=== PATIENT | male | born 1935 | race Caucasian/White ===

== ENCOUNTER 2018-08-01 13:08 | Emergency (ER) | payer MEDICARE, BC ==
[2018-08-01 13:19] VITALS: PULSE 57; TEMP 98.6
[2018-08-01] MEDS ORDERED: MORPHINE SULFATE 4 MG/ML SYRINGE IVP STA (13:32)
[2018-08-01] MEDS ORDERED: ceFAZolin 2,000 MG in DEXTROSE/WATER 1 50ML.BAG IVPB STA (13:32)
[2018-08-01] MEDS ORDERED: LIDOCAINE 1% INJ 10MG/ML (20 ML MDV) SQ ONE (13:34)
[2018-08-01] MEDS ORDERED: ceFAZolin IN SWFI 2 GM/20 ML SYRINGE IVP STA (13:35)
--- NOTE | 2018-08-01 13:49 | ED ---
Wound/Laceration HPI - General Chief Complaint: Wound/Laceration Stated Complaint: laceration on ring finger from planer Time Seen by Provider: 08/01/18 13:18 Source: patient Mode of arrival: ambulatory Limitations: no limitations - History of Present Illness Initial Comments: 83-year-old male with PMH of bladder cancer who presents today for chief complaint of laceration to the ring and middle finger of the left hand about 20 minutes prior to arrival. Patient states that he was working with tools at his home when one of the woodworking tools slipped cutting the tip off the left ring and middle fingers. Patient states he could not locate the tips of fingers. Patient is unsure of her last tetanus. Patient is not on any anticoagulants. He applied pressure and presented emergency department. Pt admits to pain at the site of lacerations, but no pain in other areas of the hands or wrists. Patient denies any recent fever, chills, shortness of breath, chest pain, back pain, abdominal pain, nausea or vomiting, numbness or tingling , dysuria or hematuria, constipation or diarrhea, headaches or visual changes, or any other complaints. Upon arrival patient's vital signs stable. - Related Data Previous Rx's Medication Instructions Recorded Acetaminophen with Codeine 1 tab PO Q6H PRN 3 Days #12 tab 08/01/18 [Tylenol w/codeine #3] Cephalexin [Keflex] 500 mg PO Q8HR 7 Days #21 cap 08/01/18 Allergies Allergy/AdvReac Type Severity Reaction Status Date / Time No Known Allergies Allergy Verified 08/01/18 13:17 Review of Systems ROS Statement: Those systems with pertinent positive or pertinent negative responses have been documented in the HPI. ROS Other: All systems not noted in ROS Statement are negative. Constitutional: Denies: fever, chills, night sweats Eyes: Denies: eye pain ENT: Denies: ear pain, throat pain, dental pain Respiratory: Denies: cough, dyspnea, wheezes, hemoptysis, stridor Cardiovascular: Denies: chest pain, palpitations, dyspnea on exertion Endocrine: Denies: fatigue Gastrointestinal: Denies: abdominal pain, nausea, vomiting, diarrhea, constipation Genitourinary: Denies: urgency, dysuria, frequency Musculoskeletal: Denies: back pain Skin: Reports: as per HPI (laceration tips of ring and middle finger of the left hand) Neurological: Denies: headache, weakness, numbness, paresthesias, confusion, abnormal gait Past Medical History Past Medical History: Hyperlipidemia History of Any Multi-Drug Resistant Organisms: None Reported Past Surgical History: No Surgical Hx Reported Past Psychological History: No Psychological Hx Reported Smoking Status: Never smoker Past Alcohol Use History: Occasional Past Drug Use History: None Reported General Exam - General Exam Comments Initial Comments: General: The patient is awake and alert, in no distress, and does not appear acutely ill. Eye: Pupils are equal, round and reactive to light, extra-ocular movements are intact. No nystagmus. There is normal conjunctiva bilaterally. No signs of icterus. Cardiovascular: There is a regular rate and rhythm. No murmur, rub or gallop is appreciated. Respiratory: Lungs are clear to auscultation, respirations are non-labored, breath sounds are equal. No wheezes, stridor, rales, or rhonchi. Musculoskeletal: Normal ROM, no tenderness. Strength 5/5. Sensation intact. Pulses equal bilaterally 2+. Neurological: A&O x 3. CN II-XII intact, There are no obvious motor or sensory deficits. Coordination appears grossly intact. Speech is normal. Skin: Skin is warm and dry and no rashes or lesions are noted. Finger tip avulsions distal to the DIP joints of the ring and middle finger of the left hand. There is avulsion without flap at the middle finger and avulsion with flap of the ring finger. Pt denies pain to palpation of MCP, metacarpals or carpals of the left hand. No active bleeding. No evidence of FB. Psychiatric: Cooperative, appropriate mood & affect, normal judgment. Limitations: no limitations Course Vital Signs 08/01/18 08/01/18 13:15 15:10 Temperature 98.6 F Pulse Rate 57 L Respiratory 18 16 Rate Blood Pressure 177/60 184/81 O2 Sat by Pulse 98 99 Oximetry Procedures - Laceration Laceration #1 Consent Obtained: verbal consent Time Out Performed: Yes Indication: laceration Site: hand (left avulsion of fingertip ring finger) Size (cm): 3 (emacerated skin) Description: avulsion, irregular Depth: [id number] Anesthesia Technique: nerve block Amount (mls): 5 Pre-repair: wound explored, irrigated extensively Type of Sutures: nylon Size of Sutures: 5-0 Number of Sutures: 3 Technique: simple, interrupted Patient Tolerated Procedure: well, no complications Additional Comments: 1l irrigation, gel foam and bacitracin applied with sterile bandage following approximation Laceration #2 Consent Obtained: verbal consent Time Out Performed: Yes Indication: laceration Site: hand (middle finger avulsion ) Size (cm): 3 Description: avulsion, irregular Depth: [id number] Amount (mls): 5 Type of Sutures: nylon Size of Sutures: 5-0 Number of Sutures: 3 Technique: simple, interrupted Patient Tolerated Procedure: well, no complications Additional Comments: irrigated 1l, gel foam and bacitracin applied Medical Decision Making - Medical Decision Making Wound soaked in iodine/water solution and assessed. Concern for tuff fractures on exam, pt given 2g ancef and morphine 2mg for pain mgmt. Tdap updated. X-ray revealed compound comminuted fractures of the distal phalanges of the left middle and ring fingers. Avulsion with flap was repaired however the tissue was emacerated at the tips of the finger, approximation was completed to the best of my ability. After irrigation with 2L of sterile water. Pt will be discharged with orthopedic follow-up within the next 24 hours on outpatient RX of keflex and tylenol #3 for pain mgmt. There was mild residual bleeding following wound repair gel foam applied and wound was bandaged and finger splints applied. Case discussed with Dr. Arzate who agreed with impression and plan, all imaging was reviewed together. Pt discharged in stable condition with return parameters discussed including bleeding. Pt verbalized understanding. Patient is aware that he has to make his appointment with [facility]. Disposition Clinical Impression: Open fracture of distal phalanx of digit of left hand Disposition: HOME SELF-CARE Condition: Good Instructions: Finger Fracture (ED) Additional Instructions: Please use medication as discussed. Please follow-up with Dr. Bernstein in the next 24 hours and primary care provider in 1-2 days. Please return to emergency room if the symptoms increase or worsen or for any other concerns, continued bleeding. Prescriptions: Acetaminophen with Codeine [Tylenol w/codeine #3] 1 tab PO Q6H PRN 3 Days #12 tab PRN Reason: Pain Cephalexin [Keflex] 500 mg PO Q8HR 7 Days #21 cap Is patient prescribed a controlled substance at d/c from ED?: Yes When asked, does pt state using other controlled substances?: No If prescribed controlled substance>3 days was MAPS reviewed?: Prescribed <3 Days If opioid is for acute pain is fill amount 7 days or less?: Yes If Rx opioid, was Start Talking consent form obtained?: Yes Referrals: Matias Belle MD [Primary Care Provider] - 1-2 days Morgan Melendez MD [Medical Doctor] - 1-2 days Time of Disposition: 15:33
--- NOTE | 2018-08-01 13:55 | XR ---
EXAMINATION TYPE: XR hand limited LT , 2 VIEWS DATE OF EXAM ORDERED: 08/01/2018 HISTORY: finger tip avulsion. COMPARISON: None. FINDINGS: Fractures of both the long and ring fingers of the left hand. These are compound comminuted fractures . There are diffuse degenerative changes about the hands particularly at the base of the thumb. IMPRESSION: COMPOUND COMMINUTED FRACTURES OF THE DISTAL PHALANGES OF THE LEFT LONG AND RING FINGERS. CODE B: INITIAL ENCOUNTER FOR OPEN FRACTURE TYPE ONE OR 2.
[2018-08-01 15:11] VITALS: BP 184/81; RESP 16
[2018-08-01] MEDS ORDERED: DIPH,PERTUS(ACELL)TETVAC-LF 0.5 ML VIAL IM ONE (15:12)
[2018-08-01] MEDS ORDERED: GELATIN SPONGE,ABSORB (LARGE) 1 EACH SPONGE TOPICAL STA (15:17)
== END 2018-08-01 15:56 | disposition home or self-care (01) ==
LOC: EC 13:08
DX: S62.633B Displaced fracture of distal phalanx of left middle finger, initial encounter for open fracture (principal); S62.635B Displaced fracture of distal phalanx of left ring finger, initial encounter for open fracture; Z23 Encounter for immunization; W27.8XXA Contact with other nonpowered hand tool, initial encounter; Y93.89 Activity, other specified; Y92.009 Unspecified place in unspecified non-institutional (private) residence as the place of occurrence of the external cause
CPT/HCPCS: 73120; 90715; 99283; 12002; 96374; 96375; 90471; J2270; J2001; J0690

== ENCOUNTER 2020-09-14 11:15 | Inpatient (IN) | payer MEDICARE, BC ==
--- NOTE | 2020-09-14 11:45 | ED ---
SOB HPI - General Chief Complaint: Shortness of Breath Stated Complaint: abn EKG Time Seen by Provider: 09/14/20 11:25 Source: patient, RN notes reviewed Mode of arrival: wheelchair Limitations: no limitations - History of Present Illness Initial Comments: This is an 85-year-old male presents emergency Department from urgent care with chief complaint of dyspnea, leg swelling. Patient states been having increasing shortness of breath. Patient states that he has no chest pain but states when he exerts himself and states that he gets tightness, feels short of breath and has to sit down which then it resolves. Patient states he only takes Zocor no history of RI or stents. Patient has no prior pulmonary disease. He does note that his legs have been swollen and that he uses a couple pills to sleep at nighttime. Patient states that he does get short of breath and it makes it difficult to complete a sentence. - Related Data Home Medications Medication Instructions Recorded Confirmed Finasteride [Proscar] 5 mg PO DAILY 09/14/20 09/14/20 Simvastatin [Zocor] 40 mg PO HS 09/14/20 09/14/20 Allergies Allergy/AdvReac Type Severity Reaction Status Date / Time No Known Allergies Allergy Verified 09/14/20 13:16 Review of Systems ROS Statement: Those systems with pertinent positive or pertinent negative responses have been documented in the HPI. ROS Other: All systems not noted in ROS Statement are negative. Past Medical History Past Medical History: Hyperlipidemia History of Any Multi-Drug Resistant Organisms: None Reported Past Surgical History: No Surgical Hx Reported Past Psychological History: No Psychological Hx Reported Smoking Status: Never smoker Past Alcohol Use History: Occasional Past Drug Use History: None Reported General Exam Limitations: no limitations General appearance: alert, in no apparent distress Head exam: Present: atraumatic, normocephalic, normal inspection Eye exam: Present: normal appearance, PERRL, EOMI. Absent: scleral icterus, conjunctival injection, periorbital swelling ENT exam: Present: normal exam, normal oropharynx, mucous membranes moist Neck exam: Present: normal inspection, full ROM. Absent: tenderness, meningismus, lymphadenopathy Respiratory exam: Present: normal lung sounds bilaterally. Absent: respiratory distress, wheezes, rales, rhonchi, stridor Cardiovascular Exam: Present: regular rate, normal rhythm, normal heart sounds. Absent: systolic murmur, diastolic murmur, rubs, gallop, clicks GI/Abdominal exam: Present: soft, normal bowel sounds. Absent: distended, tenderness, guarding, rebound, rigid Extremities exam: Present: pedal edema Neurological exam: Present: alert, oriented X3 Skin exam: Present: warm, dry, intact, normal color. Absent: rash Course Vital Signs 09/14/20 09/14/20 09/14/20 11:17 12:10 13:16 Temperature 98.1 F Pulse Rate 84 71 71 Respiratory 18 18 20 Rate Blood Pressure 156/88 164/82 151/75 O2 Sat by Pulse 97 99 99 Oximetry 09/14/20 09/14/20 13:36 13:38 Temperature 97.7 F Pulse Rate 87 Respiratory 24 Rate Blood Pressure 190/96 168/85 O2 Sat by Pulse 95 Oximetry Medical Decision Making - Medical Decision Making 85-year-old presented for exertional dyspnea . Patient does have mild fluid overload, BMP is low at 56. Patient does have an elevated troponin 0.133. Patient will be admitted for evaluation, echocardiogram. - Lab Data Result diagrams: 09/14/20 12:10 09/14/20 12:10 Lab Results 09/14/20 09/14/20 09/14/20 Range/Units 12:10 12:10 12:10 WBC 6.3 (3.8-10.6) k/uL RBC 4.08 L (4.30-5.90) m/uL Hgb 14.1 (13.0-17.5) gm/dL Hct 42.5 (39.0-53.0) % MCV 104.1 H (80.0-100.0) fL MCH 34.6 (25.0-35.0) pg MCHC 33.3 (31.0-37.0) g/dL RDW 12.7 (11.5-15.5) % Plt Count 181 (150-450) k/uL MPV 10.5 Neutrophils % (Manual) 74 % Lymphocytes % (Manual) 18 % Monocytes % (Manual) 7 % Eosinophils % (Manual) 1 % Neutrophils # (Manual) 4.66 (1.3-7.7) k/uL Lymphocytes # (Manual) 1.13 (1.0-4.8) k/uL Monocytes # (Manual) 0.44 (0-1.0) k/uL Eosinophils # (Manual) 0.06 (0-0.7) k/uL Nucleated RBCs 0 (0-0) /100 WBC Manual Slide Review Performed Macrocytosis Slight PT 10.8 (9.0-12.0) sec INR 1.1 (<1.2) APTT 25.5 (22.0-30.0) sec Sodium 139 (137-145) mmol/L Potassium 4.3 (3.5-5.1) mmol/L Chloride 102 (98-107) mmol/L Carbon Dioxide 31 H (22-30) mmol/L Anion Gap 6 mmol/L BUN 18 (9-20) mg/dL Creatinine 0.86 (0.66-1.25) mg/dL Est GFR (CKD-EPI)AfAm >90 (>60 ml/min/1.73 sqM) Est GFR (CKD-EPI)NonAf 79 (>60 ml/min/1.73 sqM) Glucose 100 H (74-99) mg/dL Plasma Lactic Acid Oscar (0.7-2.0) mmol/L Calcium 8.9 (8.4-10.2) mg/dL Magnesium 2.1 (1.6-2.3) mg/dL Total Bilirubin 0.6 (0.2-1.3) mg/dL AST 31 (17-59) U/L ALT 29 (4-49) U/L Alkaline Phosphatase 57 (38-126) U/L Troponin I (0.000-0.034) ng/mL NT-Pro-B Natriuret Pep pg/mL Total Protein 6.8 (6.3-8.2) g/dL Albumin 4.1 (3.5-5.0) g/dL 09/14/20 09/14/20 09/14/20 Range/Units 12:10 12:10 12:10 WBC (3.8-10.6) k/uL RBC (4.30-5.90) m/uL Hgb (13.0-17.5) gm/dL Hct (39.0-53.0) % MCV (80.0-100.0) fL MCH (25.0-35.0) pg MCHC (31.0-37.0) g/dL RDW (11.5-15.5) % Plt Count (150-450) k/uL MPV Neutrophils % (Manual) % Lymphocytes % (Manual) % Monocytes % (Manual) % Eosinophils % (Manual) % Neutrophils # (Manual) (1.3-7.7) k/uL Lymphocytes # (Manual) (1.0-4.8) k/uL Monocytes # (Manual) (0-1.0) k/uL Eosinophils # (Manual) (0-0.7) k/uL Nucleated RBCs (0-0) /100 WBC Manual Slide Review Macrocytosis PT (9.0-12.0) sec INR (<1.2) APTT (22.0-30.0) sec Sodium (137-145) mmol/L Potassium (3.5-5.1) mmol/L Chloride (98-107) mmol/L Carbon Dioxide (22-30) mmol/L Anion Gap mmol/L BUN (9-20) mg/dL Creatinine (0.66-1.25) mg/dL Est GFR (CKD-EPI)AfAm (>60 ml/min/1.73 sqM) Est GFR (CKD-EPI)NonAf (>60 ml/min/1.73 sqM) Glucose (74-99) mg/dL Plasma Lactic Acid Oscar 1.2 (0.7-2.0) mmol/L Calcium (8.4-10.2) mg/dL Magnesium (1.6-2.3) mg/dL Total Bilirubin (0.2-1.3) mg/dL AST (17-59) U/L ALT (4-49) U/L Alkaline Phosphatase (38-126) U/L Troponin I 0.133 H* (0.000-0.034) ng/mL NT-Pro-B Natriuret Pep 586 pg/mL Total Protein (6.3-8.2) g/dL Albumin (3.5-5.0) g/dL Critical Care Time Critical Care Time: Yes Total Critical Care Time: 35 Critical Care Time: 35 minutes of critical care, use initial evaluation patient, reviewed past medical history, ordered and labs EKG and chest x-ray. Patient found to have NSTEMI with an elevated troponin at 0.133, mild fluid overload on chest x-ray. Patient be admitted for cardiology, echocardiogram. Patient was placed on heparin. Disposition Clinical Impression: Exertional dyspnea Disposition: ADMITTED IP TO THIS [facility] Condition: Fair Referrals: None,Stated [Primary Care Provider] - 1-2 days
--- NOTE | 2020-09-14 12:16 | XR ---
EXAMINATION TYPE: XR chest 2V DATE OF EXAM: 09/14/2020 COMPARISON: 10/09/2016 INDICATION: Difficulty breathing, short of breath TECHNIQUE: Frontal and lateral views of the chest are obtained. FINDINGS: The heart size is normal. The pulmonary vasculature is slightly prominent centrally. There is mild increased central lung markings.. There is blunting of the right costophrenic angle co mpatible with a small right pleural effusion IMPRESSION: 1. Clinical correlation recommended for mild volume overload. Follow-up can be performed. 2. Small right pleural effusion
[2020-09-14 12:32] LABS: HCT 42.5 % (39.0-53.0); HGB 14.1 gm/dL (13.0-17.5); MCH 34.6 pg (25.0-35.0); MCHC 33.3 g/dL (31.0-37.0); MCV 104.1 fL (80.0-100.0); Macrocytosis Slight; Mean Platelet Volume 10.5; Platelet Count 181 k/uL (150-450); RBC 4.08 m/uL (4.30-5.90); RDW 12.7 % (11.5-15.5); WBC 6.3 k/uL (3.8-10.6)
[2020-09-14 12:34] LABS: INR 1.1 (<1.2); Partial Thromboplastin Time 25.5 sec (22.0-30.0); Prothrombin Time 10.8 sec (9.0-12.0)
[2020-09-14 12:42] LABS: Eosinophils # (M) 0.06 k/uL (0-0.7); Lymphocytes # (M) 1.13 k/uL (1.0-4.8); Monocytes # (M) 0.44 k/uL (0-1.0); Neutrophils # (M) 4.66 k/uL (1.3-7.7); Neutrophils % (M) 74 %; Nucleated Red Blood Cells 0 /100 WBC (0-0); Total Cells Counted 100
[2020-09-14 12:43] LABS: ALT 29 U/L (4-49); AST 31 U/L (17-59); African American GFR (CKD) >90 (>60 ml/min/1.73 sqM); Albumin 4.1 g/dL (3.5-5.0); Alkaline Phosphatase 57 U/L (38-126); Anion Gap 6 mmol/L; Blood Urea Nitrogen 18 mg/dL (9-20); Calcium 8.9 mg/dL (8.4-10.2); Carbon Dioxide 31 mmol/L (22-30); Chloride 102 mmol/L (98-107); Glucose 100 mg/dL (74-99); Magnesium 2.1 mg/dL (1.6-2.3); Non-African American GFR(CKD) 79 (>60 ml/min/1.73 sqM); Potassium 4.3 mmol/L (3.5-5.1); Sodium 139 mmol/L (137-145); Total Bilirubin 0.6 mg/dL (0.2-1.3); Total Protein 6.8 g/dL (6.3-8.2)
[2020-09-14] MEDS ORDERED: HEPARIN SODIUM,PORCINE 5,000 UNIT/ML 1 ML VIAL IV ONE (13:50)
[2020-09-14] MEDS ORDERED: HEPARIN SODIUM,PORCINE 5,000 UNIT/ML 1 ML VIAL IV PRN (13:50)
[2020-09-14] MEDS ORDERED: NITROGLYCERIN SL TABS 0.4 MG TAB SUBLINGUAL PRN (13:50)
[2020-09-14] MEDS ORDERED: HEPARIN SOD,PORK IN 0.45% NACL 25,000 UNIT in 0.45% NACL 1 250ML.BAG IV SCH (14:00)
[2020-09-14 16:44] VITALS: RESP 18
--- NOTE | 2020-09-14 16:44 | ECHOF ---
Referral Reason:NSTEMI MEASUREMENTS -------- HEIGHT: 170.2 cm WEIGHT: 101.2 kg BP: 168/85 RVIDd: 3.6 cm (< 3.3) IVSd: 1.4 cm (0.6 - 1.1) LVIDd: 5.0 cm (3.9 - 5.3) LVPWd: 1.4 cm (0.6 - 1.1) IVSs: 1.6 cm LVIDs: 3.8 cm LVPWs: 1.7 cm LAESV Index (A-L): 40.29 ml/m Ao Diam: 2.7 cm (2.0 - 3.7) AV Cusp: 1.9 cm (1.5 - 2.6) MV EXCURSION: 18.811 mm (> 18.000) MV EF SLOPE: 152 mm/s (70 - 150) EPSS: 0.7 cm MV E Desean: 1.01 m/s MV DecT: 165 ms MV A Desean: 1.05 m/s MV E/A Ratio: 0.96 RAP: 5.00 mmHg RVSP: 42.73 mmHg FINDINGS -------- Sinus rhythm. This was a technically difficult study with suboptimal apical views. The left ventricular size is normal. There is moderate concentric left ventricular hypertrophy. O verall left ventricular systolic function is mildly impaired with, an EF between 45 - 50 %. Basal p osterior LV wall motion is hypokinetic. Basal inferior LV wall motion is hypokinetic. The right ventricle is mildly enlarged. LA is severely dilated >40 ml/m2 The right atrium is mildly enlarged. 5.0mg of Lumason was utilized for enhancement of images Interatrial and interventricular septum intact. The aortic valve is trileaflet and appears structurally normal. There is mild aortic valve sclerosi s. There is no evidence of aortic regurgitation. There is no evidence of aortic stenosis. Xgby-zy-mjbozqiv mitral regurgitation is present. Aenj-dk-guaahsrv tricuspid regurgitation present. There is mild to moderate pulmonary hypertension. The right ventricular systolic pressure, as measured by Doppler, is 42.73mmHg. There is no pulmonic regurgitation present. The aortic root size is normal. IVC Not well visulized. There is no pericardial effusion. CONCLUSIONS -------- 1. The left ventricular size is normal. 2. There is moderate concentric left ventricular hypertrophy. 3. Overall left ventricular systolic function is mildly impaired with, an EF between 45 - 50 %. 4. Basal posterior LV wall motion is hypokinetic. 5. Basal inferior LV wall motion is hypokinetic. 6. The right ventricle is mildly enlarged. 7. LA is severely dilated >40 ml/m2 8. The right atrium is mildly enlarged. 9. There is mild aortic valve sclerosis. 10. Npzn-cu-jnzgnaoh mitral regurgitation is present. 11. Jcow-vr-ymmxqgso tricuspid regurgitation present. 12. There is mild to moderate pulmonary hypertension. 13. The right ventricular systolic pressure, as measured by Doppler, is 42.73mmHg. OPTIMIZATION MANAGER: Vidya Aguirre RDCS
[2020-09-14] MEDS ORDERED: ATORVASTATIN 40 MG TAB PO SCH (21:00)
--- NOTE | 2020-09-14 21:04 | P.HPIM ---
History of Present Illness H&P Date: 09/14/20 Chief Complaint: Exertional dyspnea Patient is a 85-year-old male with a known history of hyperlipidemia, BPH and occasional alcohol use came to ER from urgent care clinic with complaints of dyspnea and leg swelling. Patient has been having worsening shortness of breath for the past 1 week. No complaints of chest pain. Patient does have exertional dyspnea. No complaints of cough or sputum production. Patient also noted to be having increased leg swelling recently. No fever no chills. No history of recent illnesses. No nausea vomiting or abdominal pain or diarrhea. Patient was seen at urgent care clinic and was also noted to have abnormal EKG and was sent to ER. Chest x-ray showed clinical correlation recommended for mild volume overload. Follow-up can be performed. Small right pleural effusion. 2D echocardiogram showed moderate concentric left ventricular hypertrophy and EF 45 to 50%. Basal posterior LV wall motion is hypokinetic. LA is severely d ilated mild to moderate MR and TR and right ventricular systolic pressure is 42.73 EKG showed normal sinus rhythm. Laboratory data showed WBC 6.3, hemoglobin 14.1 and platelets 181 Troponin 0 0.133, 0.141 and 0.144, BNP 586 Albumin 4.1 Review of Systems Constitutional: Patient denies any fever or chills . No generalized weakness or weight loss. Abdomen: Patient denied nausea vomiting and diarrhea and abdominal pain. Cardiovascular: Patient denied any chest pain. Exertional dyspnea and leg swelling. No palpitations. Respiratory: patient denied any cough or sputum production. No shortness of breath Neurologic: Patient denied any numbness or tingling headache. Musculoskeletal: Patient denies any complaints of joint swelling or deformity. Skin: Negative Psychiatric: Negative Endocrine: No heat or cold intolerance. No recent weight gain. Genitourinary: No dysuria or hematuria. All other 14 point ROS negative except the above Past Medical History Past Medical History: Hyperlipidemia History of Any Multi-Drug Resistant Organisms: None Reported Past Surgical History: No Surgical Hx Reported Past Psychological History: No Psychological Hx Reported Smoking Status: Never smoker Past Alcohol Use History: Occasional Past Drug Use History: None Reported - Past Family History Father Family Medical History: Myocardial Infarction (MD) Mother Family Medical History: Myocardial Infarction (MD) Medications and Allergies Home Medications Medication Instructions Recorded Confirmed Type Finasteride [Proscar] 5 mg PO DAILY 09/14/20 09/14/20 History Simvastatin [Zocor] 40 mg PO HS 09/14/20 09/14/20 History Allergies Allergy/AdvReac Type Severity Reaction Status Date / Time No Known Allergies Allergy Verified 09/14/20 13:16 Physical Exam Vitals: Vital Signs Temp Pulse Resp BP Pulse Ox 09/14/20 18:19 18 09/14/20 16:43 98.0 F 73 18 149/76 96 09/14/20 15:58 97.9 F 98 20 163/74 97 09/14/20 13:38 168/85 09/14/20 13:36 97.7 F 87 24 190/96 95 09/14/20 13:16 71 20 151/75 99 09/14/20 12:10 71 18 164/82 99 09/14/20 11:17 98.1 F 84 18 156/88 97 Intake and Output 09/14/20 09/14/20 09/14/20 06:59 14:59 22:59 Intake Total 29.541 Balance 29.541 Intake: Intake, IV Titration 29.541 Amount Heparin Sod,Pork in 0.45% 29.541 NaCl 25,000 unit In 0.45 % NaCl 1 250ml.bag @ 9.9 UNITS/KG/HR 10.014 mls/hr IV .Q24H [facility] Rx#: [id number] Other: Weight 101.151 kg 101.151 kg PHYSICAL EXAMINATION: Patient is lying in the bed comfortably, no acute distress, awake alert and oriented.. HEENT: Normocephalic. Neck is supple. Pupils reactive. Nostrils clear. Oral cavity is moist. Ears reveal no drainage. Neck reveals no JVD, carotid bruits, or thyromegaly. CHEST EXAMINATION: Trachea is central. Symmetrical expansion. Baseline diminished air entry and minimal crackles. No wheezing.. CARDIAC: Normal S1, S2 with no gallops. No murmurs ABDOMEN: Soft. Bowel sounds normal. No organomegaly. No abdominal bruits. Extremities: 2+ pedal edema. No clubbing or cyanosis Neurologically awake, alert, oriented x3 with well-coordinated movements. No focal deficits noted Skin: No rash or skin lesions. Psychiatric: Coperative. Nonsuicidal Musculoskeletal: No joint swelling or deformity. Normal range of motion. Results CBC & Chem 7: 09/14/20 12:10 09/14/20 12:10 Labs: Abnormal Lab Results - Last 24 Hours (Table) 09/14/20 09/14/20 09/14/20 Range/Units 12:10 12:10 12:10 RBC 4.08 L (4.30-5.90) m/uL MCV 104.1 H (80.0-100.0) fL APTT (22.0-30.0) sec Carbon Dioxide 31 H (22-30) mmol/L Glucose 100 H (74-99) mg/dL Troponin I 0.133 H* (0.000-0.034) ng/mL 09/14/20 09/14/20 09/14/20 Range/Units 15:08 18:01 18:01 RBC (4.30-5.90) m/uL MCV (80.0-100.0) fL APTT 87.5 H (22.0-30.0) sec Carbon Dioxide (22-30) mmol/L Glucose (74-99) mg/dL Troponin I 0.141 H* 0.144 H* (0.000-0.034) ng/mL Thrombosis Risk Factor Assmnt - DVT/VTE Prophylaxis DVT/VTE Prophylaxis: Pharmacologic Prophylaxis ordered - Choose All That Apply Each Risk Factor Represents 3 Points: Age 75 years or older Thrombosis Risk Factor Assessment Total Risk Factor Score: 3 Thrombosis Risk Factor Assessment Level: Moderate Risk Assessment and Plan Assessment: Acute non-ST elevated MD with elevated troponin level. Exertional dyspnea and leg swelling Acute CHF with mildly reduced ejection fraction. Mild to moderate MR and TR and severely dilated LA Pulmonary hypertension Hyperlipidemia BPH DVT prophylaxis patient is already on full anticoagulation Plan: Patient will be continued on telemetry monitoring. Continue with heparin drip and serial troponins. Cardiology was consulted. 2D echocardiogram was ordered which showed ejection fraction 45 to 50%. Patient will be given IV Lasix. Further recommendations based on the clinical course. Discussed with the patient and his at bedside in detail. Time with Patient: Greater than 30
[2020-09-14] MEDS ORDERED: FUROSEMIDE 10 MG/ML 2 ML VIAL IV ONE (21:15)
[2020-09-15] MEDS ORDERED: FINASTERIDE 5 MG TAB PO SCH (09:00)
[2020-09-15] MEDS ORDERED: ASPIRIN 325 MG TAB PO SCH (09:00)
[2020-09-15 09:18] LABS: Mean Platelet Volume 10.7; Platelet Count 166 k/uL (150-450)
[2020-09-15] MEDS ORDERED: METOPROLOL TARTRATE 12.5 MG TAB PO SCH (09:45)
[2020-09-15] MEDS ORDERED: FUROSEMIDE 40 MG TAB PO SCH (09:45)
[2020-09-15] MEDS ORDERED: POTASSIUM CHLORIDE ER 10 MEQ TAB.ER.PRT PO SCH (09:45)
[2020-09-15] MEDS ORDERED: LOSARTAN 50 MG TAB PO SCH (09:45)
[2020-09-15 10:15] VITALS: TEMP 97.2
--- NOTE | 2020-09-15 10:58 | P.CRDCN ---
History of Present Illness Consult date: 09/15/20 Reason for Consult (text): NSTEMI / Elevated Troponin Chief complaint: Shortnes of breath/bilateral lower leg swelling History of present illness: HISTORY OF PRESENT ILLNESS AND PLAN: This is a 85-year-old male with history of occasional EtOH use, BPH, hyperlipidemia and recent complaints of increasing shortness of breath for one week with increasing bilateral lower edema. Patient examined this a.m. at bedside in good spirits and alert/oriented 4. He originally presented to urgent care with complaints of increasing shortness of breath and leg swelling. EKG which showed changes at urgent care and patient was referred to ER. He currently sitting at the bedside with no current complaints of chest pain, chest pressure, shortness of breath or palpitations. BP this am 171/74. Afebrile. 95% on room air. DX of chest shows right pleural effusion and mild volume overload. Troponin elevation 0.133, 0.141, 0.144. BNP 586. Patient is currently sinus rhythm on telemetry heart rate currently 70. He was given 20 mg IV Lasix in the ER has diuresed well. Patient was down 4 kg. Patient states shortness of breath and lower extremity edema is much improved. Echo 09/14/2020 reveals EF mildly reduced at 40-45%, echo does reveal posterior LV wall hypokinesis and basal inferior LV wall hypokinesis. Patient continues with IV heparin. Again patient has no complaints of chest pain or discomfort. Patient has never followed with cardiology in the past. PCP was Dr. Dr. Belle who retired and patient has not met Dr. Gregg as of yet. Patient would like to go home. No DM. No current smoking. SIGNIFICANT PAST MEDICAL HISTORY: Occasional EtOH use, BPH, hyperlipidemia, hypertension PAST SURGICAL HISTORY: See list. EKG = Sinus Rhythm, HR 70 Troponins POSITIVE x 3, 0.133, 0.141, 0.144. SIGNIFICANT LABORATORY VALUES: no significant abnormalities Chest x-ray 09/14/20 = right pleural effusion and mild volume overload Most recent echo = EF 45-50%, moderate concentric LVH. Basal posterior LV wall motion is hypokinetic. Basal inferior LV wall motion is hypokinetic. Mild to moderate MR. Mild to moderate TR. Mild to moderate pulmonary hypertension. REVIEW OF SYSTEMS: CONSTITUTIONAL: Denies fever. Denies chills. EYES: Denies blurred vision. Denies blurred vision or vision changes. Denies eye pain. EARS, NOSE, MOUTH & THROAT: Denies headache. Denies sore throat. Denies ear pain Denies hemoptysis. CARDIOVASCULAR: Denies chest pain. Complains of prior shortness of breath, now improved. Denies orthopnea. Denies PND. Denies palpitations.Complains of bilateral lower extremity edema. RESPIRATORY: Denies cough. Complaints of prior shortness of breath, now improved. GASTROINTESTINAL: Denies abdominal pain or distention. Denies diarrhea. Denies constipation. Denies nausea. Denies vomiting. MUSCULOSKELETAL: Denies myalgias. INTEGUMENTARY: Denies pruitis. Denies rash. ENDOCRINE: Denies fatigue. Denies weight change. Denies polydipsia. Denies poly urina Denies heat/cold intolerance. GENITOURINARY: Denies burning, hematuria or urgency with micturation. HEMATOLOGIC: Denies history of anemia. Denies bleeding. NEUROLOGIC: Denies numbness. Denies tingling. Denies weakness. PSYCHIATRIC: Denies anxiety. Denies depression. PHYSICAL EXAM: GENERAL: Well developed, in no acute distress. HEENT: Head is atraumatic, normocephalic. Pupils are equal, round. Extra ocular movements intact. Mucous membranes moist. Neck supple. No JVD. No carotid bruit. No thyromegaly. LUNGS: Diminshed to auscultation bilaterally. No wheezes, rales or rhonchi. No chest wall tenderness on palpation or with deep breathing. HEART: Regular rate and rhythm, no rubs or gallops. S1 and S2 heard. No murmur. ABDOMEN: Abdominal exam, WNL. Bowel sounds x4 quads. Soft, non-tender, without masses, organomegaly, or abdominal aorta enlargement. EXTREMITIES/VASCULAR: Extremities have easily palpable radial, femoral, dorsalis pedis and posterior tibial pulses. No cyanosis, calf tenderness. Mild 2 BLE edema. NEUROLOGIC: Patient is awake, alert and oriented x3. No focal neurologic abnormalities. FINAL IMPRESSION: 1. Acute CHF 2. Hypertension 3. Hyperlipidemia 4. RIGHT plueural effusion 5. Troponin elevation 6. Reduced EF 45-50%, LV wall motion hypokinesis PLAN: START Lasix by oral route 40 mg once daily. START Metoprolol tartrate 12.5 mg orally twice daily. ASA 81 mg daily. STOP IV heparin. Troponin elevation deemed no acute mycardial injury. OK from a cardiology standpoint to D/C home this afternoon. Pt to follow-up at office on an outpatient basis in 1 week. Heart healty diet. Nurse Practitioner note has been reviewed by the Physician. Signing provider agrees with the documented findings, assessment and plan of care. Past Medical History Past Medical History: Hyperlipidemia History of Any Multi-Drug Resistant Organisms: None Reported Past Surgical History: No Surgical Hx Reported Past Psychological History: No Psychological Hx Reported Smoking Status: Never smoker Past Alcohol Use History: Occasional Past Drug Use History: None Reported - Past Family History Father Family Medical History: Myocardial Infarction ([place]) Mother Family Medical History: Myocardial Infarction ([place]) Medications and Allergies Home Medications Medication Instructions Recorded Confirmed Type Finasteride [Proscar] 5 mg PO DAILY 09/14/20 09/14/20 History Aspirin 81 mg PO DAILY #30 chew 09/15/20 Rx Atorvastatin [Lipitor] 40 mg PO HS #30 tab 09/15/20 Rx Furosemide [Lasix] 40 mg PO DAILY #30 tab 09/15/20 Rx Losartan [Cozaar] 50 mg PO DAILY #30 tab 09/15/20 Rx Metoprolol Tartrate [Lopressor] 12.5 mg PO BID #60 tab 09/15/20 Rx Nitroglycerin Sl Tabs [Nitrostat] 0.4 mg SUBLINGUAL Q5M PRN #30 tab 09/15/20 Rx Potassium Chloride ER [K-Dur 10] 10 meq PO DAILY #30 tab.er.prt 09/15/20 Rx Allergies Allergy/AdvReac Type Severity Reaction Status Date / Time No Known Allergies Allergy Verified 09/14/20 13:16 Physical Exam Vitals: Vital Signs Temp Pulse Pulse Resp BP BP Pulse Ox 09/15/20 08:00 97.2 F L 71 171/74 93 L 09/15/20 03:50 97.8 F 70 18 156/75 95 09/15/20 00:00 97.6 F 77 18 141/70 95 09/14/20 20:00 98.0 F 76 18 145/68 94 L 09/14/20 18:19 18 09/14/20 16:43 98.0 F 73 18 149/76 96 11/20/20 15:58 97.9 F 98 20 163/74 97 09/14/20 13:38 168/85 09/14/20 13:36 97.7 F 87 24 190/96 95 09/14/20 13:16 71 20 151/75 99 09/14/20 12:10 71 18 164/82 99 09/14/20 11:17 98.1 F 84 18 156/88 97 Intake and Output 09/14/20 09/15/20 09/15/20 22:59 06:59 14:59 Intake Total 29.541 100 Balance 29.541 100 Intake: Intake, IV Titration 29.541 Amount Heparin Sod,Pork in 0.45% 29.541 NaCl 25,000 unit In 0.45 % NaCl 1 250ml.bag @ 9.9 UNITS/KG/HR 10.014 mls/hr IV .Q24H [facility] Rx#: [id number] Oral 100 Other: Voiding Method Toilet # Voids 2 Weight 101.151 kg 96.7 kg Results 09/15/20 08:14 09/14/20 12:10 Cardiac Enzymes 09/14/20 09/14/20 09/14/20 Range/Units 12:10 12:10 15:08 AST 31 (17-59) U/L Troponin I 0.133 H* 0.141 H* (0.000-0.034) ng/mL 09/14/20 Range/Units 18:01 AST (17-59) U/L Troponin I 0.144 H* (0.000-0.034) ng/mL Coagulation 09/14/20 09/14/20 09/15/20 Range/Units 12:10 18:01 01:42 PT 10.8 (9.0-12.0) sec APTT 25.5 87.5 H 52.8 H (22.0-30.0) sec 09/15/20 Range/Units 08:14 PT (9.0-12.0) sec APTT 45.7 H (22.0-30.0) sec Lipids 09/15/20 Range/Units 08:14 Triglycerides 128 (<150) mg/dL Cholesterol 148 (<200) mg/dL HDL Cholesterol 42 (40-60) mg/dL CBC 09/14/20 09/15/20 Range/Units 12:10 08:14 WBC 6.3 (3.8-10.6) k/uL RBC 4.08 L (4.30-5.90) m/uL Hgb 14.1 (13.0-17.5) gm/dL Hct 42.5 (39.0-53.0) % Plt Count 181 166 (150-450) k/uL Comprehensive Metabolic Panel 09/14/20 Range/Units 12:10 Sodium 139 (137-145) mmol/L Potassium 4.3 (3.5-5.1) mmol/L Chloride 102 (98-107) mmol/L Carbon Dioxide 31 H (22-30) mmol/L BUN 18 (9-20) mg/dL Creatinine 0.86 (0.66-1.25) mg/dL Glucose 100 H (74-99) mg/dL Calcium 8.9 (8.4-10.2) mg/dL AST 31 (17-59) U/L ALT 29 (4-49) U/L Alkaline Phosphatase 57 (38-126) U/L Total Protein 6.8 (6.3-8.2) g/dL Albumin 4.1 (3.5-5.0) g/dL Current Medications Generic Name Dose Route Start Last Admin Trade Name Freq PRN Reason Stop Dose Admin Aspirin 81 mg 09/16/20 09:00 Aspirin 81 Mg PO DAILY [facility] Atorvastatin Calcium 40 mg 09/14/20 21:00 09/14/20 21:02 Atorvastatin 40 Mg Tab PO Not Given HS [facility] Finasteride 5 mg 09/15/20 09:00 09/15/20 08:51 Finasteride 5 Mg Tab PO 5 mg DAILY [facility] Administration Furosemide 40 mg 09/15/20 09:45 Furosemide 40 Mg Tab PO DAILY [facility] Losartan Potassium 50 mg 09/15/20 09:45 Losartan 50 Mg Tab PO DAILY [facility] Metoprolol Tartrate 12.5 mg 09/15/20 09:45 Metoprolol Tartrate 12.5 Mg Tab PO BID [facility] Nitroglycerin 0.4 mg 09/14/20 13:50 Nitroglycerin Sl Tabs 0.4 Mg Tab SUBLINGUAL Q5M PRN Chest Pain Potassium Chloride 10 meq 09/15/20 09:45 Potassium Chloride Er 10 Meq Tab.Er.Prt PO DAILY [facility] Intake and Output 09/14/20 09/15/20 09/15/20 22:59 06:59 14:59 Intake Total 29.541 100 Balance 29.541 100 Intake: Intake, IV Titration 29.541 Amount Heparin Sod,Pork in 0.45% 29.541 NaCl 25,000 unit In 0.45 % NaCl 1 250ml.bag @ 9.9 UNITS/KG/HR 10.014 mls/hr IV .Q24H [facility] Rx#: [id number] Oral 100 Other: Voiding Method Toilet # Voids 2 Weight 101.151 kg 96.7 kg 09/15/20 08:14 09/14/20 12:10 - EKG Interpretation EKG: sinus rhythm EKG Interpretations (text) Sinus Rhythm
[2020-09-15 15:02] VITALS: BP 158/77; PULSE 69
[2020-09-16] MEDS ORDERED: ASPIRIN 81 MG PO SCH (09:00)
--- NOTE | 2020-09-17 10:30 | CDI ---
Documentation Clarification Form Date: 09/17/20 From: Asha Plata CCS Phone: If you have a question about this query, please contact Kamila Valdez, Metallurgical Inspector at [phone] between 8am and 5pm. Admit Date: 09/14/20 Discharge Date: 09/15/20 Patient Name: Inocencio Ritter Visit Number: [id number] ATTENTION: The Clinical Documentation Specialists (CDI) and [facility] Coding Staff appreciate your assistance in clarifying documentation. Please respond to the clarification below the line at the bottom and electronically sign. The CDI & [facility] Coding staff will review the response and follow-up if needed. Please note: Queries are made part of the Legal Health Record. If you have any questions, please contact the author of this message via ITS. Dear Dr. Neely, Patient presented with troponin of: 0.133, 0.141, 0.144 Consult documents: START Lasix by oral route 40 mg once daily.START Metoprolol tartrate 12.5 mg orally twice daily.ASA 81 mg daily.STOP IV heparin.Troponin elevation deemed no acute mycardial injury.OK from a cardiology standpoint to D/C home this afternoon.Pt to follow-up at office on an outpatient basis in 1 week. Patient history/risk factors: HTN, Acute CHF, Pulmonary HTN, Valve disease Clinical indicators: Elavated troponin, Acute CHF, Shortness of breath Vitals: BP 156/88, RR 18, DC 84, O2 Sat 97 C-Xray: 1.Clinical correlation recommended for mild volume overload.Follow-up can be performed. 2.Small right pleural effusion Treatment: Aspirin 325 mg PO, Lasix 40 mg IV, Heparin IV PRN, Lopressor 12.5 mg PO BID, Cozaar 50 mg PO Daily In your professional opinion, can you please specify the diagnosis, if any, indicated by the above clinical indicators and treatment? Type II MO Elevated troponin Other, please specify Unable to determine Type II MO MTDD
== END 2020-09-15 15:01 | disposition home or self-care (01) | DRG 280 ==
LOC: EC 11:15 → 3SCARD 16:04
PROVIDERS: ADMIT Internal Medicine; ATTEND Internal Medicine
DX: I11.0 Hypertensive heart disease with heart failure (principal); I50.21 Acute systolic (congestive) heart failure; I21.A1 Myocardial infarction type 2; I27.22 Pulmonary hypertension due to left heart disease; I08.1 Rheumatic disorders of both mitral and tricuspid valves; E78.5 Hyperlipidemia, unspecified; N40.0 Benign prostatic hyperplasia without lower urinary tract symptoms; R77.8 Other specified abnormalities of plasma proteins; Z79.899 Other long term (current) drug therapy; Z82.49 Family history of ischemic heart disease and other diseases of the circulatory system
CPT/HCPCS: 36415; 71046; 80053; 80061; 82607; 83605; 83735; 83880; 84443; 84484; 85025; 85049; 85610; 85730; 93005; 93306; 96365; 96366; 99291

== ENCOUNTER → 2020-10-01 | Outpatient (CLI) | payer MEDICARE, BC ==
--- NOTE | 2020-10-01 08:27 | XR ---
EXAMINATION TYPE: XR chest 2V DATE OF EXAM: 10/01/2020 COMPARISON: [facility] x-[facility] September 14, 2020 HISTORY: Pleural effusion. TECHNIQUE: Frontal and lateral views of the chest are obtained. FINDINGS: There is stable blunting of the lateral costophrenic angles bilaterally with mild blunting of the posterior costophrenic angles. Patchy bibasilar opacities remains present. The cardiac silhou ette size is stable and within normal limits with atherosclerotic change aortic knob. Multilevel spur ring in the spine. IMPRESSION: Chronic changes with small to tiny bilateral pleural effusions and patchy bibasilar atel ectasis and/or infiltrate. No significant change from prior study.
== END | disposition home or self-care (01) ==
LOC: RADXRMAIN 07:54
PROVIDERS: ATTEND Internal Medicine Interventional Cardiology
DX: J98.11 Atelectasis (principal); J90 Pleural effusion, not elsewhere classified
CPT/HCPCS: 71046

== ENCOUNTER → 2020-11-09 | Outpatient (CLI) | payer MEDICARE, BC ==
[2020-11-09 09:01] LABS: HCT 43.1 % (39.0-53.0); HGB 14.7 gm/dL (13.0-17.5); MCH 35.6 pg (25.0-35.0); MCHC 34.2 g/dL (31.0-37.0); MCV 104.2 fL (80.0-100.0); Macrocytosis Slight; Mean Platelet Volume 9.8; Platelet Count 183 k/uL (150-450); RBC 4.14 m/uL (4.30-5.90); RDW 12.1 % (11.5-15.5); WBC 6.8 k/uL (3.8-10.6)
[2020-11-09 09:13] LABS: Potassium 5.1 mmol/L (3.5-5.1)
== END | disposition home or self-care (01) ==
LOC: LABPAT 08:31
PROVIDERS: ATTEND Internal Medicine Interventional Cardiology
DX: Z01.818 Encounter for other preprocedural examination (principal); I25.10 Atherosclerotic heart disease of native coronary artery without angina pectoris
CPT/HCPCS: 36415; 80051; 82565; 84520; 85027

== ENCOUNTER 2020-11-16 09:11 | Inpatient (IN) | payer MEDICARE, BC ==
[~2020-11-16 09:11] MED LIST: ALPRAZolam 0.25 MG TAB PO PRN; ALPRAZolam 0.5 MG TAB PO PRN; ASPIRIN 325 MG TAB PO STA; ATORVASTATIN 80 MG TAB PO STA; NITROGLYCERIN SL TABS 0.4 MG TAB SUBLINGUAL PRN; SODIUM CHLORIDE 0.9% 1,000 ML in EMPTY BAG 1 BAG IV ONE
[2020-11-16] MEDS ORDERED: METOPROLOL TARTRATE 12.5 MG TAB PO STA (09:52)
[2020-11-16] MEDS ORDERED: HEPARIN SODIUM 1,000 UN/ML (10ML VL) ONE (11:32)
[2020-11-16] MEDS ORDERED: LIDOCAINE 1% INJ 10MG/ML (20 ML MDV) ONE (11:32)
[2020-11-16] MEDS ORDERED: VERAPAMIL 2.5 MG/ML 2 ML AMP ONE (11:32)
[2020-11-16] MEDS ORDERED: MIDAZOLAM 2 MG/2 ML VIAL IV ONE (11:34)
[2020-11-16] MEDS ORDERED: LIDOCAINE 1% INJ 10MG/ML (20 ML MDV) SQ ONE (11:40)
[2020-11-16] MEDS: VERAPAMIL SYRINGE (5 MG/10 ML) INTRAARTER ONE ×2 (11:42→11:54)
[2020-11-16] MEDS ORDERED: HEPARIN SODIUM 1,000 UN/ML (10ML VL) IV ONE (11:42)
[2020-11-16] MEDS ORDERED: RX INFO: IV CONTRAST WAS GIVEN 1 EACH MISC MISCELLANE PRN (12:07)
[2020-11-16] MEDS ORDERED: HEPARIN SODIUM,PORCINE 5,000 UNIT/ML 1 ML VIAL IV PRN (12:10)
[2020-11-16] MEDS ORDERED: SODIUM CHLORIDE 0.9% 1,000 ML IV SCH (12:15)
--- NOTE | 2020-11-16 12:51 | CC ---
CARDIAC CATHETERIZATION REPORT DATE OF SERVICE: 11/16/2020. PROCEDURE: Left heart catheterization and coronary angiography. PERFORMED BY: Dr. Adina Dowd. Moderate conscious sedation time was 17 minutes. Patient was administered Versed. Oxygen saturation, hemodynamics and EKG were monitored closely. CLINICAL INFORMATION: Mr. Inocencio Ritter is a remarkably healthy 85-year-old gentleman with a history of hypertension and hyperlipidemia, who has been having exertional shortness of breath and chest tightness. Stress test revealed inferior wall reversible defect with inferior wall hypokinesia and ejection fraction in the 45% to 50% range. He was advised cardiac catheterization after due discussion regarding risks, benefits and options. PROCEDURE NOTE: Under local anesthesia and strict aseptic precautions, a 6-Mauritian introducer was placed in the right radial artery. Using a JL3.5 and JR4 catheters, I performed coronary angiography and the same right catheter was used to check LV pressure but LV gram was not performed. The sheath was taken out and TR band applied as per protocol. The results of the cardiac cath were discussed with the patient and also with his . He has significant left main and two-vessel disease. He is advised aortocoronary bypass surgery. Risk is high, but patient is acceptable risk. CARDIAC CATHETERIZATION FINDINGS: The left ventricular end-diastolic pressure was 14 mmHg without any gradient across aortic valve. CORONARY ANGIOGRAPHY FINDINGS: RIGHT CORONARY ARTERY: This is a technically a dominant vessel and proximally right after the ostium, there is a long area of disease of about 95%. Appears to be a chronic lesion. Beyond this, the caliber of the vessel improves and the vessel runs all the way distally and gives off PDA and PLV branches which appear smaller, but because of the tight stenosis, the vessel is not filling very easily. However, this is probably a dominant if not a codominant vessel with a proximal narrowing of 95% eccentric, and probably chronic. I believe this is probably a dominant vessel, but the distal filling is suboptimal because of the tight proximal stenosis. LEFT MAIN CORONARY ARTERY: Long patent vessel. The distal half of which has an 80% narrowing, eccentric in nature just before bifurcation and then the vessel bifurcates into LAD and circumflex. Left main therefore has a 70% to 80% distal lesion. LEFT ANTERIOR DESCENDING CORONARY ARTERY: Fair caliber vessel has a proximal lesion of about 50% to 60%, gives off a first diagonal branch which has a 50% lesion. Then the LAD itself has in the proximal portion an area of about 40% narrowing and the second diagonal comes off and then runs all the way to the apex and curves over the apex to supply the inferoapical portion of left ventricle. LAD is a graftable vessel. LEFT POSTERIOR CIRCUMFLEX CORONARY ARTERY: This vessel gives off a high first obtuse marginal, which has minor irregularities, no significant disease and then it gives off a groove branch and a left atrial circumflex branch and the vessel is then totally occluded and the distal circumflex fills late from ipsilateral collaterals. The circumflex is therefore totally occluded in the midportion after the first obtuse marginal branch which is graftable and is of good caliber. LEFT VENTRICULOGRAM: Left ventriculogram was not performed. FINAL IMPRESSION: This patient has slightly elevated filling pressures, no gradient across the aortic valve, a 70% to 80% distal left main disease, 95% proximal RCA disease, which is a dominant vessel, total occlusion of mid circumflex after a high first obtuse marginal branch. The LAD has about a 50% to 55% lesion proximally and is a graftable vessel. The diagonals also have moderate disease. The circumflex is totally occluded in the midportion, but the first obtuse marginal is graftable. RECOMMENDATIONS: I am recommending urgent aortocoronary bypass surgery with a PARIKH to LAD and vein graft to the obtuse marginal and distal RCA. The findings were discussed with the patient and his . I also spoke to the surgeon, Dr. Granados. The patient will have an echo and a carotid Doppler performed and will be on heparin drip and will go to the telemetry unit. If surgery is considered high risk, I will do High risk PCI of LM, RCA with Impella support. Explained to patient and . MMODL / IJN: [id number] / LAN
[2020-11-16 13:39] LABS: Basophils # (A) 0.1 k/uL (0-0.2); Basophils % (A) 1 %; Eosinophils # (A) 0.1 k/uL (0-0.7); Eosinophils % (A) 1 %; HCT 43.4 % (39.0-53.0); HGB 14.1 gm/dL (13.0-17.5); Lymphocytes # (A) 1.9 k/uL (1.0-4.8); Lymphocytes % (A) 26 %; MCH 33.5 pg (25.0-35.0); MCHC 32.5 g/dL (31.0-37.0); Macrocytosis Slight; Mean Platelet Volume 10.2; Monocytes # (A) 0.4 k/uL (0-1.0); Monocytes % (A) 6 %; Neutrophils # (A) 4.5 k/uL (1.3-7.7); Neutrophils % (A) 62 %; Platelet Count 175 k/uL (150-450); RBC 4.21 m/uL (4.30-5.90); RDW 12.5 % (11.5-15.5); WBC 7.2 k/uL (3.8-10.6)
[2020-11-16 13:48] LABS: INR 1.1 (<1.2); Partial Thromboplastin Time 35.8 sec (22.0-30.0); Prothrombin Time 11.2 sec (9.0-12.0)
[2020-11-16] MEDS ORDERED: NALOXONE 0.4 MG/ML 1 ML VIAL IV PRN (14:50)
[2020-11-16] MEDS ORDERED: bisacodyL 5 MG TABLET.DR PO PRN (14:50)
--- NOTE | 2020-11-16 15:52 | US ---
EXAMINATION TYPE: US carotid duplex BILAT DATE OF EXAM: 11/16/2020 COMPARISON: NONE CLINICAL HISTORY: Pre-Op Cardiac Surgery,Ankle Brachial Index (VENKAT) . EXAM MEASUREMENTS: RIGHT: Peak Systolic Velocity (PSV) cm/sec ----- Right CCA: 61.0 ----- Right ICA: 303.8 ----- Right ECA: 125.8 ICA/CCA ratio: 5.0 RIGHT: End Diastole cm/sec ----- Right CCA: 10.4 ----- Right ICA: 40.4 ----- Right ECA: 14.4 LEFT: Peak Systolic Velocity (PSV) cm/sec ----- Left CCA: 71.1 ----- Left ICA: 143.6 ----- Left ECA: 122.6 ICA/CCA ratio: 2.0 LEFT: End Diastole cm/sec ----- Left CCA: 8.9 ----- Left ICA: 16.0 ----- Left ECA: 11.1 VERTEBRALS (direction of flow): Right Vertebral: Antegrade Left Vertebral: Antegrade Rhythm: Normal Significant stenosis on right side with elevated velocities and ratio. Bilateral shadowing plaque not ed. IMPRESSION: 1. Bilateral atherosclerotic plaque with findings suggestive of a significant greater than 70% stenos is involving the proximal right ICA. 2. Findings suggestive of a 50-69% stenosis involving the proximal left ICA. Criteria for Assigning % of Stenosis / Diameter reduction (Estimation based on the indirect measurements of the internal carotid artery velocities (ICA PSV). 1. Normal (no stenosis)=ICA PSV < 125 cm/s: ratio < 2.0: ICA EDV<40 cm/s. 2. Less than 50% stenosis=ICA PSV < 125 cm/s: ratio < 2.0: ICA EDV<40 cm/s. 3. 50 to 69% stenosis=ICA PSV of 125 to 230 cm/s: ration 2.0 ? 4.0: ICA EDV 40-100 cm/s. 4. Greater than 70% stenosis to near occlusion= ICA PSV > 230 cm/s: ratio > 4.0: ICA EDV > 100 cm/s. 5. Near occlusion= ICA PSV velocities may be low or undetectable: variable ratio and ICA EDV. 6. Total occlusion=unable to detect flow.
--- NOTE | 2020-11-16 16:40 | P.HPIM ---
<Main Belle - Last Filed: 11/16/20 15:16> History of Present Illness H&P Date: 11/16/20 Chief Complaint: Exertional dyspnea with chest tightness History of presenting illness: Patient is an 85-year-old with a past medical history of hypertension and hype rlipidemia. Patient has been experiencing exertional dyspnea over the past couple months and undergoing outpatient treatment with ski lift attendant, Dr. Dowd. Patient had an echocardiogram and found to have suboptimal ejection fraction of 45-50%, he then underwent a cardiac stress test which was reported to be positive for inferior wall reversible defect with inferior wall hypokinesia. Today pt was undergoing a scheduled outpatient cardiac catheterization completed by Dr. Dowd. During cardiac catheterization patient was reportedly found to have severe 3 vessel CAD with 70-80% occlusion of distal LAD and circumflex, 95% occlusion of proximal RCA, and 100% occlusion of mid circumflex. Patient being admitted under hospitalist services for continued close medical management with cardiothoracic evaluation due to cardiology recommendations for urgent aortocoronary bypass. Upon assessment, patient reports having mild swelling to right lower extremity starting approximately one month ago and currently denying having any recent infection or exposure to known ill contacts, fevers, chills, diaphoresis, headache, lightheadedness, dizziness, changes in vision or hearing, difficulty with speech or swallowing, cough or congestion, chest pain or palpitations, shortness of breath, abdominal pain, nausea, vomiting, changes in appetite, changes in her difficulties with urinary or bowel function, or having any pain/tingling/weakness/numbness in extremities. Assessment: Review of Systoms: Pertinent positives and negatives as discussed in HPI, a complete review of systems was performed and all other systems are negative. Physical exam: Vital signs reviewed and stable. General: non toxic, no distress, appears at stated age Derm: Psoriasis, warm, dry Head: atraumatic, normocephalic, symmetric Eyes: No lid lag, anicteric sclera Mouth: no lip lesion, mucus membranes moist Cardiovascular: S1S2 reg, no murmur, no carotid bruits, positive posterior tibial pulses bilaterally, and 1+ pitting edema bilaterally slightly worse on the right. Lungs: Respirations even, regular, and unlabored on room air. Lungs diminished at bilateral bases with soft expiratory wheezes on right. No accessory muscle use. No rhonchi or rales. Abdominal: Obese abdomen soft, nontender to palpation, no guarding, no appreciable organomegaly. Hernia present. Ext: No gross muscle atrophy, no contractures. Range of motion intact. Neuro: Speech clear, sensation and movement grossly intact, no focal neuro deficits Psych: Alert and oriented to person, place, time, and situation., Pleasant and appropriate affect Plan of care: Exertional dyspnea, with significant triple vessel coronary artery disease. -Consult to cardiology, Dr. Dowd. -Consult to cardiothoracic surgery, Dr. Granados. -Continuous telemetry monitoring. -Continuation of heparin infusion. -Continuation of daily medications including: Aspirin 81 mg daily, atorvastatin 40 mg nightly, and metoprolol 25 mg twice a day, Losartan 50 mg daily, and Lasix 20 mg daily. -Carotid Dopplers -Venous Mapping -Heart healthy diet -Lipid profile, Hgb A1c can continue close monitoring of electrolytes with a.m. labs. Hypertension -Monitor vital signs closely and continue home medication regimen with metoprolol and losartan. Hyperlipidemia -Continue home medication management with atorvastatin 40 mg nightly. -Heart healthy diet. -Lipid profile with a.m. labs. The patient is admitted with an anticipated greater than 2 midnight stay for evaluation of unstable angina with significant triple vessel coronary artery disease. CODE STATUS: Full code DVT prophylaxis: Heparin Discussed with: Patient and RN Anticipated discharge date: Undetermined at this time Anticipated discharge place: Home. A total of 45 minutes was spent on the care of this complex patient more than 50% of the time was spent in counseling and care coordination. Past Medical History Past Medical History: Cancer, Hyperlipidemia, Hypertension, Osteoarthritis (OA), Skin Disorder Additional Past Medical History / Comment(s): SOB at times, psoriasis, hx bladder cancer- had chemo, History of Any Multi-Drug Resistant Organisms: None Reported Past Surgical History: Appendectomy, Bladder Surgery, Tonsillectomy Additional Past Surgical History / Comment(s): bladder surgery to remove tumor, "took rib out and drained my lung when I was a baby", elida cataracts Past Anesthesia/Blood Transfusion Reactions: No Reported Reaction Smoking Status: Former smoker - Past Family History Father Family Medical History: Myocardial Infarction ([place]) Mother Family Medical History: Myocardial Infarction ([place]) Medications and Allergies Home Medications Medication Instructions Recorded Confirmed Type Finasteride [Proscar] 5 mg PO DAILY 09/14/20 11/16/20 History Aspirin 81 mg PO DAILY #30 chew 09/15/20 11/16/20 Rx Atorvastatin [Lipitor] 40 mg PO HS #30 tab 09/15/20 11/16/20 Rx Nitroglycerin Sl Tabs [Nitrostat] 0.4 mg SUBLINGUAL Q5M PRN #30 tab 09/15/20 11/16/20 Rx Potassium Chloride ER [K-Dur 10] 10 meq PO DAILY #30 tab.er.prt 09/15/20 11/16/20 Rx Ascorbic Acid [Vitamin C] 1,000 mg PO DAILY 11/15/20 11/16/20 History Cholecalciferol [Vitamin D3 (25 25 mcg PO DAILY 11/15/20 11/16/20 History Mcg = 1000 Iu)] Fish Oil/Dha/Epa [Fish Oil 1,200 1 each PO DAILY 11/15/20 11/16/20 History mg Fish Oil] Furosemide [Lasix] 20 mg PO DAILY 11/15/20 11/16/20 History Losartan [Cozaar] 25 mg PO HS 11/15/20 11/16/20 History Metoprolol Tartrate [Lopressor] 12.5 mg PO BID 11/15/20 11/16/20 History Allergies Allergy/AdvReac Type Severity Reaction Status Date / Time No Known Allergies Allergy Verified 11/16/20 09:28 Physical Exam Vitals: Vital Signs Temp Pulse Pulse Resp BP Pulse Ox 11/16/20 13:30 52 L 20 124/60 95 11/16/20 13:00 63 20 150/79 11/16/20 12:45 97.4 F L 60 20 128/52 11/16/20 12:29 64 18 155/68 97 11/16/20 12:15 64 18 175/78 97 11/16/20 09:49 97.1 F L 74 18 176/75 97 Intake and Output 11/16/20 11/16/20 11/16/20 06:59 14:59 22:59 Intake Total 300 Balance 300 Intake: IV 300 Other: Weight 94.347 kg Results CBC & Chem 7: 11/16/20 13:08 Labs: Abnormal Lab Results - Last 24 Hours (Table) 11/16/20 11/16/20 Range/Units 13:08 13:08 RBC 4.21 L (4.30-5.90) m/uL MCV 103.0 H (80.0-100.0) fL APTT 35.8 H (22.0-30.0) sec Thrombosis Risk Factor Assmnt - Choose All That Apply Each Risk Factor Represents 3 Points: Age 75 years or older Thrombosis Risk Factor Assessment Total Risk Factor Score: 3 Thrombosis Risk Factor Assessment Level: Moderate Risk <Bhavik,Erica Rossana - Last Filed: 11/16/20 17:38> History of Present Illness Patient seen and examined independently. Patient was also seen by Main Belle NP and case was discussed. I am in agreement with subjective, physical exam, assessment and plan as written above and amended below. Patient seen and examined at bedside. No chest pain or shortness of breath currently. All questions answered. General: non toxic, no distress, appears at stated age Derm: warm, dry Head: atraumatic, normocephalic, symmetric Eyes: EOMI, no lid lag, anicteric sclera Mouth: no lip lesion, mucus membranes moist Cardiovascular: S1S2 reg, no murmur, positive posterior tibial pulse bilateral, Lungs: CTA bilateral, no rhonchi, no rales , no accessory muscle use Abdominal: soft, nontender to palpation, no guarding, no appreciable organom egaly Ext: no gross muscle atrophy, trace edema, no contractures Neuro: CN II-XI grossly intact, no focal neuro deficits Psych: Alert, oriented, appropriate affect Symptomatic CAD HTN HLD [place], with hearing Aids Obesity with BMI 32.6 - structured outpatient weight loss Physical Exam Osteopathic Statement: *. No significant issues noted on an osteopathic structural exam other than those noted in the History and Physical/Consult. Vitals: Vital Signs Temp Pulse Pulse Resp BP Pulse Ox 11/16/20 17:03 97.4 F L 20 94 L 11/16/20 16:00 63 20 168/67 11/16/20 15:00 60 20 155/68 11/16/20 14:30 61 20 146/71 11/16/20 14:00 58 L 20 133/64 11/16/20 13:30 52 L 20 124/60 95 11/16/20 13:00 63 20 150/79 11/16/20 12:45 97.4 F L 60 20 128/52 11/16/20 12:29 64 18 155/68 97 11/16/20 12:15 64 18 175/78 97 11/16/20 09:49 97.1 F L 74 18 176/75 97 Intake and Output 11/16/20 11/16/20 11/16/20 06:59 14:59 22:59 Intake Total 300 225 Balance 300 225 Intake: IV 300 Intake, IV Titration 225 Amount Sodium Chloride 0.9% 1, 225 000 ml @ 75 mls/hr IV . [id number] [facility] Rx#:[id number] Other: Weight 94.347 kg Results CBC & Chem 7: 11/16/20 13:08 Labs: Abnormal Lab Results - Last 24 Hours (Table) 11/16/20 11/16/20 Range/Units 13:08 13:08 RBC 4.21 L (4.30-5.90) m/uL MCV 103.0 H (80.0-100.0) fL APTT 35.8 H (22.0-30.0) sec
--- NOTE | 2020-11-16 16:56 | P.GSCN ---
History of Present Illness Consult date: 11/16/20 Reason for Consult: Symptomatic multivessel coronary artery disease with left main disease. Requesting physician: Herberth Dowd History of present illness: This 85-year-old gentleman who is followed by Dr. Citlaly Lindquist on an outpatient basis. He is also followed by Dr. AINSLEY Dowd from [facility]. He is a past medical history significant for hypertension, hyperlipidemia, psoriasis, bladder cancer with 6 chemotherapy treatments, degenerative joint disease and remote history of tobacco abuse in which he quit 20 years ago. Recently, the patient has complaints of shortness of breath which has progressively been getting worse, he also reports some edema to his bilateral lower extremities which is new in the last 3-4 weeks. He denies any complaints of chest pain, chest pressure, nausea, vomiting, fever, chills, orthopnea or palpitations. The patient states that he is fairly active on a daily basis, but fills slightly limited due to his shortness of breath. On 11/06/2020 the patient underwent a Lexiscan stress test which revealed a moderate area of reversible defect suggestive of ischemia. Due to the patient's symptoms and stress test results the patient was recommended to undergo a card iac catheterization for further evaluation. Today 11/16/2020 he underwent a cardiac catheterization performed by Dr. AINSLEY Dowd which demonstrated a 70-80% stenosis to his distal left main coronary artery, a 95% stenosis to his proximal right coronary artery, a total occlusion of his circumflex coronary artery and a 50-55% stenosis to his proximal left anterior descending coronary artery. Due to the findings on the heart catheterization a consult was placed to Dr. Graham Granados from cardiothoracic surgery for further evaluation and treatment recommendations including myocardial revascularization surgery. Review of Systems A 14 point review of systems was completed and was negative except as mentioned in HPI. Past Medical History Past Medical History: Cancer (Bladder cancer with 6 chemotherapy treatments), Eye Disorder (History of cataracts), Hearing Disorder / Deafness (Wears bilateral hearing aids), Hyperlipidemia, Hypertension, Osteoarthritis (OA), Skin Disorder Additional Past Medical History / Comment(s): SOB at times, psoriasis, hx bladder cancer- had chemo, History of Any Multi-Drug Resistant Organisms: None Reported Past Surgical History: Appendectomy, Bladder Surgery, Tonsillectomy Additional Past Surgical History / Comment(s): bladder surgery to remove tumor, "took rib out and drained my lung when I was a baby", elida cataracts Past Anesthesia/Blood Transfusion Reactions: No Reported Reaction Past Psychological History: No Psychological Hx Reported Smoking Status: Former smoker (Quit smoking 20 years ago.) Past Alcohol Use History: Rare Past Drug Use History: None Reported - Past Family History Father Family Medical History: Myocardial Infarction ([place]) Mother Family Medical History: Myocardial Infarction ([place]) Medications and Allergies Home Medications Medication Instructions Recorded Confirmed Type Finasteride [Proscar] 5 mg PO DAILY 09/14/20 11/16/20 History Aspirin 81 mg PO DAILY #30 chew 09/15/20 11/16/20 Rx Atorvastatin [Lipitor] 40 mg PO HS #30 tab 09/15/20 11/16/20 Rx Nitroglycerin Sl Tabs [Nitrostat] 0.4 mg SUBLINGUAL Q5M PRN #30 tab 09/15/20 11/16/20 Rx Potassium Chloride ER [K-Dur 10] 10 meq PO DAILY #30 tab.er.prt 09/15/20 11/16/20 Rx Ascorbic Acid [Vitamin C] 1,000 mg PO DAILY 11/15/20 11/16/20 History Cholecalciferol [Vitamin D3 (25 25 mcg PO DAILY 11/15/20 11/16/20 History Mcg = 1000 Iu)] Fish Oil/Dha/Epa [Fish Oil 1,200 1 each PO DAILY 11/15/20 11/16/20 History mg Fish Oil] Furosemide [Lasix] 20 mg PO DAILY 11/15/20 11/16/20 History Losartan [Cozaar] 25 mg PO HS 11/15/20 11/16/20 History Metoprolol Tartrate [Lopressor] 12.5 mg PO BID 11/15/20 11/16/20 History Allergies Allergy/AdvReac Type Severity Reaction Status Date / Time No Known Allergies Allergy Verified 11/16/20 09:28 Surgical - Exam Vital Signs Temp Pulse Resp BP Pulse Ox 97.1 F L 74 18 176/75 97 11/16/20 09:49 11/16/20 09:49 11/16/20 09:49 11/16/20 09:49 11/16/20 09:49 - General well developed, well nourished, no distress, no pain, obese - Eyes PERRL, normal ocular movement, no icteric - ENT normal pinna, normal nares, normal mucosa, no congestion, decreased hearing, dentures - Neck Neck is supple, no lymphadenopathy. no masses, no bruits, trachea midline, no venous distension - Respiratory Lung sounds essentially clear throughout, few scattered crackles to his bila teral bases. No wheezes or rhonchi. Respirations are symmetrical and nonlabored. - Cardiovascular Regular rhythm and rate. S1 and S2 present, negative for S3 or gallop. Positive faint systolic murmur heard best at the base. +1 edema to his bilateral lower extremities. - Abdomen Abdomen is soft, nontender and nondistended. Active bowel sounds present all 4 abdominal quadrants. No guarding or rigidity. No organomegaly appreciated. - Genitourinary Deferred - Rectum Deferred - Integumentary Psoriasis plaque to his right cheek on his face. no rash, no growths, no abnormal pigmentation - Neurologic Cranial nerves II through XII intact. No focal or motor deficits. - Musculoskeletal normal gait, normal posture - Psychiatric oriented to time, oriented to person, oriented to place, speech is normal, memory intact Results - Labs 11/16/20 13:08 Abnormal Lab Results - Last 24 Hours (Table) 11/16/20 11/16/20 Range/Units 13:08 13:08 RBC 4.21 L (4.30-5.90) m/uL MCV 103.0 H (80.0-100.0) fL APTT 35.8 H (22.0-30.0) sec - Imaging Additional studies: Cardiac catheterization films reviewed by Dr. Granados. Assessment and Plan Assessment: 1. 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 Hypertension 3. Hyperlipidemia 4. History of bladder cancer, status post 6 chemotherapy treatments 5. History of tobacco abuse, quit 20 years ago 6. Degenerative joint disease 7. History of left sided pleural effusion as a child Plan: The patient was seen and examined at his bedside on the cardiac stepdown unit. His chart and diagnostics were reviewed. The patient was also seen and examined by Dr. Graham Granados from cardiothoracic surgery at his bedside. Dr. Granados reviewed the cardiac catheterization results with the patient, discussed treatment options including myocardial revascularization surgery. Preoperative testing and preoperative teaching initiated. Once his preoperative testing has been collected an STS risk or will be calculated and discussed with the patient. Once his preoperative testing has been obtained, further discussions will be discussed regarding myocardial revascularization surgery, as the patient feels that he would like to proceed with myocardial revascularization surgery if the surgical option is offered. Continue to optimize medical management with beta hazel, aspirin, and statin. The patient's Bettie has been updated and her questions were answered to the best ability. We will obtain a 5 m walk test once the patient is able to ambulate. Thank you Dr. Dowd for this consult and we look for to working with you in the care of this patient. Time with Patient: Greater than 30
--- NOTE | 2020-11-16 18:16 | ECHOF ---
Referral Reason:LVEF MEASUREMENTS -------- HEIGHT: 170.2 cm WEIGHT: 94.3 kg BP: 155/68 RVIDd: 3.3 cm (< 3.3) IVSd: 1.4 cm (0.6 - 1.1) LVIDd: 5.0 cm (3.9 - 5.3) LVPWd: 1.3 cm (0.6 - 1.1) IVSs: 1.6 cm LVIDs: 3.9 cm LVPWs: 1.6 cm LA Diam: 3.6 cm (2.7 - 3.8) LAESV Index (A-L): 29.76 ml/m Ao Diam: 2.9 cm (2.0 - 3.7) AV Cusp: 1.9 cm (1.5 - 2.6) MV EXCURSION: 18.048 mm (> 18.000) MV EF SLOPE: 78 mm/s (70 - 150) EPSS: 0.9 cm RAP: 5.00 mmHg RVSP: 34.73 mmHg FINDINGS -------- Sinus rhythm. This was a technically adequate study. The left ventricular size is normal. There is moderate concentric left ventricular hypertrophy. O verall left ventricular systolic function is mild-moderately impaired with, an EF between 40 - 45 %. Basal lateral LV wall motion is hypokinetic. Basal inferior LV wall motion is hypokinetic. Mi d lateral LV wall motion is hypokinetic. Mid inferior LV wall motion is hypokinetic. The right ventricle is mildly enlarged. LA is midly dilated 29-33ml/m2. The right atrial size is normal. 3 ml of Lumason was utilized for enhancement of images. Interatrial and interventricular septum intact. There is mild aortic valve sclerosis. Mild mitral annular calcification present. Moderate mitral regurgitation is present. Mild tricuspid regurgitation present. Right ventricular systolic pressure is normal at < 35 mmHg. The right ventricular systolic pressure, as measured by Doppler, is 34.73mmHg. There is no pulmonic regurgitation present. The aortic root size is normal. Normal inferior vena cava with normal inspiratory collapse consistent with estimated right atrial pre ssure of 5 mmHg. There is no pericardial effusion. CONCLUSIONS -------- 1. The left ventricular size is normal. 2. There is moderate concentric left ventricular hypertrophy. 3. Overall left ventricular systolic function is mild-moderately impaired with, an EF between 40 - 45 %. 4. Basal lateral LV wall motion is hypokinetic. 5. Basal inferior LV wall motion is hypokinetic. 6. Mid lateral LV wall motion is hypokinetic. 7. Mid inferior LV wall motion is hypokinetic. 8. The right ventricle is mildly enlarged. 9. LA is midly dilated 29-33ml/m2. 10. 3 ml of Lumason was utilized for enhancement of images. 11. There is mild aortic valve sclerosis. 12. Moderate mitral regurgitation is present. 13. Mild tricuspid regurgitation present. 14. There is no pericardial effusion. FUR SEWER: Jenniffer Sanders RDCS
[2020-11-16] MEDS: HEPARIN SOD,PORK IN 0.45% NACL 25,000 UNIT in 0.45% NACL 1 250ML.BAG IV SCH (18:37)
[2020-11-16] MEDS: METOPROLOL TARTRATE 25 MG TAB PO SCH (19:45)
[2020-11-16] MEDS: ATORVASTATIN 40 MG TAB PO SCH (19:45)
[2020-11-16 23:20] LABS: Appearance,Urine Clear (Clear); Bilirubin,Urine Negative (Negative); Blood,Urine Negative (Negative); Color,Urine Yellow; Glucose,Urine (UA) Negative (Negative); Ketones,Urine Negative (Negative); Leukocyte Esterase,Urine Small (Negative); Mucus,Urine Rare /hpf; Nitrite,Urine Negative (Negative); PH, Urine 6.5 (5.0-8.0); Protein,Urine Negative (Negative); RBC,Urine 3 /hpf (0-5); Specific Gravity,Urine 1.027 (1.001-1.035); Squamous Epithelial Cell,Urine <1 /hpf (0-4); Urobilinogen,Urine <2.0 mg/dL (<2.0); WBC,Urine 1 /hpf (0-5)
[2020-11-16] MEDS: MELATONIN 3 MG TABLET PO PRN (23:32)
[2020-11-17 07:48] LABS: Basophils # (A) 0.1 k/uL (0-0.2); Basophils % (A) 1 %; Eosinophils # (A) 0.1 k/uL (0-0.7); Eosinophils % (A) 2 %; HCT 44.5 % (39.0-53.0); HGB 15.1 gm/dL (13.0-17.5); Lymphocytes # (A) 1.9 k/uL (1.0-4.8); Lymphocytes % (A) 29 %; MCH 34.7 pg (25.0-35.0); MCHC 33.9 g/dL (31.0-37.0); MCV 102.4 fL (80.0-100.0); Mean Platelet Volume 9.6; Monocytes # (A) 0.4 k/uL (0-1.0); Monocytes % (A) 6 %; Neutrophils # (A) 3.7 k/uL (1.3-7.7); Neutrophils % (A) 58 %; Platelet Count 173 k/uL (150-450); RBC 4.35 m/uL (4.30-5.90); RDW 12.1 % (11.5-15.5); WBC 6.4 k/uL (3.8-10.6)
[2020-11-17 08:32] LABS: ALT 19 U/L (4-49); AST 26 U/L (17-59); African American GFR (CKD) >90 (>60 ml/min/1.73 sqM); Albumin 4.2 g/dL (3.5-5.0); Alkaline Phosphatase 77 U/L (38-126); Anion Gap 5 mmol/L; Blood Urea Nitrogen 18 mg/dL (9-20); Calcium 9.3 mg/dL (8.4-10.2); Carbon Dioxide 30 mmol/L (22-30); Chloride 105 mmol/L (98-107); Cholesterol 149 mg/dL (<200); Glucose 114 mg/dL (74-99); Magnesium 2.2 mg/dL (1.6-2.3); Non-African American GFR(CKD) 79 (>60 ml/min/1.73 sqM); Potassium 4.3 mmol/L (3.5-5.1); Sodium 140 mmol/L (137-145); Total Bilirubin 0.8 mg/dL (0.2-1.3); Total Protein 7.2 g/dL (6.3-8.2); Triglycerides 106 mg/dL (<150)
[2020-11-17] MEDS ORDERED: NON FORMULARY DRUG (Fish Oil/Dha/Epa [Fish Oil 1,200 Mg Fish Oil] 1 EACH Capsule) PO SCH (09:00)
[2020-11-17] MEDS ORDERED: LOSARTAN 50 MG TAB PO SCH (09:00)
[2020-11-17] MEDS: FUROSEMIDE 20 MG TAB PO SCH (09:06)
[2020-11-17] MEDS: METOPROLOL TARTRATE 25 MG TAB PO SCH ×2 (09:06→19:50)
[2020-11-17] MEDS: ASPIRIN 81 MG PO SCH (09:06)
--- NOTE | 2020-11-17 09:06 | P.PN ---
Subjective Progress Note Date: 11/17/20 Principal diagnosis: exertional dyspnea Patient is an 85-year-old with hypertension and dyslipidemia who presented for elective heart cath. He underwent a cardiac stress test which was positive for inferior wall reversible defect with hypokinesis, Dr. Dowd then recommended hea rt cath. This was completed on 11/16/20 and showed severe three-vessel coronary artery disease with 70-80% occlusion of the distal LAD and circumflex, 95% occlusion of the proximal RCA, and 100% occlusion of the mid circumflex. He was subsequently admitted under our service for evaluation of possible bypass. He underwent an echocardiogram which showed an ejection fraction of 40-45%, carotid Dopplers which showed greater than 70% stenosis on the right 50- 69% stenosis on the left. Dr. Dinh was consulted. Currently awaiting results of venous mapping, CTA chest, and pulmonary function tests. Patient seen and examined at bedside. He denies chest pain or shortness of breath. He is anxious about when he will have surgery. I readdressed with him that this will not be happening today and likely would not occur until Thursday at the earliest. I still explained to him that we are waiting for the results of more testing before definitive answer is made as to whether or not he will undergo cardiac bypass surgery. He does report intermittent dizzines that self resolves. He reports that the dizziness happens randomly. He is unsure if it happens with exertion or with movement of his head. General: non toxic, no distress, appears at stated age Derm: warm, dry Head: atraumatic, normocephalic, symmetric Eyes: EOMI, no lid lag, anicteric sclera Mouth: no lip lesion, mucus membranes moist Cardiovascular: S1S2 reg, no murmur, positive posterior tibial pulse bilateral, Lungs: CTA bilateral, no rhonchi, no rales , no accessory muscle use Abdominal: soft, nontender to palpation, no guarding, no appreciable organomegaly Ext: no gross muscle atrophy, trace edema, no contractures Neuro: CN II-XI grossly intact, no focal neuro deficits Psych: Alert, oriented, appropriate affect Symptomatic 3-vessel arthrosclerotic disease, [place] vessel - CT surgery recs awaiting results of venous mapping, CT chest, and PFT - Cardio recs - ASA, statin Ischemic cardiomyopathy with EF 40-45% - BB, ARB - Lasix - Strict I and O - Dialy weights - off IVF B/L Carotid disease - ASA, plavix, Statin - CT surgery recs HTN - Metoprolol, Cozaar, Lasix - follow BP HLD - statin Obesity BMI 33.3 - structured outpatient weight loss HX bladder CA Hx tobacco abuse Transition to inpatient for continued eval nicole cardiac bypass surgery due to symptomatic triple vessel disease DVT prophylaxis: Heparin gtt Discussed with: Patient, nursing Anticipated discharge: undetermined Anticipated discharge place: home A total of 25 minutes was spent on the care of this complex patient more than 50% of the time was spent in counseling and care coordination. Objective - Vital Signs Vital signs: Vital Signs Temp 97.6 F 11/17/20 03:26 Pulse 68 11/17/20 03:26 Resp 18 11/17/20 03:26 BP 152/88 11/17/20 03:26 Pulse Ox 94 L 11/17/20 03:26 Intake & Output 11/16/20 11/17/20 11/17/20 18:59 06:59 18:59 Intake Total 747 480 240 Output Total 400 Balance 747 80 240 Weight 94.347 kg 96.3 kg Intake: IV 300 Intake, IV Titration 225 Amount Sodium Chloride 0.9% 1, 225 000 ml @ 75 mls/hr IV . [id number] [id number] Rx#:[id number] Oral 222 480 240 Output: Urine 400 Other: # Voids 1 - Labs CBC & Chem 7: 11/17/20 07:20 Labs: Abnormal Lab Results - Last 24 Hours (Table) 11/16/20 11/16/20 11/16/20 Range/Units 13:08 13:08 23:10 RBC 4.21 L (4.30-5.90) m/uL MCV 103.0 H (80.0-100.0) fL APTT 35.8 H (22.0-30.0) sec Ur Leukocyte Esterase Small H (Negative) Urine Mucus Rare H (None) /hpf 11/17/20 11/17/20 11/17/20 Range/Units 01:11 07:20 07:20 RBC (4.30-5.90) m/uL MCV 102.4 H (80.0-100.0) fL APTT 60.3 H 82.5 H (22.0-30.0) sec Ur Leukocyte Esterase (Negative) Urine Mucus (None) /hpf Microbiology - Last 24 Hours (Table) 11/16/20 16:42 Nasal Screen MRSA/MSSA - Preliminary Nasal Swab
[2020-11-17] MEDS: ASCORBIC ACID 500 MG TAB PO SCH (09:07)
[2020-11-17] MEDS: FINASTERIDE 5 MG TAB PO SCH (09:07)
[2020-11-17] MEDS: CHOLECALCIFEROL 25 MCG (1000 IU) TABLET PO SCH (09:07)
[2020-11-17] MEDS: POTASSIUM CHLORIDE ER 10 MEQ TAB.ER.PRT PO SCH (09:07)
[2020-11-17 09:11] LABS: HDL Cholesterol 43 mg/dL (40-60); LDL Cholesterol,Calculated 85 mg/dL (0-99)
[2020-11-17] MEDS ORDERED: MD COMMUNICATION TO PHARMACY 1 EACH MISC PO ONE ×5 (11:57)
[2020-11-17 12:28] LABS: Hepatitis A Antibody IgM Non-Reactive (Non-Reactive); Hepatitis B Core IgM Non-Reactive (Non-Reactive); Hepatitis B Surface Antigen Non-Reactive (Non-Reactive); Hepatitis C IgG Antibody Non-Reactive (Non-Reactive)
--- NOTE | 2020-11-17 12:35 | P.CNPUL ---
History of Present Illness Consult date: 11/17/20 Reason for consult: COPD History of present illness: A 5-year-old male patient, known history of hypertension and hyperlipidemia and previous history of bladder cancer treated with systemic chemotherapy, and ex- smoker quit smoking approximately 20 years ago presented with exertional dyspnea that was progressively getting worse. The patient also had worsening lower extremity edema. He denies having any significant chest pain. The patient underwent a cardiac stress test on 11/06/2020 and the patient was found to have moderate area of reversible defect suggestive of ischemia. Following that, the patient underwent a cardiac catheterization 11/16/2020 and the patient was found to have a 70-80% stenosis of the distal left main artery, 95% stenosis of the proximal RCA, total occlusion of the circumflex with a 50-55% stenosis of the proximal LAD. The patient is being considered for cardiac bypass surgery and pulmonary consultation was requested. The chest x-rays was done on 10/01/2020 showed small bilateral pleural effusion and atelectatic changes in the lung bases. Repeat CAT scan of the chest that was done on 11/16/2020 showed of the lung parenchyma showed some mild emphysema. No evidence of pleural effusion. No evidence of any lung masses. The patient's had an FEV1 on a bedside spirometry of 46% of predicted. He is currently on IV heparin. The echo shows an ejection fraction of 40-45%. The segmental wall motion abnormalities related to his underlying CAD. There is moderate concentric LVH. RV is mildly dilated. There is moderate mitral regurgitation. Aortic valve seems to be within normal limits. Nevertheless, there is moderate degree of concentric LV hypertrophy consistent with hypertensive heart disease. Review of Systems Constitutional: Denies chills, Denies fever Eyes: denies as per HPI, denies blurred vision, denies bulging eye, denies decreased vision, denies diplopia, denies discharge, denies dry eye, denies irritation, denies itching, denies pain, denies photophobia, denies loss of peripheral vision, denies loss of vision, denies tunnel vision/blind spots Ears: deny: decreased hearing, ear discharge, earache, tinnitus Breasts: absent: as per HPI, gynecomastia Cardiovascular: Reports decreased exercise tolerance, Reports dyspnea on exertion Respiratory: Reports dyspnea Gastrointestinal: Reports as per HPI Genitourinary: Reports as per HPI Musculoskeletal: Reports as per HPI Musculoskeletal: bilateral: ankle swelling, absent: ankle pain, ankle stiffness Integumentary: Reports as per HPI Neurological: Reports as per HPI Psychiatric: Reports as per HPI Endocrine: Reports as per HPI Hematologic/Lymphatic: Reports as per HPI Allergic/Immunologic: Reports as per HPI Past Medical History Past Medical History: Coronary Artery Disease (CAD), Cancer (Bladder cancer with 6 chemotherapy treatments), Eye Disorder (History of cataracts), Hearing Disorder / Deafness (Wears bilateral hearing aids), Hyperlipidemia, Hypertension, Osteoarthritis (OA), Skin Disorder Additional Past Medical History / Comment(s): SOB at times, psoriasis, hx bladder cancer- had chemo, History of Any Multi-Drug Resistant Organisms: None Reported Past Surgical History: Appendectomy, Bladder Surgery, Tonsillectomy Additional Past Surgical History / Comment(s): bladder surgery to remove tumor, "took rib out and drained my lung when I was a baby", elida cataracts Past Anesthesia/Blood Transfusion Reactions: No Reported Reaction Past Psychological History: No Psychological Hx Reported Smoking Status: Former smoker (Quit smoking 20 years ago.) Past Alcohol Use History: Rare Past Drug Use History: None Reported - Past Family History Father Family Medical History: Myocardial Infarction ([place]) Mother Family Medical History: Myocardial Infarction ([place]) Medications and Allergies Home Medications Medication Instructions Recorded Confirmed Type Finasteride [Proscar] 5 mg PO DAILY 09/14/20 11/16/20 History Aspirin 81 mg PO DAILY #30 chew 09/15/20 11/16/20 Rx Atorvastatin [Lipitor] 40 mg PO HS #30 tab 09/15/20 11/16/20 Rx Nitroglycerin Sl Tabs [Nitrostat] 0.4 mg SUBLINGUAL Q5M PRN #30 tab 09/15/20 11/16/20 Rx Potassium Chloride ER [K-Dur 10] 10 meq PO DAILY #30 tab.er.prt 09/15/20 0 11/16/20 Rx Ascorbic Acid [Vitamin C] 1,000 mg PO DAILY 11/15/20 11/16/20 History Cholecalciferol [Vitamin D3 (25 25 mcg PO DAILY 11/15/20 11/16/20 History Mcg = 1000 Iu)] Fish Oil/Dha/Epa [Fish Oil 1,200 1 each PO DAILY 11/15/20 11/16/20 History mg Fish Oil] Furosemide [Lasix] 20 mg PO DAILY 11/15/20 11/16/20 History Losartan [Cozaar] 25 mg PO HS 11/15/20 11/16/20 History Metoprolol Tartrate [Lopressor] 12.5 mg PO BID 11/15/20 11/16/20 History Allergies Allergy/AdvReac Type Severity Reaction Status Date / Time No Known Allergies Allergy Verified 11/16/20 09:28 Physical Exam Vitals: Vital Signs Temp Pulse Resp BP Pulse Ox 11/17/20 11:19 97.6 F 64 18 173/77 93 L 11/17/20 08:00 96.7 F L 73 18 152/99 96 11/17/20 03:26 97.6 F 68 18 152/88 94 L 11/17/20 00:00 97.7 F 55 L 16 131/76 95 11/16/20 20:00 97.4 F L 62 18 111/49 93 L 11/16/20 17:03 97.4 F L 20 94 L 11/16/20 16:00 63 20 168/67 11/16/20 15:00 60 20 155/68 11/16/20 14:30 61 20 146/71 11/16/20 14:00 58 L 20 133/64 11/16/20 13:30 52 L 20 124/60 95 11/16/20 13:00 63 20 150/79 11/16/20 12:45 97.4 F L 60 20 128/52 11/16/20 12:29 64 18 155/68 97 Intake and Output 11/16/20 11/17/20 11/17/20 22:59 06:59 14:59 Intake Total 687 240 391.667 Output Total 0 400 Balance 687 -160 391.667 Intake: Intake, IV Titration 225 151.667 Amount Heparin Sod,Pork in 0.45% 151.667 NaCl 25,000 unit In 0.45 % NaCl 1 250ml.bag @ 10. 599 UNITS/KG/HR 10 mls/hr IV .Q24H [facility] Rx#: [id number] Sodium Chloride 0.9% 1, 225 000 ml @ 75 mls/hr IV . [id number] [facility] Rx#:[id number] Oral 462 240 240 Output: Urine 0 400 Other: # Voids 1 3 Weight 96.3 kg General: non toxic, no distress, appears at stated age Derm: warm, dry Head: atraumatic, normocephalic, symmetric Eyes: EOMI, no lid lag, anicteric sclera Mouth: no lip lesion, mucus membranes moist Cardiovascular: S1S2 reg, no murmur, positive posterior tibial pulse bilateral, Lungs: CTA bilateral, no rhonchi, no rales , no accessory muscle use Abdominal: soft, nontender to palpation, no guarding, no appreciable organomegaly Ext: no gross muscle atrophy, trace edema, no contractures Neuro: CN II-XI grossly intact, no focal neuro deficits Psych: Alert, oriented, appropriate affect Results - Laboratory Findings CBC and BMP: 11/17/20 07:20 11/17/20 07:20 PT/INR, D-dimer PT 11.2 sec (9.0-12.0) 11/16/20 13:08 INR 1.1 (<1.2) 11/16/20 13:08 Abnormal lab findings: Abnormal Labs 11/16/20 11/16/20 11/16/20 13:08 13:08 23:10 RBC 4.21 L MCV 103.0 H APTT 35.8 H Glucose Ur Leukocyte Esterase Small H Urine Mucus Rare H 11/17/20 11/17/20 11/17/20 01:11 07:20 07:20 RBC MCV APTT 60.3 H 82.5 H Glucose 114 H Ur Leukocyte Esterase Urine Mucus 11/17/20 07:20 RBC MCV 102.4 H APTT Glucose Ur Leukocyte Esterase Urine Mucus - Diagnostic Findings Chest x-ray: image reviewed CT scan - chest: image reviewed Assessment and Plan Plan: 1. 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 In terms of his his pulmonary status, the patient has a moderate degree of obstructive airway limitation. I think the spirometry itself is somewhat suboptimal to accurately assess his lung capacity. His pulse ox is above 92% on room air oxygen. His CAT scan of the chest shows no acute abnormalities. No pulmonary lesions or nodules. No effusions. He is using incentive spirometer and he is pulling approximately 1750 on his IS 2. Hypertension 3. Hyperlipidemia 4. History of bladder cancer, status post intravesicular chemotherapy and transurethral bladder tumor resections. 5. History of tobacco abuse, quit 20 years ago 6. Degenerative joint disease Plan: Overall pulmonary status is stable. This patient does have some underlying pulmonary insufficiency probably moderately severe COPD. Nevertheless, his COPD stable. Spirometry was reviewed. CAT scan of the chest was reviewed. He is utilizing incentive spirometer. Pulse ox is above 90% on room air. No signs of pneumonia. No significant pleural effusions. Will monitor his progress and will be taking care of this patient postop, manage the ventilator and attempt for any pulmonary issues that may arise postop. We'll continue to follow.
--- NOTE | 2020-11-17 12:37 | P.PN ---
Subjective Progress Note Date: 11/17/20 Principal diagnosis: Symptomatic multivessel coronary artery disease with left main disease, moderate mitral valve regurgitation. Past medical history significant for hypertension, hyperlipidemia, non-ST elevated myocardial infarction in August 2020, history of congestive heart failure with a mildly reduced ejection fraction of 40-45%, psoriasis, history of bladder cancer with 6 chemotherapy treatments, benign prostatic hypertrophy, degenerative joint disease, and remote history of tobacco abuse in which he quit 20 years ago. The patient was seen in follow-up today at his bedside on the cardiac stepdown unit. Currently he is sitting up to the bedside edge, is awake, alert and oriented 3. Denies any complaints of pain or shortness of breath while sitting. As part of his preoperative testing a carotid duplex study was completed yesterday which demonstrated bilateral atherosclerotic plaque with findings suggestive of a significant greater than 70% stenosis involving the proximal right ICA and a 50-69% left ICA. A bedside FEV1 was completed which showed a value of 1.14 and a predicted value of 46%. Laboratory results today show his WBC count 6.4, hemoglobin 15.1, platelets 173, BUN 18, creatinine 0.86, and proBNP level 606. A 5 m walk test was completed with the patient today with time 1: 4.09 seconds, time 2: 4.93 seconds, time 3: 3.96 seconds. The patient tolerated the 5 m walk test well, although complained of some shortness of breath during the walk test in which he quickly recovered with rest. An STS risk score was calculated and discussed with the patient by Dr. Steven Garcia. Treatment options including myocardial revascularization surgery were discussed with the patient, his and his daughter Pushpa. Knowing and understanding the risks and benefits of myocardial revascularization surgery the patient wishes to proceed with the surgical option. Objective - Vital Signs Vital signs: Vital Signs Temp 96.7 F L 11/17/20 08:00 Pulse 73 11/17/20 08:00 Resp 18 11/17/20 08:00 BP 152/99 11/17/20 08:00 Pulse Ox 96 11/17/20 08:00 Intake & Output 11/16/20 11/17/20 11/17/20 18:59 06:59 18:59 Intake Total 747 480 240 Output Total 400 Balance 747 80 240 Weight 94.347 kg 96.3 kg Intake: IV 300 Intake, IV Titration 225 Amount Sodium Chloride 0.9% 1, 225 000 ml @ 75 mls/hr IV . [id number] [facility] Rx#:[id number] Oral 222 480 240 Output: Urine 400 Other: # Voids 1 - Constitutional General appearance: Present: cooperative, no acute distress, obese - EENT Eyes: Present: normal appearance. Absent: scleral icterus ENT: Present: hard of hearing - Neck Details: Neck is supple, no JVD, no lymphadenopathy. Carotids: negative: bruit present - Respiratory Details: Lungs essentially clear throughout, diminished to his bilateral bases with few scattered crackles. No wheezes or rhonchi. Respirations are symmetrical and nonlabored. - Cardiovascular Details: Regular rhythm and rate. S1 and S2 present, negative for S3, gallop or murmur. +1 edema to his bilateral lower extremities. - Gastrointestinal Gastrointestinal Comment(s): Abdomen is soft, nontender and nondistended. Obese. Active bowel sounds present in all 4 abdominal quadrants. No guarding or rigidity. No organomegaly appreciated. - Genitourinary Genitourinary Comment(s): Continues to void. - Integumentary Integumentary Comment(s): Skin is warm and dry. No clubbing or cyanosis is present. Psoriasis plaque to his right cheek. - Neurologic Neurologic: Present: CNII-XII intact. Absent: focal deficits - Musculoskeletal Musculoskeletal: Present: gait normal, strength equal bilaterally - Psychiatric Psychiatric: Present: A&O x's 3, appropriate affect, intact judgment & insight - Labs CBC & Chem 7: 11/17/20 07:20 11/17/20 07:20 Labs: Abnormal Lab Results - Last 24 Hours (Table) 11/16/20 11/16/20 11/16/20 Range/Units 13:08 13:08 23:10 RBC 4.21 L (4.30-5.90) m/uL MCV 103.0 H (80.0-100.0) fL APTT 35.8 H (22.0-30.0) sec Glucose (74-99) mg/dL Ur Leukocyte Esterase Small H (Negative) Urine Mucus Rare H (None) /hpf 11/17/20 11/17/20 11/17/20 Range/Units 01:11 07:20 07:20 RBC (4.30-5.90) m/uL MCV (80.0-100.0) fL APTT 60.3 H 82.5 H (22.0-30.0) sec Glucose 114 H (74-99) mg/dL Ur Leukocyte Esterase (Negative) Urine Mucus (None) /hpf 11/17/20 Range/Units 07:20 RBC (4.30-5.90) m/uL MCV 102.4 H (80.0-100.0) fL APTT (22.0-30.0) sec Glucose (74-99) mg/dL Ur Leukocyte Esterase (Negative) Urine Mucus (None) /hpf Microbiology - Last 24 Hours (Table) 11/16/20 16:42 Nasal Screen MRSA/MSSA - Preliminary Nasal Swab - Imaging and Cardiology Carotid duplex results reviewed by Dr. Steven Garcia, 2-D echocardiogram results reviewed by Dr. Steven Garcia, computed tomography scan of the chest without contrast results reviewed by Dr. Steven Garcia. Assessment and Plan Assessment: 1. 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 Hypertension 3. Hyperlipidemia 4. History of bladder cancer, status post 6 chemotherapy treatments 5. History of tobacco abuse, quit 20 years ago 6. Degenerative joint disease 7. Non-ST elevated myocardial infarction in August 2020 8. History of congestive heart failure with a reduced ejection fraction of 40- 45% 9. History of left sided pleural effusion as a child with one rib removed according to the patient Plan: 1. Continue to maximize medical therapy with aspirin, statin and beta hazel. 2. Discontinue Cozaar for preoperative myocardial revascularization surgery. 3. The patient is scheduled for myocardial revascularization surgery with left internal mammary artery, endoscopic vein harvest and intraoperative transesophageal echocardiogram for Thursday, November 19, 2020 to be performed by Dr. Adams Parker. 4. Continue to reinforce preoperative teaching. 5. 5 m walk test completed with the patient, time 1: 4.09 seconds, time 2: 4.93 seconds, time 3: 3.96 seconds. 6. Medical management and other comorbidities per primary care service. 7. Nothing by mouth after midnight on 11/19/2020. 8. Obtain consent for myocardial revascularization surgery. 9. More recommendations to follow based on patient's clinical course. Time with Patient: Greater than 30
--- NOTE | 2020-11-17 14:25 | P.PN ---
Subjective Progress Note Date: 11/17/20 HISTORY OF PRESENT ILLNESS This is an 85-year-old gentleman with history of hypertension and hyperlipidemi a. Patient complained of exertional shortness of breath and chest tightness. He underwent a stress test that revealed inferior wall reversible defect and inferior wall hypokinesia with ejection fraction 45-50%. Patient was advised to undergo heart catheterization which revealed 70-80% distal left main disease, 95% proximal RCA disease which is a dominant vessel, total occlusion of a mid circumflex after a high first obtuse marginal branch. LAD 50-55% lesion proximally and is a graftable vessel. Diagonal have moderate disease. Circumflex is totally occluded in the midportion but the first obtuse marginal is graftable. Recommendations were for CABG. Echocardiogram reveals EF of 40-45%, moderate concentric left hypertrophy, mild aortic valve sclerosis, moderate mitral regurgitation, mild tricuspid regurgitation. No pericardial effusion. Patient has been evaluated by cardiothoracic team and is scheduled for surgery on Thursday. They're requesting that all ARB's, Jorge inhibitors and CCB pedis continued prior to surgery. Patient does have ongoing hypertension for which hydralazine will be added. Patient denies any complaints today. No chest pain or shortness of breath. He is comfortable at rest. PHYSICAL EXAMINATION Gen: This is a an 85-year-old male. He is sitting up in a recliner and appears to be comfortable. No acute distress noted. VS: [ ] HEENT: Head is atraumatic, normocephalic. Pupils equal, round. Sclerae is anicteric. NECK: Supple. No JVD. No lymphadenopathy. No thyromegaly. LUNGS: Clear to auscultation. No wheezes or rhonchi. No intercostal retractions. HEART: Regular rate and rhythm. No murmur. ABDOMEN: Soft. Bowel sounds are present. No masses. No tenderness. EXTREMITIES: Trace bilateral pedal edema. No calf tenderness. NEUROLOGICAL: Patient is awake, alert and oriented x3. Cranial nerves 2 through 12 are grossly intact. ASSESSMENT Multivessel coronary artery disease Hypertension Hyperlipidemia History of bladder cancer status post intravesicular chemotherapy and transurethral bladder tumor resections Remote history of tobacco use PLAN CABG is scheduled for Thursday Continue aspirin 81 mg daily, Lipitor 40 mg at bedtime, Lopressor 25 mg twice daily Start hydralazine 50 mg 3 times daily Further recommendations to follow based upon clinical course Thank you kindly for this consultation. Nurse practitioner note has been reviewed, I agree with documented findings and plan of care. Patient was seen and examined. Objective - Vital Signs Vital signs: Vital Signs Temp 97.6 F 11/17/20 11:19 Pulse 64 11/17/20 11:19 Resp 18 11/17/20 11:19 BP 173/77 11/17/20 11:19 Pulse Ox 93 L 11/17/20 11:19 Intake & Output 11/16/20 11/17/20 11/17/20 18:59 06:59 18:59 Intake Total 747 480 391.667 Output Total 400 Balance 747 80 391.667 Weight 94.347 kg 96.3 kg Intake: IV 300 Intake, IV Titration 225 151.667 Amount Heparin Sod,Pork in 0.45% 151.667 NaCl 25,000 unit In 0.45 % NaCl 1 250ml.bag @ 10. 599 UNITS/KG/HR 10 mls/hr IV .Q24H [facility] Rx#: [id number] Sodium Chloride 0.9% 1, 225 000 ml @ 75 mls/hr IV . [id number] [facility] Rx#:[id number] Oral 222 480 240 Output: Urine 400 Other: # Voids 1 3 - Labs CBC & Chem 7: 11/17/20 07:20 11/17/20 07:20 Labs: Abnormal Lab Results - Last 24 Hours (Table) 11/16/20 11/17/20 11/17/20 Range/Units 23:10 01:11 07:20 MCV (80.0-100.0) fL APTT 60.3 H 82.5 H (22.0-30.0) sec Glucose (74-99) mg/dL Ur Leukocyte Esterase Small H (Negative) Urine Mucus Rare H (None) /hpf 11/17/20 11/17/20 Range/Units 07:20 07:20 MCV 102.4 H (80.0-100.0) fL APTT (22.0-30.0) sec Glucose 114 H (74-99) mg/dL Ur Leukocyte Esterase (Negative) Urine Mucus (None) /hpf Microbiology - Last 24 Hours (Table) 11/16/20 16:42 Nasal Screen MRSA/MSSA - Preliminary Nasal Swab
[2020-11-17] MEDS: HEPARIN SOD,PORK IN 0.45% NACL 25,000 UNIT in 0.45% NACL 1 250ML.BAG IV SCH (14:59)
[2020-11-17] MEDS: MUPIROCIN 2% OINT 22 GM TUBE NASAL SCH ×2 (15:00→19:52)
[2020-11-17 15:49] LABS: Hemoglobin A1C 6.5 % (4.0-6.0)
[2020-11-17] MEDS: hydrALAZINE HCL 50 MG TAB PO SCH ×2 (17:40→19:51)
[2020-11-17] MEDS: ATORVASTATIN 40 MG TAB PO SCH (19:50)
[2020-11-18] MEDS: MELATONIN 3 MG TABLET PO PRN (00:56)
[2020-11-18 06:09] LABS: HCT 39.3 % (39.0-53.0); HGB 13.7 gm/dL (13.0-17.5); MCH 35.3 pg (25.0-35.0); MCHC 34.8 g/dL (31.0-37.0); MCV 101.4 fL (80.0-100.0); Platelet Count 161 k/uL (150-450); RBC 3.88 m/uL (4.30-5.90); WBC 6.8 k/uL (3.8-10.6)
[2020-11-18 06:30] LABS: Magnesium 2.2 mg/dL (1.6-2.3); Potassium 4.1 mmol/L (3.5-5.1)
--- NOTE | 2020-11-18 08:32 | P.PN ---
Subjective Progress Note Date: 11/18/20 Patient feels okay today no chest pain. No shortness of breath atient is an 85-year-old with hypertension and dyslipidemia who presented for elective heart cath. He underwent a cardiac stress test which was positive for inferior wall reversible defect with hypokinesis, Dr. Dowd then recommended heart cath. This was completed on 11/16/20 and showed severe three-vessel coronary artery disease with 70-80% occlusion of the distal LAD and circumflex, 95% occlusion of the proximal RCA, and 100% occlusion of the mid circumflex. He was subsequently admitted under our service for evaluation of possible bypass. He underwent an echocardiogram which showed an ejection fraction of 40-45%, carotid Dopplers which showed greater than 70% stenosis on the right 50- 69% stenosis on the left. Dr. Dinh was consulted. Currently awaiting results of venous mapping, CTA chest, and pulmonary function tests. Patient seen and examined at bedside. He denies chest pain or shortness of breath. He is anxious about when he will have surgery. I readdressed with him that this will not be happening today and likely would not occur until Thursday at the earliest. I still explained to him that we are waiting for the results of more testing before definitive answer is made as to whether or not he will undergo cardiac bypass surgery. He does report intermittent dizzines that self resolves. He reports that the dizziness happens randomly. He is unsure if it happens with exertion or with movement of his head. General: non toxic, no distress, appears at stated age Derm: warm, dry Head: atraumatic, normocephalic, symmetric Eyes: EOMI, no lid lag, anicteric sclera Mouth: no lip lesion, mucus membranes moist Cardiovascular: S1S2 reg, no murmur, positive posterior tibial pulse bilateral, Lungs: CTA bilateral, no rhonchi, no rales , no accessory muscle use Abdominal: soft, nontender to palpation, no guarding, no appreciable organomegaly Ext: no gross muscle atrophy, trace edema, no contractures Neuro: CN II-XI grossly intact, no focal neuro deficits Psych: Alert, oriented, appropriate affect Symptomatic 3-vessel arthrosclerotic disease, k[place]isp[place] vessel - - Cardio recs - ASA, statin For possible surgery on Thursday Ischemic cardiomyopathy with EF 40-45% - BB, ARB - Lasix - Strict I and O - Dialy weights - off IVF B/L Carotid disease - ASA, plavix, Statin - CT surgery recs HTN - Metoprolol, Cozaar, Lasix - follow BP HLD - statin Obesity BMI 33.3 - structured outpatient weight loss HX bladder CA Hx tobacco abuse For possible CABG on Thursday Objective - Vital Signs Vital signs: Vital Signs Temp 97.5 F L 11/18/20 03:55 Pulse 68 11/18/20 03:55 Resp 20 11/18/20 03:55 BP 149/69 11/18/20 03:55 Pulse Ox 92 L 11/18/20 03:55 Intake & Output 11/17/20 11/18/20 11/18/20 18:59 06:59 18:59 Intake Total 993.855 480 Balance 993.855 480 Weight 94.5 kg Intake: Intake, IV Titration 193.855 Amount Heparin Sod,Pork in 0.45% 193.855 NaCl 25,000 unit In 0.45 % NaCl 1 250ml.bag @ 10. 599 UNITS/KG/HR 10 mls/hr IV .Q24H [facility] Rx#: [id number] Oral 800 480 Other: # Voids 3 3 - Labs CBC & Chem 7: 11/18/20 05:18 11/18/20 05:18 Labs: Abnormal Lab Results - Last 24 Hours (Table) 11/17/20 11/17/20 11/17/20 Range/Units 07:20 07:20 15:32 RBC (4.30-5.90) m/uL MCV (80.0-100.0) fL MCH (25.0-35.0) pg APTT 56.4 H (22.0-30.0) sec Carbon Dioxide (22-30) mmol/L BUN (9-20) mg/dL Glucose 114 H (74-99) mg/dL Hemoglobin A1c 6.5 H (4.0-6.0) % Crossmatch 11/18/20 11/18/20 11/18/20 Range/Units 05:18 05:18 05:18 RBC 3.88 L (4.30-5.90) m/uL MCV 101.4 H (80.0-100.0) fL MCH 35.3 H (25.0-35.0) pg APTT (22.0-30.0) sec Carbon Dioxide 32 H (22-30) mmol/L BUN 21 H (9-20) mg/dL Glucose 107 H (74-99) mg/dL Hemoglobin A1c (4.0-6.0) % Crossmatch See Detail 11/18/20 Range/Units 05:18 RBC (4.30-5.90) m/uL MCV (80.0-100.0) fL MCH (25.0-35.0) pg APTT 63.8 H (22.0-30.0) sec Carbon Dioxide (22-30) mmol/L BUN (9-20) mg/dL Glucose (74-99) mg/dL Hemoglobin A1c (4.0-6.0) % Crossmatch Microbiology - Last 24 Hours (Table) 11/16/20 16:42 Nasal Screen MRSA/MSSA - Final Nasal Swab Staphylococcus aureus,Not MRSA
[2020-11-18] MEDS: ASPIRIN 81 MG PO SCH (08:47)
[2020-11-18] MEDS: METOPROLOL TARTRATE 25 MG TAB PO SCH ×2 (08:47→20:05)
[2020-11-18] MEDS: CHOLECALCIFEROL 25 MCG (1000 IU) TABLET PO SCH (08:47)
[2020-11-18] MEDS: ASCORBIC ACID 500 MG TAB PO SCH (08:47)
[2020-11-18] MEDS: hydrALAZINE HCL 50 MG TAB PO SCH ×3 (08:47→20:05)
[2020-11-18] MEDS: FINASTERIDE 5 MG TAB PO SCH (08:47)
[2020-11-18] MEDS: POTASSIUM CHLORIDE ER 10 MEQ TAB.ER.PRT PO SCH (08:47)
[2020-11-18] MEDS: FUROSEMIDE 20 MG TAB PO SCH (08:47)
[2020-11-18] MEDS: MUPIROCIN 2% OINT 22 GM TUBE NASAL SCH ×2 (08:48→20:06)
--- NOTE | 2020-11-18 09:24 | P.PN ---
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 Past m edical history significant for hypertension, hyperlipidemia, non-ST elevated myocardial infarction in August 2020, history of congestive heart failure with a mildly reduced ejection fraction of 40-45%, psoriasis, history of bladder cancer with 6 chemotherapy treatments, benign prostatic hypertrophy, degenerative joint disease, and remote history of tobacco abuse in which he quit 20 years ago. The patient was seen in follow-up today at his bedside on the cardiac stepdown unit. Currently he is sitting up to the bedside edge, is awake, alert and oriented 3. Denies any complaints of pain or shortness of breath while sitting. He is scheduled for myocardial revascularization surgery tomorrow 11/19/2020 to be performed by Dr. Adams Parker. Preoperative teaching has been reinforced with the patient and his questions answered to the best of my ability. Oxygen saturations are 92-94% on room air and he is achieving 1500 mL on his incentive spirometry with encouragement. He reports he has been ambulating in his room. Laboratory results from today show a WBC count 6.8, hemoglobin 13.7, hematocrit 35.3, platelets 161, BUN 21, creatinine 1.01. He remains afebrile the last 24 hours. No new concerns. Heparin drip infusing per protocol. Objective - Vital Signs Vital signs: Vital Signs Temp 98.2 F 11/18/20 08:45 Pulse 68 11/18/20 08:45 Resp 18 11/18/20 08:45 BP 137/64 11/18/20 08:45 Pulse Ox 92 L 11/18/20 08:45 Intake & Output 11/17/20 11/18/20 11/18/20 18:59 06:59 18:59 Intake Total 993.855 480 Balance 993.855 480 Weight 94.5 kg Intake: Intake, IV Titration 193.855 Amount Heparin Sod,Pork in 0.45% 193.855 NaCl 25,000 unit In 0.45 % NaCl 1 250ml.bag @ 10. 599 UNITS/KG/HR 10 mls/hr IV .Q24H [facility] Rx#: [id number] Oral 800 480 Other: # Voids 3 3 - Constitutional General appearance: Present: cooperative, no acute distress, obese - EENT Eyes: Present: normal appearance. Absent: scleral icterus ENT: Present: hard of hearing - Neck Details: Neck is supple, no JVD, no lymphadenopathy. - Respiratory Details: Lung sounds essentially clear throughout, diminished to his bilateral bases. No wheezes, rhonchi or crackles. Respirations are symmetrical and nonlabored. Oxygen saturation is 92-94% on room air. Achieving 1500 mL on his incentive spirometry. - Cardiovascular Details: Regular rhythm and rate. S1 and S2 present, negative for S3, gallop or murmur. Remote telemetry showing normal sinus rhythm heart rate 73 BPM. +1 edema to his bilateral lower extremities. Sequential compression devices in place to his bilateral lower extremities. - Gastrointestinal Gastrointestinal Comment(s): Abdomen is soft, nontender and nondistended. Active bowel sounds present in all 4 abdominal quadrants. No guarding or rigidity. No organomegaly appreciated. Tolerating oral intake. - Genitourinary Genitourinary Comment(s): Continues to void. - Integumentary Integumentary Comment(s): Skin is warm and dry. No clubbing or cyanosis is present. - Neurologic Neurologic: Present: CNII-XII intact. Absent: focal deficits - Musculoskeletal Musculoskeletal: Present: gait normal, strength equal bilaterally - Psychiatric Psychiatric: Present: A&O x's 3, appropriate affect, intact judgment & insight - Allied health notes Allied health notes reviewed: nursing - Labs CBC & Chem 7: 11/18/20 05:18 11/18/20 05:18 Labs: Abnormal Lab Results - Last 24 Hours (Table) 11/17/20 11/17/20 11/18/20 Range/Units 07:20 15:32 05:18 RBC (4.30-5.90) m/uL MCV (80.0-100.0) fL MCH (25.0-35.0) pg APTT 56.4 H (22.0-30.0) sec Carbon Dioxide (22-30) mmol/L BUN (9-20) mg/dL Glucose (74-99) mg/dL Hemoglobin A1c 6.5 H (4.0-6.0) % Crossmatch See Detail 11/18/20 11/18/20 11/18/20 Range/Units 05:18 05:18 05:18 RBC 3.88 L (4.30-5.90) m/uL MCV 101.4 H (80.0-100.0) fL MCH 35.3 H (25.0-35.0) pg APTT 63.8 H (22.0-30.0) sec Carbon Dioxide 32 H (22-30) mmol/L BUN 21 H (9-20) mg/dL Glucose 107 H (74-99) mg/dL Hemoglobin A1c (4.0-6.0) % Crossmatch Microbiology - Last 24 Hours (Table) 11/16/20 16:42 Nasal Screen MRSA/MSSA - Final Nasal Swab Staphylococcus aureus,Not MRSA Assessment and Plan Assessment: 1. 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 Hypertension 3. Hyperlipidemia 4. History of bladder cancer, status post 6 chemotherapy treatments 5. History of tobacco abuse, quit 20 years ago 6. Degenerative joint disease 7. Non-ST elevated myocardial infarction in August 2020 8. History of congestive heart failure with a reduced ejection fraction of 40- 45% 9. History of left sided pleural effusion as a child with one rib removed according to the patient 10. Preoperative nasal swab positive for MSSA, currently being treated. Plan: 1. Continue to maximize medical therapy with aspirin, statin and beta hazel. 2. Blood pressure management per cardiology service. 3. The patient is scheduled for myocardial revascularization surgery with left internal mammary artery, endoscopic vein harvest and intraoperative transesophageal echocardiogram for Thursday, November 19, 2020 to be performed by Dr. Adams Parker. 4. Continue to reinforce preoperative teaching. 5. Nothing by mouth after midnight. 6. Medical management and other comorbidities per primary care service. 7. Encourage use of his incentive spirometry 10 times every hour while awake. 8. Obtain consent for myocardial revascularization surgery. 9. The patient's and his daughter Pushpa have been updated on his care plan for follow. 10. More recommendations to follow based on patient's clinical course. Time with Patient: Greater than 30
--- NOTE | 2020-11-18 10:06 | P.PN ---
Subjective Progress Note Date: 11/18/20 On the 2020 the patient is stable. Any chest pain. The plan is to proceed with surgery tomorrow. Pulse ox on room air is ranging between 90-94%. BP is 137/64. His hemoglobin is at 13.7. He is on IV heparin with a therapeutic at 63. Renal function is also stable Objective - Vital Signs Vital signs: Vital Signs Temp 98.2 F 11/18/20 08:45 Pulse 68 11/18/20 08:45 Resp 18 11/18/20 08:45 BP 137/64 11/18/20 08:45 Pulse Ox 92 L 11/18/20 08:45 Intake & Output 11/17/20 11/18/20 11/18/20 18:59 06:59 18:59 Intake Total 993.855 480 560 Balance 993.855 480 560 Weight 94.5 kg Intake: Intake, IV Titration 193.855 Amount Heparin Sod,Pork in 0.45% 193.855 NaCl 25,000 unit In 0.45 % NaCl 1 250ml.bag @ 10. 599 UNITS/KG/HR 10 mls/hr IV .Q24H [facility] Rx#: [id number] Oral 800 480 560 Other: # Voids 3 3 - Exam The patient appeared well nourished and normally developed. Vital signs as docu mented. Head exam is unremarkable. No scleral icterus or corneal arcus noted. Neck is without jugular venous distension, thyromegaly, or carotid bruits. Carotid upstrokes are brisk bilaterally. Lungs are clear to auscultation and percussion. Cardiac exam reveals the PMI to be normally sized and situated. Rhythm is regular. First and second heart sounds normal. No murmurs, rubs or gallops. Abdominal exam reveals normal bowel sounds, no masses, no organomegaly and no aortic enlargement. Extremities are nonedematous and both femoral and pedal pulses are normal. - Labs CBC & Chem 7: 11/18/20 05:18 11/18/20 05:18 Labs: Abnormal Lab Results - Last 24 Hours (Table) 11/17/20 11/17/20 11/18/20 Range/Units 07:20 15:32 05:18 RBC (4.30-5.90) m/uL MCV (80.0-100.0) fL MCH (25.0-35.0) pg APTT 56.4 H (22.0-30.0) sec Carbon Dioxide (22-30) mmol/L BUN (9-20) mg/dL Glucose (74-99) mg/dL Hemoglobin A1c 6.5 H (4.0-6.0) % Crossmatch See Detail 11/18/20 11/18/20 11/18/20 Range/Units 05:18 05:18 05:18 RBC 3.88 L (4.30-5.90) m/uL MCV 101.4 H (80.0-100.0) fL MCH 35.3 H (25.0-35.0) pg APTT 63.8 H (22.0-30.0) sec Carbon Dioxide 32 H (22-30) mmol/L BUN 21 H (9-20) mg/dL Glucose 107 H (74-99) mg/dL Hemoglobin A1c (4.0-6.0) % Crossmatch Microbiology - Last 24 Hours (Table) 11/16/20 16:42 Nasal Screen MRSA/MSSA - Final Nasal Swab Staphylococcus aureus,Not MRSA Assessment and Plan Plan: 1. 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 In terms of his his pulmonary status, the patient has a moderate degree of obstructive airway limitation. I think the spirometry itself is somewhat suboptimal to accurately assess his lung capacity. His pulse ox is above 92% on room air oxygen. His CAT scan of the chest shows no acute abnormalities. No pulmonary lesions or nodules. No effusions. He is using incentive spirometer and he is pulling approximately 1750 on his IS 2. Hypertension 3. Hyperlipidemia 4. History of bladder cancer, status post intravesicular chemotherapy and transurethral bladder tumor resections. 5. History of tobacco abuse, quit 20 years ago 6. Degenerative joint disease Plan: Overall pulmonary status is stable. This patient does have some underlying pulmonary insufficiency probably moderately severe COPD. Nevertheless, his COPD stable. Spirometry was reviewed. CAT scan of the chest was reviewed. He is utilizing incentive spirometer. Pulse ox is above 90% on room air. No signs of pneumonia. No significant pleural effusions. Proceed with surgery / CABG in am
--- NOTE | 2020-11-18 12:25 | P.PN ---
Subjective Progress Note Date: 11/18/20 HISTORY OF PRESENT ILLNESS This is an 85-year-old gentleman with history of hypertension and hyperlipidemi a. Patient complained of exertional shortness of breath and chest tightness. He underwent a stress test that revealed inferior wall reversible defect and inferior wall hypokinesia with ejection fraction 45-50%. Patient was advised to undergo heart catheterization which revealed 70-80% distal left main disease, 95% proximal RCA disease which is a dominant vessel, total occlusion of a mid circumflex after a high first obtuse marginal branch. LAD 50-55% lesion proximally and is a graftable vessel. Diagonal have moderate disease. Circumflex is totally occluded in the midportion but the first obtuse marginal is graftable. Recommendations were for CABG. Echocardiogram reveals EF of 40-45%, moderate concentric left hypertrophy, mild aortic valve sclerosis, moderate mitral regurgitation, mild tricuspid regurgitation. No pericardial effusion. Patient has been evaluated by cardiothoracic team and is scheduled for surgery on Thursday. They're requesting that all ARB's, Jorge inhibitors and CCB pedis continued prior to surgery. Patient does have ongoing hypertension for which hydralazine will be added. Patient denies any complaints today. No chest pain or shortness of breath. He is comfortable at rest. 11/18: Patient denies any chest pain or shortness of breath. Patient was started on hydralazine yesterday and blood pressure is improved today. 137/64. Heart rate in this, pulse ox 92% on room air. Patient's been afebrile. Hemoglobin 13.7. BUN 21 creatinine 1.01. Patient is continued on heparin drip. Patient is prepared for CABG tomorrow. PHYSICAL EXAMINATION Gen: This is a an 85-year-old male. He is sitting edge of the bed and appears to be comfortable. No acute distress noted. HEENT: Head is atraumatic, normocephalic. Pupils equal, round. Sclerae is anicteric. NECK: Supple. No JVD. No lymphadenopathy. No thyromegaly. LUNGS: Clear to auscultation. No wheezes or rhonchi. No intercostal retractions. HEART: Regular rate and rhythm. No murmur. ABDOMEN: Soft. Bowel sounds are present. No masses. No tenderness. EXTREMITIES: Trace bilateral pedal edema. No calf tenderness. NEUROLOGICAL: Patient is awake, alert and oriented x3. Cranial nerves 2 through 12 are grossly intact. ASSESSMENT Multivessel coronary artery disease Hypertension Hyperlipidemia History of bladder cancer status post intravesicular chemotherapy and transurethral bladder tumor resections Remote history of tobacco use PLAN CABG is scheduled for Thursday Continue aspirin 81 mg daily, Lipitor 40 mg at bedtime, Lopressor 25 mg twice daily Continue hydralazine 50 mg 3 times daily Further recommendations to follow based upon clinical course Thank you kindly for this consultation. Nurse practitioner note has been reviewed, I agree with documented findings and plan of care. Patient was seen and examined. Objective - Vital Signs Vital signs: Vital Signs Temp 98.2 F 11/18/20 12:00 Pulse 65 11/18/20 12:00 Resp 16 11/18/20 12:00 BP 137/64 11/18/20 12:00 Pulse Ox 92 L 11/18/20 12:00 Intake & Output 11/17/20 11/18/20 11/18/20 18:59 06:59 18:59 Intake Total 993.381 821 9204 Balance 993.618 611 9804 Weight 94.5 kg Intake: Intake, IV Titration 193.855 Amount Heparin Sod,Pork in 0.45% 193.855 NaCl 25,000 unit In 0.45 % NaCl 1 250ml.bag @ 10. 599 UNITS/KG/HR 10 mls/hr IV .Q24H [facility] Rx#: [id number] Oral [phone] Other: # Voids 3 3 - Labs CBC & Chem 7: 11/18/20 05:18 11/18/20 05:18 Labs: Abnormal Lab Results - Last 24 Hours (Table) 11/17/20 11/17/20 11/18/20 Range/Units 07:20 15:32 05:18 RBC (4.30-5.90) m/uL MCV (80.0-100.0) fL MCH (25.0-35.0) pg APTT 56.4 H (22.0-30.0) sec Carbon Dioxide (22-30) mmol/L BUN (9-20) mg/dL Glucose (74-99) mg/dL Hemoglobin A1c 6.5 H (4.0-6.0) % Crossmatch See Detail 11/18/20 11/18/20 11/18/20 Range/Units 05:18 05:18 05:18 RBC 3.88 L (4.30-5.90) m/uL MCV 101.4 H (80.0-100.0) fL MCH 35.3 H (25.0-35.0) pg APTT 63.8 H (22.0-30.0) sec Carbon Dioxide 32 H (22-30) mmol/L BUN 21 H (9-20) mg/dL Glucose 107 H (74-99) mg/dL Hemoglobin A1c (4.0-6.0) % Crossmatch Microbiology - Last 24 Hours (Table) 11/16/20 16:42 Nasal Screen MRSA/MSSA - Final Nasal Swab Staphylococcus aureus,Not MRSA
--- NOTE | 2020-11-18 13:10 | CT ---
EXAMINATION TYPE: CT chest wo con DATE OF EXAM: 11/16/2020 COMPARISON: CT chest November 02, 2013 HISTORY: Pre op cardiac surgery assessment aortic calcification CT DLP: 699.1 mGycm. Automated Exposure Control for Dose Reduction was Utilized. TECHNIQUE: CT scan of the thorax is performed without IV contrast. FINDINGS: LUNGS: [id number] underlying emphysematous change is redemonstrated bilaterally. There is respi ratory motion artifact making evaluation suboptimal particularly for subcentimeter nodules. Patient u nable to hold breath. Mild bibasilar linear scarring and/or atelectasis. No suspicious focal consolid ation. No pleural effusion or pneumothorax seen bilaterally. MEDIASTINUM: Lack of IV contrast is noted to limit evaluation for mediastinal and especially hilar ad enopathy. There are no definitive greater than 1 cm hilar or mediastinal lymph nodes. Heart size stab le and upper limits of normal. Moderate three-vessel coronary artery calcification redemonstrated. Mo derate calcification at level of aortic valve is redemonstrated. No pericardial effusion is seen. Mil [id number] calcified plaque in the aortic arch and visualized portion of the abdominal aorta. OTHER: Partial visualization of probable simple appearing thin-walled cyst exophytically posteriorly from the upper pole left kidney. It is increased in size from prior study. There is asymmetric cortic al thinning and volume loss to the right kidney redemonstrated. Moderate multilevel spurring in the s pine. IMPRESSION: Suboptimal study. Chronic changes without acute pulmonary process.
[2020-11-18] MEDS: ATORVASTATIN 40 MG TAB PO SCH (20:05)
[2020-11-18] MEDS: HEPARIN SOD,PORK IN 0.45% NACL 25,000 UNIT in 0.45% NACL 1 250ML.BAG IV SCH (22:48)
[2020-11-19] MEDS ORDERED: SODIUM BICARB 8.4% 50 ML SYR (1 MEQ/ML) IV ONE (06:00)
[2020-11-19] MEDS ORDERED: ALBUMIN HUMAN 5% 500 ML in EMPTY BAG 1 BAG IVPB ONE ×6 (06:00)
[2020-11-19] MEDS ORDERED: TRANEXAMIC ACID 2,000 MG in SODIUM CHLORIDE 0.9% 80 ML IV ONE (06:00)
[2020-11-19] MEDS ORDERED: PHENYLEPHRINE 40 MG in SODIUM CHLORIDE 0.9% 250 ML IV ONE (06:00)
[2020-11-19] MEDS ORDERED: CALCIUM CHLORIDE 100 MG/ML 10 ML SYRINGE IVP ONE (06:00)
[2020-11-19] MEDS ORDERED: MAGNESIUM SULFATE SYG 4.06 MEQ/ML SYRINGE IV ONE (06:00)
[2020-11-19] MEDS ORDERED: NITROGLYCERIN-D5W PMX 50 MG in DEXTROSE/WATER 1 250ML.BAG IV SCH ×2 (06:00→12:37)
[2020-11-19] MEDS ORDERED: MANNITOL 25% 12.5 GM/50 ML VIAL IV ONE ×2 (06:00)
[2020-11-19] MEDS ORDERED: PROTAMINE SULFATE 10 MG/ML 25 ML VIAL IV ONE (06:00)
[2020-11-19] MEDS ORDERED: HEPARIN SODIUM,PORCINE 5,000 UNIT in SODIUM CHLORIDE 0.9% 500 ML 500 ML IV ONE (06:00)
[2020-11-19] MEDS ORDERED: NITROGLYCERIN-D5W PMX 25 MG/250 ML BTL IV ONE (06:00)
[2020-11-19] MEDS ORDERED: METOPROLOL TARTRATE 12.5 MG TAB PO ONE (06:00)
[2020-11-19] MEDS ORDERED: CHLORHEXIDINE GLUCONATE 15 ML CUP MUCOUS MEM ONE (06:00)
[2020-11-19] MEDS ORDERED: ASPIRIN 325 MG TAB PO ONE (06:00)
[2020-11-19] MEDS ORDERED: ALBUMIN HUMAN 25% 50 ML in EMPTY BAG 1 BAG IVPB ONE (06:00)
[2020-11-19] MEDS ORDERED: CLEVIDIPINE BUTYRATE 25 MG in EMPTY BAG 1 BAG IV SCH (06:00)
[2020-11-19] MEDS ORDERED: CARDIOPLEGIC SOLN (K+ 16 MEQ/L 1,000 ML with SOD BICARB SYR 8.4% (1 MEQ/ML) 20 ML, LIDO... PERFUSION NR ×3 (06:00)
[2020-11-19] MEDS ORDERED: PROTAMINE SULFATE 250 MG in EMPTY BAG 1 BAG IV ONE (06:00)
[2020-11-19] MEDS ORDERED: ATORVASTATIN 10 MG TAB PO ONE (06:00)
[2020-11-19] MEDS ORDERED: HEPARIN SODIUM 1,000 UN/ML (10ML VL) IV ONE (06:00)
[2020-11-19] MEDS ORDERED: NOREPINEPHRINE 4 MG in SODIUM CHLORIDE 0.9% 250 ML IV SCH (06:00)
[2020-11-19] MEDS ORDERED: ceFAZolin 1,000 MG in SODIUM CHLORIDE 0.9% IRRIGATIO 1,000 ML IRRIGATION ONE (06:00)
[2020-11-19] MEDS ORDERED: PAPAVERINE 360 MG in SODIUM CHLORIDE 0.9% 90 ML IV ONE ×2 (06:00→09:03)
[2020-11-19] MEDS ORDERED: INSULIN REGULAR 100 UNIT in SODIUM CHLORIDE 0.9% 100 ML IV SCH ×2 (06:00→12:37)
[2020-11-19] MEDS ORDERED: LACTATED RINGERS 1,000 ML IV ONE (06:02)
[2020-11-19] MEDS ORDERED: ALBUMIN HUMAN 5% (25gm) 500 ML VIAL IVPB ONE (07:45)
[2020-11-19] MEDS ORDERED: ePHEDrine SULFATE/0.9% NACL/PF 50 MG/5 ML SYRINGE IV ONE (07:45)
[2020-11-19] MEDS ORDERED: fentaNYL (PF) 50 MCG/ML 2 ML AMP ONE (07:45)
[2020-11-19] MEDS ORDERED: PROTAMINE SULFATE 10 MG/ML 5 ML VIAL IV ONE (07:45)
[2020-11-19] MEDS ORDERED: ROCURONIUM 10 MG/ML (10 ML VIAL) IV ONE (07:45)
[2020-11-19] MEDS ORDERED: MIDAZOLAM 2 MG/2 ML VIAL ONE (07:45)
[2020-11-19] MEDS ORDERED: SUCCINYLCHOLINE CHLORIDE 100 MG/5 ML SYR IV ONE (07:45)
[2020-11-19] MEDS ORDERED: POTASSIUM CHLORIDE OPEN HEART 20 MEQ/50 ML BAG IVPB ONE (07:45)
[2020-11-19] MEDS ORDERED: PHENYLEPHRINE 10 MG/ML VIAL ONE (07:45)
[2020-11-19] MEDS ORDERED: VECURONIUM 10 MG VIAL IV ONE (07:45)
[2020-11-19] MEDS ORDERED: HEPARIN SODIUM,PORCINE 10,000 UNIT/ML 1 ML VIAL ONE (07:45)
[2020-11-19] MEDS ORDERED: PROPOFOL 10 MG/ML 20 ML VIAL IV ONE (07:45)
[2020-11-19] MEDS ORDERED: fentaNYL (PF) 50 MCG/ML 50 ML VIAL ONE (07:45)
[2020-11-19] MEDS ORDERED: NITROGLYCERIN-D5W PMX 50 MG/250 ML BOTTLE IV ONE (07:45)
[2020-11-19] MEDS ORDERED: SODIUM CHLORIDE 0.9% IRRIG 1,000 ML BTL IRRIGATION ONE (07:45)
[2020-11-19 08:23] LABS: ABG Base Excess -0.2 mmol/L; ABG Glucose Whole Blood 116 mg/dL (75-99); ABG HCO3 27 mmol/L (21-25); ABG Hematocrit 42 % (34.0-46.0); ABG Ionized Calcium 4.7 mg/dL (4.5-5.3); ABG Lactic Acid Whole Blood 1.7 mmol/L (0.5-1.6); ABG Oxygen Saturation 99.9 % (94-97); ABG PCO2 53 mmHg (35-45); ABG PH 7.31 (7.35-7.45); ABG PO2 309 mmHg (83-108); ABG Potassium Whole Blood 4.3 mmol/L (3.4-4.5); ABG Sodium Whole Blood 140 mmol/L (135-146); ABG TCO2 29 mmol/L (19-24)
[2020-11-19] MEDS ORDERED: SODIUM CHLORIDE 0.9% 500 ML 500 ML with HEPARIN SODIUM,PORCINE 5,000 UNIT IV ONE ×2 (09:02)
[2020-11-19] MEDS ORDERED: ceFAZolin 1,000 MG in SODIUM CHLORIDE 0.9% 1,000 ML IRRIGATION ONE (09:03)
--- NOTE | 2020-11-19 09:32 | P.ANPRN ---
Procedure Note - Anesthesia - Invasive Line Right Central Line Time Out Performed: Yes ([id number]) Date of Procedure: 11/19/20 Time of Procedure: 07:23 Location of Patient: Phase I Preparation: Sterile Prep, Sterile Dressing Arterial Line Location: Radial Ultrasound Used: Yes Purpose - Visualization and Identification of Vasculature: Yes Needle Guage: 18g angio Image Stored and Saved: Yes Narrative: Central line placement per sterile protocol utilized. sterile protocol +loca +Angio +cvp +jwire +uneventful dilation and introduction 8.5F cordis Right [place] Time Out Performed: Yes (735) Date of Procedure: 11/19/20 Time of Procedure: 07:36 Location of Patient: Phase I Preparation: Sterile Prep, Sterile Dressing Arterial Line Location: Radial Ultrasound Used: No Purpose - Visualization and Identification of Vasculature: No Image Stored and Saved: Yes Narrative: Central line placement per sterile protocol utilized. PA floated sterilely in sheath to PA in 2 attempts at wedge of 57cm. W/d 5cm to 52cm.
[2020-11-19 10:05] LABS: ABG Base Excess -1.6 mmol/L; ABG Glucose Whole Blood 126 mg/dL (75-99); ABG HCO3 23 mmol/L (21-25); ABG Hematocrit 35 % (34.0-46.0); ABG Ionized Calcium 4.2 mg/dL (4.5-5.3); ABG Lactic Acid Whole Blood 1.2 mmol/L (0.5-1.6); ABG PCO2 40 mmHg (35-45); ABG PH 7.38 (7.35-7.45); ABG PO2 265 mmHg (83-108); ABG Potassium Whole Blood 3.5 mmol/L (3.4-4.5); ABG Sodium Whole Blood 142 mmol/L (135-146); ABG TCO2 25 mmol/L (19-24)
[2020-11-19 11:22] LABS: ABG Base Excess 0.5 mmol/L; ABG Glucose Whole Blood 149 mg/dL (75-99); ABG HCO3 26 mmol/L (21-25); ABG Hematocrit 35 % (34.0-46.0); ABG Ionized Calcium 4.4 mg/dL (4.5-5.3); ABG Lactic Acid Whole Blood 1.4 mmol/L (0.5-1.6); ABG PCO2 42 mmHg (35-45); ABG PH 7.39 (7.35-7.45); ABG PO2 271 mmHg (83-108); ABG Potassium Whole Blood 4.3 mmol/L (3.4-4.5); ABG Sodium Whole Blood 140 mmol/L (135-146); ABG TCO2 27 mmol/L (19-24)
[2020-11-19] MEDS ORDERED: hydrALAZINE HCL 20 MG/ML 1 ML VIAL IVP PRN (12:37)
[2020-11-19] MEDS ORDERED: AMIODARONE 360 MG in DEXTROSE 5% IN WATER 200 ML IV PRN ×2 (12:37)
[2020-11-19] MEDS ORDERED: Magnesium Replacement Protocol 1 EACH MISC MISCELLANE PRN (12:37)
[2020-11-19] MEDS ORDERED: METOCLOPRAMIDE 5 MG/ML 2 ML VIAL IVP PRN (12:37)
[2020-11-19] MEDS ORDERED: IPRATROPIUM-ALBUTEROL 3 ML NEB INHALATION PRN (12:37)
[2020-11-19] MEDS ORDERED: AMIODARONE 450 MG in DEXTROSE 5% IN WATER 250 ML IV PRN ×2 (12:37)
[2020-11-19] MEDS ORDERED: Potassium Replacement Protocol 1 EACH MISC MISCELLANE PRN (12:37)
[2020-11-19] MEDS ORDERED: ONDANSETRON 4 MG/2 ML VIAL IVP PRN (12:37)
[2020-11-19] MEDS ORDERED: CALCIUM GLUCONATE 2 GM in SODIUM CHLORIDE 0.9% 100 ML IVPB PRN (12:37)
[2020-11-19] MEDS ORDERED: ALBUMIN HUMAN 5% 250 ML in EMPTY BAG 1 BAG IVPB PRN (12:37)
[2020-11-19] MEDS ORDERED: Phosphorus Replacement Protoco 1 EACH MISC MISCELLANE PRN (12:37)
[2020-11-19] MEDS ORDERED: DEXMEDETOMIDINE/0.9% NACL(PMX) 400 MCG in EMPTY BAG 1 BAG IV SCH (12:37)
[2020-11-19] MEDS ORDERED: BENZOCAINE/MENTHOL LOZENG 1 EACH LOZENGE MUCOUS MEM PRN (12:37)
--- NOTE | 2020-11-19 13:04 | P.OP ---
Date of Procedure: 11/19/20 Preoperative Diagnosis: CAD Postoperative Diagnosis: SAme Procedure(s) Performed: Off-pump CABG 3 with PARIKH to LAD, saphenous vein graft to right coronary artery, saphenous vein graft to second obtuse marginal coronary artery, endovascular vein harvest, occlusion of the left atrial appendage with a 35 mm AtriCure clip. Implants: 35mm AtriCure Anesthesia: GETA Surgeon: Adams Parker Estimated Blood Loss (ml): 500 IV fluids (ml): 2,000 Urine output (ml): 500 Pathology: none sent Condition: stable Disposition: ICU Indications for Procedure: 85-year-old male who presents with anginal symptomatology found to have severe three-vessel coronary artery disease and recommended to undergo urgent coronary revascularization by Dr. Dowd Operative Findings: Left greater saphenous vein was harvested from ankle to groin and hence small and aneurysmal segments. 2 good segments were used for the vein grafts. The PARIKH was a good conduit. Bilateral pleural spaces were fused with only the anterior portion of the pleural space being free. HEIDE demonstrated ejection fraction around 45% with inferior hypokinesis. This improved over 50% with better motion of the inferior wall following revascularization. LAD target was intramyocardial for much of its length. It emerged near the apex. The PARIKH was somewhat small and short and not ideal to reach all the way to the apex. The LAD was dissected out further in the proximal third just distal to the first diagonal takeoff. Here it was a good target with a diameter of 2.5 mm and soft vessel wall. Right coronary artery was grafted beyond the acute margin of the heart. It was a good vessel with 2 mm diameter lumen. Second obtuse marginal was also an intramyocardial vessel. It was identified as it exited the AV groove and disappeared into the myocardium. It was diseased here. It was followed out more distally and dissected out of the myocardium until it became a soft vessel and was grafted here. It had a 1.5-1.75 mm lumen. Description of Procedure: The patient was brought to the operating room, placed supine on the operating table. Gen. anesthesia was induced. HEIDE probe was placed. The anterior torso and bilateral lower extremities were sterilely prepped and draped. The left greater saphenous vein was harvested using endovascular vein harvest technique from ankle to groin and was of reasonable conduit. It had some small spots and also couple of aneurysmal spots. Good segments were used. Simultaneous sternotomy was performed and the left hemisternum retracted upwards. The left internal mammary artery was harvested on a vascularized pedicle left intact on its origin from the subclavian and divided distally. The left pleural space was nearly completely fused. It was freed in order to allow the PARIKH to run beneath the lung into the pericardium. The resultant space was drained with a 32-Mal[place] chest tube. Standard sternal retractor was placed and the heart was exposed with pericardial sutures. Patient was systemically heparinized and a CTs maintained greater than 250 during grafting. The LAD was exposed. Did not emerged from the myocardium to near the apex. First diagonal was noted and we dissected back along the first diagonal to the LAD and then distally along the LAD from there. This revealed a large vessel which which was soft. The LAD was opened here and blood flow control with a 2 mm flow through. It was a 2.5 mm vessel. End of the PARIKH was anastomosed to the LAD with running 8-0 Prolene suture. On completion anastomosis the flow through was removed effectively probing the proximal distal portion anastomosis. Suture was tied with good result and hemostasis and the inflow was open. Graft lay well and felt well. ODESSA pedicle was tacked surrounding epicardium with 6-0 silk sutures. Next a piece of saphenous vein from the thigh was appropriately prepared and loaded on passport anastomotic connector after cutting to appropriate length to reach the right coronary artery. Was connected to the ascending aorta low just above the sinotubular junction and brought around the AV groove to the right beyond the acute margin to the right coronary artery. The right coronary artery was dissected out and stabilized. Was opened to the 1.5 mm flow through. End to side anastomosis between the saphenous vein and the right coronary artery was performed with running 7-0 Prolene suture. Completion anastomosis the flow through was removed 50 probe the proximal and distal portions of the anastomosis. Suture was tied with good result and hemostasis and the inflow was open. Graft was noted to lay well with good length and no kinking. Next the second obtuse marginal was exposed. We dissected in the myocardium until we came to a good soft portion of the vessel. It was opened here and blood flow control the 1.5 mm flow through. A second piece of saphenous vein was anastomosed in end-to-side fashion with running 7-0 Prolene suture. On completion anastomosis the flow through was removed 50 probe the proximal distal portion anastomosis. Suture was tied with good resultant hemostasis. The best portion of vein was not long enough to reach the ascending aorta. And sent it was decided to jumped off the PARIKH. The PARIKH was lined up with the vein graft in its midportion and bulldog clamps were applied proximally and distally. It was opened in a longitudinal fashion and the proximal anastomosis performed with running 7-0 Prolene suture. On completion the anastomosis the inflow and outflow were opened and the grafts were noted to lay well with no kinking. There was good pulse in both the vein graft and the PARIKH graft. Heparin was now reversed with protamine. Good hemostasis was noted throughout. The chest was i rrigated with antibiotic solution. The sternum was closed with 8 sternal wires. Fascia was closed with 0 Ethibond and subcutaneous and subcuticular layers with layers of Vicryl suture. The lateral subpectoral pain pump catheters were placed dry sterile dressings were applied the patient was transferred to the ICU in stable condition.
[2020-11-19 13:13] LABS: Glucose,Whole Blood 131 mg/dL (75-99)
[2020-11-19] MEDS: FINASTERIDE 5 MG TAB PO SCH (13:27)
[2020-11-19] MEDS: MUPIROCIN 2% OINT 22 GM TUBE NASAL SCH ×2 (13:27→22:04)
[2020-11-19] MEDS: HEPARIN SOD,PORK IN 0.45% NACL 25,000 UNIT in 0.45% NACL 1 250ML.BAG IV SCH (13:27)
[2020-11-19] MEDS: ASCORBIC ACID 500 MG TAB PO SCH (13:27)
[2020-11-19] MEDS: CLEVIDIPINE BUTYRATE 25 MG in EMPTY BAG 1 BAG IV SCH ×3 (13:28→23:44)
[2020-11-19] MEDS: LACTATED RINGERS 1,000 ML IV SCH (13:29)
[2020-11-19 13:32] LABS: ABG Base Excess -0.8 mmol/L; ABG HCO3 25 mmol/L (21-25); ABG PCO2 48 mmHg (35-45); ABG PH 7.33 (7.35-7.45); ABG PO2 136 mmHg (83-108); ABG TCO2 27 mmol/L (19-24)
--- NOTE | 2020-11-19 13:35 | XR ---
EXAMINATION TYPE: XR chest 1V portable DATE OF EXAM: 11/19/2020 Comparison: 12/02/2019 Clinical History: 85-year-old male Post Operative Cardiac Surgery Findings: ET tube satisfactory. NG tube is short. It can be advanced by 10 cm so that the sidehole into the sto mach. Right IJ [place] catheter tip in the expected right main pulmonary artery. Mediastinal drains and bilateral chest tubes are present. Median sternotomy wires and post-CABG clips. Heart borderline in size. Mild interstitial prominence. Trace effusion suspected on the right. Mild patchy retrocardi ac atelectasis. No pneumothorax visualized. Impression: 1. Advance the NG tube by 10 cm so that the side hole enters the stomach. 2. Mild pulmonary vascular congestion is suggested. Mild patchy retrocardiac atelectasis and possible trace right effusion.
[2020-11-19] MEDS: METOPROLOL TARTRATE 25 MG TAB PO SCH (13:43)
[2020-11-19] MEDS: POTASSIUM CHLORIDE ER 10 MEQ TAB.ER.PRT PO SCH (13:43)
[2020-11-19 13:48] LABS: Basophils % (A) 0 %; Eosinophils % (A) 0 %; HCT 32.3 % (39.0-53.0); HGB 11.1 gm/dL (13.0-17.5); Lymphocytes # (A) 1.1 k/uL (1.0-4.8); Lymphocytes % (A) 9 %; MCH 35.1 pg (25.0-35.0); MCHC 34.4 g/dL (31.0-37.0); MCV 102.1 fL (80.0-100.0); Mean Platelet Volume 10.4; Monocytes # (A) 0.7 k/uL (0-1.0); Monocytes % (A) 6 %; Neutrophils # (A) 9.6 k/uL (1.3-7.7); Neutrophils % (A) 83 %; Platelet Count 111 k/uL (150-450); RBC 3.17 m/uL (4.30-5.90); RDW 12.2 % (11.5-15.5); WBC 11.5 k/uL (3.8-10.6)
[2020-11-19 13:50] LABS: ABG Base Excess 0.2 mmol/L; ABG Glucose Whole Blood 152 mg/dL (75-99); ABG HCO3 26 mmol/L (21-25); ABG Hematocrit 35 % (34.0-46.0); ABG Ionized Calcium 4.4 mg/dL (4.5-5.3); ABG Lactic Acid Whole Blood 1.8 mmol/L (0.5-1.6); ABG Oxygen Saturation 99.8 % (94-97); ABG PCO2 44 mmHg (35-45); ABG PH 7.38 (7.35-7.45); ABG PO2 194 mmHg (83-108); ABG Potassium Whole Blood 4.1 mmol/L (3.4-4.5); ABG Sodium Whole Blood 140 mmol/L (135-146); ABG TCO2 27 mmol/L (19-24)
[2020-11-19 13:55] LABS: Ionized Calcium 4.7 mg/dL (4.5-5.3)
[2020-11-19 14:02] LABS: ALT 18 U/L (4-49); AST 27 U/L (17-59); African American GFR (CKD) >90 (>60 ml/min/1.73 sqM); Albumin 3.2 g/dL (3.5-5.0); Alkaline Phosphatase 40 U/L (38-126); Anion Gap 6 mmol/L; Blood Urea Nitrogen 19 mg/dL (9-20); Calcium 7.7 mg/dL (8.4-10.2); Carbon Dioxide 26 mmol/L (22-30); Chloride 106 mmol/L (98-107); Glucose 133 mg/dL (74-99); Magnesium 1.6 mg/dL (1.6-2.3); Non-African American GFR(CKD) 83 (>60 ml/min/1.73 sqM); Potassium 3.9 mmol/L (3.5-5.1); Sodium 138 mmol/L (137-145); Total Bilirubin 0.8 mg/dL (0.2-1.3); Total Protein 5.1 g/dL (6.3-8.2)
[2020-11-19 14:03] LABS: Glucose,Whole Blood 131 mg/dL (75-99)
--- NOTE | 2020-11-19 14:17 | P.PN ---
Subjective Progress Note Date: 11/19/20 (seen at 1330) Principal diagnosis: exertional dyspnea Patient is an 85-year-old with hypertension and dyslipidemia who presented for elective heart cath. He underwent a cardiac stress test which was positive for inferior wall reversible defect with hypokinesis, Dr. Dowd then recommended heart cath. This was completed on 11/16/20 and showed severe three-vessel coronary artery disease with 70-80% occlusion of the distal LAD and circumflex, 95% occlusion of the proximal RCA, and 100% occlusion of the mid circumflex. He was subsequently admitted under our service for evaluation of possible bypass. He underwent an echocardiogram which showed an ejection fraction of 40-45%, carotid dopplers which showed greater than 70% stenosis on the right 50- 69% stenosis on the left. Dr. Granados was consulted. He underwent perop testing. PFT showed FEV1 46% of predicted, CT chest chronic changes of mild to mod emphysema, left Kidney cyst. His venous mapping was reviewed by the cardiovascular team. On 11/19 he underwent 3- vessel bypass surgery without an immedicate post op complications. He returned to the ICU sedated on the vent. Per nursing no acute events at this time. BG 138. General: ill appering, moderate distress, appears at stated age Derm: warm, dry Head: atraumatic, normocephalic, symmetric Eyes: EOMI, no lid lag, anicteric sclera, pupils equal round reactive to light ENT: Nose and ears atraumatic, no thrush, no pharyngeal erythema Neck: No thyromegaly, no cervical lymphadenopathy, trachea midline, supple Mouth: no lip lesion, mucus membranes moist Cardiovascular: S1S2 reg, no murmur, positive posterior tibial pulse bilateral, no edema, capillary refill less than 2 seconds Lungs: course bs bilateral, no ronchi, no rales, no wheeze, no accessory muscle use, on vent, mediastinal and chest tubes in place Abdominal: soft, nontender to palpation, no guarding, no appreciable organomegaly, normal bowel sounds Ext: no gross muscle atrophy, no contractures Neuro: No tremors. no fasculications, sedated on vent Psych: sedated on vent Symptomatic 3-vessel arthrosclerotic disease, [place] vessel s/p 3-vessel bypass with PARIKH to LAD, SVG to RCA and SVG to first obtuse marginal. - management per CT surgery - Cardio recs - ASA, statin - Cholesterol profile within normal limits Newly discovered Diabetes - A1C 6.5 - Patient is unaware as sedated and on vent today - q1h accucheck post CABG - Insulin gtt if necessary - Will need to meet with certified diabetes educator and Dietitian once extubated - Will need glucometer on discharge Acute blood loss anemia, thrombocytopenia, leukocytosis - anticipated outcome of surgery - no indications for transfusion at this time. - follow CBC Ischemic cardiomyopathy with EF 40-45% - resume BB and Lasix per CT surgery - Consider ACEI or ARB on discharge - Strict I and O - Dialy weights B/L Carotid disease - ASA, Statin - CT surgery recs HTN - resume Metoprolol, Cozaar, Lasix per CT surgery - follow BP HLD - statin Obesity BMI 33.3 - structured outpatient weight loss HX bladder CA Hx tobacco abuse Degeneratice joint disease NSTEMI Aug 2020 Transition to inpatient for continued eval nicole cardiac bypass surgery due to symptomatic triple vessel disease DVT prophylaxis: Heparin Discussed with: Patient, nursing Anticipated discharge: per CT surgery Anticipated discharge place: per CT surgery A total of 25 minutes was spent on the care of this complex patient more than 50% of the time was spent in counseling and care coordination. Objective - Vital Signs Vital signs: Vital Signs Temp 97.9 F 11/19/20 06:03 Pulse 62 11/19/20 06:03 Resp 16 11/19/20 03:25 BP 167/67 11/19/20 06:03 Pulse Ox 96 11/19/20 06:03 Intake & Output 11/18/20 11/19/20 11/19/20 18:59 06:59 18:59 Intake Total 2160 403.14 Balance 2160 403.14 Weight 94.8 kg Intake: IV 100 Intake, IV Titration 303.14 Amount Heparin Sod,Pork in 0.45% 303.14 NaCl 25,000 unit In 0.45 % NaCl 1 250ml.bag @ 10. 599 UNITS/KG/HR 10 mls/hr IV .Q24H [facility] Rx#: [id number] Oral 2160 Other: # Voids 1 - Labs CBC & Chem 7: 11/19/20 13:00 11/19/20 13:00 Labs: Abnormal Lab Results - Last 24 Hours (Table) 11/18/20 Range/Units 05:18 Crossmatch See Detail
[2020-11-19 14:25] LABS: INR 1.2 (<1.2); Partial Thromboplastin Time 26.5 sec (22.0-30.0); Prothrombin Time 12.5 sec (9.0-12.0)
[2020-11-19] MEDS: POTASSIUM CHLORIDE 10 MEQ in WATER FOR INJECTION 1 100ML.BAG IVPB SCH ×2 (14:46→16:00)
[2020-11-19] MEDS: MAGNESIUM SULFATE-D5W PMX 1 GM in DEXTROSE/WATER 1 100ML.BAG IVPB SCH ×2 (14:46→17:19)
[2020-11-19 15:18] LABS: Glucose,Whole Blood 141 mg/dL (75-99)
[2020-11-19] MEDS ORDERED: IPRATROPIUM-ALBUTEROL 3 ML NEB INHALATION SCH (16:00)
[2020-11-19 16:04] LABS: Basophils % (A) 0 %; Eosinophils % (A) 0 %; Glucose,Whole Blood 160 mg/dL (75-99); HCT 32.4 % (39.0-53.0); HGB 10.8 gm/dL (13.0-17.5); Lymphocytes # (A) 1.1 k/uL (1.0-4.8); Lymphocytes % (A) 9 %; MCH 34.4 pg (25.0-35.0); MCHC 33.4 g/dL (31.0-37.0); Macrocytosis Slight; Mean Platelet Volume 10.9; Monocytes # (A) 0.8 k/uL (0-1.0); Monocytes % (A) 6 %; Neutrophils # (A) 10.1 k/uL (1.3-7.7); Neutrophils % (A) 82 %; Platelet Count 120 k/uL (150-450); RBC 3.14 m/uL (4.30-5.90); RDW 12.5 % (11.5-15.5); WBC 12.3 k/uL (3.8-10.6)
--- NOTE | 2020-11-19 16:10 | P.PN ---
Subjective Progress Note Date: 11/19/20 Principal diagnosis: Status post off-pump CABG 3 with PARIKH to LAD, saphenous vein graft to RCA, saphenous vein graft to second obtuse marginal, postoperative day #0 85-year-old male patient, known history of hypertension and hyperlipidemia and previous history of bladder cancer treated with systemic chemotherapy, and ex- smoker quit smoking approximately 20 years ago presented with exertional dyspnea that was progressively getting worse. The patient also had worsening lower extremity edema. He denies having any significant chest pain. The patient underwent a cardiac stress test on 11/06/2020 and the patient was found to have moderate area of reversible defect suggestive of ischemia. Following that, the patient underwent a cardiac catheterization 11/16/2020 and the patient was found to have a 70-80% stenosis of the distal left main artery, 95% stenosis of the proximal RCA, total occlusion of the circumflex with a 50-55% stenosis of the proximal LAD. The patient is being considered for cardiac bypass surgery and pulmonary consultation was requested. The chest x-rays was done on 10/01/2020 showed small bilateral pleural effusion and atelectatic changes in the lung bases. Repeat CAT scan of the chest that was done on 11/16/2020 showed of the lung parenchyma showed some mild emphysema. No evidence of pleural effusion. No evidence of any lung masses. The patient's had an FEV1 on a bedside spirometry of 46% of predicted. He is currently on IV heparin. The echo shows an ejection fraction of 40-45%. The segmental wall motion abnormalities related to his underlying CAD. There is moderate concentric LVH. RV is mildly dilated. There is moderate mitral regurgitation. Aortic valve seems to be within normal limits. Nevertheless, there is moderate degree of concentric LV hypertrophy consistent with hypertensive heart disease. Patient was reevaluated today on 11/19/2020, patient is status post off-pump CABG 3, PARIKH to LAD, saphenous vein graft to RCA, saphenous vein graft to second obtuse marginal coronary artery. This was done earlier today by Dr. Parker, patient is now back in the ICU, on mechanical ventilation, his ventilator settings are assist control rate of 16, volume is 500 FiO2 is down to 50% today, and PEEP is 5. ABG earlier on 60% FiO2 showed a pO2 of 136 pCO2 of 48 and pH of 7.33 patient was on assist control rate of 14 which was increased to 16. Surgery both CABG showed mild pulmonary vascular congestion, and minimal bi basilar atelectasis. Patient is on propofol drip at 20 mcg/kg/m, is also on nitroglycerin drip, pleasant proximal drip at 1 mg/h, and is also on insulin drip at 1 unit per hour. Patient is sedated, in no distress, hemodynamically stable. His cardiac index is 3.5. Labs including CBC and electrolytes were noted to be relatively normal Objective - Vital Signs Vital signs: Vital Signs Temp 97.9 F 11/19/20 06:03 Pulse 55 L 11/19/20 15:14 Resp 16 11/19/20 15:00 BP 167/67 11/19/20 06:03 Pulse Ox 99 11/19/20 15:00 Intake & Output 11/18/20 11/19/20 11/19/20 18:59 06:59 18:59 Intake Total 2160 403.14 160.5 Output Total 1473 Balance 2160 403.14 -1312.5 Weight 94.8 kg Intake: IV 100 160.5 Lactated Ringers 1,000 ml 150 @ 50 mls/hr IV .Q20H [facility] Rx#:[id number] Nitroglycerin-D5w Pmx 50 4.5 mg In Dextrose/Water 1 250ml.bag @ 5 MCG/MIN 1.5 mls/hr IV .Q24H [facility] Rx#: [id number] Intake, IV Titration 303.14 Amount Heparin Sod,Pork in 0.45% 303.14 NaCl 25,000 unit In 0.45 % NaCl 1 250ml.bag @ 10. 599 UNITS/KG/HR 10 mls/hr IV .Q24H [facility] Rx#: [id number] Oral 2160 Output: Chest Tube Drainage 93 Left Pleural and 93 Mediastinal Right Pleural 0 Urine 380 Estimated Blood Loss 1000 Other: Voiding Method Indwelling Catheter # Voids 1 ABP, PAP, CO, CI - Last Documented Arterial Blood Pressure 114/47 Pulmonary Artery Pressure 42/26 Cardiac Output 7.3 Cardiac Index 3.5 - Exam Physical Exam revealed 85-year-old white male, intubated mechanically ventilated, sedated, in no distress. Head: Atraumatic, normocephalic endotracheal tube and nasogastric tube are intact. HEENT:[Neck is supple.] [No neck masses.] [No thyromegaly.] [No JVD.] PERRLA, EOMI, nonicteric. Moist mucous membranes. Right IJ Cordis noted with PA catheter. Chest: [Clear throughout, no crackles, no rhonchi, no wheezes.] Symmetrical chest expansion. Cardiac Exam: [Normal S1 and S2, no S3 gallop, distant pericardial rub. Abdomen: [Soft, nontender, no megaly, no rebound, no guarding, normal bowel sounds.] Extremities: [No clubbing, no edema, no cyanosis.] Neurological Exam: Not assessed, patient is sedated, on propofol. Psychiatric: Could not assess. Patient is sedated on propofol. Skin: No rashes. - Labs CBC & Chem 7: 11/19/20 13:00 11/19/20 13:00 Labs: Abnormal Lab Results - Last 24 Hours (Table) 11/18/20 11/19/20 11/19/20 Range/Units 05:18 08:24 10:06 WBC (3.8-10.6) k/uL RBC (4.30-5.90) m/uL Hgb (13.0-17.5) gm/dL Hct (39.0-53.0) % MCV (80.0-100.0) fL MCH (25.0-35.0) pg Plt Count (150-450) k/uL Neutrophils # (1.3-7.7) k/uL PT (9.0-12.0) sec INR (<1.2) ABG pH 7.31 L (7.35-7.45) ABG pCO2 53 H (35-45) mmHg ABG pO2 309 H 265 H (83-108) mmHg ABG HCO3 27 H (21-25) mmol/L ABG Total CO2 29 H 25 H (19-24) mmol/L ABG O2 Saturation 99.9 H 100.0 H (94-97) % ABG Ionized Calcium 4.2 L (4.5-5.3) mg/dL ABG Glucose 116 H 126 H (75-99) mg/dL ABG Lactic Acid 1.7 H (0.5-1.6) mmol/L Hemoglobin 11.4 L (13.0-17.5) gm/dL Glucose (74-99) mg/dL POC Glucose (mg/dL) (75-99) mg/dL Calcium (8.4-10.2) mg/dL Total Protein (6.3-8.2) g/dL Albumin (3.5-5.0) g/dL Arterial Blood Glucose 116 H 126 H (75-99) mg/dL Crossmatch See Detail 11/19/20 11/19/20 11/19/20 Range/Units 11:23 12:08 12:37 WBC (3.8-10.6) k/uL RBC (4.30-5.90) m/uL Hgb (13.0-17.5) gm/dL Hct (39.0-53.0) % MCV (80.0-100.0) fL MCH (25.0-35.0) pg Plt Count (150-450) k/uL Neutrophils # (1.3-7.7) k/uL PT (9.0-12.0) sec INR (<1.2) ABG pH 7.33 L (7.35-7.45) ABG pCO2 48 H (35-45) mmHg ABG pO2 271 H 194 H 136 H (83-108) mmHg ABG HCO3 26 H 26 H (21-25) mmol/L ABG Total CO2 27 H 27 H 27 H (19-24) mmol/L ABG O2 Saturation 100.0 H 99.8 H 99.0 H (94-97) % ABG Ionized Calcium 4.4 L 4.4 L (4.5-5.3) mg/dL ABG Glucose 149 H 152 H (75-99) mg/dL ABG Lactic Acid 1.8 H (0.5-1.6) mmol/L Hemoglobin 11.5 L 11.4 L (13.0-17.5) gm/dL Glucose (74-99) mg/dL POC Glucose (mg/dL) (75-99) mg/dL Calcium (8.4-10.2) mg/dL Total Protein (6.3-8.2) g/dL Albumin (3.5-5.0) g/dL Arterial Blood Glucose 149 H 152 H (75-99) mg/dL Crossmatch 11/19/20 11/19/20 11/19/20 Range/Units 13:00 13:00 13:00 WBC 11.5 H (3.8-10.6) k/uL RBC 3.17 L (4.30-5.90) m/uL Hgb 11.1 L (13.0-17.5) gm/dL Hct 32.3 L (39.0-53.0) % MCV 102.1 H (80.0-100.0) fL MCH 35.1 H (25.0-35.0) pg Plt Count 111 L (150-450) k/uL Neutrophils # 9.6 H (1.3-7.7) k/uL PT 12.5 H (9.0-12.0) sec INR 1.2 H (<1.2) ABG pH (7.35-7.45) ABG pCO2 (35-45) mmHg ABG pO2 (83-108) mmHg ABG HCO3 (21-25) mmol/L ABG Total CO2 (19-24) mmol/L ABG O2 Saturation (94-97) % ABG Ionized Calcium (4.5-5.3) mg/dL ABG Glucose (75-99) mg/dL ABG Lactic Acid (0.5-1.6) mmol/L Hemoglobin (13.0-17.5) gm/dL Glucose 133 H (74-99) mg/dL POC Glucose (mg/dL) (75-99) mg/dL Calcium 7.7 L (8.4-10.2) mg/dL Total Protein 5.1 L (6.3-8.2) g/dL Albumin 3.2 L (3.5-5.0) g/dL Arterial Blood Glucose (75-99) mg/dL Crossmatch 11/19/20 11/19/20 11/19/20 Range/Units 13:11 14:01 14:59 WBC (3.8-10.6) k/uL RBC (4.30-5.90) m/uL Hgb (13.0-17.5) gm/dL Hct (39.0-53.0) % MCV (80.0-100.0) fL MCH (25.0-35.0) pg Plt Count (150-450) k/uL Neutrophils # (1.3-7.7) k/uL PT (9.0-12.0) sec INR (<1.2) ABG pH (7.35-7.45) ABG pCO2 (35-45) mmHg ABG pO2 (83-108) mmHg ABG HCO3 (21-25) mmol/L ABG Total CO2 (19-24) mmol/L ABG O2 Saturation (94-97) % ABG Ionized Calcium (4.5-5.3) mg/dL ABG Glucose (75-99) mg/dL ABG Lactic Acid (0.5-1.6) mmol/L Hemoglobin (13.0-17.5) gm/dL Glucose (74-99) mg/dL POC Glucose (mg/dL) 131 H 131 H 141 H (75-99) mg/dL Calcium (8.4-10.2) mg/dL Total Protein (6.3-8.2) g/dL Albumin (3.5-5.0) g/dL Arterial Blood Glucose (75-99) mg/dL Crossmatch Assessment and Plan Assessment: Impression: Status post off-pump CABG 3, PARIKH to LAD, saphenous vein graft to RCA, saphenous vein graft to second obtuse marginal coronary artery. Postoperative day #0. Multivessel coronary artery disease. Benign essential hypertension. Dyslipidemia. History of bladder cancer status post intravesicular chemotherapy and transurethral bladder tumor resection. Remote smoking history. History of degenerative joint disease. Recommendation: Continue present ventilatory support. Continue present meds including propofol, nitroglycerin, levothyroxine, insulin, Consider weaning and extubation in the next few hours. All labs, chest x-ray, ABG were all reviewed. Hemodynamic status was also reviewed, cardiac index is 3.5. Will proceed with weaning parameters in the next couple of hours, and possibly extubate later today. We'll continue to follow. Critical care time is over 30 minutes. Time with Patient: Greater than 30
[2020-11-19 17:16] LABS: Glucose,Whole Blood 147 mg/dL (75-99)
[2020-11-19] MEDS: ACETAMINOPHEN IV (For NPO) 1,000 MG in EMPTY BAG 1 BAG IVPB SCH ×2 (17:20→23:28)
[2020-11-19] MEDS: KETOROLAC 15 MG/ML 1 ML VIAL IVP SCH ×2 (17:24→23:29)
[2020-11-19 17:38] LABS: ABG Base Excess -2.6 mmol/L; ABG HCO3 24 mmol/L (21-25); ABG Oxygen Saturation 97.5 % (94-97); ABG PCO2 48 mmHg (35-45); ABG PO2 99 mmHg (83-108); ABG TCO2 25 mmol/L (19-24)
[2020-11-19 17:53] LABS: Glucose,Whole Blood 163 mg/dL (75-99)
[2020-11-19 19:14] LABS: Basophils % (A) 0 %; Eosinophils % (A) 0 %; HCT 34.5 % (39.0-53.0); HGB 11.8 gm/dL (13.0-17.5); Lymphocytes # (A) 0.5 k/uL (1.0-4.8); Lymphocytes % (A) 4 %; MCHC 34.1 g/dL (31.0-37.0); MCV 102.6 fL (80.0-100.0); Macrocytosis Slight; Mean Platelet Volume 10.3; Monocytes # (A) 0.8 k/uL (0-1.0); Monocytes % (A) 6 %; Neutrophils # (A) 11.3 k/uL (1.3-7.7); Neutrophils % (A) 88 %; Platelet Count 131 k/uL (150-450); RBC 3.36 m/uL (4.30-5.90); RDW 12.2 % (11.5-15.5); WBC 12.8 k/uL (3.8-10.6)
[2020-11-19 19:17] LABS: Glucose,Whole Blood 167 mg/dL (75-99)
[2020-11-19] MEDS: IPRATROPIUM-ALBUTEROL 3 ML NEB INHALATION SCH ×2 (19:30→19:31)
[2020-11-19] MEDS: HEPARIN SODIUM,PORCINE 5,000 UNIT/ML 1 ML VIAL SQ SCH (19:52)
[2020-11-19 20:03] LABS: Glucose,Whole Blood 143 mg/dL (75-99)
[2020-11-19 20:56] LABS: Glucose,Whole Blood 144 mg/dL (75-99)
[2020-11-19 22:04] LABS: Glucose,Whole Blood 118 mg/dL (75-99)
[2020-11-19 23:16] LABS: Glucose,Whole Blood 111 mg/dL (75-99)
[2020-11-20] MEDS ORDERED: HYDROcodone/APAP 5-325MG 1 EACH TAB PO PRN ×2 (00:30→06:00)
[2020-11-20 01:07] LABS: Glucose,Whole Blood 138 mg/dL (75-99)
[2020-11-20 02:13] LABS: Glucose,Whole Blood 137 mg/dL (75-99)
[2020-11-20 03:03] LABS: Glucose,Whole Blood 128 mg/dL (75-99)
[2020-11-20 03:44] LABS: Basophils # (A) 0.1 k/uL (0-0.2); Basophils % (A) 1 %; Eosinophils # (A) 0.1 k/uL (0-0.7); Eosinophils % (A) 1 %; HCT 34.7 % (39.0-53.0); Lymphocytes # (A) 0.9 k/uL (1.0-4.8); Lymphocytes % (A) 9 %; MCH 35.3 pg (25.0-35.0); MCHC 34.6 g/dL (31.0-37.0); MCV 101.9 fL (80.0-100.0); Mean Platelet Volume 10.5; Monocytes # (A) 0.8 k/uL (0-1.0); Monocytes % (A) 7 %; Neutrophils # (A) 8.4 k/uL (1.3-7.7); Neutrophils % (A) 80 %; Platelet Count 102 k/uL (150-450); RDW 12.1 % (11.5-15.5); WBC 10.5 k/uL (3.8-10.6)
[2020-11-20 03:48] LABS: Ionized Calcium 4.6 mg/dL (4.5-5.3)
[2020-11-20 03:51] LABS: Albumin 3.6 g/dL (3.5-5.0); Magnesium 2.3 mg/dL (1.6-2.3); Total Bilirubin 0.9 mg/dL (0.2-1.3); Total Protein 5.7 g/dL (6.3-8.2)
[2020-11-20 03:58] LABS: Potassium 4.8 mmol/L (3.5-5.1)
[2020-11-20 05:12] LABS: Glucose,Whole Blood 113 mg/dL (75-99)
[2020-11-20] MEDS: KETOROLAC 15 MG/ML 1 ML VIAL IVP SCH ×3 (05:47→18:02)
[2020-11-20] MEDS: HEPARIN SODIUM,PORCINE 5,000 UNIT/ML 1 ML VIAL SQ SCH ×3 (05:47→20:30)
[2020-11-20 05:57] LABS: Glucose,Whole Blood 97 mg/dL (75-99)
[2020-11-20 06:58] LABS: Glucose,Whole Blood 115 mg/dL (75-99)
[2020-11-20] MEDS ORDERED: METOCLOPRAMIDE 5 MG/ML 2 ML VIAL IVP PRN (07:25)
[2020-11-20] MEDS: IPRATROPIUM-ALBUTEROL 3 ML NEB INHALATION SCH ×4 (07:38→19:22)
[2020-11-20 08:04] LABS: Glucose,Whole Blood 129 mg/dL (75-99)
--- NOTE | 2020-11-20 08:06 | XR ---
EXAMINATION TYPE: XR chest 1V portable DATE OF EXAM: 11/20/2020 COMPARISON: 11/19/2020 HISTORY: SOB, Follow Up FINDINGS: Bilateral chest tubes are in place. No sizable pneumothorax evident. Postoperative changes of CABG. S wan-Leno catheter and mediastinal drain in place. Basilar atelectasis noted. Stable appearance of the cardio-mediastinal structures at this time. IMPRESSION: 1. Stable postoperative cardiac surgery.
[2020-11-20] MEDS: CLOPIDOGREL 75 MG TAB PO SCH (08:12)
[2020-11-20] MEDS: PANTOPRAZOLE 40 MG TABLET PO SCH (08:12)
[2020-11-20] MEDS: FINASTERIDE 5 MG TAB PO SCH (08:12)
[2020-11-20] MEDS: ASCORBIC ACID 500 MG TAB PO SCH (08:12)
[2020-11-20] MEDS: METOPROLOL TARTRATE 25 MG TAB PO SCH ×2 (08:12→20:31)
[2020-11-20] MEDS: ASPIRIN 325 MG TAB PO SCH (08:12)
--- NOTE | 2020-11-20 08:15 | PN ---
PROGRESS NOTE This is an 85-year-old robustly, healthy gentleman who had a cardiac cath performed by me last week, which revealed significant distal left main and 95% proximal RCA. He underwent aortocoronary bypass surgery yesterday by Dr. Parker. He has been extubated. He looks very good this morning. He had a left internal mammary artery graft to LAD, vein graft to the RCA and vein graft to the second obtuse marginal branch of circumflex. He also had occlusion of left atrial appendage with a clip. He is resting comfortably. He is able to take some decent breaths. He has no chest discomfort. His echocardiogram revealed ejection fraction of 45% range. Post surgery, he looks quite comfortable, resting. He is in sinus rhythm with PACs. He is not on any pressors. PHYSICAL EXAMINATION: Physical examination reveal a blood pressure of about 114/70, pulse rate is about 70 per minute, sinus with PACs. JVD not evident. S1, S2 heard normally. Short systolic murmur is audible. Lungs reveal fair air entry. Rest of physical exam is unchanged. Plan is to continue current medications, incentive spirometry and pulmonary toilet and based on the clinical course we will make further recommendations. MMODL / IJN: [id number] /
[2020-11-20] MEDS: LACTATED RINGERS 1,000 ML IV SCH (08:20)
[2020-11-20] MEDS: MUPIROCIN 2% OINT 22 GM TUBE NASAL SCH ×2 (08:21→20:31)
[2020-11-20 08:59] LABS: Glucose,Whole Blood 135 mg/dL (75-99)
[2020-11-20] MEDS ORDERED: MAGNESIUM HYDROXIDE 2,400 MG/10 ML CUP PO PRN (09:00)
[2020-11-20] MEDS ORDERED: bisacodyL 10 MG SUPP RECTAL PRN (09:00)
[2020-11-20] MEDS ORDERED: PANTOPRAZOLE 40 MG/10 ML VIAL IVP SCH (09:00)
[2020-11-20] MEDS ORDERED: METOPROLOL TARTRATE 12.5 MG TAB PO SCH (09:00)
[2020-11-20 09:54] LABS: Glucose,Whole Blood 118 mg/dL (75-99)
--- NOTE | 2020-11-20 10:32 | P.PN ---
Subjective Progress Note Date: 11/20/20 Patient is doing well today. He does not have any complaints. No acute events overnight reported to be my nursing staff. He was sitting up in the chair when I saw her. Objective - Vital Signs Vital signs: Vital Signs Temp 97.3 F L 11/20/20 04:00 Pulse 84 11/20/20 07:53 Resp 17 11/20/20 07:00 BP 114/55 11/20/20 07:00 Pulse Ox 96 11/20/20 07:00 Intake & Output 11/19/20 11/20/20 11/20/20 18:59 06:59 18:59 Intake Total 399.053 771.757 50 Output Total 1652 821 70 Balance -1252.947 -49.243 -20 Weight 98 kg Intake: IV 315.0 690 50 CO/CI 140 Lactated Ringers 1,000 ml 300 550 50 @ 20 mls/hr IV .Q24H [facility] Rx#:[id number] Nitroglycerin-D5w Pmx 50 9.0 mg In Dextrose/Water 1 250ml.bag @ 5 MCG/MIN 1.5 mls/hr IV .Q24H [facility] Rx#: [id number] Intake, IV Titration 84.053 81.757 0 Amount Clevidipine Butyrate 25 28.134 51.600 mg In Empty Bag 1 bag @ 1 MG/HR 2 mls/hr IV .Q24H [facility] Rx#:[id number] Insulin Regular 100 unit 10.226 30.157 0 In Sodium Chloride 0.9% 100 ml @ Per Protocol IV .Q0M [facility] Rx#:[id number] propofoL 1,000 mg In 45.693 Empty Bag 1 bag @ Titrate IV .Q0M [facility] Rx#: [id number] Output: Chest Tube Drainage 182 401 40 Left Pleural and 182 366 40 Mediastinal Right Pleural 0 35 Urine 470 420 30 Estimated Blood Loss 1000 Other: Voiding Method Indwelling Catheter Indwelling Catheter ABP, PAP, CO, CI - Last Documented Arterial Blood Pressure 258/256 Pulmonary Artery Pressure 27/15 Cardiac Output 4.9 Cardiac Index 2.4 - Exam General: The patient is awake and alert, in no distress Eye: there is normal conjunctiva bilaterally. Neck: The neck is supple, there is no JVD. Cardiovascular: Normal S1-S2, no S3-S4, no murmurs. Respiratory: Lungs clear to auscultation bilaterally Gastrointestinal: Abdomen is soft, nontender Musculoskeletal: There is no pedal edema. Neurological:. Speech is normal. Skin: Skin is warm and dry - Labs CBC & Chem 7: 11/20/20 03:30 11/20/20 03:30 Labs: Abnormal Lab Results - Last 24 Hours (Table) 11/18/20 11/19/20 11/19/20 Range/Units 05:18 08:24 10:06 WBC (3.8-10.6) k/uL RBC (4.30-5.90) m/uL Hgb (13.0-17.5) gm/dL Hct (39.0-53.0) % MCV (80.0-100.0) fL MCH (25.0-35.0) pg Plt Count (150-450) k/uL Neutrophils # (1.3-7.7) k/uL Lymphocytes # (1.0-4.8) k/uL PT (9.0-12.0) sec INR (<1.2) ABG pH 7.31 L (7.35-7.45) ABG pCO2 53 H (35-45) mmHg ABG pO2 309 H 265 H (83-108) mmHg ABG HCO3 27 H (21-25) mmol/L ABG Total CO2 29 H 25 H (19-24) mmol/L ABG O2 Saturation 99.9 H 100.0 H (94-97) % ABG Ionized Calcium 4.2 L (4.5-5.3) mg/dL ABG Glucose 116 H 126 H (75-99) mg/dL ABG Lactic Acid 1.7 H (0.5-1.6) mmol/L Hemoglobin 11.4 L (13.0-17.5) gm/dL Carbon Dioxide (22-30) mmol/L BUN (9-20) mg/dL Glucose (74-99) mg/dL POC Glucose (mg/dL) (75-99) mg/dL Calcium (8.4-10.2) mg/dL Alkaline Phosphatase (38-126) U/L Total Protein (6.3-8.2) g/dL Albumin (3.5-5.0) g/dL Arterial Blood Glucose 116 H 126 H (75-99) mg/dL Crossmatch See Detail 11/19/20 11/19/20 11/19/20 Range/Units 11:23 12:08 12:37 WBC (3.8-10.6) k/uL RBC (4.30-5.90) m/uL Hgb (13.0-17.5) gm/dL Hct (39.0-53.0) % MCV (80.0-100.0) fL MCH (25.0-35.0) pg Plt Count (150-450) k/uL Neutrophils # (1.3-7.7) k/uL Lymphocytes # (1.0-4.8) k/uL PT (9.0-12.0) sec INR (<1.2) ABG pH 7.33 L (7.35-7.45) ABG pCO2 48 H (35-45) mmHg ABG pO2 271 H 194 H 136 H (83-108) mmHg ABG HCO3 26 H 26 H (21-25) mmol/L ABG Total CO2 27 H 27 H 27 H (19-24) mmol/L ABG O2 Saturation 100.0 H 99.8 H 99.0 H (94-97) % ABG Ionized Calcium 4.4 L 4.4 L (4.5-5.3) mg/dL ABG Glucose 149 H 152 H (75-99) mg/dL ABG Lactic Acid 1.8 H (0.5-1.6) mmol/L Hemoglobin 11.5 L 11.4 L (13.0-17.5) gm/dL Carbon Dioxide (22-30) mmol/L BUN (9-20) mg/dL Glucose (74-99) mg/dL POC Glucose (mg/dL) (75-99) mg/dL Calcium (8.4-10.2) mg/dL Alkaline Phosphatase (38-126) U/L Total Protein (6.3-8.2) g/dL Albumin (3.5-5.0) g/dL Arterial Blood Glucose 149 H 152 H (75-99) mg/dL Crossmatch 11/19/20 11/19/20 11/19/20 Range/Units 13:00 13:00 13:00 WBC 11.5 H (3.8-10.6) k/uL RBC 3.17 L (4.30-5.90) m/uL Hgb 11.1 L (13.0-17.5) gm/dL Hct 32.3 L (39.0-53.0) % MCV 102.1 H (80.0-100.0) fL MCH 35.1 H (25.0-35.0) pg Plt Count 111 L (150-450) k/uL Neutrophils # 9.6 H (1.3-7.7) k/uL Lymphocytes # (1.0-4.8) k/uL PT 12.5 H (9.0-12.0) sec INR 1.2 H (<1.2) ABG pH (7.35-7.45) ABG pCO2 (35-45) mmHg ABG pO2 (83-108) mmHg ABG HCO3 (21-25) mmol/L ABG Total CO2 (19-24) mmol/L ABG O2 Saturation (94-97) % ABG Ionized Calcium (4.5-5.3) mg/dL ABG Glucose (75-99) mg/dL ABG Lactic Acid (0.5-1.6) mmol/L Hemoglobin (13.0-17.5) gm/dL Carbon Dioxide (22-30) mmol/L BUN (9-20) mg/dL Glucose 133 H (74-99) mg/dL POC Glucose (mg/dL) (75-99) mg/dL Calcium 7.7 L (8.4-10.2) mg/dL Alkaline Phosphatase (38-126) U/L Total Protein 5.1 L (6.3-8.2) g/dL Albumin 3.2 L (3.5-5.0) g/dL Arterial Blood Glucose (75-99) mg/dL Crossmatch 11/19/20 11/19/20 11/19/20 Range/Units 13:11 14:01 14:59 WBC (3.8-10.6) k/uL RBC (4.30-5.90) m/uL Hgb (13.0-17.5) gm/dL Hct (39.0-53.0) % MCV (80.0-100.0) fL MCH (25.0-35.0) pg Plt Count (150-450) k/uL Neutrophils # (1.3-7.7) k/uL Lymphocytes # (1.0-4.8) k/uL PT (9.0-12.0) sec INR (<1.2) ABG pH (7.35-7.45) ABG pCO2 (35-45) mmHg ABG pO2 (83-108) mmHg ABG HCO3 (21-25) mmol/L ABG Total CO2 (19-24) mmol/L ABG O2 Saturation (94-97) % ABG Ionized Calcium (4.5-5.3) mg/dL ABG Glucose (75-99) mg/dL ABG Lactic Acid (0.5-1.6) mmol/L Hemoglobin (13.0-17.5) gm/dL Carbon Dioxide (22-30) mmol/L BUN (9-20) mg/dL Glucose (74-99) mg/dL POC Glucose (mg/dL) 131 H 131 H 141 H (75-99) mg/dL Calcium (8.4-10.2) mg/dL Alkaline Phosphatase (38-126) U/L Total Protein (6.3-8.2) g/dL Albumin (3.5-5.0) g/dL Arterial Blood Glucose (75-99) mg/dL Crossmatch 11/19/20 11/19/20 11/19/20 Range/Units 15:56 15:56 17:15 WBC 12.3 H (3.8-10.6) k/uL RBC 3.14 L (4.30-5.90) m/uL Hgb 10.8 L (13.0-17.5) gm/dL Hct 32.4 L (39.0-53.0) % MCV 103.0 H (80.0-100.0) fL MCH (25.0-35.0) pg Plt Count 120 L (150-450) k/uL Neutrophils # 10.1 H (1.3-7.7) k/uL Lymphocytes # (1.0-4.8) k/uL PT (9.0-12.0) sec INR (<1.2) ABG pH (7.35-7.45) ABG pCO2 (35-45) mmHg ABG pO2 (83-108) mmHg ABG HCO3 (21-25) mmol/L ABG Total CO2 (19-24) mmol/L ABG O2 Saturation (94-97) % ABG Ionized Calcium (4.5-5.3) mg/dL ABG Glucose (75-99) mg/dL ABG Lactic Acid (0.5-1.6) mmol/L Hemoglobin (13.0-17.5) gm/dL Carbon Dioxide (22-30) mmol/L BUN (9-20) mg/dL Glucose (74-99) mg/dL POC Glucose (mg/dL) 160 H 147 H (75-99) mg/dL Calcium (8.4-10.2) mg/dL Alkaline Phosphatase (38-126) U/L Total Protein (6.3-8.2) g/dL Albumin (3.5-5.0) g/dL Arterial Blood Glucose (75-99) mg/dL Crossmatch 11/19/20 11/19/20 11/19/20 Range/Units 17:34 17:52 18:58 WBC (3.8-10.6) k/uL RBC (4.30-5.90) m/uL Hgb (13.0-17.5) gm/dL Hct (39.0-53.0) % MCV (80.0-100.0) fL MCH (25.0-35.0) pg Plt Count (150-450) k/uL Neutrophils # (1.3-7.7) k/uL Lymphocytes # (1.0-4.8) k/uL PT (9.0-12.0) sec INR (<1.2) ABG pH 7.30 L (7.35-7.45) ABG pCO2 48 H (35-45) mmHg ABG pO2 (83-108) mmHg ABG HCO3 (21-25) mmol/L ABG Total CO2 25 H (19-24) mmol/L ABG O2 Saturation 97.5 H (94-97) % ABG Ionized Calcium (4.5-5.3) mg/dL ABG Glucose (75-99) mg/dL ABG Lactic Acid (0.5-1.6) mmol/L Hemoglobin (13.0-17.5) gm/dL Carbon Dioxide (22-30) mmol/L BUN (9-20) mg/dL Glucose (74-99) mg/dL POC Glucose (mg/dL) 163 H 167 H (75-99) mg/dL Calcium (8.4-10.2) mg/dL Alkaline Phosphatase (38-126) U/L Total Protein (6.3-8.2) g/dL Albumin (3.5-5.0) g/dL Arterial Blood Glucose (75-99) mg/dL Crossmatch 11/19/20 11/19/20 11/19/20 Range/Units 19:09 20:02 20:44 WBC 12.8 H (3.8-10.6) k/uL RBC 3.36 L (4.30-5.90) m/uL Hgb 11.8 L (13.0-17.5) gm/dL Hct 34.5 L (39.0-53.0) % MCV 102.6 H (80.0-100.0) fL MCH (25.0-35.0) pg Plt Count 131 L (150-450) k/uL Neutrophils # 11.3 H (1.3-7.7) k/uL Lymphocytes # 0.5 L (1.0-4.8) k/uL PT (9.0-12.0) sec INR (<1.2) ABG pH (7.35-7.45) ABG pCO2 (35-45) mmHg ABG pO2 (83-108) mmHg ABG HCO3 (21-25) mmol/L ABG Total CO2 (19-24) mmol/L ABG O2 Saturation (94-97) % ABG Ionized Calcium (4.5-5.3) mg/dL ABG Glucose (75-99) mg/dL ABG Lactic Acid (0.5-1.6) mmol/L Hemoglobin (13.0-17.5) gm/dL Carbon Dioxide (22-30) mmol/L BUN (9-20) mg/dL Glucose (74-99) mg/dL POC Glucose (mg/dL) 143 H 144 H (75-99) mg/dL Calcium (8.4-10.2) mg/dL Alkaline Phosphatase (38-126) U/L Total Protein (6.3-8.2) g/dL Albumin (3.5-5.0) g/dL Arterial Blood Glucose (75-99) mg/dL Crossmatch 11/19/20 11/19/20 11/20/20 Range/Units 22:02 23:15 00:56 WBC (3.8-10.6) k/uL RBC (4.30-5.90) m/uL Hgb (13.0-17.5) gm/dL Hct (39.0-53.0) % MCV (80.0-100.0) fL MCH (25.0-35.0) pg Plt Count (150-450) k/uL Neutrophils # (1.3-7.7) k/uL Lymphocytes # (1.0-4.8) k/uL PT (9.0-12.0) sec INR (<1.2) ABG pH (7.35-7.45) ABG pCO2 (35-45) mmHg ABG pO2 (83-108) mmHg ABG HCO3 (21-25) mmol/L ABG Total CO2 (19-24) mmol/L ABG O2 Saturation (94-97) % ABG Ionized Calcium (4.5-5.3) mg/dL ABG Glucose (75-99) mg/dL ABG Lactic Acid (0.5-1.6) mmol/L Hemoglobin (13.0-17.5) gm/dL Carbon Dioxide (22-30) mmol/L BUN (9-20) mg/dL Glucose (74-99) mg/dL POC Glucose (mg/dL) 118 H 111 H 138 H (75-99) mg/dL Calcium (8.4-10.2) mg/dL Alkaline Phosphatase (38-126) U/L Total Protein (6.3-8.2) g/dL Albumin (3.5-5.0) g/dL Arterial Blood Glucose (75-99) mg/dL Crossmatch 11/20/20 11/20/20 11/20/20 Range/Units 02:11 03:01 03:30 WBC (3.8-10.6) k/uL RBC 3.40 L (4.30-5.90) m/uL Hgb 12.0 L (13.0-17.5) gm/dL Hct 34.7 L (39.0-53.0) % MCV 101.9 H (80.0-100.0) fL MCH 35.3 H (25.0-35.0) pg Plt Count 102 L (150-450) k/uL Neutrophils # 8.4 H (1.3-7.7) k/uL Lymphocytes # 0.9 L (1.0-4.8) k/uL PT (9.0-12.0) sec INR (<1.2) ABG pH (7.35-7.45) ABG pCO2 (35-45) mmHg ABG pO2 (83-108) mmHg ABG HCO3 (21-25) mmol/L ABG Total CO2 (19-24) mmol/L ABG O2 Saturation (94-97) % ABG Ionized Calcium (4.5-5.3) mg/dL ABG Glucose (75-99) mg/dL ABG Lactic Acid (0.5-1.6) mmol/L Hemoglobin (13.0-17.5) gm/dL Carbon Dioxide (22-30) mmol/L BUN (9-20) mg/dL Glucose (74-99) mg/dL POC Glucose (mg/dL) 137 H 128 H (75-99) mg/dL Calcium (8.4-10.2) mg/dL Alkaline Phosphatase (38-126) U/L Total Protein (6.3-8.2) g/dL Albumin (3.5-5.0) g/dL Arterial Blood Glucose (75-99) mg/dL Crossmatch 11/20/20 11/20/20 11/20/20 Range/Units 03:30 04:59 06:57 WBC (3.8-10.6) k/uL RBC (4.30-5.90) m/uL Hgb (13.0-17.5) gm/dL Hct (39.0-53.0) % MCV (80.0-100.0) fL MCH (25.0-35.0) pg Plt Count (150-450) k/uL Neutrophils # (1.3-7.7) k/uL Lymphocytes # (1.0-4.8) k/uL PT (9.0-12.0) sec INR (<1.2) ABG pH (7.35-7.45) ABG pCO2 (35-45) mmHg ABG pO2 (83-108) mmHg ABG HCO3 (21-25) mmol/L ABG Total CO2 (19-24) mmol/L ABG O2 Saturation (94-97) % ABG Ionized Calcium (4.5-5.3) mg/dL ABG Glucose (75-99) mg/dL ABG Lactic Acid (0.5-1.6) mmol/L Hemoglobin (13.0-17.5) gm/dL Carbon Dioxide 20 L (22-30) mmol/L BUN 23 H (9-20) mg/dL Glucose 111 H (74-99) mg/dL POC Glucose (mg/dL) 113 H 115 H (75-99) mg/dL Calcium 8.0 L (8.4-10.2) mg/dL Alkaline Phosphatase 36 L (38-126) U/L Total Protein 5.7 L (6.3-8.2) g/dL Albumin (3.5-5.0) g/dL Arterial Blood Glucose (75-99) mg/dL Crossmatch 11/20/20 11/20/20 11/20/20 Range/Units 08:03 08:58 09:53 WBC (3.8-10.6) k/uL RBC (4.30-5.90) m/uL Hgb (13.0-17.5) gm/dL Hct (39.0-53.0) % MCV (80.0-100.0) fL MCH (25.0-35.0) pg Plt Count (150-450) k/uL Neutrophils # (1.3-7.7) k/uL Lymphocytes # (1.0-4.8) k/uL PT (9.0-12.0) sec INR (<1.2) ABG pH (7.35-7.45) ABG pCO2 (35-45) mmHg ABG pO2 (83-108) mmHg ABG HCO3 (21-25) mmol/L ABG Total CO2 (19-24) mmol/L ABG O2 Saturation (94-97) % ABG Ionized Calcium (4.5-5.3) mg/dL ABG Glucose (75-99) mg/dL ABG Lactic Acid (0.5-1.6) mmol/L Hemoglobin (13.0-17.5) gm/dL Carbon Dioxide (22-30) mmol/L BUN (9-20) mg/dL Glucose (74-99) mg/dL POC Glucose (mg/dL) 129 H 135 H 118 H (75-99) mg/dL Calcium (8.4-10.2) mg/dL Alkaline Phosphatase (38-126) U/L Total Protein (6.3-8.2) g/dL Albumin (3.5-5.0) g/dL Arterial Blood Glucose (75-99) mg/dL Crossmatch Assessment and Plan Assessment: 85-year-old with hypertension and dyslipidemia who presented for elective heart cath. Patient had an abnormal stress test recently and underwent left heart catheterization showing triple-vessel disease. Cardiac surgery consulted and patient underwent CABG 3 on 11/19/2020. Includes a list of his medical problems. 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 - management per CT surgery - Cardio recs - Optimal medical management - Cholesterol profile within normal limits Newly discovered Diabetes - A1C 6.5 - q1h accucheck post CABG - Insulin gtt if necessary - Will need to meet with ux visual designer and Dietitian - Will need glucometer on discharge Acute blood loss anemia, thrombocytopenia, leukocytosis - anticipated outcome of surgery - no indications for transfusion at this time. - follow CBC Ischemic cardiomyopathy with EF 40-45% - resume BB and Lasix per CT surgery - Consider ACEI or ARB on discharge - Strict I and O - Dialy weights B/L Carotid disease - ASA, Statin - CT surgery recs HTN - resume Metoprolol, Cozaar, Lasix per CT surgery - follow BP HLD - statin Obesity BMI 33.3 - structured outpatient weight loss HX bladder CA Hx tobacco abuse Degeneratice joint disease NSTEMI Aug 2020
[2020-11-20] MEDS ORDERED: FUROSEMIDE 10 MG/ML 2 ML VIAL IV STA (10:39)
[2020-11-20 10:43] VITALS: BMI 33.8
[2020-11-20 11:05] LABS: Glucose,Whole Blood 112 mg/dL (75-99)
--- NOTE | 2020-11-20 11:17 | P.PN ---
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 Past m edical history significant for hypertension, hyperlipidemia, non-ST elevated myocardial infarction in August 2020, history of congestive heart failure with a mildly reduced ejection fraction of 40-45%, psoriasis, history of bladder cancer with 6 chemotherapy treatments, benign prostatic hypertrophy, degenerative joint disease, and remote history of tobacco abuse in which he quit 20 years ago. POD #1 Off-pump CABG 3 with PARIKH to LAD, saphenous vein graft to right coronary artery, saphenous vein graft to second obtuse marginal coronary artery, endovascular vein harvest, occlusion of the left atrial appendage with a 35 mm AtriCure clip. Postoperative acute blood loss anemia, expected due to hemodilution. The patient was seen in follow-up today 11/20/2020 at his bedside in the intensive care unit. Currently he is sitting up to the bedside chair, is awake, alert and oriented 3. Denies any complaints of shortness of breath although is complaining of some minimal pain to his chest tube insertion sites. He was successfully extubated at 5:45 PM yesterday 11/19/2020, oxygen saturation are 96% currently on 4 L nasal cannula. Achieving 500-750 mL on his incentive spirometry with much encouragement. Right IJ Cordis with Tennille-Leno catheter in place, current hemodynamic show a cardiac output 4.9, cardiac index 2.4, PA pressures 32/16 and CVP 7 mmHg. He remains hemodynamically stable and is currently on no inotropic or pressor support. Mediastinal, right and left pleural chest tubes remain in place to low continuous wall suction -20 cm H2O. No air leak is present. Draining thin serosanguineous drainage. Mediastinal and left pleural chest tubes drained 290 mL output in the last 8 hours and 550 mL output since surgery. Right pleural chest tube drained 25 mL output in the last 8 hours and 35 mL output since surgery. He remains afebrile the last 24 hours. Morrow catheter is in place with adequate urine output in the last 8 hours. Objective - Vital Signs Vital signs: Vital Signs Temp 97.3 F L 11/20/20 04:00 Pulse 78 11/20/20 07:38 Resp 17 11/20/20 07:00 BP 114/55 11/20/20 07:00 Pulse Ox 96 11/20/20 07:00 Intake & Output 11/19/20 11/20/20 11/20/20 18:59 06:59 18:59 Intake Total 399.053 771.757 50 Output Total 1652 821 70 Balance -1252.947 -49.243 -20 Weight 98 kg Intake: IV 315.0 690 50 CO/CI 140 Lactated Ringers 1,000 ml 300 550 50 @ 20 mls/hr IV .Q24H [facility] Rx#:[id number] Nitroglycerin-D5w Pmx 50 9.0 mg In Dextrose/Water 1 250ml.bag @ 5 MCG/MIN 1.5 mls/hr IV .Q24H [facility] Rx#: [id number] Intake, IV Titration 84.053 81.757 0 Amount Clevidipine Butyrate 25 28.134 51.600 mg In Empty Bag 1 bag @ 1 MG/HR 2 mls/hr IV .Q24H [facility] Rx#:[id number] Insulin Regular 100 unit 10.226 30.157 0 In Sodium Chloride 0.9% 100 ml @ Per Protocol IV .Q0M [facility] Rx#:[id number] propofoL 1,000 mg In 45.693 Empty Bag 1 bag @ Titrate IV .Q0M [facility] Rx#: [id number] Output: Chest Tube Drainage 182 401 40 Left Pleural and 182 366 40 Mediastinal Right Pleural 0 35 Urine 470 420 30 Estimated Blood Loss 1000 Other: Voiding Method Indwelling Catheter Indwelling Catheter ABP, PAP, CO, CI - Last Documented Arterial Blood Pressure 258/256 Pulmonary Artery Pressure 27/15 Cardiac Output 4.9 Cardiac Index 2.4 - Constitutional General appearance: Present: cooperative, no acute distress, obese - EENT Eyes: Present: normal appearance. Absent: scleral icterus ENT: Present: hard of hearing - Neck Details: Neck is supple, no JVD. Right IJ Cordis and Tennille-Leno catheter in place and fu nctioning. - Respiratory Details: Lungs sounds essentially clear throughout, diminished to his bilateral bases with few scattered crackles. No wheezes or rhonchi. Respirations are symmetrical and nonlabored. Oxygen saturation are 96% on 4 L nasal cannula. Achieving 500-750 mL on his incentive spirometry. Mediastinal, right and left pleural chest tubes remain in place to low continuous wall suction -20 cm H2O. No air leak is present. Draining thin serosanguineous drainage. Mediastinal and left pleural chest tubes drained 290 mL output in the last 8 hours and 550 mL output since surgery. Right pleural chest tube drained 25 mL output in the last 8 hours and 35 mL output since surgery. - Cardiovascular Details: Regular rhythm and rate. S1 and S2 present, negative for S3, gallop or murmur. Pericardial rub present. Sternum is stable. Bedside telemetry showing normal sinus rhythm with occasional PAC heart rate 77 BPM. Right IJ cordis and Tennille- Leno catheter in place with current hemodynamic showing a cardiac output 4.9, cardiac index 2.4, PA pressures 32/16 and CVP 7 mmHg. Heart hugger is in place and he is demonstrating appropriate use. Knee-high ANDRAE hose and sequential compression devices in place to his bilateral lower extremities. +1 edema to his bilateral lower extremities. - Gastrointestinal Gastrointestinal Comment(s): Abdomen is soft, nontender and nondistended. Hypoactive bowel sounds present in all 4 abdominal quadrants. No guarding or rigidity. No organomegaly appreciated. Tolerating oral intake. - Genitourinary Genitourinary Comment(s): Morrow catheter for accurate I&O. Draining clear zeina urine with 270 mL output in the last 8 hours. - Integumentary Integumentary Comment(s): Skin is warm and dry. No clubbing or cyanosis is present. Midline sternal incision is clean, dry and approximated. No drainage or redness is present. Left lower extremity EVH site is clean, dry and approximated. No drainage or redness is present. - Neurologic Neurologic: Absent: CNII-XII intact, focal deficits - Musculoskeletal Musculoskeletal: Present: gait normal, generalized weakness, strength equal bilaterally - Psychiatric Psychiatric: Present: A&O x's 3, appropriate affect, intact judgment & insight - Allied health notes Allied health notes reviewed: nursing - Labs CBC & Chem 7: 11/20/20 03:30 11/20/20 03:30 Labs: Abnormal Lab Results - Last 24 Hours (Table) 11/18/20 11/19/20 11/19/20 Range/Units 05:18 08:24 10:06 WBC (3.8-10.6) k/uL RBC (4.30-5.90) m/uL Hgb (13.0-17.5) gm/dL Hct (39.0-53.0) % MCV (80.0-100.0) fL MCH (25.0-35.0) pg Plt Count (150-450) k/uL Neutrophils # (1.3-7.7) k/uL Lymphocytes # (1.0-4.8) k/uL PT (9.0-12.0) sec INR (<1.2) ABG pH 7.31 L (7.35-7.45) ABG pCO2 53 H (35-45) mmHg ABG pO2 309 H 265 H (83-108) mmHg ABG HCO3 27 H (21-25) mmol/L ABG Total CO2 29 H 25 H (19-24) mmol/L ABG O2 Saturation 99.9 H 100.0 H (94-97) % ABG Ionized Calcium 4.2 L (4.5-5.3) mg/dL ABG Glucose 116 H 126 H (75-99) mg/dL ABG Lactic Acid 1.7 H (0.5-1.6) mmol/L Hemoglobin 11.4 L (13.0-17.5) gm/dL Carbon Dioxide (22-30) mmol/L BUN (9-20) mg/dL Glucose (74-99) mg/dL POC Glucose (mg/dL) (75-99) mg/dL Calcium (8.4-10.2) mg/dL Alkaline Phosphatase (38-126) U/L Total Protein (6.3-8.2) g/dL Albumin (3.5-5.0) g/dL Arterial Blood Glucose 116 H 126 H (75-99) mg/dL Crossmatch See Detail 11/19/20 11/19/20 11/19/20 Range/Units 11:23 12:08 12:37 WBC (3.8-10.6) k/uL RBC (4.30-5.90) m/uL Hgb (13.0-17.5) gm/dL Hct (39.0-53.0) % MCV (80.0-100.0) fL MCH (25.0-35.0) pg Plt Count (150-450) k/uL Neutrophils # (1.3-7.7) k/uL Lymphocytes # (1.0-4.8) k/uL PT (9.0-12.0) sec INR (<1.2) ABG pH 7.33 L (7.35-7.45) ABG pCO2 48 H (35-45) mmHg ABG pO2 271 H 194 H 136 H (83-108) mmHg ABG HCO3 26 H 26 H (21-25) mmol/L ABG Total CO2 27 H 27 H 27 H (19-24) mmol/L ABG O2 Saturation 100.0 H 99.8 H 99.0 H (94-97) % ABG Ionized Calcium 4.4 L 4.4 L (4.5-5.3) mg/dL ABG Glucose 149 H 152 H (75-99) mg/dL ABG Lactic Acid 1.8 H (0.5-1.6) mmol/L Hemoglobin 11.5 L 11.4 L (13.0-17.5) gm/dL Carbon Dioxide (22-30) mmol/L BUN (9-20) mg/dL Glucose (74-99) mg/dL POC Glucose (mg/dL) (75-99) mg/dL Calcium (8.4-10.2) mg/dL Alkaline Phosphatase (38-126) U/L Total Protein (6.3-8.2) g/dL Albumin (3.5-5.0) g/dL Arterial Blood Glucose 149 H 152 H (75-99) mg/dL Crossmatch 11/19/20 11/19/20 11/19/20 Range/Units 13:00 13:00 13:00 WBC 11.5 H (3.8-10.6) k/uL RBC 3.17 L (4.30-5.90) m/uL Hgb 11.1 L (13.0-17.5) gm/dL Hct 32.3 L (39.0-53.0) % MCV 102.1 H (80.0-100.0) fL MCH 35.1 H (25.0-35.0) pg Plt Count 111 L (150-450) k/uL Neutrophils # 9.6 H (1.3-7.7) k/uL Lymphocytes # (1.0-4.8) k/uL PT 12.5 H (9.0-12.0) sec INR 1.2 H (<1.2) ABG pH (7.35-7.45) ABG pCO2 (35-45) mmHg ABG pO2 (83-108) mmHg ABG HCO3 (21-25) mmol/L ABG Total CO2 (19-24) mmol/L ABG O2 Saturation (94-97) % ABG Ionized Calcium (4.5-5.3) mg/dL ABG Glucose (75-99) mg/dL ABG Lactic Acid (0.5-1.6) mmol/L Hemoglobin (13.0-17.5) gm/dL Carbon Dioxide (22-30) mmol/L BUN (9-20) mg/dL Glucose 133 H (74-99) mg/dL POC Glucose (mg/dL) (75-99) mg/dL Calcium 7.7 L (8.4-10.2) mg/dL Alkaline Phosphatase (38-126) U/L Total Protein 5.1 L (6.3-8.2) g/dL Albumin 3.2 L (3.5-5.0) g/dL Arterial Blood Glucose (75-99) mg/dL Crossmatch 11/19/20 11/19/20 11/19/20 Range/Units 13:11 14:01 14:59 WBC (3.8-10.6) k/uL RBC (4.30-5.90) m/uL Hgb (13.0-17.5) gm/dL Hct (39.0-53.0) % MCV (80.0-100.0) fL MCH (25.0-35.0) pg Plt Count (150-450) k/uL Neutrophils # (1.3-7.7) k/uL Lymphocytes # (1.0-4.8) k/uL PT (9.0-12.0) sec INR (<1.2) ABG pH (7.35-7.45) ABG pCO2 (35-45) mmHg ABG pO2 (83-108) mmHg ABG HCO3 (21-25) mmol/L ABG Total CO2 (19-24) mmol/L ABG O2 Saturation (94-97) % ABG Ionized Calcium (4.5-5.3) mg/dL ABG Glucose (75-99) mg/dL ABG Lactic Acid (0.5-1.6) mmol/L Hemoglobin (13.0-17.5) gm/dL Carbon Dioxide (22-30) mmol/L BUN (9-20) mg/dL Glucose (74-99) mg/dL POC Glucose (mg/dL) 131 H 131 H 141 H (75-99) mg/dL Calcium (8.4-10.2) mg/dL Alkaline Phosphatase (38-126) U/L Total Protein (6.3-8.2) g/dL Albumin (3.5-5.0) g/dL Arterial Blood Glucose (75-99) mg/dL Crossmatch 11/19/20 11/19/20 11/19/20 Range/Units 15:56 15:56 17:15 WBC 12.3 H (3.8-10.6) k/uL RBC 3.14 L (4.30-5.90) m/uL Hgb 10.8 L (13.0-17.5) gm/dL Hct 32.4 L (39.0-53.0) % MCV 103.0 H (80.0-100.0) fL MCH (25.0-35.0) pg Plt Count 120 L (150-450) k/uL Neutrophils # 10.1 H (1.3-7.7) k/uL Lymphocytes # (1.0-4.8) k/uL PT (9.0-12.0) sec INR (<1.2) ABG pH (7.35-7.45) ABG pCO2 (35-45) mmHg ABG pO2 (83-108) mmHg ABG HCO3 (21-25) mmol/L ABG Total CO2 (19-24) mmol/L ABG O2 Saturation (94-97) % ABG Ionized Calcium (4.5-5.3) mg/dL ABG Glucose (75-99) mg/dL ABG Lactic Acid (0.5-1.6) mmol/L Hemoglobin (13.0-17.5) gm/dL Carbon Dioxide (22-30) mmol/L BUN (9-20) mg/dL Glucose (74-99) mg/dL POC Glucose (mg/dL) 160 H 147 H (75-99) mg/dL Calcium (8.4-10.2) mg/dL Alkaline Phosphatase (38-126) U/L Total Protein (6.3-8.2) g/dL Albumin (3.5-5.0) g/dL Arterial Blood Glucose (75-99) mg/dL Crossmatch 11/19/20 11/19/20 11/19/20 Range/Units 17:34 17:52 18:58 WBC (3.8-10.6) k/uL RBC (4.30-5.90) m/uL Hgb (13.0-17.5) gm/dL Hct (39.0-53.0) % MCV (80.0-100.0) fL MCH (25.0-35.0) pg Plt Count (150-450) k/uL Neutrophils # (1.3-7.7) k/uL Lymphocytes # (1.0-4.8) k/uL PT (9.0-12.0) sec INR (<1.2) ABG pH 7.30 L (7.35-7.45) ABG pCO2 48 H (35-45) mmHg ABG pO2 (83-108) mmHg ABG HCO3 (21-25) mmol/L ABG Total CO2 25 H (19-24) mmol/L ABG O2 Saturation 97.5 H (94-97) % ABG Ionized Calcium (4.5-5.3) mg/dL ABG Glucose (75-99) mg/dL ABG Lactic Acid (0.5-1.6) mmol/L Hemoglobin (13.0-17.5) gm/dL Carbon Dioxide (22-30) mmol/L BUN (9-20) mg/dL Glucose (74-99) mg/dL POC Glucose (mg/dL) 163 H 167 H (75-99) mg/dL Calcium (8.4-10.2) mg/dL Alkaline Phosphatase (38-126) U/L Total Protein (6.3-8.2) g/dL Albumin (3.5-5.0) g/dL Arterial Blood Glucose (75-99) mg/dL Crossmatch 11/19/20 11/19/20 11/19/20 Range/Units 19:09 20:02 20:44 WBC 12.8 H (3.8-10.6) k/uL RBC 3.36 L (4.30-5.90) m/uL Hgb 11.8 L (13.0-17.5) gm/dL Hct 34.5 L (39.0-53.0) % MCV 102.6 H (80.0-100.0) fL MCH (25.0-35.0) pg Plt Count 131 L (150-450) k/uL Neutrophils # 11.3 H (1.3-7.7) k/uL Lymphocytes # 0.5 L (1.0-4.8) k/uL PT (9.0-12.0) sec INR (<1.2) ABG pH (7.35-7.45) ABG pCO2 (35-45) mmHg ABG pO2 (83-108) mmHg ABG HCO3 (21-25) mmol/L ABG Total CO2 (19-24) mmol/L ABG O2 Saturation (94-97) % ABG Ionized Calcium (4.5-5.3) mg/dL ABG Glucose (75-99) mg/dL ABG Lactic Acid (0.5-1.6) mmol/L Hemoglobin (13.0-17.5) gm/dL Carbon Dioxide (22-30) mmol/L BUN (9-20) mg/dL Glucose (74-99) mg/dL POC Glucose (mg/dL) 143 H 144 H (75-99) mg/dL Calcium (8.4-10.2) mg/dL Alkaline Phosphatase (38-126) U/L Total Protein (6.3-8.2) g/dL Albumin (3.5-5.0) g/dL Arterial Blood Glucose (75-99) mg/dL Crossmatch 11/19/20 11/19/20 11/20/20 Range/Units 22:02 23:15 00:56 WBC (3.8-10.6) k/uL RBC (4.30-5.90) m/uL Hgb (13.0-17.5) gm/dL Hct (39.0-53.0) % MCV (80.0-100.0) fL MCH (25.0-35.0) pg Plt Count (150-450) k/uL Neutrophils # (1.3-7.7) k/uL Lymphocytes # (1.0-4.8) k/uL PT (9.0-12.0) sec INR (<1.2) ABG pH (7.35-7.45) ABG pCO2 (35-45) mmHg ABG pO2 (83-108) mmHg ABG HCO3 (21-25) mmol/L ABG Total CO2 (19-24) mmol/L ABG O2 Saturation (94-97) % ABG Ionized Calcium (4.5-5.3) mg/dL ABG Glucose (75-99) mg/dL ABG Lactic Acid (0.5-1.6) mmol/L Hemoglobin (13.0-17.5) gm/dL Carbon Dioxide (22-30) mmol/L BUN (9-20) mg/dL Glucose (74-99) mg/dL POC Glucose (mg/dL) 118 H 111 H 138 H (75-99) mg/dL Calcium (8.4-10.2) mg/dL Alkaline Phosphatase (38-126) U/L Total Protein (6.3-8.2) g/dL Albumin (3.5-5.0) g/dL Arterial Blood Glucose (75-99) mg/dL Crossmatch 11/20/20 11/20/20 11/20/20 Range/Units 02:11 03:01 03:30 WBC (3.8-10.6) k/uL RBC 3.40 L (4.30-5.90) m/uL Hgb 12.0 L (13.0-17.5) gm/dL Hct 34.7 L (39.0-53.0) % MCV 101.9 H (80.0-100.0) fL MCH 35.3 H (25.0-35.0) pg Plt Count 102 L (150-450) k/uL Neutrophils # 8.4 H (1.3-7.7) k/uL Lymphocytes # 0.9 L (1.0-4.8) k/uL PT (9.0-12.0) sec INR (<1.2) ABG pH (7.35-7.45) ABG pCO2 (35-45) mmHg ABG pO2 (83-108) mmHg ABG HCO3 (21-25) mmol/L ABG Total CO2 (19-24) mmol/L ABG O2 Saturation (94-97) % ABG Ionized Calcium (4.5-5.3) mg/dL ABG Glucose (75-99) mg/dL ABG Lactic Acid (0.5-1.6) mmol/L Hemoglobin (13.0-17.5) gm/dL Carbon Dioxide (22-30) mmol/L BUN (9-20) mg/dL Glucose (74-99) mg/dL POC Glucose (mg/dL) 137 H 128 H (75-99) mg/dL Calcium (8.4-10.2) mg/dL Alkaline Phosphatase (38-126) U/L Total Protein (6.3-8.2) g/dL Albumin (3.5-5.0) g/dL Arterial Blood Glucose (75-99) mg/dL Crossmatch 11/20/20 11/20/20 11/20/20 Range/Units 03:30 04:59 06:57 WBC (3.8-10.6) k/uL RBC (4.30-5.90) m/uL Hgb (13.0-17.5) gm/dL Hct (39.0-53.0) % MCV (80.0-100.0) fL MCH (25.0-35.0) pg Plt Count (150-450) k/uL Neutrophils # (1.3-7.7) k/uL Lymphocytes # (1.0-4.8) k/uL PT (9.0-12.0) sec INR (<1.2) ABG pH (7.35-7.45) ABG pCO2 (35-45) mmHg ABG pO2 (83-108) mmHg ABG HCO3 (21-25) mmol/L ABG Total CO2 (19-24) mmol/L ABG O2 Saturation (94-97) % ABG Ionized Calcium (4.5-5.3) mg/dL ABG Glucose (75-99) mg/dL ABG Lactic Acid (0.5-1.6) mmol/L Hemoglobin (13.0-17.5) gm/dL Carbon Dioxide 20 L (22-30) mmol/L BUN 23 H (9-20) mg/dL Glucose 111 H (74-99) mg/dL POC Glucose (mg/dL) 113 H 115 H (75-99) mg/dL Calcium 8.0 L (8.4-10.2) mg/dL Alkaline Phosphatase 36 L (38-126) U/L Total Protein 5.7 L (6.3-8.2) g/dL Albumin (3.5-5.0) g/dL Arterial Blood Glucose (75-99) mg/dL Crossmatch - Imaging and Cardiology Chest x-ray: report reviewed, image reviewed Assessment and Plan Assessment: 1. 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 Hypertension 3. Hyperlipidemia 4. History of bladder cancer, status post 6 chemotherapy treatments 5. History of tobacco abuse, quit 20 years ago 6. Degenerative joint disease 7. Non-ST elevated myocardial infarction in August 2020 8. Ischemic cardiomyopathy with a reduced ejection fraction of 40-45% 9. History of left sided pleural effusion as a child with one rib removed according to the patient 10. Preoperative nasal swab positive for MSSA, currently being treated 11. New diagnosis of diabetes mellitus type 2, preoperative hemoglobin A1c 6.5 12. Bilateral carotid stenosis, preoperative carotid duplex showing a greater than 70% right ICA stenosis and a 50-69% left ICA stenosis 13. Obesity 14. Postoperative acute blood loss anemia, expected due to hemodilution Plan: 1. Continue aspirin, statin, Plavix and beta hazel. We will increase metoprolol tartrate to 25 mg by mouth twice a day. 2. Wean oxygen as tolerated. Bronchodilator management per pulmonary for/critical care medicine recommendations. 3. Encourage use of his incentive spirometry 10 times every hour while awake. 4. Continue to monitor daily labs and chest x-rays. Replace electrolytes per protocol. 5. GI and DVT prophylaxis. 6. Increase activity as tolerated. Physical/occupational therapy and cardiac rehab consulted. 7. Discontinue nitroglycerin drip. Remove Tennille-Leno catheter and keep right IJ Cordis and placed for continuous CVP monitoring. 8. Keep Morrow catheter in place for another 24 hours. Continue to record strict inaccurate I's and O's. Obtain daily weights. 9. Pain control per current when necessary orders. 10. Insulin management per primary care service. 11. We will discontinue his right pleural and mediastinal chest tube today. Keep left pleural chest tube in place to low continuous wall suction -20 cm H2O. Anticipate removal of left pleural chest tube within 24 hours. 12. Lasix 20 mg IV 1 now. 13. More recommendations to follow based on patient's clinical course. Time with Patient: Greater than 30
[2020-11-20 11:59] LABS: Glucose,Whole Blood 122 mg/dL (75-99)
[2020-11-20 13:07] LABS: Glucose,Whole Blood 164 mg/dL (75-99)
[2020-11-20 13:55] LABS: Glucose,Whole Blood 157 mg/dL (75-99)
[2020-11-20 15:01] LABS: Glucose,Whole Blood 157 mg/dL (75-99)
--- NOTE | 2020-11-20 15:36 | P.PN ---
Subjective Progress Note Date: 11/20/20 Principal diagnosis: Status post off-pump CABG 3 with PARIKH to LAD, saphenous vein graft to RCA, saphenous vein graft to second obtuse marginal, postoperative day #0 85-year-old male patient, known history of hypertension and hyperlipidemia and previous history of bladder cancer treated with systemic chemotherapy, and ex- smoker quit smoking approximately 20 years ago presented with exertional dyspnea that was progressively getting worse. The patient also had worsening lower extremity edema. He denies having any significant chest pain. The patient underwent a cardiac stress test on 11/06/2020 and the patient was found to have moderate area of reversible defect suggestive of ischemia. Following that, the patient underwent a cardiac catheterization 11/16/2020 and the patient was found to have a 70-80% stenosis of the distal left main artery, 95% stenosis of the proximal RCA, total occlusion of the circumflex with a 50-55% stenosis of the proximal LAD. The patient is being considered for cardiac bypass surgery and pulmonary consultation was requested. The chest x-rays was done on 10/01/2020 showed small bilateral pleural effusion and atelectatic changes in the lung bases. Repeat CAT scan of the chest that was done on 11/16/2020 showed of the lung parenchyma showed some mild emphysema. No evidence of pleural effusion. No evidence of any lung masses. The patient's had an FEV1 on a bedside spirometry of 46% of predicted. He is currently on IV heparin. The echo shows an ejection fraction of 40-45%. The segmental wall motion abnormalities related to his underlying CAD. There is moderate concentric LVH. RV is mildly dilated. There is moderate mitral regurgitation. Aortic valve seems to be within normal limits. Nevertheless, there is moderate degree of concentric LV hypertrophy consistent with hypertensive heart disease. Patient was reevaluated today on 11/19/2020, patient is status post off-pump CABG 3, PARIKH to LAD, saphenous vein graft to RCA, saphenous vein graft to second obtuse marginal coronary artery. This was done earlier today by Dr. Parker, patient is now back in the ICU, on mechanical ventilation, his ventilator settings are assist control rate of 16, volume is 500 FiO2 is down to 50% today, and PEEP is 5. ABG earlier on 60% FiO2 showed a pO2 of 136 pCO2 of 48 and pH of 7.33 patient was on assist control rate of 14 which was increased to 16. Surgery both CABG showed mild pulmonary vascular congestion, and minimal bi basilar atelectasis. Patient is on propofol drip at 20 mcg/kg/m, is also on nitroglycerin drip, pleasant proximal drip at 1 mg/h, and is also on insulin drip at 1 unit per hour. Patient is sedated, in no distress, hemodynamically stable. His cardiac index is 3.5. Labs including CBC and electrolytes were noted to be relatively normal Reevaluated today on 1, patient remains in the ICU, he was extubated yesterday few hours after his arrival to the ICU. Patient was extubated at 17:45, his postoperative day #1. Doing great, his CVP is 9, cardiac output is 5.6, cardiac index is 2.7, pulmonary artery pressure is 33/15 patient is doing well with incentive spirometry, achieving goal of 1000 mL. Sitting at a bedside chair/recliner, and he is relatively asymptomatic. Not requiring any masses. The amount of drainage from his mediastinal and left sided pleural chest tubes noted. Ration is afebrile, hemodynamically stable, Morrow catheter remains in place. Asked x-ray showed mostly postoperative changes and atelectasis. No acute process was noted. Hemoglobin today is 12 WBC count is 10.5. Basic metabolic profile, electrolytes and renal profile are normal Objective - Vital Signs Vital signs: Vital Signs Temp 97.9 F 11/20/20 12:00 Pulse 65 11/20/20 15:19 Resp 18 11/20/20 15:19 BP 125/68 11/20/20 15:00 Pulse Ox 97 11/20/20 15:00 Intake & Output 11/19/20 11/20/20 11/20/20 18:59 06:59 18:59 Intake Total 399.053 771.757 579.191 Output Total 1652 821 440 Balance -1252.947 -49.243 139.191 Weight 98 kg 98 kg Intake: IV 315.0 690 330 CO/CI 140 20 Lactated Ringers 1,000 ml 300 550 210 @ 20 mls/hr IV .Q24H [facility] Rx#:[id number] Nitroglycerin-D5w Pmx 50 9.0 mg In Dextrose/Water 1 250ml.bag @ 5 MCG/MIN 1.5 mls/hr IV .Q24H [facility] Rx#: [id number] ceFAZolin 2 gm In Sodium 100 Chloride 0.9% 50 ml @ 100 mls/hr IVPB ONCE ONE Rx# :[id number] Intake, IV Titration 84.053 81.757 9.191 Amount Clevidipine Butyrate 25 28.134 51.600 mg In Empty Bag 1 bag @ 1 MG/HR 2 mls/hr IV .Q24H [facility] Rx#:[id number] Insulin Regular 100 unit 10.226 30.157 9.191 In Sodium Chloride 0.9% 100 ml @ Per Protocol IV .Q0M [facility] Rx#:[id number] propofoL 1,000 mg In 45.693 Empty Bag 1 bag @ Titrate IV .Q0M [facility] Rx#: [id number] Oral 240 Output: Chest Tube Drainage 182 401 40 Left Pleural and 182 366 40 Mediastinal Right Pleural 0 35 Drainage 10 Left Pleural 10 Urine 470 420 390 Estimated Blood Loss 1000 Other: Voiding Method Indwelling Catheter Indwelling Catheter Indwelling Catheter ABP, PAP, CO, CI - Last Documented Arterial Blood Pressure 258/256 Pulmonary Artery Pressure 30/16 Cardiac Output 5.6 Cardiac Index 2.7 - Exam Physical Exam revealed 85-year-old white male, on 4 L nasal cannula, in no distress. Head: Atraumatic, normocephalic HEENT:[Neck is supple.] [No neck masses.] [No thyromegaly.] [No JVD.] PERRLA, EOMI, nonicteric. Moist mucous membranes. Right IJ Cordis noted with PA catheter. Chest: [Clear throughout, no crackles, no rhonchi, no wheezes.] Symmetrical chest expansion. Chest tubes and mediastinal tubes were noted. Cardiac Exam: [Normal S1 and S2, no S3 gallop, distant pericardial rub. Abdomen: [Soft, nontender, no megaly, no rebound, no guarding, normal bowel sounds.] Extremities: [No clubbing, no edema, no cyanosis.] Neurological Exam: Alert and oriented 3, no gross focal deficits. Psychiatric: Normal mood, affect and normal mental status examination. Skin: No rashes. - Labs CBC & Chem 7: 11/20/20 03:30 11/20/20 03:30 Labs: Abnormal Lab Results - Last 24 Hours (Table) 11/18/20 11/19/20 11/19/20 Range/Units 05:18 15:56 15:56 WBC 12.3 H (3.8-10.6) k/uL RBC 3.14 L (4.30-5.90) m/uL Hgb 10.8 L (13.0-17.5) gm/dL Hct 32.4 L (39.0-53.0) % MCV 103.0 H (80.0-100.0) fL MCH (25.0-35.0) pg Plt Count 120 L (150-450) k/uL Neutrophils # 10.1 H (1.3-7.7) k/uL Lymphocytes # (1.0-4.8) k/uL ABG pH (7.35-7.45) ABG pCO2 (35-45) mmHg ABG Total CO2 (19-24) mmol/L ABG O2 Saturation (94-97) % Carbon Dioxide (22-30) mmol/L BUN (9-20) mg/dL Glucose (74-99) mg/dL POC Glucose (mg/dL) 160 H (75-99) mg/dL Calcium (8.4-10.2) mg/dL Alkaline Phosphatase (38-126) U/L Total Protein (6.3-8.2) g/dL Crossmatch See Detail 11/19/20 11/19/20 11/19/20 Range/Units 17:15 17:34 17:52 WBC (3.8-10.6) k/uL RBC (4.30-5.90) m/uL Hgb (13.0-17.5) gm/dL Hct (39.0-53.0) % MCV (80.0-100.0) fL MCH (25.0-35.0) pg Plt Count (150-450) k/uL Neutrophils # (1.3-7.7) k/uL Lymphocytes # (1.0-4.8) k/uL ABG pH 7.30 L (7.35-7.45) ABG pCO2 48 H (35-45) mmHg ABG Total CO2 25 H (19-24) mmol/L ABG O2 Saturation 97.5 H (94-97) % Carbon Dioxide (22-30) mmol/L BUN (9-20) mg/dL Glucose (74-99) mg/dL POC Glucose (mg/dL) 147 H 163 H (75-99) mg/dL Calcium (8.4-10.2) mg/dL Alkaline Phosphatase (38-126) U/L Total Protein (6.3-8.2) g/dL Crossmatch 11/19/20 11/19/20 11/19/20 Range/Units 18:58 19:09 20:02 WBC 12.8 H (3.8-10.6) k/uL RBC 3.36 L (4.30-5.90) m/uL Hgb 11.8 L (13.0-17.5) gm/dL Hct 34.5 L (39.0-53.0) % MCV 102.6 H (80.0-100.0) fL MCH (25.0-35.0) pg Plt Count 131 L (150-450) k/uL Neutrophils # 11.3 H (1.3-7.7) k/uL Lymphocytes # 0.5 L (1.0-4.8) k/uL ABG pH (7.35-7.45) ABG pCO2 (35-45) mmHg ABG Total CO2 (19-24) mmol/L ABG O2 Saturation (94-97) % Carbon Dioxide (22-30) mmol/L BUN (9-20) mg/dL Glucose (74-99) mg/dL POC Glucose (mg/dL) 167 H 143 H (75-99) mg/dL Calcium (8.4-10.2) mg/dL Alkaline Phosphatase (38-126) U/L Total Protein (6.3-8.2) g/dL Crossmatch 11/19/20 11/19/20 11/19/20 Range/Units 20:44 22:02 23:15 WBC (3.8-10.6) k/uL RBC (4.30-5.90) m/uL Hgb (13.0-17.5) gm/dL Hct (39.0-53.0) % MCV (80.0-100.0) fL MCH (25.0-35.0) pg Plt Count (150-450) k/uL Neutrophils # (1.3-7.7) k/uL Lymphocytes # (1.0-4.8) k/uL ABG pH (7.35-7.45) ABG pCO2 (35-45) mmHg ABG Total CO2 (19-24) mmol/L ABG O2 Saturation (94-97) % Carbon Dioxide (22-30) mmol/L BUN (9-20) mg/dL Glucose (74-99) mg/dL POC Glucose (mg/dL) 144 H 118 H 111 H (75-99) mg/dL Calcium (8.4-10.2) mg/dL Alkaline Phosphatase (38-126) U/L Total Protein (6.3-8.2) g/dL Crossmatch 11/20/20 11/20/20 11/20/20 Range/Units 00:56 02:11 03:01 WBC (3.8-10.6) k/uL RBC (4.30-5.90) m/uL Hgb (13.0-17.5) gm/dL Hct (39.0-53.0) % MCV (80.0-100.0) fL MCH (25.0-35.0) pg Plt Count (150-450) k/uL Neutrophils # (1.3-7.7) k/uL Lymphocytes # (1.0-4.8) k/uL ABG pH (7.35-7.45) ABG pCO2 (35-45) mmHg ABG Total CO2 (19-24) mmol/L ABG O2 Saturation (94-97) % Carbon Dioxide (22-30) mmol/L BUN (9-20) mg/dL Glucose (74-99) mg/dL POC Glucose (mg/dL) 138 H 137 H 128 H (75-99) mg/dL Calcium (8.4-10.2) mg/dL Alkaline Phosphatase (38-126) U/L Total Protein (6.3-8.2) g/dL Crossmatch 11/20/20 11/20/20 11/20/20 Range/Units 03:30 03:30 04:59 WBC (3.8-10.6) k/uL RBC 3.40 L (4.30-5.90) m/uL Hgb 12.0 L (13.0-17.5) gm/dL Hct 34.7 L (39.0-53.0) % MCV 101.9 H (80.0-100.0) fL MCH 35.3 H (25.0-35.0) pg Plt Count 102 L (150-450) k/uL Neutrophils # 8.4 H (1.3-7.7) k/uL Lymphocytes # 0.9 L (1.0-4.8) k/uL ABG pH (7.35-7.45) ABG pCO2 (35-45) mmHg ABG Total CO2 (19-24) mmol/L ABG O2 Saturation (94-97) % Carbon Dioxide 20 L (22-30) mmol/L BUN 23 H (9-20) mg/dL Glucose 111 H (74-99) mg/dL POC Glucose (mg/dL) 113 H (75-99) mg/dL Calcium 8.0 L (8.4-10.2) mg/dL Alkaline Phosphatase 36 L (38-126) U/L Total Protein 5.7 L (6.3-8.2) g/dL Crossmatch 11/20/20 11/20/20 11/20/20 Range/Units 06:57 08:03 08:58 WBC (3.8-10.6) k/uL RBC (4.30-5.90) m/uL Hgb (13.0-17.5) gm/dL Hct (39.0-53.0) % MCV (80.0-100.0) fL MCH (25.0-35.0) pg Plt Count (150-450) k/uL Neutrophils # (1.3-7.7) k/uL Lymphocytes # (1.0-4.8) k/uL ABG pH (7.35-7.45) ABG pCO2 (35-45) mmHg ABG Total CO2 (19-24) mmol/L ABG O2 Saturation (94-97) % Carbon Dioxide (22-30) mmol/L BUN (9-20) mg/dL Glucose (74-99) mg/dL POC Glucose (mg/dL) 115 H 129 H 135 H (75-99) mg/dL Calcium (8.4-10.2) mg/dL Alkaline Phosphatase (38-126) U/L Total Protein (6.3-8.2) g/dL Crossmatch 11/20/20 11/20/20 11/20/20 Range/Units 09:53 11:04 11:57 WBC (3.8-10.6) k/uL RBC (4.30-5.90) m/uL Hgb (13.0-17.5) gm/dL Hct (39.0-53.0) % MCV (80.0-100.0) fL MCH (25.0-35.0) pg Plt Count (150-450) k/uL Neutrophils # (1.3-7.7) k/uL Lymphocytes # (1.0-4.8) k/uL ABG pH (7.35-7.45) ABG pCO2 (35-45) mmHg ABG Total CO2 (19-24) mmol/L ABG O2 Saturation (94-97) % Carbon Dioxide (22-30) mmol/L BUN (9-20) mg/dL Glucose (74-99) mg/dL POC Glucose (mg/dL) 118 H 112 H 122 H (75-99) mg/dL Calcium (8.4-10.2) mg/dL Alkaline Phosphatase (38-126) U/L Total Protein (6.3-8.2) g/dL Crossmatch 11/20/20 11/20/20 11/20/20 Range/Units 13:05 13:53 15:00 WBC (3.8-10.6) k/uL RBC (4.30-5.90) m/uL Hgb (13.0-17.5) gm/dL Hct (39.0-53.0) % MCV (80.0-100.0) fL MCH (25.0-35.0) pg Plt Count (150-450) k/uL Neutrophils # (1.3-7.7) k/uL Lymphocytes # (1.0-4.8) k/uL ABG pH (7.35-7.45) ABG pCO2 (35-45) mmHg ABG Total CO2 (19-24) mmol/L ABG O2 Saturation (94-97) % Carbon Dioxide (22-30) mmol/L BUN (9-20) mg/dL Glucose (74-99) mg/dL POC Glucose (mg/dL) 164 H 157 H 157 H (75-99) mg/dL Calcium (8.4-10.2) mg/dL Alkaline Phosphatase (38-126) U/L Total Protein (6.3-8.2) g/dL Crossmatch Assessment and Plan Assessment: Impression: Status post off-pump CABG 3, PARIKH to LAD, saphenous vein graft to RCA, saphenous vein graft to second obtuse marginal coronary artery. Postoperative day #1 Multivessel coronary artery disease. Benign essential hypertension. Dyslipidemia. History of bladder cancer status post intravesicular chemotherapy and transurethral bladder tumor resection. Remote smoking history. History of degenerative joint disease. Recommendation: Continue aspirin and Plavix beta blockers and statin. Wean oxygen as tolerated. Continue incentive spirometry. Continue GI and DVT prophylaxis. Increase activity and ambulate as tolerated. Remove unnecessary catheters and lines. Pain control. We'll continue to follow. Time with Patient: Less than 30
[2020-11-20 16:06] LABS: Glucose,Whole Blood 123 mg/dL (75-99)
[2020-11-20 16:53] LABS: Glucose,Whole Blood 123 mg/dL (75-99)
[2020-11-20 17:56] LABS: Glucose,Whole Blood 113 mg/dL (75-99)
[2020-11-20 19:05] LABS: Glucose,Whole Blood 133 mg/dL (75-99)
[2020-11-20 20:28] LABS: Glucose,Whole Blood 133 mg/dL (75-99)
[2020-11-20] MEDS: ATORVASTATIN 40 MG TAB PO SCH (20:30)
[2020-11-20] MEDS: SENNOSIDES-DOCUSATE SODIUM 1 EACH TAB PO SCH (20:30)
[2020-11-20 21:56] LABS: Glucose,Whole Blood 159 mg/dL (75-99)
[2020-11-20 22:56] LABS: Glucose,Whole Blood 136 mg/dL (75-99)
[2020-11-21] MEDS: KETOROLAC 15 MG/ML 1 ML VIAL IVP SCH ×2 (00:51→05:07)
[2020-11-21 00:54] LABS: Glucose,Whole Blood 113 mg/dL (75-99)
[2020-11-21 02:45] LABS: Glucose,Whole Blood 110 mg/dL (75-99)
[2020-11-21 03:58] LABS: Albumin 3.4 g/dL (3.5-5.0); Calcium 8.1 mg/dL (8.4-10.2); Potassium 4.8 mmol/L (3.5-5.1); Total Protein 5.7 g/dL (6.3-8.2)
[2020-11-21 04:01] LABS: Ionized Calcium 4.5 mg/dL (4.5-5.3)
[2020-11-21 04:02] LABS: HCT 34.7 % (39.0-53.0); HGB 11.9 gm/dL (13.0-17.5); MCH 35.7 pg (25.0-35.0); MCHC 34.3 g/dL (31.0-37.0); MCV 104.2 fL (80.0-100.0); Macrocytosis Slight; Mean Platelet Volume 10.5; Platelet Count 110 k/uL (150-450); RBC 3.33 m/uL (4.30-5.90); RDW 12.3 % (11.5-15.5); WBC 13.8 k/uL (3.8-10.6)
[2020-11-21 04:44] LABS: Glucose,Whole Blood 110 mg/dL (75-99)
[2020-11-21] MEDS: HEPARIN SODIUM,PORCINE 5,000 UNIT/ML 1 ML VIAL SQ SCH ×3 (04:52→20:35)
[2020-11-21 04:55] LABS: Band Neutrophils % 1 %; Lymphocytes # (M) 1.93 k/uL (1.0-4.8); Monocytes # (M) 1.38 k/uL (0-1.0); Neutrophils % (M) 75 %; Nucleated Red Blood Cells 0 /100 WBC (0-0); Total Cells Counted 100
[2020-11-21 06:14] LABS: Glucose,Whole Blood 122 mg/dL (75-99)
[2020-11-21] MEDS: PANTOPRAZOLE 40 MG TABLET PO SCH (06:17)
[2020-11-21 06:59] LABS: Glucose,Whole Blood 123 mg/dL (75-99)
--- NOTE | 2020-11-21 07:48 | XR ---
EXAMINATION TYPE: XR chest 1V portable DATE OF EXAM: 11/21/2020 COMPARISON: 11/20/2020 INDICATION: Postop cardiac surgery TECHNIQUE: Single frontal view of the chest is obtained. FINDINGS: The heart size is enlarged. The pulmonary vasculature is normal. Left-sided chest tube is present. No pneumothorax is evident. Mild infiltrate left base. Some atelect atic type changes are at the right base. Right-sided chest tube is been removed. No thorax is evident . Dougherty-Leno catheter is been removed. EKG overlie the chest. Sternotomy wires are in the midline. IMPRESSION: 1. Bibasilar infiltrates greater at the left base. 2. No pneumothorax. 3. Line and catheter adjustment discussed above
[2020-11-21] MEDS ORDERED: FUROSEMIDE 10 MG/ML 2 ML VIAL IV STA (08:02)
--- NOTE | 2020-11-21 08:39 | PN ---
PROGRESS NOTE Mr. Ritter is status post bypass surgery. He is doing remarkably well, doing well on incentive spirometry, maintaining sinus rhythm with PACs. Blood pressure is good. S1, S2 heard normally, short systolic murmur noted. Lungs revealed improved entry. Abdomen and lower extremity exam unchanged. Plan is to continue incentive spirometry, pulmonary toilet and move him to telemetry unit soon. MMODL / IJN: [id number] /
[2020-11-21] MEDS: MUPIROCIN 2% OINT 22 GM TUBE NASAL SCH ×2 (08:52→20:37)
[2020-11-21] MEDS: ASPIRIN 325 MG TAB PO SCH (08:55)
[2020-11-21] MEDS: FINASTERIDE 5 MG TAB PO SCH (08:55)
[2020-11-21] MEDS: METOPROLOL TARTRATE 25 MG TAB PO SCH ×3 (08:56→20:35)
[2020-11-21] MEDS: CLOPIDOGREL 75 MG TAB PO SCH (08:56)
[2020-11-21] MEDS: ASCORBIC ACID 500 MG TAB PO SCH (08:56)
[2020-11-21] MEDS: IPRATROPIUM-ALBUTEROL 3 ML NEB INHALATION SCH ×4 (09:06→19:24)
--- NOTE | 2020-11-21 09:11 | P.PN ---
Subjective Progress Note Date: 11/21/20 Principal diagnosis: Symptomatic multivessel coronary artery disease with left main disease, moderate mitral valve regurgitation, preoperative nasal swab positive for MSSA. Previous medical history of NSTEMI in August 2020, hypertension, hyperlipidemia, chronic systolic heart failure with EF 40-45%, psoriasis, bladder cancer with 6 chemotherapy treatments, benign prostatic hypertrophy, degenerative joint disease, and remote history of tobacco abuse in which he quit 20 years ago. POD #2 Off-pump CABG 3 with PARIKH to LAD, reverse greater saphenous vein graft to right coronary artery, reverse greater saphenous vein graft to second obtuse marginal coronary artery, endovascular vein harvest of the left greater saphenous vein from the ankle to the groin, occlusion of the left atrial appendage with a 35 mm AtriCure clip. Postoperative acute blood loss anemia, expected due to hemodilution. The patient's currently sitting up in the recliner in the intensive care unit in no acute distress eating breakfast. States pain is well controlled on current pain medication regimen, denies shortness of breath. Remains in sinus rhythm and hemodynamically stable on no inotropes or pressors. Left pleural chest tube, Cordis, Morrow catheter remain. Patient did ambulate in the hallway yesterday with PT and OT without difficulty. No new concerns. Objective - Vital Signs Vital signs: Vital Signs Temp 98.2 F 11/21/20 04:00 Pulse 86 11/21/20 07:00 Resp 19 11/21/20 07:00 BP 106/79 11/21/20 07:00 Pulse Ox 86 L 11/21/20 07:00 Intake & Output 11/20/20 11/21/20 11/21/20 18:59 06:59 18:59 Intake Total 643.568 492.129 20 Output Total 535 490 20 Balance 108.568 2.129 0 Weight 98 kg 98.2 kg Intake: IV 390 240 20 CO/CI 20 Lactated Ringers 1,000 ml 270 240 20 @ 20 mls/hr IV .Q24H [facility] Rx#:[id number] ceFAZolin 2 gm In Sodium 100 Chloride 0.9% 50 ml @ 100 mls/hr IVPB ONCE ONE Rx# :[id number] Intake, IV Titration 13.568 12.129 Amount Insulin Regular 100 unit 13.568 12.129 In Sodium Chloride 0.9% 100 ml @ Per Protocol IV .Q0M [facility] Rx#:[id number] Oral 240 Tube Feeding 240 Output: Chest Tube Drainage 40 Left Pleural and 40 Mediastinal Drainage 15 70 Left Pleural 15 70 Urine 480 420 20 Other: Voiding Method Indwelling Catheter Indwelling Catheter ABP, PAP, CO, CI - Last Documented Arterial Blood Pressure 258/256 Pulmonary Artery Pressure 30/16 Cardiac Output 5.6 Cardiac Index 2.7 - Constitutional General appearance: Present: cooperative, no acute distress - Respiratory Details: Lungs sounds diminished bilaterally. Respirations even, nonlabored. Currently on 2 L nasal cannula with oxygen saturation 95%. Able to achieve 500-750 mL on his incentive spirometry. Strong cough. Left pleural chest tube present to continuous wall suction, 45 mL serosanguineous drainage overnight, 85 mL in the last 24 hours, no air leak present. - Cardiovascular Details: S1, S2 present. Regular rate and rhythm, sinus rhythm on telemetry. Sternum st able. Palpable peripheral pulses bilaterally. Trace generalized edema present. No calf pain or tenderness noted. Heart hugger in place with patient demonstrating appropriate use. Antiembolism stockings, SCDs present. Right internal jugular Cordis present. - Gastrointestinal Gastrointestinal Comment(s): Abdomen soft, nontender, slightly distended. Active bowel sounds present 4 quadrants. Tolerating diet. Positive flatus, negative bowel movement - Genitourinary Genitourinary Comment(s): Morrow present draining clear, yellow urine. Output 30-50 mL per hour overnight, 900 mL in the last 24 hours. - Integumentary Integumentary Comment(s): Skin is warm and dry with evidence of good perfusion. Anterior chest incision well approximated and covered with dry intact dressing. Left lower extremity EVH site well approximated without redness or drainage. - Neurologic Neurologic: Present: CNII-XII intact - Musculoskeletal Musculoskeletal: Present: gait normal, strength equal bilaterally - Psychiatric Psychiatric: Present: A&O x's 3, appropriate affect, intact judgment & insight - Allied health notes Allied health notes reviewed: nursing - Labs CBC & Chem 7: 11/21/20 03:22 11/21/20 03:22 Labs: Abnormal Lab Results - Last 24 Hours (Table) 11/20/20 11/20/20 11/20/20 Range/Units 08:58 09:53 11:04 WBC (3.8-10.6) k/uL RBC (4.30-5.90) m/uL Hgb (13.0-17.5) gm/dL Hct (39.0-53.0) % MCV (80.0-100.0) fL MCH (25.0-35.0) pg Plt Count (150-450) k/uL Neutrophils # (Manual) (1.3-7.7) k/uL Monocytes # (Manual) (0-1.0) k/uL Sodium (137-145) mmol/L BUN (9-20) mg/dL Glucose (74-99) mg/dL POC Glucose (mg/dL) 135 H 118 H 112 H (75-99) mg/dL Calcium (8.4-10.2) mg/dL Total Protein (6.3-8.2) g/dL Albumin (3.5-5.0) g/dL 11/20/20 11/20/20 11/20/20 Range/Units 11:57 13:05 13:53 WBC (3.8-10.6) k/uL RBC (4.30-5.90) m/uL Hgb (13.0-17.5) gm/dL Hct (39.0-53.0) % MCV (80.0-100.0) fL MCH (25.0-35.0) pg Plt Count (150-450) k/uL Neutrophils # (Manual) (1.3-7.7) k/uL Monocytes # (Manual) (0-1.0) k/uL Sodium (137-145) mmol/L BUN (9-20) mg/dL Glucose (74-99) mg/dL POC Glucose (mg/dL) 122 H 164 H 157 H (75-99) mg/dL Calcium (8.4-10.2) mg/dL Total Protein (6.3-8.2) g/dL Albumin (3.5-5.0) g/dL 11/20/20 11/20/20 11/20/20 Range/Units 15:00 16:04 16:52 WBC (3.8-10.6) k/uL RBC (4.30-5.90) m/uL Hgb (13.0-17.5) gm/dL Hct (39.0-53.0) % MCV (80.0-100.0) fL MCH (25.0-35.0) pg Plt Count (150-450) k/uL Neutrophils # (Manual) (1.3-7.7) k/uL Monocytes # (Manual) (0-1.0) k/uL Sodium (137-145) mmol/L BUN (9-20) mg/dL Glucose (74-99) mg/dL POC Glucose (mg/dL) 157 H 123 H 123 H (75-99) mg/dL Calcium (8.4-10.2) mg/dL Total Protein (6.3-8.2) g/dL Albumin (3.5-5.0) g/dL 11/20/20 11/20/20 11/20/20 Range/Units 17:55 19:03 20:26 WBC (3.8-10.6) k/uL RBC (4.30-5.90) m/uL Hgb (13.0-17.5) gm/dL Hct (39.0-53.0) % MCV (80.0-100.0) fL MCH (25.0-35.0) pg Plt Count (150-450) k/uL Neutrophils # (Manual) (1.3-7.7) k/uL Monocytes # (Manual) (0-1.0) k/uL Sodium (137-145) mmol/L BUN (9-20) mg/dL Glucose (74-99) mg/dL POC Glucose (mg/dL) 113 H 133 H 133 H (75-99) mg/dL Calcium (8.4-10.2) mg/dL Total Protein (6.3-8.2) g/dL Albumin (3.5-5.0) g/dL 11/20/20 11/20/20 11/21/20 Range/Units 21:54 22:55 00:52 WBC (3.8-10.6) k/uL RBC (4.30-5.90) m/uL Hgb (13.0-17.5) gm/dL Hct (39.0-53.0) % MCV (80.0-100.0) fL MCH (25.0-35.0) pg Plt Count (150-450) k/uL Neutrophils # (Manual) (1.3-7.7) k/uL Monocytes # (Manual) (0-1.0) k/uL Sodium (137-145) mmol/L BUN (9-20) mg/dL Glucose (74-99) mg/dL POC Glucose (mg/dL) 159 H 136 H 113 H (75-99) mg/dL Calcium (8.4-10.2) mg/dL Total Protein (6.3-8.2) g/dL Albumin (3.5-5.0) g/dL 11/21/20 11/21/20 11/21/20 Range/Units 02:43 03:22 03:22 WBC 13.8 H (3.8-10.6) k/uL RBC 3.33 L (4.30-5.90) m/uL Hgb 11.9 L (13.0-17.5) gm/dL Hct 34.7 L (39.0-53.0) % MCV 104.2 H (80.0-100.0) fL MCH 35.7 H (25.0-35.0) pg Plt Count 110 L (150-450) k/uL Neutrophils # (Manual) 10.40 H (1.3-7.7) k/uL Monocytes # (Manual) 1.38 H (0-1.0) k/uL Sodium 135 L (137-145) mmol/L BUN 30 H (9-20) mg/dL Glucose 113 H (74-99) mg/dL POC Glucose (mg/dL) 110 H (75-99) mg/dL Calcium 8.1 L (8.4-10.2) mg/dL Total Protein 5.7 L (6.3-8.2) g/dL Albumin 3.4 L (3.5-5.0) g/dL 11/21/20 11/21/20 11/21/20 Range/Units 04:43 06:13 06:57 WBC (3.8-10.6) k/uL RBC (4.30-5.90) m/uL Hgb (13.0-17.5) gm/dL Hct (39.0-53.0) % MCV (80.0-100.0) fL MCH (25.0-35.0) pg Plt Count (150-450) k/uL Neutrophils # (Manual) (1.3-7.7) k/uL Monocytes # (Manual) (0-1.0) k/uL Sodium (137-145) mmol/L BUN (9-20) mg/dL Glucose (74-99) mg/dL POC Glucose (mg/dL) 110 H 122 H 123 H (75-99) mg/dL Calcium (8.4-10.2) mg/dL Total Protein (6.3-8.2) g/dL Albumin (3.5-5.0) g/dL - Imaging and Cardiology Chest x-ray: report reviewed, image reviewed Assessment and Plan Assessment: 1. Symptomatic multivessel coronary artery disease with left main disease, status post off-pump three-vessel CABG 2. History of recent non-STEMI in August 2020 3. Ischemic cardiomyopathy, chronic systolic heart failure with ejection fraction 40-45% 4. Hypertension 5. Hyperlipidemia, treated, cholesterol 149, LDL 85 6. New diagnosis of type 2 diabetes mellitus, preoperative hemoglobin A1c 6.5% 7. Bilateral carotid stenosis, right ICA greater than 70%, left ICA 50-69% 8. 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 History of bladder cancer, status post 6 chemotherapy treatments, BPH 10. Preoperative nasal swab positive for MSSA, treated 11. Postoperative acute blood loss anemia, expected due to hemodilution Plan: 1. Continue aspirin, statin, Plavix and beta hazel. Will increase beta hazel therapy as tolerated 2. Wean oxygen as tolerated. Bronchodilators per pulmonology 3. Encourage use of his incentive spirometry 10 times every hour while awake 4. Increase activity, ambulate as tolerated. PT/OT/cardiac rehab following 5. Will monitor daily labs and chest x-rays. Electrolyte replacement protocol. Will give 20 mg IV push Lasix today 6. GI and DVT prophylaxis. 7. Establish peripheral IV, discontinue Cordis 8. Discontinue Morrow. May bladder scan and straight cathed for greater than 300 mL residual 9. Strict inaccurate I's and O's. Daily weights. 10. Pain control per current medication regimen. No narcotics 11. Insulin management per primary care service. 12. Will discontinue left pleural chest tube 13. Will place transfer orders for 3 S. cardiac stepdown unit. May transfer when bed available 14. Discharge planning in progress. Anticipate discharge to home with home care in 48-72 hours 15. More recommendations to follow based on patient's clinical course. Time with Patient: Greater than 30
[2020-11-21] MEDS: DEXTROSE 5% IN WATER 100 ML with AMIODARONE 150 MG IV PRN ×3 (09:54→12:21)
--- NOTE | 2020-11-21 10:52 | P.VSCSTY ---
Greater Saphenous Vein Mapping This is bilateral lower extremity greater saphenous vein mapping. Date of service: 11/16/2020 Vein quality and ultrasound appearance: No intraluminal thrombus is seen. There is some intimal thickening throughout, and edema at the ankles. Vein size groin right : 7.2 x 7.1 groin left: 8.0 x 7.0 High thigh right: 3.5 x 4.1 high thigh left: 4.9 x 4.1 Mid thigh right: 4.6 x 4.6 mid thigh left: 5.4 x 4.3 Above-knee right: 4.7 x 4.3 above- knee left: 3.2 x 2.9 Below knee right: 4.3 x 3.1 below-knee left: 4.4 x 3.5 Mid calf right: 3.9 x 2.5 mid calf left: 3.1 x 2.1 Ankle right: 2.5 x 2.0 ankle left: 3.4 x 2.3 Impression: Usable bilateral greater saphenous vein. Intimal thickening probably from chronic back pressure. Postphlebitic syndrome less likely. Cl inical correlation recommended.
--- NOTE | 2020-11-21 10:54 | P.ARTDOP ---
Arterial Doppler LOWER EXTREMITY ARTERIAL DOPPLER: DATE OF SERVICE: 11/16/2019 Reason for study: Preop CABG. Doppler waveforms: Multiphasic bilaterally throughout. Toe waveforms mildly blunted on the right and significantly blunted on the left. Pulse volume recording: []. Pressure gradients: None of significance. Ankle-brachial indices: Greater than 1 bilaterally. Somewhat falsely elevated. Toe brachial indices: 0.97 on the right, 0.90 on the left Impression: Fairly normal flow patterns. Falsely elevated ankle pressures probably related to calcific wall disease, suspect tissue perfusion adequate for healing..
--- NOTE | 2020-11-21 11:03 | P.CONS ---
History of Present Illness - Chief Complaint Cardiac debility - History of Present Illness I had the opportunity to see patient for inpatient rehab consultation with regard to cardiac debility. He was admitted to [facility] November 17 with chest pain and shortness of breath, CAD. Seen by cardiology and by Dr. Parker who did for perform three-vessel CABG on . Chest x-rays followed for bibasilar infiltrate. Chest CT demonstrates chronic change. A Doppler was done. PT, at ambulate 90 feet minimal assist, handheld. OT reports minimal assistance for upper dressing and moderate assistance for lower dressing, bathing, toileting and two-person moderate assistance for transfer. Previous functional history as elicited patient: 85-year-old right-handed white male who is lives in one floor home with . Both are retired. Describes independent with driving, standing shower and gait without device. PMD was Dr. Belle. Denies tobacco but has rare to occasional drink. Family history father with MA. Review of Systems Review of systems: ENT: Denies sneezes or discharge. Eyes: Denies discharge or photophobia. Cardiac: Denies chest pain or palpitation. Pulmonary: Denies cough or shortness of breath. Gastrointestinal: Denies nausea, emesis, constipation, diarrhea. Genitourinary: Denies discharge or frequency. Musculoskeletal: Denies muscle or bone aches. Neurologic: Denies motor or sensory change. Endocrine: Denies shakes or sweats. Oncology: Denies cancers. Dermatologic: Denies rash, itching, pruritus. ALLERGY/immunology: Denies sneezes, rashes. Past Medical History Past Medical History: Coronary Artery Disease (CAD), Cancer (Bladder cancer with 6 chemotherapy treatments), Eye Disorder (History of cataracts), Hearing Disorder / Deafness (Wears bilateral hearing aids), Hyperlipidemia, Hypertension , Osteoarthritis (OA), Skin Disorder Additional Past Medical History / Comment(s): SOB at times, psoriasis, hx bladder cancer- had chemo, History of Any Multi-Drug Resistant Organisms: None Reported Past Surgical History: Appendectomy, Bladder Surgery, Tonsillectomy Additional Past Surgical History / Comment(s): bladder surgery to remove tumor, "took rib out and drained my lung when I was a baby", elida cataracts Past Anesthesia/Blood Transfusion Reactions: No Reported Reaction Past Psychological History: No Psychological Hx Reported Smoking Status: Former smoker (Quit smoking 20 years ago.) Past Alcohol Use History: Rare Past Drug Use History: None Reported - Past Family History Father Family Medical History: Myocardial Infarction (MA) Mother Family Medical History: Myocardial Infarction (MA) Medications and Allergies Home Medications Medication Instructions Recorded Confirmed Type Finasteride [Proscar] 5 mg PO DAILY 09/14/20 11/16/20 History Aspirin 81 mg PO DAILY #30 chew 09/15/20 11/16/20 Rx Atorvastatin [Lipitor] 40 mg PO HS #30 tab 09/15/20 11/16/20 Rx Nitroglycerin Sl Tabs [Nitrostat] 0.4 mg SUBLINGUAL Q5M PRN #30 tab 09/15/20 11/16/20 Rx Potassium Chloride ER [K-Dur 10] 10 meq PO DAILY #30 tab.er.prt 09/15/20 11/16/20 Rx Ascorbic Acid [Vitamin C] 1,000 mg PO DAILY 11/15/20 11/16/20 History Cholecalciferol [Vitamin D3 (25 25 mcg PO DAILY 11/15/20 11/16/20 History Mcg = 1000 Iu)] Fish Oil/Dha/Epa [Fish Oil 1,200 1 each PO DAILY 11/15/20 11/16/20 History mg Fish Oil] Furosemide [Lasix] 20 mg PO DAILY 11/15/20 11/16/20 History Losartan [Cozaar] 25 mg PO HS 11/15/20 11/16/20 History Metoprolol Tartrate [Lopressor] 12.5 mg PO BID 11/15/20 11/16/20 History Allergies Allergy/AdvReac Type Severity Reaction Status Date / Time No Known Allergies Allergy Verified 11/16/20 09:28 Physical Exam Vitals: Vital Signs Temp Pulse Pulse Resp BP Pulse Ox 11/21/20 09:21 90 11/21/20 09:07 90 11/21/20 08:00 97.7 F 86 20 111/61 95 11/21/20 07:00 86 19 106/79 86 L 11/21/20 06:00 87 15 114/85 92 L 11/21/20 05:00 89 18 124/55 92 L 11/21/20 04:00 98.2 F 85 78 20 111/58 94 L 11/21/20 03:00 75 15 119/53 96 11/21/20 02:00 69 17 84/63 95 11/21/20 01:00 78 16 111/51 96 11/21/20 00:00 98.3 F 70 71 16 117/52 97 11/20/20 23:00 67 15 110/70 97 11/20/20 22:00 69 17 112/52 95 11/20/20 21:00 92 18 111/49 94 L 11/20/20 20:00 98.1 F 87 90 16 120/57 96 11/20/20 19:31 71 18 11/20/20 19:22 75 18 11/20/20 19:00 71 15 110/52 95 11/20/20 18:00 81 13 107/49 95 11/20/20 17:00 80 12 128/98 95 11/20/20 16:00 98.7 F 75 13 124/54 95 11/20/20 15:29 66 18 11/20/20 15:19 65 18 11/20/20 15:06 74 16 11/20/20 15:00 66 16 125/68 97 11/20/20 14:00 66 14 116/70 96 11/20/20 13:00 63 12 116/55 97 11/20/20 12:00 97.9 F 68 74 15 120/60 97 11/20/20 11:00 80 14 119/58 98 Intake and Output 11/20/20 11/21/20 11/21/20 22:59 06:59 14:59 Intake Total 413.526 162.98 280 Output Total 260 355 60 Balance 153.526 -192.02 220 Intake: IV 160 160 40 Lactated Ringers 1,000 ml 160 160 40 @ 20 mls/hr IV .Q24H [facility] Rx#:[id number] Intake, IV Titration 13.526 2.98 Amount Insulin Regular 100 unit 13.526 2.98 In Sodium Chloride 0.9% 100 ml @ Per Protocol IV .Q0M [facility] Rx#:[id number] Oral 240 Tube Feeding 240 Output: Chest Tube Drainage 10 left pleural 10 Drainage 15 60 Left Pleural 15 60 Urine 245 295 50 Other: Voiding Method Indwelling Catheter Indwelling Catheter Weight 98.2 kg Skin: Atrophic, intact. General: Medium build and comfortable appearance. Head: Normocephalic, atraumatic. Eyes: Symmetric. Pupils equal round. Ears: Symmetric. Hearing limited bilateral. Mouth: Clear. Neck: Supple. Carotid without bruit. Cardiac: Regular rate and rhythm. Midline sternotomy clean and dressed. Lungs: Clear anteriorly and posteriorly. Abdomen: Soft active nontender. Extremities: Normal tone. Neurological: Mental status: Some difficulty answering biographical questions. Cranial nerves: Symmetric facial tone and trapezius. Motor: Can actively move all 4 limbs. Sensation: Intact throughout. DTRs: Symmetric and equal throughout. Mobility: Sitting in bedside Mya chair in obviously required physical assist to get the. Results CBC & Chem 7: 11/21/20 03:22 11/21/20 03:22 Labs: Abnormal Lab Results - Last 24 Hours (Table) 11/20/20 11/20/20 11/20/20 Range/Units 11:04 11:57 13:05 WBC (3.8-10.6) k/uL RBC (4.30-5.90) m/uL Hgb (13.0-17.5) gm/dL Hct (39.0-53.0) % MCV (80.0-100.0) fL MCH (25.0-35.0) pg Plt Count (150-450) k/uL Neutrophils # (Manual) (1.3-7.7) k/uL Monocytes # (Manual) (0-1.0) k/uL Sodium (137-145) mmol/L BUN (9-20) mg/dL Glucose (74-99) mg/dL POC Glucose (mg/dL) 112 H 122 H 164 H (75-99) mg/dL Calcium (8.4-10.2) mg/dL Total Protein (6.3-8.2) g/dL Albumin (3.5-5.0) g/dL 11/20/20 11/20/20 11/20/20 Range/Units 13:53 15:00 16:04 WBC (3.8-10.6) k/uL RBC (4.30-5.90) m/uL Hgb (13.0-17.5) gm/dL Hct (39.0-53.0) % MCV (80.0-100.0) fL MCH (25.0-35.0) pg Plt Count (150-450) k/uL Neutrophils # (Manual) (1.3-7.7) k/uL Monocytes # (Manual) (0-1.0) k/uL Sodium (137-145) mmol/L BUN (9-20) mg/dL Glucose (74-99) mg/dL POC Glucose (mg/dL) 157 H 157 H 123 H (75-99) mg/dL Calcium (8.4-10.2) mg/dL Total Protein (6.3-8.2) g/dL Albumin (3.5-5.0) g/dL 11/20/20 11/20/20 11/20/20 Range/Units 16:52 17:55 19:03 WBC (3.8-10.6) k/uL RBC (4.30-5.90) m/uL Hgb (13.0-17.5) gm/dL Hct (39.0-53.0) % MCV (80.0-100.0) fL MCH (25.0-35.0) pg Plt Count (150-450) k/uL Neutrophils # (Manual) (1.3-7.7) k/uL Monocytes # (Manual) (0-1.0) k/uL Sodium (137-145) mmol/L BUN (9-20) mg/dL Glucose (74-99) mg/dL POC Glucose (mg/dL) 123 H 113 H 133 H (75-99) mg/dL Calcium (8.4-10.2) mg/dL Total Protein (6.3-8.2) g/dL Albumin (3.5-5.0) g/dL 11/20/20 11/20/20 11/20/20 Range/Units 20:26 21:54 22:55 WBC (3.8-10.6) k/uL RBC (4.30-5.90) m/uL Hgb (13.0-17.5) gm/dL Hct (39.0-53.0) % MCV (80.0-100.0) fL MCH (25.0-35.0) pg Plt Count (150-450) k/uL Neutrophils # (Manual) (1.3-7.7) k/uL Monocytes # (Manual) (0-1.0) k/uL Sodium (137-145) mmol/L BUN (9-20) mg/dL Glucose (74-99) mg/dL POC Glucose (mg/dL) 133 H 159 H 136 H (75-99) mg/dL Calcium (8.4-10.2) mg/dL Total Protein (6.3-8.2) g/dL Albumin (3.5-5.0) g/dL 11/21/20 11/21/20 11/21/20 Range/Units 00:52 02:43 03:22 WBC 13.8 H (3.8-10.6) k/uL RBC 3.33 L (4.30-5.90) m/uL Hgb 11.9 L (13.0-17.5) gm/dL Hct 34.7 L (39.0-53.0) % MCV 104.2 H (80.0-100.0) fL MCH 35.7 H (25.0-35.0) pg Plt Count 110 L (150-450) k/uL Neutrophils # (Manual) 10.40 H (1.3-7.7) k/uL Monocytes # (Manual) 1.38 H (0-1.0) k/uL Sodium (137-145) mmol/L BUN (9-20) mg/dL Glucose (74-99) mg/dL POC Glucose (mg/dL) 113 H 110 H (75-99) mg/dL Calcium (8.4-10.2) mg/dL Total Protein (6.3-8.2) g/dL Albumin (3.5-5.0) g/dL 11/21/20 11/21/20 11/21/20 Range/Units 03:22 04:43 06:13 WBC (3.8-10.6) k/uL RBC (4.30-5.90) m/uL Hgb (13.0-17.5) gm/dL Hct (39.0-53.0) % MCV (80.0-100.0) fL MCH (25.0-35.0) pg Plt Count (150-450) k/uL Neutrophils # (Manual) (1.3-7.7) k/uL Monocytes # (Manual) (0-1.0) k/uL Sodium 135 L (137-145) mmol/L BUN 30 H (9-20) mg/dL Glucose 113 H (74-99) mg/dL POC Glucose (mg/dL) 110 H 122 H (75-99) mg/dL Calcium 8.1 L (8.4-10.2) mg/dL Total Protein 5.7 L (6.3-8.2) g/dL Albumin 3.4 L (3.5-5.0) g/dL 11/21/20 Range/Units 06:57 WBC (3.8-10.6) k/uL RBC (4.30-5.90) m/uL Hgb (13.0-17.5) gm/dL Hct (39.0-53.0) % MCV (80.0-100.0) fL MCH (25.0-35.0) pg Plt Count (150-450) k/uL Neutrophils # (Manual) (1.3-7.7) k/uL Monocytes # (Manual) (0-1.0) k/uL Sodium (137-145) mmol/L BUN (9-20) mg/dL Glucose (74-99) mg/dL POC Glucose (mg/dL) 123 H (75-99) mg/dL Calcium (8.4-10.2) mg/dL Total Protein (6.3-8.2) g/dL Albumin (3.5-5.0) g/dL Assessment and Plan (1) Exertional dyspnea Current Visit: No Status: Acute Code(s): R06.00 - DYSPNEA, UNSPECIFIED SNOMED Code(s): 32183235 Plan: Impression: 1. Cardiac debility with CAD and recent three-vessel CABG. 2. Dyspnea. 3. Hypertension. 4. Dyslipidemia. 5. Hard of hearing. Comments and plan: At this time PT and OT are ongoing. Safety concerns noted. Have discussed possible inpatient rehab with patient but I'm unsure that he is able to understand. Must verify likely discharge plan with and her goals for rehab patient to return home.
[2020-11-21] MEDS ORDERED: polyethylene glycoL 3350 17 GM POWD.PACK PO STA (11:37)
[2020-11-21 11:41] LABS: Glucose,Whole Blood 169 mg/dL (75-99)
--- NOTE | 2020-11-21 11:42 | P.PN ---
Subjective Progress Note Date: 11/21/20 Patient is awake and alert. He was sitting up in the chair when I saw him. Heart rate is not well controlled. Nurse was getting ready to bolus him with IV amiodarone. Patient denies any palpitation or chest pain at this time. He reported having a bowel movement yesterday but nursing staff said that there is no documentation and did not think patient had any bowel movement since surgery. He is having a decent appetite and finished 50% of his breakfast today. No acute events overnight reported to me by nursing staff. Objective - Vital Signs Vital signs: Vital Signs Temp 97.7 F 11/21/20 08:00 Pulse 137 H 11/21/20 11:15 Resp 21 11/21/20 11:15 BP 99/72 11/21/20 11:15 Pulse Ox 95 11/21/20 11:15 Intake & Output 11/20/20 11/21/20 11/21/20 18:59 06:59 18:59 Intake Total 643.568 492.129 340 Output Total 535 490 405 Balance 108.568 2.129 -65 Weight 98 kg 98.2 kg Intake: IV 390 240 100 CO/CI 20 Lactated Ringers 1,000 ml 270 240 100 @ 20 mls/hr IV .Q24H [facility] Rx#:[id number] ceFAZolin 2 gm In Sodium 100 Chloride 0.9% 50 ml @ 100 mls/hr IVPB ONCE ONE Rx# :[id number] Intake, IV Titration 13.568 12.129 Amount Insulin Regular 100 unit 13.568 12.129 In Sodium Chloride 0.9% 100 ml @ Per Protocol IV .Q0M [facility] Rx#:[id number] Oral 240 240 Tube Feeding 240 Output: Chest Tube Drainage 40 10 Left Pleural and 40 Mediastinal left pleural 10 Drainage 15 70 Left Pleural 15 70 Urine 480 420 395 Other: Voiding Method Indwelling Catheter Indwelling Catheter Indwelling Catheter ABP, PAP, CO, CI - Last Documented Arterial Blood Pressure 258/256 Pulmonary Artery Pressure 30/16 Cardiac Output 5.6 Cardiac Index 2.7 - Exam General: The patient is awake and alert, in no distress Eye: there is normal conjunctiva bilaterally. Neck: The neck is supple, there is no JVD. Cardiovascular: Normal S1-S2, no S3-S4, no murmurs. Respiratory: Lungs clear to auscultation bilaterally Gastrointestinal: Abdomen is soft, nontender Musculoskeletal: There is no pedal edema. Neurological:. Speech is normal. Skin: Skin is warm and dry - Labs CBC & Chem 7: 11/21/20 03:22 11/21/20 03:22 Labs: Abnormal Lab Results - Last 24 Hours (Table) 11/20/20 11/20/20 11/20/20 Range/Units 11:57 13:05 13:53 WBC (3.8-10.6) k/uL RBC (4.30-5.90) m/uL Hgb (13.0-17.5) gm/dL Hct (39.0-53.0) % MCV (80.0-100.0) fL MCH (25.0-35.0) pg Plt Count (150-450) k/uL Neutrophils # (Manual) (1.3-7.7) k/uL Monocytes # (Manual) (0-1.0) k/uL Sodium (137-145) mmol/L BUN (9-20) mg/dL Glucose (74-99) mg/dL POC Glucose (mg/dL) 122 H 164 H 157 H (75-99) mg/dL Calcium (8.4-10.2) mg/dL Total Protein (6.3-8.2) g/dL Albumin (3.5-5.0) g/dL 11/20/20 11/20/20 11/20/20 Range/Units 15:00 16:04 16:52 WBC (3.8-10.6) k/uL RBC (4.30-5.90) m/uL Hgb (13.0-17.5) gm/dL Hct (39.0-53.0) % MCV (80.0-100.0) fL MCH (25.0-35.0) pg Plt Count (150-450) k/uL Neutrophils # (Manual) (1.3-7.7) k/uL Monocytes # (Manual) (0-1.0) k/uL Sodium (137-145) mmol/L BUN (9-20) mg/dL Glucose (74-99) mg/dL POC Glucose (mg/dL) 157 H 123 H 123 H (75-99) mg/dL Calcium (8.4-10.2) mg/dL Total Protein (6.3-8.2) g/dL Albumin (3.5-5.0) g/dL 11/20/20 11/20/20 11/20/20 Range/Units 17:55 19:03 20:26 WBC (3.8-10.6) k/uL RBC (4.30-5.90) m/uL Hgb (13.0-17.5) gm/dL Hct (39.0-53.0) % MCV (80.0-100.0) fL MCH (25.0-35.0) pg Plt Count (150-450) k/uL Neutrophils # (Manual) (1.3-7.7) k/uL Monocytes # (Manual) (0-1.0) k/uL Sodium (137-145) mmol/L BUN (9-20) mg/dL Glucose (74-99) mg/dL POC Glucose (mg/dL) 113 H 133 H 133 H (75-99) mg/dL Calcium (8.4-10.2) mg/dL Total Protein (6.3-8.2) g/dL Albumin (3.5-5.0) g/dL 11/20/20 11/20/20 11/21/20 Range/Units 21:54 22:55 00:52 WBC (3.8-10.6) k/uL RBC (4.30-5.90) m/uL Hgb (13.0-17.5) gm/dL Hct (39.0-53.0) % MCV (80.0-100.0) fL MCH (25.0-35.0) pg Plt Count (150-450) k/uL Neutrophils # (Manual) (1.3-7.7) k/uL Monocytes # (Manual) (0-1.0) k/uL Sodium (137-145) mmol/L BUN (9-20) mg/dL Glucose (74-99) mg/dL POC Glucose (mg/dL) 159 H 136 H 113 H (75-99) mg/dL Calcium (8.4-10.2) mg/dL Total Protein (6.3-8.2) g/dL Albumin (3.5-5.0) g/dL 11/21/20 11/21/20 11/21/20 Range/Units 02:43 03:22 03:22 WBC 13.8 H (3.8-10.6) k/uL RBC 3.33 L (4.30-5.90) m/uL Hgb 11.9 L (13.0-17.5) gm/dL Hct 34.7 L (39.0-53.0) % MCV 104.2 H (80.0-100.0) fL MCH 35.7 H (25.0-35.0) pg Plt Count 110 L (150-450) k/uL Neutrophils # (Manual) 10.40 H (1.3-7.7) k/uL Monocytes # (Manual) 1.38 H (0-1.0) k/uL Sodium 135 L (137-145) mmol/L BUN 30 H (9-20) mg/dL Glucose 113 H (74-99) mg/dL POC Glucose (mg/dL) 110 H (75-99) mg/dL Calcium 8.1 L (8.4-10.2) mg/dL Total Protein 5.7 L (6.3-8.2) g/dL Albumin 3.4 L (3.5-5.0) g/dL 11/21/20 11/21/20 11/21/20 Range/Units 04:43 06:13 06:57 WBC (3.8-10.6) k/uL RBC (4.30-5.90) m/uL Hgb (13.0-17.5) gm/dL Hct (39.0-53.0) % MCV (80.0-100.0) fL MCH (25.0-35.0) pg Plt Count (150-450) k/uL Neutrophils # (Manual) (1.3-7.7) k/uL Monocytes # (Manual) (0-1.0) k/uL Sodium (137-145) mmol/L BUN (9-20) mg/dL Glucose (74-99) mg/dL POC Glucose (mg/dL) 110 H 122 H 123 H (75-99) mg/dL Calcium (8.4-10.2) mg/dL Total Protein (6.3-8.2) g/dL Albumin (3.5-5.0) g/dL Assessment and Plan Assessment: 85-year-old with hypertension and dyslipidemia who presented for elective heart cath. Patient had an abnormal stress test recently and underwent left heart catheterization showing triple-vessel disease. Cardiac surgery consulted and miguel ángel andres underwent CABG 3 on 11/19/2020. Includes a list of his medical problems. 3-vessel arthrosclerotic disease, [place] vessel s/p 3-vessel bypass with PARIKH to LAD, SVG to RCA and SVG to first obtuse marginal. - management per CT surgery - Cardio recs - Optimal medical management - Cholesterol profile within normal limits Newly diagnosed Diabetes - A1C 6.5 - q1h accucheck post CABG Acute blood loss anemia, thrombocytopenia, leukocytosis - anticipated outcome of surgery - no indications for transfusion at this time. - follow CBC Ischemic cardiomyopathy with EF 40-45% - resume BB and Lasix per CT surgery - Consider ACEI or ARB on discharge - Strict I and O - Dialy weights B/L Carotid disease - ASA, Statin - CT surgery recs HTN - resume Metoprolol, Cozaar, Lasix per CT surgery - follow BP HLD - statin Obesity BMI 33.3 - structured outpatient weight loss HX bladder CA Hx tobacco abuse Degeneratice joint disease NSTEMI Aug 2020
[2020-11-21] MEDS: INSULIN ASPART (NovoLOG) 100 UNIT/ML VIAL SQ SCH ×3 (12:37→20:35)
[2020-11-21] MEDS ORDERED: DEXTROSE 5% IN WATER 100 ML with AMIODARONE 150 MG IV ONE (13:00)
--- NOTE | 2020-11-21 13:43 | P.ARTDOP ---
Arterial Doppler LOWER EXTREMITY ARTERIAL DOPPLER: DATE OF SERVICE: 11/16/2020 Reason for study: Preop CABG. Doppler waveforms: Multiphasic bilaterally throughout. Digital waveforms blunted. Pulse volume recording: []. Pressure gradients: Only at the foot level. Ankle-brachial indices: Greater than 1 on the right and 0.98 on the left. Toe brachial indices: 0.45 on the right, 0.48 on the left Impression: Normal study proximally. Decreased toe pressures probably related to vasospastic phenomenon..
--- NOTE | 2020-11-21 15:08 | P.PN ---
Subjective Progress Note Date: 11/21/20 Principal diagnosis: Status post off-pump CABG 3 with PARIKH to LAD, saphenous vein graft to RCA, saphenous vein graft to second obtuse marginal, postoperative day #2 85-year-old male patient, known history of hypertension and hyperlipidemia and previous history of bladder cancer treated with systemic chemotherapy, and ex- smoker quit smoking approximately 20 years ago presented with exertional dyspnea that was progressively getting worse. The patient also had worsening lower extremity edema. He denies having any significant chest pain. The patient underwent a cardiac stress test on 11/06/2020 and the patient was found to have moderate area of reversible defect suggestive of ischemia. Following that, the patient underwent a cardiac catheterization 11/16/2020 and the patient was found to have a 70-80% stenosis of the distal left main artery, 95% stenosis of the proximal RCA, total occlusion of the circumflex with a 50-55% stenosis of the proximal LAD. The patient is being considered for cardiac bypass surgery and pulmonary consultation was requested. The chest x-rays was done on 10/01/2020 showed small bilateral pleural effusion and atelectatic changes in the lung bases. Repeat CAT scan of the chest that was done on 11/16/2020 showed of the lung parenchyma showed some mild emphysema. No evidence of pleural effusion. No evidence of any lung masses. The patient's had an FEV1 on a bedside spirometry of 46% of predicted. He is currently on IV heparin. The echo shows an ejection fraction of 40-45%. The segmental wall motion abnormalities related to his underlying CAD. There is moderate concentric LVH. RV is mildly dilated. There is moderate mitral regurgitation. Aortic valve seems to be within normal limits. Nevertheless, there is moderate degree of concentric LV hypertrophy consistent with hypertensive heart disease. Patient was reevaluated today on 11/19/2020, patient is status post off-pump CABG 3, PARIKH to LAD, saphenous vein graft to RCA, saphenous vein graft to second obtuse marginal coronary artery. This was done earlier today by Dr. Parker, patient is now back in the ICU, on mechanical ventilation, his ventilator settings are assist control rate of 16, volume is 500 FiO2 is down to 50% today, and PEEP is 5. ABG earlier on 60% FiO2 showed a pO2 of 136 pCO2 of 48 and pH of 7.33 patient was on assist control rate of 14 which was increased to 16. Surgery both CABG showed mild pulmonary vascular congestion, and minimal bi basilar atelectasis. Patient is on propofol drip at 20 mcg/kg/m, is also on nitroglycerin drip, pleasant proximal drip at 1 mg/h, and is also on insulin drip at 1 unit per hour. Patient is sedated, in no distress, hemodynamically stable. His cardiac index is 3.5. Labs including CBC and electrolytes were noted to be relatively normal Reevaluated today on 11/20/2020., patient remains in the ICU, he was extubated yesterday few hours after his arrival to the ICU. Patient was extubated at 17:45, his postoperative day #1. Doing great, his CVP is 9, cardiac output is 5.6, cardiac index is 2.7, pulmonary artery pressure is 33/15 patient is doing well with incentive spirometry, achieving goal of 1000 mL. Sitting at a bedside chair/recliner, and he is relatively asymptomatic. Not requiring any masses. The amount of drainage from his mediastinal and left sided pleural chest tubes noted. Ration is afebrile, hemodynamically stable, Morrow catheter remains in place. Asked x-ray showed mostly postoperative changes and atelectasis. No acute process was noted. Hemoglobin today is 12 WBC count is 10.5. Basic metabolic profile, electrolytes and renal profile are normal Reevaluated today on 11/21/2020, patient is postoperative day #2, off pump CABG 3, PARIKH to LAD, saphenous vein graft to right coronary artery, saphenous vein graft to second obtuse marginal coronary artery. Patient is sitting in a recliner, he is doing well, in no distress, eating breakfast, pain seems to be fairly well controlled, patient is hemodynamically stable, not requiring any pressors or any inotropes. Left-sided chest tube Cordis, and Morrow catheter remain in place, and these will likely be removed today. Chest x-ray showed minimal bibasilar atelectasis. Patient is ready ambulating in the hallway, no difficulty. CBC is relatively normal hemoglobin is 11.9. Electrolytes are normal creatinine is 1.15 today. Objective - Vital Signs Vital signs: Vital Signs Temp 99.7 F H 11/21/20 12:00 Pulse 73 11/21/20 14:30 Resp 26 H 11/21/20 14:30 BP 103/57 11/21/20 14:30 Pulse Ox 95 11/21/20 14:30 Intake & Output 11/20/20 11/21/20 11/21/20 18:59 06:59 18:59 Intake Total 643.568 492.129 650 Output Total 535 490 587 Balance 108.568 2.129 63 Weight 98 kg 98.2 kg Intake: IV 390 240 160 CO/CI 20 Lactated Ringers 1,000 ml 270 240 160 @ 20 mls/hr IV .Q24H [facility] Rx#:[id number] ceFAZolin 2 gm In Sodium 100 Chloride 0.9% 50 ml @ 100 mls/hr IVPB ONCE ONE Rx# :[id number] Intake, IV Titration 13.568 12.129 Amount Insulin Regular 100 unit 13.568 12.129 In Sodium Chloride 0.9% 100 ml @ Per Protocol IV .Q0M [facility] Rx#:[id number] Oral 240 240 Tube Feeding 240 250 Output: Chest Tube Drainage 40 10 Left Pleural and 40 Mediastinal left pleural 10 Drainage 15 70 Left Pleural 15 70 Urine 480 420 577 Other: Voiding Method Indwelling Catheter Indwelling Catheter Indwelling Catheter ABP, PAP, CO, CI - Last Documented Arterial Blood Pressure 258/256 Pulmonary Artery Pressure 30/16 Cardiac Output 5.6 Cardiac Index 2.7 - Exam Physical Exam revealed 85-year-old white male, on 2 L nasal cannula, O2 saturation is 96% Head: Atraumatic, normocephalic HEENT:[Neck is supple.] [No neck masses.] [No thyromegaly.] [No JVD.] PERRLA, EOMI, nonicteric. Moist mucous membranes. Chest: [Clear throughout, no crackles, no rhonchi, no wheezes.] Symmetrical chest expansion. Cardiac Exam: [Normal S1 and S2, no S3 gallop, distant pericardial rub. Abdomen: [Soft, nontender, no megaly, no rebound, no guarding, normal bowel sounds.] Extremities: [No clubbing, no edema, no cyanosis.] Neurological Exam: Alert and oriented 3, no gross focal deficits. Psychiatric: Normal mood, affect and normal mental status examination. Skin: No rashes. - Labs CBC & Chem 7: 11/21/20 03:22 11/21/20 03:22 Labs: Abnormal Lab Results - Last 24 Hours (Table) 11/20/20 11/20/20 11/20/20 Range/Units 16:04 16:52 17:55 WBC (3.8-10.6) k/uL RBC (4.30-5.90) m/uL Hgb (13.0-17.5) gm/dL Hct (39.0-53.0) % MCV (80.0-100.0) fL MCH (25.0-35.0) pg Plt Count (150-450) k/uL Neutrophils # (Manual) (1.3-7.7) k/uL Monocytes # (Manual) (0-1.0) k/uL Sodium (137-145) mmol/L BUN (9-20) mg/dL Glucose (74-99) mg/dL POC Glucose (mg/dL) 123 H 123 H 113 H (75-99) mg/dL Calcium (8.4-10.2) mg/dL Total Protein (6.3-8.2) g/dL Albumin (3.5-5.0) g/dL 11/20/20 11/20/20 11/20/20 Range/Units 19:03 20:26 21:54 WBC (3.8-10.6) k/uL RBC (4.30-5.90) m/uL Hgb (13.0-17.5) gm/dL Hct (39.0-53.0) % MCV (80.0-100.0) fL MCH (25.0-35.0) pg Plt Count (150-450) k/uL Neutrophils # (Manual) (1.3-7.7) k/uL Monocytes # (Manual) (0-1.0) k/uL Sodium (137-145) mmol/L BUN (9-20) mg/dL Glucose (74-99) mg/dL POC Glucose (mg/dL) 133 H 133 H 159 H (75-99) mg/dL Calcium (8.4-10.2) mg/dL Total Protein (6.3-8.2) g/dL Albumin (3.5-5.0) g/dL 11/20/20 11/21/20 11/21/20 Range/Units 22:55 00:52 02:43 WBC (3.8-10.6) k/uL RBC (4.30-5.90) m/uL Hgb (13.0-17.5) gm/dL Hct (39.0-53.0) % MCV (80.0-100.0) fL MCH (25.0-35.0) pg Plt Count (150-450) k/uL Neutrophils # (Manual) (1.3-7.7) k/uL Monocytes # (Manual) (0-1.0) k/uL Sodium (137-145) mmol/L BUN (9-20) mg/dL Glucose (74-99) mg/dL POC Glucose (mg/dL) 136 H 113 H 110 H (75-99) mg/dL Calcium (8.4-10.2) mg/dL Total Protein (6.3-8.2) g/dL Albumin (3.5-5.0) g/dL 11/21/20 11/21/20 11/21/20 Range/Units 03:22 03:22 04:43 WBC 13.8 H (3.8-10.6) k/uL RBC 3.33 L (4.30-5.90) m/uL Hgb 11.9 L (13.0-17.5) gm/dL Hct 34.7 L (39.0-53.0) % MCV 104.2 H (80.0-100.0) fL MCH 35.7 H (25.0-35.0) pg Plt Count 110 L (150-450) k/uL Neutrophils # (Manual) 10.40 H (1.3-7.7) k/uL Monocytes # (Manual) 1.38 H (0-1.0) k/uL Sodium 135 L (137-145) mmol/L BUN 30 H (9-20) mg/dL Glucose 113 H (74-99) mg/dL POC Glucose (mg/dL) 110 H (75-99) mg/dL Calcium 8.1 L (8.4-10.2) mg/dL Total Protein 5.7 L (6.3-8.2) g/dL Albumin 3.4 L (3.5-5.0) g/dL 11/21/20 11/21/20 11/21/20 Range/Units 06:13 06:57 11:40 WBC (3.8-10.6) k/uL RBC (4.30-5.90) m/uL Hgb (13.0-17.5) gm/dL Hct (39.0-53.0) % MCV (80.0-100.0) fL MCH (25.0-35.0) pg Plt Count (150-450) k/uL Neutrophils # (Manual) (1.3-7.7) k/uL Monocytes # (Manual) (0-1.0) k/uL Sodium (137-145) mmol/L BUN (9-20) mg/dL Glucose (74-99) mg/dL POC Glucose (mg/dL) 122 H 123 H 169 H (75-99) mg/dL Calcium (8.4-10.2) mg/dL Total Protein (6.3-8.2) g/dL Albumin (3.5-5.0) g/dL Assessment and Plan Assessment: Impression: Status post off-pump CABG 3, PARIKH to LAD, saphenous vein graft to RCA, saphenous vein graft to second obtuse marginal coronary artery. Postoperative day #2 Multivessel coronary artery disease. Benign essential hypertension. Dyslipidemia. History of bladder cancer status post intravesicular chemotherapy and transurethral bladder tumor resection. Remote smoking history. History of degenerative joint disease. Recommendation: Continue aspirin and Plavix beta blockers and statin. Wean oxygen as tolerated. Continue incentive spirometry. Continue GI and DVT prophylaxis. Increase activity and ambulate as tolerated. Can potentially transfer the patient out of the ICU today to a monitor bed on selective. We'll continue to follow. Time with Patient: Less than 30
[2020-11-21 17:02] LABS: Glucose,Whole Blood 167 mg/dL (75-99)
[2020-11-21 20:28] LABS: Glucose,Whole Blood 148 mg/dL (75-99)
[2020-11-21] MEDS: SENNOSIDES-DOCUSATE SODIUM 1 EACH TAB PO SCH (20:35)
[2020-11-21] MEDS: ATORVASTATIN 40 MG TAB PO SCH (20:35)
[2020-11-21] MEDS: ACETAMINOPHEN TAB 500 MG TAB PO PRN (20:36)
[2020-11-22 04:54] LABS: Albumin 3.3 g/dL (3.5-5.0); Calcium 8.1 mg/dL (8.4-10.2); Magnesium 2.5 mg/dL (1.6-2.3); Total Protein 5.5 g/dL (6.3-8.2)
[2020-11-22 04:56] LABS: Basophils % (A) 0 %; Eosinophils % (A) 0 %; HCT 29.1 % (39.0-53.0); Lymphocytes # (A) 1.5 k/uL (1.0-4.8); Lymphocytes % (A) 13 %; MCH 35.7 pg (25.0-35.0); MCHC 34.1 g/dL (31.0-37.0); MCV 104.6 fL (80.0-100.0); Macrocytosis Slight; Monocytes # (A) 0.9 k/uL (0-1.0); Monocytes % (A) 8 %; Neutrophils # (A) 8.7 k/uL (1.3-7.7); Neutrophils % (A) 76 %; Platelet Count 107 k/uL (150-450); RBC 2.79 m/uL (4.30-5.90); RDW 12.3 % (11.5-15.5); WBC 11.4 k/uL (3.8-10.6)
[2020-11-22 05:09] LABS: HGB 9.9 gm/dL (13.0-17.5)
[2020-11-22] MEDS: HEPARIN SODIUM,PORCINE 5,000 UNIT/ML 1 ML VIAL SQ SCH ×3 (05:58→19:56)
[2020-11-22] MEDS: PANTOPRAZOLE 40 MG TABLET PO SCH (05:58)
[2020-11-22 07:11] LABS: Glucose,Whole Blood 113 mg/dL (75-99)
[2020-11-22] MEDS: INSULIN ASPART (NovoLOG) 100 UNIT/ML VIAL SQ SCH ×4 (07:11→19:53)
[2020-11-22] MEDS: IPRATROPIUM-ALBUTEROL 3 ML NEB INHALATION SCH ×4 (07:21→19:22)
[2020-11-22] MEDS ORDERED: polyethylene glycoL 3350 17 GM POWD.PACK PO STA (07:31)
--- NOTE | 2020-11-22 08:23 | PN ---
PROGRESS NOTE Mr. Ritter underwent aortocoronary bypass surgery and yesterday he had an episode of paroxysmal atrial fibrillation requiring intravenous amiodarone. He is doing well now. He is in sinus rhythm. Hemodynamically stable. Doing well on incentive spirometry. All his tubes are out. I would recommend that we switch him to oral amiodarone 200 mg b.i.d. and continue all his other medications and gradual increase in activity. Continue incentive spirometry and hopefully move him to telemetry. He is on subcu heparin. He had only one episode of atrial fibrillation postoperative, so it may not require long-term anticoagulation. He is already on aspirin and Plavix. Blood pressure is good. His JVD is not evident. S1, S2 heard normally, short systolic murmur. Lungs reveal improved air entry. Abdomen and lower extremity exam is unchanged. Plan is to continue incentive spirometry pulmonary toilet and switch him to oral amiodarone. MMODL / IJN: [id number] /
--- NOTE | 2020-11-22 08:23 | P.PN ---
Subjective Progress Note Date: 11/22/20 Principal diagnosis: Symptomatic multivessel coronary artery disease with left main disease, moderate mitral valve regurgitation, preoperative nasal swab positive for MSSA. Previous medical history of NSTEMI in August 2020, hypertension, hyperlipidemia, chronic systolic heart failure with EF 40-45%, psoriasis, bladder cancer with 6 chemotherapy treatments, benign prostatic hypertrophy, degenerative joint disease, and remote history of tobacco abuse in which he quit 20 years ago. POD #3 Off-pump CABG 3 with PARIKH to LAD, reverse greater saphenous vein graft to right coronary artery, reverse greater saphenous vein graft to second obtuse marginal coronary artery, endovascular vein harvest of the left greater saphenous vein from the ankle to the groin, occlusion of the left atrial appendage with a 35 mm AtriCure clip. Postoperative acute blood loss anemia, expected due to hemodilution. Postoperative paroxysmal atrial fibrillation, known complication of open heart surgery The patient's currently sitting up in the recliner in the intensive care unit in no acute distress. States pain is well controlled on current pain medication regimen, denies shortness of breath. He did go into atrial fibrillation yesterday but converted to sinus rhythm after initiation of amiodarone. Currently in sinus rhythm and hemodynamically stable. All lines and tubes discontinued. Patient had first post op shower this am. He ambulated in the hallway yesterday without difficulty several times. No new concerns. Objective - Vital Signs Vital signs: Vital Signs Temp 97.6 F 11/22/20 04:00 Pulse 66 11/22/20 07:34 Resp 22 11/22/20 07:00 BP 130/67 11/22/20 07:00 Pulse Ox 96 11/22/20 07:00 Intake & Output 11/21/20 11/22/20 11/22/20 18:59 06:59 18:59 Intake Total 730 240 20 Output Total 587 0 Balance 143 240 20 Weight 99.2 kg Intake: IV 240 240 20 Lactated Ringers 1,000 ml 240 240 20 @ 20 mls/hr IV .Q24H [facility] Rx#:[id number] Oral 240 Tube Feeding 250 Output: Chest Tube Drainage 10 left pleural 10 Urine 577 0 Other: Voiding Method Bedside Commode Urinal # Voids 1 # Bowel Movements 1 ABP, PAP, CO, CI - Last Documented Arterial Blood Pressure 258/256 Pulmonary Artery Pressure 30/16 Cardiac Output 5.6 Cardiac Index 2.7 - Constitutional General appearance: Present: cooperative, no acute distress, obese - Respiratory Details: Lungs sounds diminished bilaterally. Respirations even, nonlabored. Currently on 2 L nasal cannula with oxygen saturation 96%. Able to achieve 750 mL on his incentive spirometry. Strong cough. - Cardiovascular Details: S1, S2 present. Regular rate and rhythm, sinus rhythm on telemetry. Sternum stable. Palpable peripheral pulses bilaterally. No edema present. No calf pain or tenderness noted. Heart hugger in place with patient demonstrating appropriate use. Antiembolism stockings, SCDs present. - Gastrointestinal Gastrointestinal Comment(s): Abdomen soft, nontender, slightly distended. Active bowel sounds present 4 quadrants. Tolerating diet. Positive bowel movement this morning - Genitourinary Genitourinary Comment(s): Morrow discontinued yesterday. Patient has voided - Integumentary Integumentary Comment(s): Skin is warm and dry with evidence of good perfusion. Anterior chest incision well approximated and covered with dry intact dressing. Left lower extremity EVH site well approximated without redness or drainage. - Neurologic Neurologic: Present: CNII-XII intact - Musculoskeletal Musculoskeletal: Present: gait normal, strength equal bilaterally - Psychiatric Psychiatric: Present: A&O x's 3, appropriate affect - Allied health notes Allied health notes reviewed: nursing - Labs CBC & Chem 7: 11/22/20 03:45 11/22/20 03:45 Labs: Abnormal Lab Results - Last 24 Hours (Table) 11/21/20 11/21/20 11/21/20 Range/Units 11:40 17:00 20:27 WBC (3.8-10.6) k/uL RBC (4.30-5.90) m/uL Hgb (13.0-17.5) gm/dL Hct (39.0-53.0) % MCV (80.0-100.0) fL MCH (25.0-35.0) pg Plt Count (150-450) k/uL Neutrophils # (1.3-7.7) k/uL Sodium (137-145) mmol/L BUN (9-20) mg/dL Creatinine (0.66-1.25) mg/dL Glucose (74-99) mg/dL POC Glucose (mg/dL) 169 H 167 H 148 H (75-99) mg/dL Calcium (8.4-10.2) mg/dL Magnesium (1.6-2.3) mg/dL Total Protein (6.3-8.2) g/dL Albumin (3.5-5.0) g/dL 11/22/20 11/22/20 11/22/20 Range/Units 03:45 03:45 07:10 WBC 11.4 H (3.8-10.6) k/uL RBC 2.79 L (4.30-5.90) m/uL Hgb 9.9 L D (13.0-17.5) gm/dL Hct 29.1 L (39.0-53.0) % MCV 104.6 H (80.0-100.0) fL MCH 35.7 H (25.0-35.0) pg Plt Count 107 L (150-450) k/uL Neutrophils # 8.7 H (1.3-7.7) k/uL Sodium 135 L (137-145) mmol/L BUN 42 H (9-20) mg/dL Creatinine 1.38 H (0.66-1.25) mg/dL Glucose 125 H (74-99) mg/dL POC Glucose (mg/dL) 113 H (75-99) mg/dL Calcium 8.1 L (8.4-10.2) mg/dL Magnesium 2.5 H (1.6-2.3) mg/dL Total Protein 5.5 L (6.3-8.2) g/dL Albumin 3.3 L (3.5-5.0) g/dL - Imaging and Cardiology Chest x-ray: image reviewed Assessment and Plan Assessment: 1. Symptomatic multivessel coronary artery disease with left main disease, status post off-pump three-vessel CABG 2. History of recent non-STEMI in August 2020 3. Ischemic cardiomyopathy, chronic systolic heart failure with ejection fraction 40-45% 4. Hypertension 5. Hyperlipidemia, treated, cholesterol 149, LDL 85 6. New diagnosis of type 2 diabetes mellitus, preoperative hemoglobin A1c 6.5% 7. Bilateral carotid stenosis, right ICA greater than 70%, left ICA 50-69% 8. Previous tobacco dependence, severe COPD with preoperative FEV1 46% of p redicted 9. History of bladder cancer, status post 6 chemotherapy treatments, BPH 10. Preoperative nasal swab positive for MSSA, treated 11. Postoperative acute blood loss anemia, expected due to hemodilution 12. Postoperative atrial fibrillation, known complication, currently sinus, S/P left atrial appendage ligation Plan: 1. Continue aspirin, statin, Plavix and beta hazel. Will increase beta hazel therapy as tolerated, increased to 50 mg BID 2. Continue amiodarone, will transition to oral with taper dose. No anticoagulation unless goes back into atrial fibrillation, left atrial appendage was ligated 3. Wean oxygen as tolerated. Bronchodilators per pulmonology 4. Encourage use of his incentive spirometry 10 times every hour while awake 5. Increase activity, ambulate as tolerated. PT/OT/cardiac rehab following 6. Will monitor daily labs and chest x-rays. Electrolyte replacement protocol. No lasix today 7. GI and DVT prophylaxis. 8. Strict inaccurate I's and O's. Daily weights. 9. Pain control per current medication regimen. No narcotics 10. Insulin management per primary care service. 11. Will place transfer orders for 3 S. cardiac stepdown unit. May transfer when bed available 12. Discharge planning in progress. Anticipate discharge to home with home care in 24-48 hours. Will discuss with family 13. More recommendations to follow based on patient's clinical course. Time with Patient: Greater than 30
[2020-11-22] MEDS: ASCORBIC ACID 500 MG TAB PO SCH (08:58)
[2020-11-22] MEDS: CLOPIDOGREL 75 MG TAB PO SCH (08:58)
[2020-11-22] MEDS: ASPIRIN 325 MG TAB PO SCH (08:58)
[2020-11-22] MEDS: METOPROLOL TARTRATE 50 MG TAB PO SCH ×2 (08:58→19:53)
[2020-11-22] MEDS: FINASTERIDE 5 MG TAB PO SCH (08:58)
[2020-11-22] MEDS: AMIODARONE 200 MG TAB PO SCH ×2 (08:58→19:53)
[2020-11-22] MEDS: MUPIROCIN 2% OINT 22 GM TUBE NASAL SCH (08:59)
[2020-11-22] MEDS ORDERED: AMIODARONE 200 MG TAB PO SCH (09:00)
--- NOTE | 2020-11-22 09:29 | XR ---
EXAMINATION TYPE: XR chest 2V DATE OF EXAM: 11/22/2020 COMPARISON: 11/21/2020 HISTORY: 85-year-old male post cardiac surgery TECHNIQUE: PA and lateral views FINDINGS: Median sternotomy wires and post-CABG clips in the mediastinum. Heart mildly enlarged. Patchy bibasil ar opacities, likely areas of atelectasis. Blunted costophrenic angles suggesting small effusions, no t significantly changed. Left-sided chest tube has been removed in the interval. No appreciable pneum othorax. IMPRESSION: Mild cardiomegaly with similar small effusions and adjacent atelectasis. No appreciable pneumothorax.
[2020-11-22 12:08] LABS: Glucose,Whole Blood 117 mg/dL (75-99)
--- NOTE | 2020-11-22 12:21 | P.PN ---
Subjective Progress Note Date: 11/22/20 Patient is doing well today. He converted spontaneously to normal sinus rhythm yesterday. He was up in the chair when I saw her. Nursing staff informed me that he had a small bowel movement yesterday. He denies any complaints Objective - Vital Signs Vital signs: Vital Signs Temp 97.6 F 11/22/20 08:30 Pulse 80 11/22/20 11:00 Resp 23 11/22/20 11:00 BP 112/59 11/22/20 11:00 Pulse Ox 98 11/22/20 11:00 Intake & Output 11/21/20 11/22/20 11/22/20 18:59 06:59 18:59 Intake Total 730 240 340 Output Total 587 0 Balance 143 240 340 Weight 99.2 kg Intake: IV 240 240 100 Lactated Ringers 1,000 ml 240 240 100 @ 20 mls/hr IV .Q24H [facility] Rx#:[id number] Oral 240 240 Tube Feeding 250 Output: Chest Tube Drainage 10 left pleural 10 Urine 577 0 Other: Voiding Method Bedside Commode Urinal Toilet Bedside Commode Urinal # Voids 1 # Bowel Movements 1 ABP, PAP, CO, CI - Last Documented Arterial Blood Pressure 258/256 Pulmonary Artery Pressure 30/16 Cardiac Output 5.6 Cardiac Index 2.7 - Exam General: The patient is awake and alert, in no distress Eye: there is normal conjunctiva bilaterally. Neck: The neck is supple, there is no JVD. Cardiovascular: Normal S1-S2, no S3-S4, no murmurs. Respiratory: Lungs clear to auscultation bilaterally Gastrointestinal: Abdomen is soft, nontender Musculoskeletal: There is no pedal edema. Neurological:. Speech is normal. Skin: Skin is warm and dry - Labs CBC & Chem 7: 11/22/20 03:45 11/22/20 03:45 Labs: Abnormal Lab Results - Last 24 Hours (Table) 11/21/20 11/21/20 11/22/20 Range/Units 17:00 20:27 03:45 WBC 11.4 H (3.8-10.6) k/uL RBC 2.79 L (4.30-5.90) m/uL Hgb 9.9 L D (13.0-17.5) gm/dL Hct 29.1 L (39.0-53.0) % MCV 104.6 H (80.0-100.0) fL MCH 35.7 H (25.0-35.0) pg Plt Count 107 L (150-450) k/uL Neutrophils # 8.7 H (1.3-7.7) k/uL Sodium (137-145) mmol/L BUN (9-20) mg/dL Creatinine (0.66-1.25) mg/dL Glucose (74-99) mg/dL POC Glucose (mg/dL) 167 H 148 H (75-99) mg/dL Calcium (8.4-10.2) mg/dL Magnesium (1.6-2.3) mg/dL Total Protein (6.3-8.2) g/dL Albumin (3.5-5.0) g/dL 11/22/20 11/22/20 11/22/20 Range/Units 03:45 07:10 11:56 WBC (3.8-10.6) k/uL RBC (4.30-5.90) m/uL Hgb (13.0-17.5) gm/dL Hct (39.0-53.0) % MCV (80.0-100.0) fL MCH (25.0-35.0) pg Plt Count (150-450) k/uL Neutrophils # (1.3-7.7) k/uL Sodium 135 L (137-145) mmol/L BUN 42 H (9-20) mg/dL Creatinine 1.38 H (0.66-1.25) mg/dL Glucose 125 H (74-99) mg/dL POC Glucose (mg/dL) 113 H 117 H (75-99) mg/dL Calcium 8.1 L (8.4-10.2) mg/dL Magnesium 2.5 H (1.6-2.3) mg/dL Total Protein 5.5 L (6.3-8.2) g/dL Albumin 3.3 L (3.5-5.0) g/dL Assessment and Plan Assessment: 85-year-old with hypertension and dyslipidemia who presented for elective heart cath. Patient had an abnormal stress test recently and underwent left heart catheterization showing triple-vessel disease. Cardiac surgery consulted and patient underwent CABG 3 on 11/19/2020. Includes a list of his medical problems. 3-vessel arthrosclerotic disease, [place] vessel s/p 3-vessel bypass with PARIKH to LAD, SVG to RCA and SVG to first obtuse marginal. - management per CT surgery - Cardio recs - Optimal medical management - Cholesterol profile within normal limits Newly diagnosed Diabetes - A1C 6.5 - q1h accucheck post CABG Acute blood loss anemia, thrombocytopenia, leukocytosis - anticipated outcome of surgery - no indications for transfusion at this time. - follow CBC Ischemic cardiomyopathy with EF 40-45% - resume BB and Lasix per CT surgery - Consider ACEI or ARB on discharge - Strict I and O - Dialy weights B/L Carotid disease - ASA, Statin - CT surgery recs HTN - resume Metoprolol, Cozaar, Lasix per CT surgery - follow BP HLD - statin Obesity BMI 33.3 - structured outpatient weight loss HX bladder CA Hx tobacco abuse Degeneratice joint disease NSTEMI Aug 2020 Awaiting bed availability on telemetry floor. Discharge planning per primary team.
--- NOTE | 2020-11-22 13:16 | P.PN ---
Subjective Progress Note Date: 11/22/20 Principal diagnosis: Status post off-pump CABG 3 with PARIKH to LAD, saphenous vein graft to RCA, saphenous vein graft to second obtuse marginal, postoperative day #3 85-year-old male patient, known history of hypertension and hyperlipidemia and previous history of bladder cancer treated with systemic chemotherapy, and ex- smoker quit smoking approximately 20 years ago presented with exertional dyspnea that was progressively getting worse. The patient also had worsening lower extremity edema. He denies having any significant chest pain. The patient underwent a cardiac stress test on 11/06/2020 and the patient was found to have moderate area of reversible defect suggestive of ischemia. Following that, the patient underwent a cardiac catheterization 11/16/2020 and the patient was found to have a 70-80% stenosis of the distal left main artery, 95% stenosis of the proximal RCA, total occlusion of the circumflex with a 50-55% stenosis of the proximal LAD. The patient is being considered for cardiac bypass surgery and pulmonary consultation was requested. The chest x-rays was done on 10/01/2020 showed small bilateral pleural effusion and atelectatic changes in the lung bases. Repeat CAT scan of the chest that was done on 11/16/2020 showed of the lung parenchyma showed some mild emphysema. No evidence of pleural effusion. No evidence of any lung masses. The patient's had an FEV1 on a bedside spirometry of 46% of predicted. He is currently on IV heparin. The echo shows an ejection fraction of 40-45%. The segmental wall motion abnormalities related to his underlying CAD. There is moderate concentric LVH. RV is mildly dilated. There is moderate mitral regurgitation. Aortic valve seems to be within normal limits. Nevertheless, there is moderate degree of concentric LV hypertrophy consistent with hypertensive heart disease. Patient was reevaluated today on 11/19/2020, patient is status post off-pump CABG 3, PARIKH to LAD, saphenous vein graft to RCA, saphenous vein graft to second obtuse marginal coronary artery. This was done earlier today by Dr. Parker, patient is now back in the ICU, on mechanical ventilation, his ventilator settings are assist control rate of 16, volume is 500 FiO2 is down to 50% today, and PEEP is 5. ABG earlier on 60% FiO2 showed a pO2 of 136 pCO2 of 48 and pH of 7.33 patient was on assist control rate of 14 which was increased to 16. Surgery both CABG showed mild pulmonary vascular congestion, and minimal bi basilar atelectasis. Patient is on propofol drip at 20 mcg/kg/m, is also on nitroglycerin drip, pleasant proximal drip at 1 mg/h, and is also on insulin drip at 1 unit per hour. Patient is sedated, in no distress, hemodynamically stable. His cardiac index is 3.5. Labs including CBC and electrolytes were noted to be relatively normal Reevaluated today on 11/20/2020., patient remains in the ICU, he was extubated yesterday few hours after his arrival to the ICU. Patient was extubated at 17:45, his postoperative day #1. Doing great, his CVP is 9, cardiac output is 5.6, cardiac index is 2.7, pulmonary artery pressure is 33/15 patient is doing well with incentive spirometry, achieving goal of 1000 mL. Sitting at a bedside chair/recliner, and he is relatively asymptomatic. Not requiring any masses. The amount of drainage from his mediastinal and left sided pleural chest tubes noted. Ration is afebrile, hemodynamically stable, Morrow catheter remains in place. Asked x-ray showed mostly postoperative changes and atelectasis. No acute process was noted. Hemoglobin today is 12 WBC count is 10.5. Basic metabolic profile, electrolytes and renal profile are normal Reevaluated today on 11/21/2020, patient is postoperative day #2, off pump CABG 3, PARIKH to LAD, saphenous vein graft to right coronary artery, saphenous vein graft to second obtuse marginal coronary artery. Patient is sitting in a recliner, he is doing well, in no distress, eating breakfast, pain seems to be fairly well controlled, patient is hemodynamically stable, not requiring any pressors or any inotropes. Left-sided chest tube Cordis, and Morrow catheter remain in place, and these will likely be removed today. Chest x-ray showed minimal bibasilar atelectasis. Patient is ready ambulating in the hallway, no difficulty. CBC is relatively normal hemoglobin is 11.9. Electrolytes are normal creatinine is 1.15 today. Reevaluated today on 11/22/2020, patient is postoperative day #3. Patient is sitting in a bedside chair, does not seem to be in any distress, he is on 2 L nasal cannula, and O2 saturation is 98%. All chest tubes have been removed. His incentive spirometry seems to be marginal, patient is achieving anywhere between 500-750 mL. Chest x-ray continues to show bibasilar atelectasis and postoperative changes, minimal small effusions noted. Electrolytes are normal BUN is 42 creatinine is 1.38, slight worsening noted, this is likely related to prerenal azotemia WBC count is 11.4 hemoglobin is 9.9. Objective - Vital Signs Vital signs: Vital Signs Temp 98.2 F 11/22/20 12:00 Pulse 69 11/22/20 12:00 Resp 17 11/22/20 12:00 BP 141/73 11/22/20 12:00 Pulse Ox 99 11/22/20 12:00 Intake & Output 11/21/20 11/22/20 11/22/20 18:59 06:59 18:59 Intake Total 730 240 360 Output Total 587 0 Balance 143 240 360 Weight 99.2 kg Intake: IV 240 240 120 Lactated Ringers 1,000 ml 240 240 120 @ 20 mls/hr IV .Q24H [facility] Rx#:[id number] Oral 240 240 Tube Feeding 250 Output: Chest Tube Drainage 10 left pleural 10 Urine 577 0 Other: Voiding Method Bedside Commode Urinal Toilet Bedside Commode Urinal # Voids 1 # Bowel Movements 1 ABP, PAP, CO, CI - Last Documented Arterial Blood Pressure 258/256 Pulmonary Artery Pressure 30/16 Cardiac Output 5.6 Cardiac Index 2.7 - Exam Physical Exam revealed 85-year-old white male, on 2 L nasal cannula, in no distress Head: Atraumatic, normocephalic HEENT:[Neck is supple.] [No neck masses.] [No thyromegaly.] [No JVD.] PERRLA, EOMI, nonicteric. Moist mucous membranes. Chest: [Clear throughout, no crackles, no rhonchi, no wheezes.] Symmetrical chest expansion. Cardiac Exam: [Normal S1 and S2, no S3 gallop, distant pericardial rub. Abdomen: [Soft, nontender, no megaly, no rebound, no guarding, normal bowel sounds.] Extremities: [No clubbing, no edema, no cyanosis.] Neurological Exam: Alert and oriented 3, no gross focal deficits. Psychiatric: Normal mood, affect and normal mental status examination. Skin: No rashes. - Labs CBC & Chem 7: 11/22/20 03:45 11/22/20 03:45 Labs: Abnormal Lab Results - Last 24 Hours (Table) 11/21/20 11/21/20 11/22/20 Range/Units 17:00 20:27 03:45 WBC 11.4 H (3.8-10.6) k/uL RBC 2.79 L (4.30-5.90) m/uL Hgb 9.9 L D (13.0-17.5) gm/dL Hct 29.1 L (39.0-53.0) % MCV 104.6 H (80.0-100.0) fL MCH 35.7 H (25.0-35.0) pg Plt Count 107 L (150-450) k/uL Neutrophils # 8.7 H (1.3-7.7) k/uL Sodium (137-145) mmol/L BUN (9-20) mg/dL Creatinine (0.66-1.25) mg/dL Glucose (74-99) mg/dL POC Glucose (mg/dL) 167 H 148 H (75-99) mg/dL Calcium (8.4-10.2) mg/dL Magnesium (1.6-2.3) mg/dL Total Protein (6.3-8.2) g/dL Albumin (3.5-5.0) g/dL 11/22/20 11/22/20 11/22/20 Range/Units 03:45 07:10 11:56 WBC (3.8-10.6) k/uL RBC (4.30-5.90) m/uL Hgb (13.0-17.5) gm/dL Hct (39.0-53.0) % MCV (80.0-100.0) fL MCH (25.0-35.0) pg Plt Count (150-450) k/uL Neutrophils # (1.3-7.7) k/uL Sodium 135 L (137-145) mmol/L BUN 42 H (9-20) mg/dL Creatinine 1.38 H (0.66-1.25) mg/dL Glucose 125 H (74-99) mg/dL POC Glucose (mg/dL) 113 H 117 H (75-99) mg/dL Calcium 8.1 L (8.4-10.2) mg/dL Magnesium 2.5 H (1.6-2.3) mg/dL Total Protein 5.5 L (6.3-8.2) g/dL Albumin 3.3 L (3.5-5.0) g/dL Assessment and Plan Assessment: Impression: Status post off-pump CABG 3, PARIKH to LAD, saphenous vein graft to RCA, saphenous vein graft to second obtuse marginal coronary artery. Postoperative day #3 Multivessel coronary artery disease. Benign essential hypertension. Dyslipidemia. History of bladder cancer status post intravesicular chemotherapy and transurethral bladder tumor resection. Remote smoking history. History of degenerative joint disease. History of recent non-ST elevation myocardial infarction in August of 2020. History of ischemic cardiomyopathy and LV dysfunction, ejection fraction of 40- 45%. Bilateral carotid artery stenosis. History of severe COPD, FEV1 of 46%. Recommendation: Continue aspirin and Plavix beta blockers and statin. Wean oxygen as tolerated. Continue incentive spirometry. Continue GI and DVT prophylaxis. Hold any diuretics. Continue strict I's and O's and daily weights. Increase activity and ambulate as tolerated. Can potentially transfer the patient out of the ICU today to a monitor bed on selective. We'll continue to follow. Time with Patient: Less than 30
[2020-11-22 17:09] LABS: Glucose,Whole Blood 144 mg/dL (75-99)
[2020-11-22 19:49] LABS: Glucose,Whole Blood 159 mg/dL (75-99)
[2020-11-22] MEDS: ATORVASTATIN 40 MG TAB PO SCH (19:53)
[2020-11-22] MEDS: SENNOSIDES-DOCUSATE SODIUM 1 EACH TAB PO SCH (19:53)
[2020-11-23 04:04] LABS: HGB 9.9 gm/dL (13.0-17.5); MCH 35.4 pg (25.0-35.0); MCHC 34.1 g/dL (31.0-37.0); MCV 103.9 fL (80.0-100.0); Macrocytosis Slight; Mean Platelet Volume 10.3; Platelet Count 147 k/uL (150-450); RBC 2.79 m/uL (4.30-5.90); RDW 12.4 % (11.5-15.5); WBC 8.5 k/uL (3.8-10.6)
[2020-11-23 04:17] LABS: Calcium 8.1 mg/dL (8.4-10.2); Potassium 4.4 mmol/L (3.5-5.1)
[2020-11-23] MEDS: HEPARIN SODIUM,PORCINE 5,000 UNIT/ML 1 ML VIAL SQ SCH ×3 (05:10→20:15)
[2020-11-23] MEDS: PANTOPRAZOLE 40 MG TABLET PO SCH (07:12)
[2020-11-23] MEDS: INSULIN ASPART (NovoLOG) 100 UNIT/ML VIAL SQ SCH ×4 (07:18→21:15)
[2020-11-23 07:20] LABS: Glucose,Whole Blood 127 mg/dL (75-99)
[2020-11-23] MEDS: IPRATROPIUM-ALBUTEROL 3 ML NEB INHALATION SCH ×4 (07:25→19:47)
--- NOTE | 2020-11-23 07:25 | XR ---
EXAMINATION TYPE: XR chest 2V DATE OF EXAM: 11/23/2020 COMPARISON: 11/22/2020 HISTORY: Shortness of breath TECHNIQUE: Frontal and lateral views of the chest are obtained. FINDINGS: Scattered senescent parenchymal changes noted. Hyperinflation compatible with COPD. Basilar pleural-parenchymal opacities persists. Persistent mild pulmonary venous congestion without o vert failure. Cardiomegaly. Postop cardiac changes. Mediastinal structures are stable and grossly unremarkable. No evidence for hilar prominence. Degenerative changes dorsal spine. IMPRESSION: 1. Basilar pleural-parenchymal opacities persists. Persistent mild pulmonary venous congestion withou t overt failure. Cardiomegaly. Postop cardiac changes.
--- NOTE | 2020-11-23 08:29 | P.PN ---
Subjective Progress Note Date: 11/23/20 Principal diagnosis: Symptomatic multivessel coronary artery disease with left main disease, moderate mitral valve regurgitation, preoperative nasal swab positive for MSSA. Previous medical history of NSTEMI in August 2020, hypertension, hyperlipidemia, chronic systolic heart failure with EF 40-45%, psoriasis, bladder cancer with 6 chemotherapy treatments, benign prostatic hypertrophy, degenerative joint disease, and remote history of tobacco abuse in which he quit 20 years ago. POD #4 Off-pump CABG 3 with PARIKH to LAD, reverse greater saphenous vein graft to right coronary artery, reverse greater saphenous vein graft to second obtuse marginal coronary artery, endovascular vein harvest of the left greater saphenous vein from the ankle to the groin, occlusion of the left atrial appendage with a 35 mm AtriCure clip. Postoperative acute blood loss anemia, expected due to hemodilution. Postoperative paroxysmal atrial fibrillation, known complication of open heart surgery The patient's currently sitting up in the recliner in the intensive care unit in no acute distress. States pain is well controlled on current pain medication regimen, denies shortness of breath. Remains in sinus rhythm and hemodynamically stable. He ambulated in the hallway yesterday without difficulty several times. and daughter were updated with the plan of care yesterday with anticipation of discharge to home today versus tomorrow, all questions were answered to their satisfaction. No new concerns. Objective - Vital Signs Vital signs: Vital Signs Temp 98.3 F 11/23/20 04:00 Pulse 70 11/23/20 07:37 Resp 17 11/23/20 06:00 BP 135/70 11/23/20 04:00 Pulse Ox 94 L 11/23/20 04:00 Intake & Output 11/22/20 11/23/20 11/23/20 18:59 06:59 18:59 Intake Total 780 Output Total 540 1 450 Balance 240 -1 -450 Weight 98.1 kg Intake: IV 180 Lactated Ringers 1,000 ml 180 @ 20 mls/hr IV .Q24H [facility] Rx#:[id number] Oral 600 Output: Urine 540 450 Stool 1 Other: Voiding Method Toilet Toilet Bedside Commode Bedside Commode Urinal Urinal # Voids 1 # Bowel Movements 1 ABP, PAP, CO, CI - Last Documented Arterial Blood Pressure 258/256 Pulmonary Artery Pressure 30/16 Cardiac Output 5.6 Cardiac Index 2.7 - Constitutional General appearance: Present: cooperative, no acute distress - Respiratory Details: Lungs sounds diminished bilaterally. Respirations even, nonlabored. Currently on room air with oxygen saturation 94%. Able to achieve 750 mL on his incentive spirometry. Strong cough. - Cardiovascular Details: S1, S2 present. Regular rate and rhythm, sinus rhythm on telemetry. Sternum stable. Palpable peripheral pulses bilaterally. No edema present. No calf pain or tenderness noted. Heart hugger in place with patient demonstrating appropriate use. Antiembolism stockings, SCDs present. - Gastrointestinal Gastrointestinal Comment(s): Abdomen soft, nontender, slightly distended. Active bowel sounds present 4 quadrants. Tolerating diet. Positive bowel movement yesterday 2 - Genitourinary Genitourinary Comment(s): Continues to void - Integumentary Integumentary Comment(s): Skin is warm and dry with evidence of good perfusion. Anterior chest incision well approximated and covered with dry intact dressing. Left lower extremity EVH site well approximated without redness or drainage. - Neurologic Neurologic: Present: CNII-XII intact - Musculoskeletal Musculoskeletal: Present: gait normal, strength equal bilaterally - Psychiatric Psychiatric: Present: A&O x's 3, appropriate affect, intact judgment & insight - Allied health notes Allied health notes reviewed: nursing - Labs CBC & Chem 7: 11/23/20 03:28 11/23/20 03:28 Labs: Abnormal Lab Results - Last 24 Hours (Table) 11/22/20 11/22/20 11/22/20 Range/Units 11:56 16:57 19:47 RBC (4.30-5.90) m/uL Hgb (13.0-17.5) gm/dL Hct (39.0-53.0) % MCV (80.0-100.0) fL MCH (25.0-35.0) pg Plt Count (150-450) k/uL BUN (9-20) mg/dL Glucose (74-99) mg/dL POC Glucose (mg/dL) 117 H 144 H 159 H (75-99) mg/dL Calcium (8.4-10.2) mg/dL 11/23/20 11/23/20 11/23/20 Range/Units 03:28 03:28 07:18 RBC 2.79 L (4.30-5.90) m/uL Hgb 9.9 L (13.0-17.5) gm/dL Hct 29.0 L (39.0-53.0) % MCV 103.9 H (80.0-100.0) fL MCH 35.4 H (25.0-35.0) pg Plt Count 147 L (150-450) k/uL BUN 37 H (9-20) mg/dL Glucose 117 H (74-99) mg/dL POC Glucose (mg/dL) 127 H (75-99) mg/dL Calcium 8.1 L (8.4-10.2) mg/dL - Imaging and Cardiology Chest x-ray: report reviewed, image reviewed Assessment and Plan Assessment: 1. Symptomatic multivessel coronary artery disease with left main disease, status post off-pump three-vessel CABG 2. History of recent non-STEMI in August 2020 3. Ischemic cardiomyopathy, chronic systolic heart failure with ejection fraction 40-45% 4. Hypertension 5. Hyperlipidemia, treated, cholesterol 149, LDL 85 6. New diagnosis of type 2 diabetes mellitus, preoperative hemoglobin A1c 6.5% 7. Bilateral carotid stenosis, right ICA greater than 70%, left ICA 50-69% 8. 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 History of bladder cancer, status post 6 chemotherapy treatments, BPH 10. Preoperative nasal swab positive for MSSA, treated 11. Postoperative acute blood loss anemia, expected due to hemodilution 12. Postoperative atrial fibrillation, known complication, currently sinus, S/P left atrial appendage ligation Plan: 1. Continue aspirin, statin, Plavix and beta hazel. Will increase beta hazel therapy as tolerated. Will add back in low-dose losartan 2. Continue amiodarone, will transition to oral with taper dose. No anticoagulation unless goes back into atrial fibrillation, left atrial appendage was ligated 3. Bronchodilators per pulmonology 4. Encourage use of his incentive spirometry 10 times every hour while awake 5. Increase activity, ambulate as tolerated. PT/OT/cardiac rehab following 6. Will monitor daily labs and chest x-rays. Electrolyte replacement protocol. No lasix today 7. GI and DVT prophylaxis. 8. Strict inaccurate I's and O's. Daily weights. 9. Pain control per current medication regimen. No narcotics 10. Insulin management per primary care service. 11. Transfer orders laced yesterday for 3 S. cardiac stepdown unit. May transfer when bed available 12. Discharge planning in progress. Anticipate discharge to home with home care in 24 hours to allow for 1 more day of strength training with physical therapy 13. More recommendations to follow based on patient's clinical course. Time with Patient: Greater than 30
[2020-11-23] MEDS ORDERED: AMIODARONE 200 MG TAB PO SCH (09:00)
[2020-11-23] MEDS: CLOPIDOGREL 75 MG TAB PO SCH (09:34)
[2020-11-23] MEDS: ASCORBIC ACID 500 MG TAB PO SCH (09:34)
[2020-11-23] MEDS: ASPIRIN 325 MG TAB PO SCH (09:34)
[2020-11-23] MEDS: METOPROLOL TARTRATE 50 MG TAB PO SCH ×2 (09:35→21:22)
[2020-11-23] MEDS: FINASTERIDE 5 MG TAB PO SCH (09:35)
[2020-11-23] MEDS: AMIODARONE 200 MG TAB PO SCH ×2 (09:35→21:21)
--- NOTE | 2020-11-23 10:29 | PN ---
PROGRESS NOTE Mr. Ritter is status post bypass surgery, doing remarkably well. He is maintaining sinus rhythm. Has no chest pain. His incentive spirometry is good. S1, S2 heard normally, short systolic murmur noted. Lungs reveal improved air entry. Abdomen and lower extremity exam unchanged. Plan is to increase activity and possible discharge soon. To go home on current medications, but amiodarone should be 200 mg b.i.d. and I will see him in the office in 2-3 weeks. MMODL / IJN: [id number] /
[2020-11-23] MEDS: LOSARTAN 25 MG TAB PO SCH (12:26)
[2020-11-23 12:30] LABS: Glucose,Whole Blood 128 mg/dL (75-99)
--- NOTE | 2020-11-23 13:00 | P.PN ---
Subjective Progress Note Date: 11/23/20 Patient is doing well today. He was up in the chair when I saw him. He does not have any complaints. Objective - Vital Signs Vital signs: Vital Signs Temp 98.3 F 11/23/20 08:00 Pulse 68 11/23/20 11:12 Resp 16 11/23/20 08:00 BP 139/60 11/23/20 08:00 Pulse Ox 93 L 11/23/20 08:00 Intake & Output 11/22/20 11/23/20 11/23/20 18:59 06:59 18:59 Intake Total 780 Output Total 540 1 450 Balance 240 -1 -450 Weight 98.1 kg Intake: IV 180 Lactated Ringers 1,000 ml 180 @ 20 mls/hr IV .Q24H [facility] Rx#:[id number] Oral 600 Output: Urine 540 450 Stool 1 Other: Voiding Method Toilet Toilet Bedside Commode Bedside Commode Urinal Urinal # Voids 1 # Bowel Movements 1 ABP, PAP, CO, CI - Last Documented Arterial Blood Pressure 258/256 Pulmonary Artery Pressure 30/16 Cardiac Output 5.6 Cardiac Index 2.7 - Exam General: The patient is awake and alert, in no distress Eye: there is normal conjunctiva bilaterally. Neck: The neck is supple, there is no JVD. Cardiovascular: Normal S1-S2, no S3-S4, no murmurs. Respiratory: Lungs clear to auscultation bilaterally Gastrointestinal: Abdomen is soft, nontender Musculoskeletal: There is no pedal edema. Neurological:. Speech is normal. Skin: Skin is warm and dry - Labs CBC & Chem 7: 11/23/20 03:28 11/23/20 03:28 Labs: Abnormal Lab Results - Last 24 Hours (Table) 11/22/20 11/22/20 11/23/20 Range/Units 16:57 19:47 03:28 RBC 2.79 L (4.30-5.90) m/uL Hgb 9.9 L (13.0-17.5) gm/dL Hct 29.0 L (39.0-53.0) % MCV 103.9 H (80.0-100.0) fL MCH 35.4 H (25.0-35.0) pg Plt Count 147 L (150-450) k/uL BUN (9-20) mg/dL Glucose (74-99) mg/dL POC Glucose (mg/dL) 144 H 159 H (75-99) mg/dL Calcium (8.4-10.2) mg/dL 11/23/20 11/23/20 11/23/20 Range/Units 03:28 07:18 12:27 RBC (4.30-5.90) m/uL Hgb (13.0-17.5) gm/dL Hct (39.0-53.0) % MCV (80.0-100.0) fL MCH (25.0-35.0) pg Plt Count (150-450) k/uL BUN 37 H (9-20) mg/dL Glucose 117 H (74-99) mg/dL POC Glucose (mg/dL) 127 H 128 H (75-99) mg/dL Calcium 8.1 L (8.4-10.2) mg/dL Assessment and Plan Assessment: 85-year-old with hypertension and dyslipidemia who presented for elective heart cath. Patient had an abnormal stress test recently and underwent left heart catheterization showing triple-vessel disease. Cardiac surgery consulted and patient underwent CABG 3 on 11/19/2020. Includes a list of his medical problems. 3-vessel arthrosclerotic disease, [place] vessel s/p 3-vessel bypass with PARIKH to LAD, SVG to RCA and SVG to first obtuse marginal. - management per CT surgery - Cardio recs - Optimal medical management - Cholesterol profile within normal limits Newly diagnosed Diabetes - A1C 6.5 - q1h accucheck post CABG Acute blood loss anemia, thrombocytopenia, leukocytosis - anticipated outcome of surgery - no indications for transfusion at this time. - follow CBC Ischemic cardiomyopathy with EF 40-45% - resume BB and Lasix per CT surgery - Consider ACEI or ARB on discharge - Strict I and O - Dialy weights B/L Carotid disease - ASA, Statin - CT surgery recs HTN - resume Metoprolol, Cozaar, Lasix per CT surgery - follow BP HLD - statin Obesity BMI 33.3 - structured outpatient weight loss HX bladder CA Hx tobacco abuse Degeneratice joint disease NSTEMI Aug 2020 Awaiting bed availability on telemetry floor. Discharge planning per primary team.
[2020-11-23 13:16] LABS: Basophils % (A) 0 %; Eosinophils # (A) 0.1 k/uL (0-0.7); Eosinophils % (A) 1 %; HCT 29.5 % (39.0-53.0); Lymphocytes # (A) 0.9 k/uL (1.0-4.8); Lymphocytes % (A) 13 %; MCH 35.4 pg (25.0-35.0); MCHC 33.9 g/dL (31.0-37.0); MCV 104.3 fL (80.0-100.0); Macrocytosis Slight; Mean Platelet Volume 10.8; Monocytes # (A) 0.5 k/uL (0-1.0); Monocytes % (A) 7 %; Neutrophils # (A) 5.6 k/uL (1.3-7.7); Neutrophils % (A) 76 %; Platelet Count 163 k/uL (150-450); RBC 2.83 m/uL (4.30-5.90); RDW 12.6 % (11.5-15.5); WBC 7.4 k/uL (3.8-10.6)
--- NOTE | 2020-11-23 13:24 | CT ---
EXAMINATION TYPE: CT brain wo con for TPA DATE OF EXAM: 11/23/2020 COMPARISON: None HISTORY: Unresponsive, altered and weakness. CT DLP: 1197.[address] of the brain was performed. There is artifact noted of decreased attenuation posteriorl y. Findings suggest possible hyperdense left MCA. Correlate clinically. The ventricles, basal cisterns and sulci overlying the cerebral convexities demonstrate mild enlargem ent. There is no evidence for intracranial hemorrhage or sulcal effacement. There is decreased attenuation about the periventricular white matter and deep white matter of both c erebral hemispheres, compatible with chronic small vessel ischemia. Differential diagnosis does inclu de demyelination. No mass effects are seen.No midline shift. Osseous calvarium is intact. If symptoms persist consider MRI. IMPRESSION: 1. Findings suggest possible hyperdense left MCA. Correlate clinically. No definite sulcal effacement at this time. Artifact noted as discussed above.
[2020-11-23 13:31] LABS: Partial Thromboplastin Time 30.9 sec (22.0-30.0); Prothrombin Time 10.7 sec (9.0-12.0)
--- NOTE | 2020-11-23 13:50 | P.PN ---
Subjective Progress Note Date: 11/23/20 Principal diagnosis: Status post off-pump CABG 3 with PARIKH to LAD, saphenous vein graft to RCA, saphenous vein graft to second obtuse marginal, postoperative day #4 85-year-old male patient, known history of hypertension and hyperlipidemia and previous history of bladder cancer treated with systemic chemotherapy, and ex- smoker quit smoking approximately 20 years ago presented with exertional dyspnea that was progressively getting worse. The patient also had worsening lower extremity edema. He denies having any significant chest pain. The patient underwent a cardiac stress test on 11/06/2020 and the patient was found to have moderate area of reversible defect suggestive of ischemia. Following that, the patient underwent a cardiac catheterization 11/16/2020 and the patient was found to have a 70-80% stenosis of the distal left main artery, 95% stenosis of the proximal RCA, total occlusion of the circumflex with a 50-55% stenosis of the proximal LAD. The patient is being considered for cardiac bypass surgery and pulmonary consultation was requested. The chest x-rays was done on 10/01/2020 showed small bilateral pleural effusion and atelectatic changes in the lung bases. Repeat CAT scan of the chest that was done on 11/16/2020 showed of the lung parenchyma showed some mild emphysema. No evidence of pleural effusion. No evidence of any lung masses. The patient's had an FEV1 on a bedside spirometry of 46% of predicted. He is currently on IV heparin. The echo shows an ejection fraction of 40-45%. The segmental wall motion abnormalities related to his underlying CAD. There is moderate concentric LVH. RV is mildly dilated. There is moderate mitral regurgitation. Aortic valve seems to be within normal limits. Nevertheless, there is moderate degree of concentric LV hypertrophy consistent with hypertensive heart disease. Patient was reevaluated today on 11/19/2020, patient is status post off-pump CABG 3, PARIKH to LAD, saphenous vein graft to RCA, saphenous vein graft to second obtuse marginal coronary artery. This was done earlier today by Dr. Parker, patient is now back in the ICU, on mechanical ventilation, his ventilator settings are assist control rate of 16, volume is 500 FiO2 is down to 50% today, and PEEP is 5. ABG earlier on 60% FiO2 showed a pO2 of 136 pCO2 of 48 and pH of 7.33 patient was on assist control rate of 14 which was increased to 16. Surgery both CABG showed mild pulmonary vascular congestion, and minimal bi basilar atelectasis. Patient is on propofol drip at 20 mcg/kg/m, is also on nitroglycerin drip, pleasant proximal drip at 1 mg/h, and is also on insulin drip at 1 unit per hour. Patient is sedated, in no distress, hemodynamically stable. His cardiac index is 3.5. Labs including CBC and electrolytes were noted to be relatively normal Reevaluated today on 11/20/2020., patient remains in the ICU, he was extubated yesterday few hours after his arrival to the ICU. Patient was extubated at 17:45, his postoperative day #1. Doing great, his CVP is 9, cardiac output is 5.6, cardiac index is 2.7, pulmonary artery pressure is 33/15 patient is doing well with incentive spirometry, achieving goal of 1000 mL. Sitting at a bedside chair/recliner, and he is relatively asymptomatic. Not requiring any masses. The amount of drainage from his mediastinal and left sided pleural chest tubes noted. Ration is afebrile, hemodynamically stable, Morrow catheter remains in place. Asked x-ray showed mostly postoperative changes and atelectasis. No acute process was noted. Hemoglobin today is 12 WBC count is 10.5. Basic metabolic profile, electrolytes and renal profile are normal Reevaluated today on 11/21/2020, patient is postoperative day #2, off pump CABG 3, PARIKH to LAD, saphenous vein graft to right coronary artery, saphenous vein graft to second obtuse marginal coronary artery. Patient is sitting in a recliner, he is doing well, in no distress, eating breakfast, pain seems to be fairly well controlled, patient is hemodynamically stable, not requiring any pressors or any inotropes. Left-sided chest tube Cordis, and Morrow catheter remain in place, and these will likely be removed today. Chest x-ray showed minimal bibasilar atelectasis. Patient is ready ambulating in the hallway, no difficulty. CBC is relatively normal hemoglobin is 11.9. Electrolytes are normal creatinine is 1.15 today. Reevaluated today on 11/22/2020, patient is postoperative day #3. Patient is sitting in a bedside chair, does not seem to be in any distress, he is on 2 L nasal cannula, and O2 saturation is 98%. All chest tubes have been removed. His incentive spirometry seems to be marginal, patient is achieving anywhere between 500-750 mL. Chest x-ray continues to show bibasilar atelectasis and postoperative changes, minimal small effusions noted. Electrolytes are normal BUN is 42 creatinine is 1.38, slight worsening noted, this is likely related to prerenal azotemia WBC count is 11.4 hemoglobin is 9.9. Patient was reevaluated today in the ICU although he is an overflow patient in the ICU, supposed to be going to a monitor bed on selective. Patient is postoperative day #4, he is on room air, continues to achieve about 750-1000 mL on his incentive spirometer. All his lines and chest tubes have been removed. Patient is doing well, hemodynamically stable, and no major issues over the last 24 hours. Chest x-ray showed no evidence of active disease, it didn't show as expected minimal bibasilar atelectasis. CBC is relatively normal. Basic metabolic profile is normal. Objective - Vital Signs Vital signs: Vital Signs Temp 98.3 F 11/23/20 08:00 Pulse 68 11/23/20 11:12 Resp 16 11/23/20 08:00 BP 139/60 11/23/20 08:00 Pulse Ox 93 L 11/23/20 08:00 Intake & Output 11/22/20 11/23/20 11/23/20 18:59 06:59 18:59 Intake Total 780 Output Total 540 1 450 Balance 240 -1 -450 Weight 98.1 kg Intake: IV 180 Lactated Ringers 1,000 ml 180 @ 20 mls/hr IV .Q24H [facility] Rx#:[id number] Oral 600 Output: Urine 540 450 Stool 1 Other: Voiding Method Toilet Toilet Bedside Commode Bedside Commode Urinal Urinal # Voids 1 # Bowel Movements 1 ABP, PAP, CO, CI - Last Documented Arterial Blood Pressure 258/256 Pulmonary Artery Pressure 30/16 Cardiac Output 5.6 Cardiac Index 2.7 - Exam Physical Exam revealed 85-year-old white male, on room air, asymptomatic. Head: Atraumatic, normocephalic HEENT:[Neck is supple.] [No neck masses.] [No thyromegaly.] [No JVD.] PERRLA, EOMI, nonicteric. Moist mucous membranes. Chest: [Clear throughout, no crackles, no rhonchi, no wheezes.] Symmetrical chest expansion. Cardiac Exam: [Normal S1 and S2, no S3 gallop, distant pericardial rub. Abdomen: [Soft, nontender, no megaly, no rebound, no guarding, normal bowel sounds.] Extremities: [No clubbing, no edema, no cyanosis.] Neurological Exam: Alert and oriented 3, no gross focal deficits. Psychiatric: Normal mood, affect and normal mental status examination. Skin: No rashes. - Labs CBC & Chem 7: 11/23/20 13:03 11/23/20 03:28 Labs: Abnormal Lab Results - Last 24 Hours (Table) 11/22/20 11/22/20 11/23/20 Range/Units 16:57 19:47 03:28 RBC 2.79 L (4.30-5.90) m/uL Hgb 9.9 L (13.0-17.5) gm/dL Hct 29.0 L (39.0-53.0) % MCV 103.9 H (80.0-100.0) fL MCH 35.4 H (25.0-35.0) pg Plt Count 147 L (150-450) k/uL Lymphocytes # (1.0-4.8) k/uL APTT (22.0-30.0) sec BUN (9-20) mg/dL Glucose (74-99) mg/dL POC Glucose (mg/dL) 144 H 159 H (75-99) mg/dL Calcium (8.4-10.2) mg/dL 11/23/20 11/23/20 11/23/20 Range/Units 03:28 07:18 12:27 RBC (4.30-5.90) m/uL Hgb (13.0-17.5) gm/dL Hct (39.0-53.0) % MCV (80.0-100.0) fL MCH (25.0-35.0) pg Plt Count (150-450) k/uL Lymphocytes # (1.0-4.8) k/uL APTT (22.0-30.0) sec BUN 37 H (9-20) mg/dL Glucose 117 H (74-99) mg/dL POC Glucose (mg/dL) 127 H 128 H (75-99) mg/dL Calcium 8.1 L (8.4-10.2) mg/dL 11/23/20 11/23/20 Range/Units 13:03 13:03 RBC 2.83 L (4.30-5.90) m/uL Hgb 10.0 L (13.0-17.5) gm/dL Hct 29.5 L (39.0-53.0) % MCV 104.3 H (80.0-100.0) fL MCH 35.4 H (25.0-35.0) pg Plt Count (150-450) k/uL Lymphocytes # 0.9 L (1.0-4.8) k/uL APTT 30.9 H (22.0-30.0) sec BUN (9-20) mg/dL Glucose (74-99) mg/dL POC Glucose (mg/dL) (75-99) mg/dL Calcium (8.4-10.2) mg/dL Assessment and Plan Assessment: Impression: Status post off-pump CABG 3, PARIKH to LAD, saphenous vein graft to RCA, saphenous vein graft to second obtuse marginal coronary artery. Postoperative day #4 Multivessel coronary artery disease. Benign essential hypertension. Dyslipidemia. History of bladder cancer status post intravesicular chemotherapy and transurethral bladder tumor resection. Remote smoking history. History of degenerative joint disease. History of recent non-ST elevation myocardial infarction in August of 2020. History of ischemic cardiomyopathy and LV dysfunction, ejection fraction of 40- 45%. Bilateral carotid artery stenosis. History of severe COPD, FEV1 of 46%. Recommendation: Continue aspirin and Plavix beta blockers and statin. Continue incentive spirometry. Continue GI and DVT prophylaxis. Continue strict I's and O's and daily weights. Increase activity and ambulate as tolerated. Transfer to [facility] once a bed is available We'll continue to follow. Time with Patient: Less than 30
[2020-11-23 13:54] LABS: Albumin 3.3 g/dL (3.5-5.0); Calcium 8.3 mg/dL (8.4-10.2); Potassium 4.2 mmol/L (3.5-5.1); Total Bilirubin 0.9 mg/dL (0.2-1.3); Total Protein 5.6 g/dL (6.3-8.2)
[2020-11-23] MEDS: ASPIRIN 81 MG PO SCH (15:39)
[2020-11-23] MEDS: FUROSEMIDE 20 MG TAB PO SCH (15:39)
[2020-11-23] MEDS: CHOLECALCIFEROL 25 MCG (1000 IU) TABLET PO SCH (15:39)
[2020-11-23] MEDS: hydrALAZINE HCL 50 MG TAB PO SCH (15:39)
[2020-11-23] MEDS: LACTATED RINGERS 1,000 ML IV SCH (15:40)
[2020-11-23 17:18] LABS: Glucose,Whole Blood 130 mg/dL (75-99)
[2020-11-23 20:51] LABS: Glucose,Whole Blood 119 mg/dL (75-99)
[2020-11-23] MEDS: ATORVASTATIN 40 MG TAB PO SCH (21:22)
[2020-11-23] MEDS: SENNOSIDES-DOCUSATE SODIUM 1 EACH TAB PO SCH (21:23)
[2020-11-24 02:01] LABS: Glucose,Whole Blood 140 mg/dL (75-99)
[2020-11-24] MEDS: ACETAMINOPHEN TAB 500 MG TAB PO PRN (03:12)
[2020-11-24] MEDS: HEPARIN SODIUM,PORCINE 5,000 UNIT/ML 1 ML VIAL SQ SCH ×2 (03:14→11:53)
[2020-11-24 06:05] LABS: Glucose,Whole Blood 117 mg/dL (75-99)
[2020-11-24] MEDS: INSULIN ASPART (NovoLOG) 100 UNIT/ML VIAL SQ SCH ×2 (06:05→11:43)
[2020-11-24] MEDS: PANTOPRAZOLE 40 MG TABLET PO SCH (06:43)
[2020-11-24 07:09] LABS: HCT 29.7 % (39.0-53.0); HGB 10.1 gm/dL (13.0-17.5); MCH 35.3 pg (25.0-35.0); MCV 103.9 fL (80.0-100.0); Macrocytosis Slight; Mean Platelet Volume 9.6; Platelet Count 183 k/uL (150-450); RBC 2.85 m/uL (4.30-5.90); RDW 12.7 % (11.5-15.5); WBC 8.2 k/uL (3.8-10.6)
[2020-11-24 07:41] LABS: Calcium 8.5 mg/dL (8.4-10.2)
[2020-11-24 07:42] LABS: Potassium 4.8 mmol/L (3.5-5.1)
[2020-11-24] MEDS: IPRATROPIUM-ALBUTEROL 3 ML NEB INHALATION SCH ×2 (08:02→11:34)
--- NOTE | 2020-11-24 08:17 | XR ---
EXAMINATION TYPE: XR chest 2V DATE OF EXAM: 11/24/2020 COMPARISON: Chest x-ray 11/23/2020 HISTORY: Postop cardiac surgery TECHNIQUE: Frontal and lateral views of the chest are obtained. FINDINGS: Bibasilar increased density persists, cardiac mediastinal silhouette is stable. No evident pneumothorax. Patient is post median sternotomy. There are overlying artifacts. Aorta is dense. IMPRESSION: Essentially stable findings. Difficult to exclude basilar effusions. Stable cardiomegaly . Correlate for possible interstitial edema.
[2020-11-24] MEDS: ASCORBIC ACID 500 MG TAB PO SCH (08:25)
[2020-11-24] MEDS: ASPIRIN 325 MG TAB PO SCH (08:25)
[2020-11-24] MEDS: CLOPIDOGREL 75 MG TAB PO SCH (08:25)
[2020-11-24] MEDS: FINASTERIDE 5 MG TAB PO SCH (08:26)
[2020-11-24] MEDS: AMIODARONE 200 MG TAB PO SCH (08:26)
[2020-11-24] MEDS: METOPROLOL TARTRATE 50 MG TAB PO SCH (08:26)
--- NOTE | 2020-11-24 08:31 | P.PN ---
Subjective Progress Note Date: 11/24/20 Principal diagnosis: Symptomatic multivessel coronary artery disease with left main disease, moderate mitral valve regurgitation, preoperative nasal swab positive for MSSA. Previous medical history of NSTEMI in August 2020, hypertension, hyperlipidemia, chronic systolic heart failure with EF 40-45%, psoriasis, bladder cancer with 6 chemotherapy treatments, benign prostatic hypertrophy, degenerative joint disease, and remote history of tobacco abuse in which he quit 20 years ago. POD #5 Off-pump CABG 3 with PARIKH to LAD, reverse greater saphenous vein graft to right coronary artery, reverse greater saphenous vein graft to second obtuse marginal coronary artery, endovascular vein harvest of the left greater saphenous vein from the ankle to the groin, occlusion of the left atrial appendage with a 35 mm AtriCure clip. Postoperative acute blood loss anemia, expected due to hemodilution. Postoperative paroxysmal atrial fibrillation, known complication of open heart surgery The patient's currently sitting up in the recliner on the cardiac stepdown unit in no acute distress. States pain is well controlled on current pain medication regimen, denies shortness of breath. Remains in sinus rhythm and hemodynamically stable. He has ambulated in the hallway without difficulty several times. and daughter were updated with the plan of care yesterday with anticipation of discharge to home today, all questions were answered to their satisfaction. No new concerns. Objective - Vital Signs Vital signs: Vital Signs Temp 98.1 F 11/24/20 08:23 Pulse 87 11/24/20 08:23 Resp 16 11/24/20 08:23 BP 132/61 11/24/20 08:23 Pulse Ox 93 L 11/24/20 08:23 Intake & Output 11/23/20 11/24/20 11/24/20 18:59 06:59 18:59 Intake Total 600 20 Output Total 650 Balance -50 20 Weight 97 kg Intake: IV 20 0.9 20 Oral 600 Output: Urine 650 Other: Voiding Method Toilet Urinal # Voids 1 # Bowel Movements 1 ABP, PAP, CO, CI - Last Documented Arterial Blood Pressure 258/256 Pulmonary Artery Pressure 30/16 Cardiac Output 5.6 Cardiac Index 2.7 - Constitutional General appearance: Present: cooperative, no acute distress - Respiratory Details: Lungs sounds diminished bilaterally. Respirations even, nonlabored. Currently on room air with oxygen saturation 94%. Able to achieve 750 mL on his incentive spirometry. Strong cough - Cardiovascular Details: S1, S2 present. Regular rate and rhythm, sinus rhythm on telemetry. Sternum stable. Palpable peripheral pulses bilaterally. No edema present. No calf pain or tenderness noted. Heart hugger in place with patient demonstrating appropriate use. Antiembolism stockings, SCDs present. - Gastrointestinal Gastrointestinal Comment(s): Abdomen soft, nontender, slightly distended. Active bowel sounds present 4 quadrants. Tolerating diet. Positive bowel movement yesterday - Genitourinary Genitourinary Comment(s): Continues to void - Integumentary Integumentary Comment(s): Skin is warm and dry with evidence of good perfusion. Anterior chest incision well approximated and covered with dry intact dressing. Left lower extremity EVH site well approximated without redness or drainage. - Neurologic Neurologic: Present: CNII-XII intact - Musculoskeletal Musculoskeletal: Present: gait normal, strength equal bilaterally - Psychiatric Psychiatric: Present: A&O x's 3, appropriate affect - Allied health notes Allied health notes reviewed: nursing - Labs CBC & Chem 7: 11/24/20 06:24 11/24/20 06:31 Labs: Abnormal Lab Results - Last 24 Hours (Table) 11/23/20 11/23/20 11/23/20 Range/Units 12:27 13:03 13:03 RBC 2.83 L (4.30-5.90) m/uL Hgb 10.0 L (13.0-17.5) gm/dL Hct 29.5 L (39.0-53.0) % MCV 104.3 H (80.0-100.0) fL MCH 35.4 H (25.0-35.0) pg Lymphocytes # 0.9 L (1.0-4.8) k/uL APTT 30.9 H (22.0-30.0) sec BUN (9-20) mg/dL Glucose (74-99) mg/dL POC Glucose (mg/dL) 128 H (75-99) mg/dL Calcium (8.4-10.2) mg/dL AST (17-59) U/L Troponin I (0.000-0.034) ng/mL Total Protein (6.3-8.2) g/dL Albumin (3.5-5.0) g/dL 0111/23/20 11/23/20 Range/Units 13:03 13:03 17:13 RBC (4.30-5.90) m/uL Hgb (13.0-17.5) gm/dL Hct (39.0-53.0) % MCV (80.0-100.0) fL MCH (25.0-35.0) pg Lymphocytes # (1.0-4.8) k/uL APTT (22.0-30.0) sec BUN 36 H (9-20) mg/dL Glucose 119 H (74-99) mg/dL POC Glucose (mg/dL) 130 H (75-99) mg/dL Calcium 8.3 L (8.4-10.2) mg/dL AST 61 H (17-59) U/L Troponin I 1.030 H* (0.000-0.034) ng/mL Total Protein 5.6 L (6.3-8.2) g/dL Albumin 3.3 L (3.5-5.0) g/dL 11/23/20 11/24/20 11/24/20 Range/Units 20:49 01:59 06:02 RBC (4.30-5.90) m/uL Hgb (13.0-17.5) gm/dL Hct (39.0-53.0) % MCV (80.0-100.0) fL MCH (25.0-35.0) pg Lymphocytes # (1.0-4.8) k/uL APTT (22.0-30.0) sec BUN (9-20) mg/dL Glucose (74-99) mg/dL POC Glucose (mg/dL) 119 H 140 H 117 H (75-99) mg/dL Calcium (8.4-10.2) mg/dL AST (17-59) U/L Troponin I (0.000-0.034) ng/mL Total Protein (6.3-8.2) g/dL Albumin (3.5-5.0) g/dL 11/24/20 11/24/20 Range/Units 06:24 06:31 RBC 2.85 L (4.30-5.90) m/uL Hgb 10.1 L (13.0-17.5) gm/dL Hct 29.7 L (39.0-53.0) % MCV 103.9 H (80.0-100.0) fL MCH 35.3 H (25.0-35.0) pg Lymphocytes # (1.0-4.8) k/uL APTT (22.0-30.0) sec BUN 40 H (9-20) mg/dL Glucose 113 H (74-99) mg/dL POC Glucose (mg/dL) (75-99) mg/dL Calcium (8.4-10.2) mg/dL AST (17-59) U/L Troponin I (0.000-0.034) ng/mL Total Protein (6.3-8.2) g/dL Albumin (3.5-5.0) g/dL - Imaging and Cardiology Chest x-ray: report reviewed, image reviewed Assessment and Plan Assessment: 1. Symptomatic multivessel coronary artery disease with left main disease, status post off-pump three-vessel CABG 2. History of recent non-STEMI in August 2020 3. Ischemic cardiomyopathy, chronic systolic heart failure with ejection fraction 40-45% 4. Hypertension 5. Hyperlipidemia, treated, cholesterol 149, LDL 85 6. New diagnosis of type 2 diabetes mellitus, preoperative hemoglobin A1c 6.5% 7. Bilateral carotid stenosis, right ICA greater than 70%, left ICA 50-69% 8. 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 History of bladder cancer, status post 6 chemotherapy treatments, BPH 10. Preoperative nasal swab positive for MSSA, treated 11. Postoperative acute blood loss anemia, expected due to hemodilution 12. Postoperative atrial fibrillation, known complication, currently sinus, S/P left atrial appendage ligation Plan: 1. Continue aspirin, statin, Plavix, losartan and beta hazel. 2. Continue amiodarone, taper dose. No anticoagulation necessary, left atrial appendage was ligated 3. Bronchodilators per pulmonology 4. Encourage use of his incentive spirometry 10 times every hour while awake 5. Increase activity, ambulate as tolerated. PT/OT/cardiac rehab following 6. Will monitor daily labs and chest x-rays. Electrolyte replacement protocol. 7. GI and DVT prophylaxis. 8. Strict inaccurate I's and O's. Daily weights. 9. Pain control per current medication regimen. No narcotics 10. Insulin management per primary care service. 11. Discharge planning in progress. Anticipate discharge to home with home care today Time with Patient: Greater than 30
--- NOTE | 2020-11-24 09:56 | P.PN ---
Subjective Progress Note Date: 11/24/20 This is an 85-year-old gentleman with symptomatic multivessel coronary artery disease with left main disease, moderate mitral valve regurgitation, preoperative nasal swab positive for MSSA. Previous medical history of NSTEMI in August 2020, hypertension, hyperlipidemia, chronic systolic heart failure with EF 40-45%, psoriasis, bladder cancer with 6 chemotherapy treatments, benign prostatic hypertrophy, degenerative joint disease, and remote history of tobacco abuse in which he quit 20 years ago. POD #5 Off-pump CABG 3 with PARIKH to LAD, reverse greater saphenous vein graft to right coronary artery, reverse greater saphenous vein graft to second obtuse marginal coronary artery, endovascular vein harvest of the left greater saphenous vein from the ankle to the groin, occlusion of the left atrial appendage with a 35 mm AtriCure clip. Patient seen and examined this morning sitting up in the chair bedside. Blood pressure 132/60 with a heart rate in the 80s, 93% on room air. He denies any chest discomfort, no shortness of breath or palpitations. White blood cell count 8.2, he'll globin 10.1, platelet count 183. Sodium 139, potassium 4.8, BUN 40, creatinine 1.1. Objective - Vital Signs Vital signs: Vital Signs Temp 98.1 F 11/24/20 08:23 Pulse 87 11/24/20 08:23 Resp 16 11/24/20 08:23 BP 132/61 11/24/20 08:23 Pulse Ox 93 L 11/24/20 08:23 Intake & Output 11/23/20 11/24/20 11/24/20 18:59 06:59 18:59 Intake Total 600 20 Output Total 650 Balance -50 20 Weight 97 kg Intake: IV 20 0.9 20 Oral 600 Output: Urine 650 Other: Voiding Method Toilet Toilet Urinal Urinal # Voids 1 # Bowel Movements 1 ABP, PAP, CO, CI - Last Documented Arterial Blood Pressure 258/256 Pulmonary Artery Pressure 30/16 Cardiac Output 5.6 Cardiac Index 2.7 - Exam Physical Exam revealed 85-year-old white male, on room air, asymptomatic. Head: Atraumatic, normocephalic HEENT:[Neck is supple.] [No neck masses.] [No thyromegaly.] [No JVD.] PERRLA, EOMI, nonicteric. Moist mucous membranes. Chest: [Clear throughout, no crackles, no rhonchi, no wheezes.] Symmetrical chest expansion. Cardiac Exam: [Normal S1 and S2, no S3 gallop, distant pericardial rub. Abdomen: [Soft, nontender, no megaly, no rebound, no guarding, normal bowel sounds.] Extremities: [No clubbing, no edema, no cyanosis.] Neurological Exam: Alert and oriented 3, no gross focal deficits. Psychiatric: Normal mood, affect and normal mental status examination. Skin: No rashes. - Labs CBC & Chem 7: 11/24/20 06:24 11/24/20 06:31 Labs: Abnormal Lab Results - Last 24 Hours (Table) 11/23/20 11/23/20 11/23/20 Range/Units 12:27 13:03 13:03 RBC 2.83 L (4.30-5.90) m/uL Hgb 10.0 L (13.0-17.5) gm/dL Hct 29.5 L (39.0-53.0) % MCV 104.3 H (80.0-100.0) fL MCH 35.4 H (25.0-35.0) pg Lymphocytes # 0.9 L (1.0-4.8) k/uL APTT 30.9 H (22.0-30.0) sec BUN (9-20) mg/dL Glucose (74-99) mg/dL POC Glucose (mg/dL) 128 H (75-99) mg/dL Calcium (8.4-10.2) mg/dL AST (17-59) U/L Troponin I (0.000-0.034) ng/mL Total Protein (6.3-8.2) g/dL Albumin (3.5-5.0) g/dL 11/23/20 11/23/20 11/23/20 Range/Units 13:03 13:03 17:13 RBC (4.30-5.90) m/uL Hgb (13.0-17.5) gm/dL Hct (39.0-53.0) % MCV (80.0-100.0) fL MCH (25.0-35.0) pg Lymphocytes # (1.0-4.8) k/uL APTT (22.0-30.0) sec BUN 36 H (9-20) mg/dL Glucose 119 H (74-99) mg/dL POC Glucose (mg/dL) 130 H (75-99) mg/dL Calcium 8.3 L (8.4-10.2) mg/dL AST 61 H (17-59) U/L Troponin I 1.030 H* (0.000-0.034) ng/mL Total Protein 5.6 L (6.3-8.2) g/dL Albumin 3.3 L (3.5-5.0) g/dL 11/23/20 11/24/20 11/24/20 Range/Units 20:49 01:59 06:02 RBC (4.30-5.90) m/uL Hgb (13.0-17.5) gm/dL Hct (39.0-53.0) % MCV (80.0-100.0) fL MCH (25.0-35.0) pg Lymphocytes # (1.0-4.8) k/uL APTT (22.0-30.0) sec BUN (9-20) mg/dL Glucose (74-99) mg/dL POC Glucose (mg/dL) 119 H 140 H 117 H (75-99) mg/dL Calcium (8.4-10.2) mg/dL AST (17-59) U/L Troponin I (0.000-0.034) ng/mL Total Protein (6.3-8.2) g/dL Albumin (3.5-5.0) g/dL 11/24/20 11/24/20 Range/Units 06:24 06:31 RBC 2.85 L (4.30-5.90) m/uL Hgb 10.1 L (13.0-17.5) gm/dL Hct 29.7 L (39.0-53.0) % MCV 103.9 H (80.0-100.0) fL MCH 35.3 H (25.0-35.0) pg Lymphocytes # (1.0-4.8) k/uL APTT (22.0-30.0) sec BUN 40 H (9-20) mg/dL Glucose 113 H (74-99) mg/dL POC Glucose (mg/dL) (75-99) mg/dL Calcium (8.4-10.2) mg/dL AST (17-59) U/L Troponin I (0.000-0.034) ng/mL Total Protein (6.3-8.2) g/dL Albumin (3.5-5.0) g/dL Assessment and Plan Plan: Assessment and plan #1 Status post off-pump CABG 3, PARIKH to LAD, saphenous vein graft to RCA, saphenous vein graft to second obtuse marginal coronary artery. Postoperative day # 5 #2 Multivessel coronary artery disease. #3 Benign essential hypertension. #4 Dyslipidemia. #5 History of bladder cancer status post intravesicular chemotherapy and transurethral bladder tumor resection. #6 Remote smoking history. #7 History of degenerative joint disease. #8 History of recent non-ST elevation myocardial infarction in August of 2020. #9 History of ischemic cardiomyopathy and LV dysfunction, ejection fraction of 40-45%. #10 Bilateral carotid artery stenosis. Plan Patient's current medications have been reviewed. Patient will be discharged home today. Follow-up appointment in cardiology office in 2 weeks post discharge. DNP note has been reviewed, I agree with a documented findings and plan of care. Patient was seen and examined.
--- NOTE | 2020-11-24 10:50 | P.PN ---
Subjective Progress Note Date: 11/24/20 Patient was getting dressed when I saw him. He is looking forward to be discharged home today. Objective - Vital Signs Vital signs: Vital Signs Temp 98.1 F 11/24/20 08:23 Pulse 87 11/24/20 08:23 Resp 16 11/24/20 08:23 BP 132/61 11/24/20 08:23 Pulse Ox 93 L 11/24/20 08:23 Intake & Output 11/23/20 11/24/20 11/24/20 18:59 06:59 18:59 Intake Total 600 20 Output Total 650 Balance -50 20 Weight 97 kg Intake: IV 20 0.9 20 Oral 600 Output: Urine 650 Other: Voiding Method Toilet Toilet Urinal Urinal # Voids 1 # Bowel Movements 1 ABP, PAP, CO, CI - Last Documented Arterial Blood Pressure 258/256 Pulmonary Artery Pressure 30/16 Cardiac Output 5.6 Cardiac Index 2.7 - Exam General: The patient is awake and alert, in no distress Eye: there is normal conjunctiva bilaterally. Neck: The neck is supple, there is no JVD. Cardiovascular: Normal S1-S2, no S3-S4, no murmurs. Respiratory: Lungs clear to auscultation bilaterally Gastrointestinal: Abdomen is soft, nontender Musculoskeletal: There is no pedal edema. Neurological:. Speech is normal. Skin: Skin is warm and dry - Labs CBC & Chem 7: 11/24/20 06:24 11/24/20 06:31 Labs: Abnormal Lab Results - Last 24 Hours (Table) 11/23/20 11/23/20 11/23/20 Range/Units 12:27 13:03 13:03 RBC 2.83 L (4.30-5.90) m/uL Hgb 10.0 L (13.0-17.5) gm/dL Hct 29.5 L (39.0-53.0) % MCV 104.3 H (80.0-100.0) fL MCH 35.4 H (25.0-35.0) pg Lymphocytes # 0.9 L (1.0-4.8) k/uL APTT 30.9 H (22.0-30.0) sec BUN (9-20) mg/dL Glucose (74-99) mg/dL POC Glucose (mg/dL) 128 H (75-99) mg/dL Calcium (8.4-10.2) mg/dL AST (17-59) U/L Troponin I (0.000-0.034) ng/mL Total Protein (6.3-8.2) g/dL Albumin (3.5-5.0) g/dL 11/23/20 11/23/20 11/23/20 Range/Units 13:03 13:03 17:13 RBC (4.30-5.90) m/uL Hgb (13.0-17.5) gm/dL Hct (39.0-53.0) % MCV (80.0-100.0) fL MCH (25.0-35.0) pg Lymphocytes # (1.0-4.8) k/uL APTT (22.0-30.0) sec BUN 36 H (9-20) mg/dL Glucose 119 H (74-99) mg/dL POC Glucose (mg/dL) 130 H (75-99) mg/dL Calcium 8.3 L (8.4-10.2) mg/dL AST 61 H (17-59) U/L Troponin I 1.030 H* (0.000-0.034) ng/mL Total Protein 5.6 L (6.3-8.2) g/dL Albumin 3.3 L (3.5-5.0) g/dL 11/23/20 11/24/20 11/24/20 Range/Units 20:49 01:59 06:02 RBC (4.30-5.90) m/uL Hgb (13.0-17.5) gm/dL Hct (39.0-53.0) % MCV (80.0-100.0) fL MCH (25.0-35.0) pg Lymphocytes # (1.0-4.8) k/uL APTT (22.0-30.0) sec BUN (9-20) mg/dL Glucose (74-99) mg/dL POC Glucose (mg/dL) 119 H 140 H 117 H (75-99) mg/dL Calcium (8.4-10.2) mg/dL AST (17-59) U/L Troponin I (0.000-0.034) ng/mL Total Protein (6.3-8.2) g/dL Albumin (3.5-5.0) g/dL 11/24/20 11/24/20 Range/Units 06:24 06:31 RBC 2.85 L (4.30-5.90) m/uL Hgb 10.1 L (13.0-17.5) gm/dL Hct 29.7 L (39.0-53.0) % MCV 103.9 H (80.0-100.0) fL MCH 35.3 H (25.0-35.0) pg Lymphocytes # (1.0-4.8) k/uL APTT (22.0-30.0) sec BUN 40 H (9-20) mg/dL Glucose 113 H (74-99) mg/dL POC Glucose (mg/dL) (75-99) mg/dL Calcium (8.4-10.2) mg/dL AST (17-59) U/L Troponin I (0.000-0.034) ng/mL Total Protein (6.3-8.2) g/dL Albumin (3.5-5.0) g/dL Assessment and Plan Assessment: 85-year-old with hypertension and dyslipidemia who presented for elective heart cath. Patient had an abnormal stress test recently and underwent left heart catheterization showing triple-vessel disease. Cardiac surgery consulted and patient underwent CABG 3 on 11/19/2020. Includes a list of his medical problems. 3-vessel arthrosclerotic disease, [place] vessel s/p 3-vessel bypass with PARIKH to LAD, SVG to RCA and SVG to first obtuse marginal. - management per CT surgery - Cardio recs - Optimal medical management - Cholesterol profile within normal limits Newly diagnosed Diabetes - A1C 6.5 - q1h accucheck post CABG Acute blood loss anemia, thrombocytopenia, leukocytosis - anticipated outcome of surgery - no indications for transfusion at this time. - follow CBC Ischemic cardiomyopathy with EF 40-45% - resume BB and Lasix per CT surgery - Consider ACEI or ARB on discharge - Strict I and O - Dialy weights B/L Carotid disease - ASA, Statin - CT surgery recs HTN HLD - statin Obesity BMI 33.3 - structured outpatient weight loss HX bladder CA Hx tobacco abuse Degeneratice joint disease NSTEMI Aug 2020 Discharge planning today by primary team.
[2020-11-24 11:39] LABS: Glucose,Whole Blood 111 mg/dL (75-99)
[2020-11-24 11:53] VITALS: BP 131/80; PULSE 66; RESP 18; TEMP 97.9
[2020-11-24] MEDS: LOSARTAN 25 MG TAB PO SCH (11:53)
--- NOTE | 2020-11-24 12:50 | P.DS ---
Providers Date of admission: 11/17/20 09:03 Expected date of discharge: 11/24/20 Attending physician: Adams Parker Consults: 11/16/20 12:11 Consult Physician Routine Consulting Provider: Graham Granados Consult Reason/Comments: CABG Do you want consulting provider notified?: Already Contacted 11/16/20 12:12 Consult Physician Routine Consulting Provider: Mercedez Gutierres Consult Reason/Comments: Medical Management Do you want consulting provider notified?: Already Contacted 11/16/20 14:58 Consult Physician Routine Consulting Provider: Herberth Dowd Consult Reason/Comments: abnormal cardiac cath significant 3 vessel CAD Do you want consulting provider notified?: Already Contacted 11/17/20 11:57 Consult Physician Routine Consulting Provider: Jenny Romero Consult Reason/Comments: Pulmonary critical care management, open heart Do you want consulting provider notified?: Already Contacted Consult to Anesthesia Routine Consulting Provider: Anesthesia,Services Consult Reason/Comments: Cardiac Surgery Pre-Op 11/21/20 09:05 Consult Physician Routine Consulting Provider: Bharat Decker Consult Reason/Comments: rehab Do you want consulting provider notified?: Yes Primary care physician: Citlaly Lindquist MD Hospital Course: FINAL DIAGNOSIS: 1. 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 Moderate mitral valve regurgitation 3. History of recent non-STEMI in August 2020 4. Ischemic cardiomyopathy, chronic systolic heart failure with ejection fraction 40-45% 5. Hypertension 6. Hyperlipidemia, treated, cholesterol 149, LDL 85 7. New diagnosis of borderline type 2 diabetes mellitus, preoperative hemoglobin A1c 6.5% 8. Bilateral carotid stenosis, right ICA greater than 70%, left ICA 50-69% 9. 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 History of bladder cancer, status post 6 heme therapy treatments, BPH 11. Preoperative nasal swab positive for MS SA, treated 12. Postoperative acute blood loss anemia, expected 13. Postoperative paroxysmal atrial fibrillation, known complication PRINCIPAL PROCEDURE: 1. Off-pump coronary artery bypass 3 with the left internal mammary artery to the left anterior descending artery, reverse greater saphenous vein graft to the right coronary artery, reverse greater saphenous vein graft to the second obtuse marginal coronary artery 2. Endovascular vein harvest of the left greater saphenous vein from the ankle to the groin 3. Occlusion of the left atrial appendage with a 35 mm AtriCure clip HISTORY OF PRESENT ILLNESS: This is an 85-year-old gentleman who follows with Dr. Lindquist on an outpatient basis for primary care and Dr. AINSLEY Dowd from cardiology. Recently he had been experiencing progressive shortness of breath as well as lower extremity edema limiting his usual activity, he had a stress test which revealed moderate area of reversible defect suggestive of ischemia. He was recommended to undergo heart catheterization which demonstrated distal left main stenosis 70-80%, 95% stenosis to the proximal right coronary artery, total occlusion of the circumflex coronary artery, and 50-55% stenosis to the proximal left anterior descending coronary artery. Consultation was placed to Dr. Granados from cardiothoracic surgery. He was recommended to undergo off-pump coronary artery bypass surgery with Dr. Parker. The usual perioperative course was discussed in detail with the patient and his family, all risks and benefits were explained, all questions were answered, and consent was obtained to proceed with surgery. The patient was kept inpatient due to the nature of his disease process. HOSPITAL COURSE: The patient was brought to the preoperative area 11/19/20, prepared in the usual fashion, and subsequently taken to the operating room where Dr. Parker performed three-vessel off-pump CABG. Upon completion of surgery the patient was transferred to the cardiovascular intensive care unit where he was recovered and monitored hemodynamically. He was extubated, all lines, tubes, and drips were discontinued when appropriate, and he was transferred to 3 S. cardiac stepdown unit for further monitoring and rehabilitation. He did experience short episode of paroxysmal atrial fibrillation with conversion to normal sinus rhythm after initiation of amiodarone. His oxygen was titrated down, he continued to work with physical and occupational therapy, he was tolerating oral diet, his pain was controlled without narcotics, and he was ready to be discharged to home with [facility] on postoperative day #5. He received written and verbal instruction regarding his medications, activity restrictions, signs and symptoms requiring physician notification, and follow-up appointments. COMPLICATIONS: The patient experienced postoperative paroxysmal atrial fibrillation which was treated accordingly. Patient Condition at Discharge: Stable Plan - Discharge Summary Discharge Rx Participant: No New Discharge Prescriptions: New Aspirin 325 mg PO DAILY #30 tab Amiodarone [Cordarone] 400 mg PO BID #40 tab Losartan [Cozaar] 12.5 mg PO DAILY@1200 #30 tab Metoprolol Tartrate [Lopressor] 50 mg PO BID #60 tab Clopidogrel [Plavix] 75 mg PO DAILY #20 tab Pantoprazole [Protonix] 40 mg PO AC-BRKFST #30 tablet.dr Schafer-Docusate Sodium [Senokot-S] 2 each PO HS PRN tab PRN Reason: Constipation Acetaminophen Tab [Tylenol] 1,000 mg PO Q6HR PRN tab PRN Reason: Fever And/ Or Pain Continue Finasteride [Proscar] 5 mg PO DAILY Atorvastatin [Lipitor] 40 mg PO HS #30 tab Fish Oil/Dha/Epa [Fish Oil 1,200 mg Fish Oil] 1 each PO DAILY Cholecalciferol [Vitamin D3 (25 Mcg = 1000 Iu)] 25 mcg PO DAILY Ascorbic Acid [Vitamin C] 1,000 mg PO DAILY Discontinued Aspirin 81 mg PO DAILY #30 chew Potassium Chloride ER [K-Dur 10] 10 meq PO DAILY #30 tab.er.prt Nitroglycerin Sl Tabs [Nitrostat] 0.4 mg SUBLINGUAL Q5M PRN #30 tab PRN Reason: Chest Pain Metoprolol Tartrate [Lopressor] 12.5 mg PO BID Losartan [Cozaar] 25 mg PO HS Furosemide [Lasix] 20 mg PO DAILY Discharge Medication List Finasteride [Proscar] 5 mg PO DAILY 09/14/20 [History] Atorvastatin [Lipitor] 40 mg PO HS #30 tab 09/15/20 [Rx] Ascorbic Acid [Vitamin C] 1,000 mg PO DAILY 11/15/20 [History] Cholecalciferol [Vitamin D3 (25 Mcg = 1000 Iu)] 25 mcg PO DAILY 11/15/20 [History] Fish Oil/Dha/Epa [Fish Oil 1,200 mg Fish Oil] 1 each PO DAILY 11/15/20 [History] Acetaminophen Tab [Tylenol] 1,000 mg PO Q6HR PRN tab 11/24/20 [Rx] Amiodarone [Cordarone] 400 mg PO BID #40 tab 11/24/20 [Rx] Aspirin 325 mg PO DAILY #30 tab 11/24/20 [Rx] Clopidogrel [Plavix] 75 mg PO DAILY #20 tab 11/24/20 [Rx] Losartan [Cozaar] 12.5 mg PO DAILY@1200 #30 tab 11/24/20 [Rx] Metoprolol Tartrate [Lopressor] 50 mg PO BID #60 tab 01/30/21 [Rx] Pantoprazole [Protonix] 40 mg PO AC-BRKFST #30 tablet. 11/24/20 [Rx] Sennosides-Docusate Sodium [Senokot-S] 2 each PO HS PRN tab 11/24/20 [Rx] Follow up Appointment(s)/Referral(s): Citlaly Lindquist MD [Primary Care Provider] - 2 Weeks (office is closed, will call with appointment) Herberth Dowd MD [STAFF PHYSICIAN] - 2 Weeks (office will call with appointment) [facility]hab [facility],Cardiac [NON-STAFF] - 4 Weeks (You will be called approximately 4 weeks after surgery for cardiac rehab evaluation) Adams Parker MD [STAFF PHYSICIAN] - 12/20/20 9:30 am [facility], [NON-STAFF] - As Needed Jenny Romero MD [STAFF PHYSICIAN] - 2 Weeks (will call with appointment) Ambulatory/Diagnostic Orders: Complete Blood Count w/diff [LAB.AMB] Time Frame: 3 Days, Location: None Selected Comprehensive Metabolic Panel [LAB.AMB] Time Frame: 3 Days, Location: None Selected Activity/Diet/Wound Care/Special Instructions: DISCHARGE INSTRUCTIONS: 1. No driving for 4 weeks, or until physician gives their ok. 2. The patient should sleep in their own bed, no medical bed needed. 3. Stairs are not an issue. If the bedroom is upstairs, it is advised that the patient go up at night and down in the morning for the first week. Go slowly, using handrail and take 1 step at a time. 4. ANDRAE hose are to be worn for 30 days or until physician discontinues. 5. Heart hugger is to be worn 100% of the time until physician discontinues.(except when showering) 6. No lifting, pushing, or pulling more than 10 pounds for 12 weeks. The physician will advise of any restriction changes. 7. The patient is expected to continue the prescribed walking program. 8. Continue pain control per as needed orders. 9. Continue with incentive spirometry and splinting/heart hugger until otherwise directed by the physician. 10. Must shower daily using liquid antibacterial soap and a separate white washcloth for each individual incision. 11. Routine sternal incision care. No powders, lotions, ointments on incisions. No dressings are necessary on incisions unless they are draining. Dermabond tape is to remain on sternal incision until surgeon follow-up. 12. Please call surgeon/STEAM POWERPLANT SUPERVISOR for temp greater than 101 F or purulent drainage from incisions. 13. All prescriptions given by surgeon for 30 days. Refills need to be filled through test hole driller/primary care physician. 14. A Red armband has been placed on the patient. It should be worn for 30 days post surgery and will be removed by the cardiac surgeons. If an ER visit is necessary, please make sure the number on the Red armband is called. 15. You have been referred to and are expected to begin Cardiac Rehab in approximately 4-6 weeks. HOME HEALTH SERVICES TO PROVIDE: RN SKILLED HOME CARE SERVICES FOR POST-OP SURGICAL PATIENTS WITH THE FOLLOWING: Coronary Artery Bypass Surgery (CABG) RN TO CONTINUE EDUCATION FROM ``ROAD TO A HEALTH HEART PATIENT EDUCATION MANUAL (GIVEN TO PATIENT IN THE HOSPITAL) MEDICATION RECONCILIATION WITH EDUCATION NEEDED ON FIRST HOME VISIT EMPHASIZE IMPORTANCE OF WEARING BREAST SUPPORT/HEART HUGGER ENCOURAGE USE OF INCENTIVE SPIROMETER 10 X EVERY HOUR WHILE AWAKE ENCOURAGE UTILIZATION OF LOWER EXTREMITY COMPRESSION STOCKINGS/ANDRAE HOSE and ELEVATE LEGS ABOVE LEVEL OF HEART WHILE AT REST. ENCOURAGE AMBULATION 3-5x/day INCREASING TOLERATES, WHILE AVOIDING EXTREMES IN TEMPERATURE FREQUENCY: RN TO OPEN THE PATIENT WITHIN 24 HOURS OF DISCHARGE FROM THE HOSPITAL WITH TELEHEALTH INSTALLED AT [facility], RN TO VISIT 2-3 X A WEEK FOR 4 WEEKS ESTABLISHED BY PATIENT NEEDS. LABORATORY: CBC, CMP TO BE DRAWN ON THE THIRD DAY HOME, (RAN STAT) FAX RESULTS TO [phone]. TELEHEALTH PARAMETERS: WEIGHT: NOTIFY MD OF WEIGHT GAIN OF 2 LBS IN 24 HOURS OR 5 LBS IN ONE WEEK HR: NOTIFY MD OF HR <55 BPM OR HR>100 BPM BP: NOTIFY MD IF BP <90/55 OR BP>140/100 O2 SAT: NOTIFY MD IF PO2<93% ON ROOM AIR SEND TELEHEALTH REPORT TO HEAD OF DIGITAL ADVERTISING & INTEGRATION AND CARDIOVASCULAR SURGEON THE FIRST WEEK OF CARE AND THEN BI-WEEKLY. PLEASE ADDITIONALLY COMMUNICATE ANY ABNORMALS AND NEW FINDINGS TO THE SURGEONS OFFICE. For any questions or concerns please call anode adjuster Marcella @ or Thierry @ Discharge Disposition: HOME WITH HOME HEALTH SERVICES
== END 2020-11-24 13:20 | disposition home health service (06) | DRG 234 ==
LOC: CATHCVL 09:11 → 3SCARD 11:55 → CATHCVL 11-17 09:03 → 2SICU 11-18 21:45 → 3SCARD 11-18 21:53 → 2SICU 11-19 08:02 → 3SCARD 11-23 12:18
PROVIDERS: ADMIT Thoracic Surgery (Cardiothoracic Vascular Surgery); ATTEND Thoracic Surgery (Cardiothoracic Vascular Surgery)
DX: I25.119 Atherosclerotic heart disease of native coronary artery with unspecified angina pectoris (principal); D62 Acute posthemorrhagic anemia; J98.11 Atelectasis; I50.22 Chronic systolic (congestive) heart failure; I97.190 Other postprocedural cardiac functional disturbances following cardiac surgery; I11.0 Hypertensive heart disease with heart failure; J43.9 Emphysema, unspecified; E11.9 Type 2 diabetes mellitus without complications; D69.6 Thrombocytopenia, unspecified; I25.5 Ischemic cardiomyopathy; I25.82 Chronic total occlusion of coronary artery; N28.1 Cyst of kidney, acquired; D72.829 Elevated white blood cell count, unspecified; E78.5 Hyperlipidemia, unspecified; I08.3 Combined rheumatic disorders of mitral, aortic and tricuspid valves; I65.23 Occlusion and stenosis of bilateral carotid arteries; Z20.822 Contact with and (suspected) exposure to COVID-19; L40.9 Psoriasis, unspecified; M19.90 Unspecified osteoarthritis, unspecified site; H91.90 Unspecified hearing loss, unspecified ear; I08.0 Rheumatic disorders of both mitral and aortic valves; I48.0 Paroxysmal atrial fibrillation; N40.0 Benign prostatic hyperplasia without lower urinary tract symptoms; E66.9 Obesity, unspecified; I25.2 Old myocardial infarction; Z68.33 Body mass index [BMI] 33.0-33.9, adult; Z98.42 Cataract extraction status, left eye; Z98.41 Cataract extraction status, right eye; Z98.890 Other specified postprocedural states; Z79.899 Other long term (current) drug therapy; Z79.82 Long term (current) use of aspirin; Z87.891 Personal history of nicotine dependence; Z85.51 Personal history of malignant neoplasm of bladder; Z92.21 Personal history of antineoplastic chemotherapy; Z82.49 Family history of ischemic heart disease and other diseases of the circulatory system; Z97.4 Presence of external hearing-aid
CPT/HCPCS: 71045; 71046; 71250; 80048; 80053; 80061; 80074; 81001; 82330; 82805; 83036; 83735; 83880; 84443; 84484; 85025; 85027; 85520; 85610; 85730; 86850; 86891; 86900; 86901; 86920; 87070; 87635; 93306; 93458; 93880; 93922; 93923; 93970; 94002; 94150; 94640

== ENCOUNTER → 2020-12-17 | Outpatient (CLI) | payer MEDICARE, BC ==
[2020-12-17 10:36] LABS: African American GFR (CKD) 52.7 (60.0-200.0); BUN/Creat Ratio 15.71 Ratio (12.00-20.00); Calcium 8.9 mg/dL (8.7-10.3); Magnesium 1.8 mg/dL (1.5-2.4); Non-African American GFR(CKD) 45.5 (60.0-200.0); Potassium 5.5 mmol/L (3.5-5.5)
== END | disposition home or self-care (01) ==
LOC: LABWHC1 07:19
PROVIDERS: ATTEND Nurse Practitioner
DX: I10 Essential (primary) hypertension (principal); I25.810 Atherosclerosis of coronary artery bypass graft(s) without angina pectoris
CPT/HCPCS: 36415; 80048; 83735; 83880

== ENCOUNTER → 2021-06-18 | Outpatient (CLI) | payer MEDICARE, BC ==
--- NOTE | 2021-06-18 11:42 | XR ---
EXAMINATION TYPE: XR chest 2V DATE OF EXAM: 06/18/2021 COMPARISON: 11/24/2020 TECHNIQUE: PA and lateral views submitted. HISTORY: Shortness of breath FINDINGS: Heart is prominent there is postoperative changes with bilateral consolidation and small effusion. In terstitial changes are noted. Arthropathy of the shoulder. No pneumothorax. Hypertrophic and degenera tive changes spine. IMPRESSION: 1. Correlate for mild CHF versus interstitial pneumonitis stable from prior exam.
== END | disposition home or self-care (01) ==
LOC: RADXRMAIN 11:22
PROVIDERS: ATTEND Nurse Practitioner
DX: R06.02 Shortness of breath (principal)
CPT/HCPCS: 71046

== ENCOUNTER → 2022-11-03 | Outpatient (CLI) | payer MEDICARE, BC ==
--- NOTE | 2022-11-03 13:36 | XR ---
EXAMINATION TYPE: XR lumbosacral spine min 4V DATE OF EXAM: 11/03/2022 CLINICAL HISTORY: Low back pain. TECHNIQUE: Frontal, lateral, and oblique images of the lumbar spine are obtained. COMPARISON: None FINDINGS: There are 5 lumbar type vertebral bodies identified. The lumbar spine shows satisfactory alignment without evidence of acute fracture or dislocation. Moderate disc space narrowing L4-L5 leve l with mild to moderate spurring. Vertebral body heights are maintained. Moderate to severe multileve l anterior and lateral spurring is seen. There is facet arthropathy in the lower lumbar spine. Obliqu e images appear within normal limits. There is moderate overlying arterial vascular calcification pre sent. IMPRESSION: As above.
== END | disposition home or self-care (01) ==
LOC: RADXRMAIN 12:59
PROVIDERS: ATTEND Family Medicine
DX: M51.36 Other intervertebral disc degeneration, lumbar region (principal)
CPT/HCPCS: 72110

== ENCOUNTER 2023-07-03 20:38 | Emergency (ER) | payer MEDICARE, BC ==
[2023-07-03] MEDS ORDERED: KETOROLAC 15 MG/ML 1 ML VIAL IM STA (22:50)
--- NOTE | 2023-07-03 22:51 | ED ---
Back Pain HPI - General Chief Complaint: Back Pain/Injury Stated Complaint: Back Pain Time Seen by Provider: 07/03/23 21:52 Source: patient Limitations: no limitations - History of Present Illness Initial Comments: 87-year-old male presents to ED with chief complaint of back pain. Patient states onset approximately a month ago pain of his lower back. Pain is heavy in nature. Pain is worsened/provoked with movement. Denies any known injury or trauma. No incontinence or saddle anesthesia. Denies urinary symptoms. No chest pain shortness of breath. No other complaints. - Related Data Home Medications Medication Instructions Recorded Confirmed Finasteride [Proscar] 5 mg PO DAILY 09/14/20 11/16/20 Ascorbic Acid [Vitamin C] 1,000 mg PO DAILY 11/15/20 11/16/20 Cholecalciferol [Vitamin D3 (25 25 mcg PO DAILY 11/15/20 11/16/20 Mcg = 1000 Iu)] Fish Oil/Dha/Epa [Fish Oil 1,200 1 each PO DAILY 11/15/20 11/16/20 mg Fish Oil] Previous Rx's Medication Instructions Recorded Atorvastatin [Lipitor] 40 mg PO HS #30 tab 09/15/20 Acetaminophen Tab [Tylenol] 1,000 mg PO Q6HR PRN tab 11/24/20 Amiodarone [Cordarone] 400 mg PO BID #40 tab 11/24/20 Aspirin 325 mg PO DAILY #30 tab 11/24/20 Clopidogrel [Plavix] 75 mg PO DAILY #20 tab 11/24/20 Losartan [Cozaar] 12.5 mg PO DAILY@1200 #30 tab 11/24/20 Metoprolol Tartrate [Lopressor] 50 mg PO BID #60 tab 11/24/20 Pantoprazole [Protonix] 40 mg PO AC-BRKFST #30 tablet. 11/24/20 Sennosides-Docusate Sodium 2 each PO HS PRN tab 11/24/20 [Senokot-S] Ibuprofen [Motrin] 600 mg PO Q8HR PRN #20 tab 07/04/23 Allergies Allergy/AdvReac Type Severity Reaction Status Date / Time No Known Allergies Allergy Verified 07/03/23 20:58 Review of Systems ROS Statement: Those systems with pertinent positive or pertinent negative responses have been documented in the HPI. ROS Other: All systems not noted in ROS Statement are negative. Past Medical History Past Medical History: Coronary Artery Disease (CAD), Cancer, Eye Disorder, Hearing Disorder / Deafness, Hyperlipidemia, Hypertension, Osteoarthritis (OA), Skin Disorder Additional Past Medical History / Comment(s): SOB at times, psoriasis, hx bladder cancer- had chemo, History of Any Multi-Drug Resistant Organisms: None Reported Past Surgical History: No Surgical Hx Reported Additional Past Surgical History / Comment(s): bladder surgery to remove tumor, "took rib out and drained my lung when I was a baby", elida cataracts Past Anesthesia/Blood Transfusion Reactions: No Reported Reaction Past Psychological History: No Psychological Hx Reported Smoking Status: Never smoker Past Alcohol Use History: None Reported Past Drug Use History: None Reported - Past Family History Father Family Medical History: Myocardial Infarction ([place]) Mother Family Medical History: Myocardial Infarction ([place]) General Exam Limitations: no limitations General appearance: alert, in no apparent distress Eye exam: Present: normal appearance Neck exam: Present: other (No midline cervical spinal tenderness to palpation.) Respiratory exam: Present: normal lung sounds bilaterally Cardiovascular Exam: Present: regular rate, normal rhythm GI/Abdominal exam: Present: soft Extremities exam: Present: other (Strength and sensation equal and intact in bilateral upper and lower extremities.) Back exam: Present: other (No midline thoracic spinal tenderness palpation. Midline lumbar and right paraspinal tenderness palpation.) Neurological exam: Present: alert, oriented X3 Psychiatric exam: Present: normal affect, normal mood Skin exam: Present: warm, dry Course Vital Signs 07/03/23 20:53 Temperature 98.3 F Pulse Rate 63 Respiratory 20 Rate Blood Pressure 180/73 O2 Sat by Pulse 94 L Oximetry Medical Decision Making - Medical Decision Making Was pt. sent in by a medical professional or institution (, PA, ANALYSIS ANALYST, urgent care, hospital, or alf...) When possible be specific @ -No Did you speak to anyone other than the patient for history (EMS, parent, family, police, friend...)? What history was obtained from this source @ -No Did you review nursing and triage notes (agree or disagree)? Why? @ -I reviewed and agree with nursing and triage notes Were old charts reviewed (outside hosp., previous admission, EMS record, old EKG, old radiological studies, urgent care reports/EKG's, alf records)? Report findings @ -No old charts were reviewed Differential Diagnosis (chest pain, altered mental status, abdominal pain women, abdominal pain men, vaginal bleeding, weakness, fever, dyspnea, syncope, headache, dizziness, GI bleed, back pain, seizure, CVA, palpatations, mental health, musculoskeletal)? @ -Differential Back Pain: Strain, zoster, cauda equina syndrome, epidural abscess, vertebral osteomyelitis, discitis, fracture, subluxation, disc herniation, DJD, spinal stenosis, dissection, AAA, pancreatitis, peptic ulcer disease, pyelonephritis, kidney stone, this is not meant to be an all-inclusive list. EKG interpreted by me (3pts min.). @ -As above X-rays interpreted by me (1pt min.). @ -Lumbar x-rays interpreted by me showing no acute findings. CT interpreted by me (1pt min.). @ -None done U/S interpreted by me (1pt. min.). @ -None done What testing was considered but not performed or refused? (CT, X-rays, U/S, labs)? Why? @ -None What meds were considered but not given or refused? Why? @ -None Did you discuss the management of the patient with other professionals (professionals i.e. , PA, ANALYSIS ANALYST, lab, RT, psych nurse, director of social media marketing, whiskey regauger, teacher, natural resource officer, casework manager)? Give summary @ -No Was smoking cessation discussed for >3mins.? @ -No Was critical care preformed (if so, how long)? @ -No Were there social determinants of health that impacted care today? How? (Homelessness, low income, unemployed, alcoholism, drug addiction, transportation, low edu. Level, literacy, decrease access to med. care, custodial, r ehab)? @ -No Was there de-escalation of care discussed even if they declined (Discuss DNR or withdrawal of care, Hospice)? DNR status @ -No What co-morbidities impacted this encounter? (DM, HTN, Smoking, COPD, CAD, Cancer, CVA, ARF, Chemo, Hep., AIDS, mental health diagnosis, sleep apnea, morbid obesity)? @ -None Was patient admitted / discharged? Hospital course, mention meds given and route, prescriptions, significant lab abnormalities, going to OR and other pertinent info. @ -Discharge 87-year-old male presents to the ED with a chief complaint of atraumatic back pain for the last month. No incontinence or saddle anesthesia. X-ray shows degenerative changes however no acute findings. Patient had significant improvement of pain with Toradol here. Patient will be provided prescription for ibuprofen and advised follow-up with PCP and orthopedist as scheduled. Discharged home in stable condition. Discussed return precautions with patient and family who verbalizes agreement. Undiagnosed new problem with uncertain prognosis? @ -No Drug Therapy requiring intensive monitoring for toxicity (Heparin, Nitro, Insulin, Cardizem)? @ -No Were any procedures done? @ -No Diagnosis/symptom? @ -Back pain Acute, or Chronic, or Acute on Chronic? @ -Acute on chronic Uncomplicated (without systemic symptoms) or Complicated (systemic symptoms)? @ -Uncomplicated Side effects of treatment? @ -No Exacerbation, Progression, or Severe Exacerbation? @ -No Poses a threat to life or bodily function? How? (Chest pain, [place], [place], pneumonia, PE, COPD, DKA, ARF, appy, cholecystitis, CVA, Diverticulitis, Homicidal, Suicidal, threat to staff... and all critical care pts) @ -No Disposition Clinical Impression: Back pain Disposition: HOME SELF-CARE Condition: Good Instructions (If sedation given, give patient instructions): Acute Low Back Pain (ED) Additional Instructions: Please return to the Emergency Department if symptoms worsen or any other concerns. Prescriptions: Ibuprofen [Motrin] 600 mg PO Q8HR PRN #20 tab PRN Reason: Pain Is patient prescribed a controlled substance at d/c from ED?: No Referrals: Derek Mejia MD [Primary Care Provider] - 1-2 days Time of Disposition: 01:26
[2023-07-04] MEDS ORDERED: IBUPROFEN 600 MG STARTER PACK 4 TAB BTL PO STA (01:26)
[2023-07-04 01:34] VITALS: BP 156/104; PULSE 64; RESP 18; TEMP 98.7
--- NOTE | 2023-07-04 02:05 | XR ---
EXAM: XR Lumbosacral Spine, 2 or 3 Views CLINICAL HISTORY: ITS.REASON XR Reason: back pain TECHNIQUE: Frontal and lateral views of the lumbar spine and sacrum. COMPARISON: No relevant prior studies available. FINDINGS/IMPRESSION: No radiographically evident acute fracture. Trace retrolisthesis at L2-3. Endplate degenerative changes and facet arthropathy most pronounced at L4-5 and L5-S1 where they are moderate.
== END 2023-07-04 01:36 | disposition home or self-care (01) ==
LOC: EC 20:38
DX: M51.36 Other intervertebral disc degeneration, lumbar region (principal); I10 Essential (primary) hypertension; I25.10 Atherosclerotic heart disease of native coronary artery without angina pectoris; Z79.899 Other long term (current) drug therapy
CPT/HCPCS: 72100; 99283; 96372; J1885

== ENCOUNTER → 2023-12-15 | Outpatient (CLI) | payer MEDICARE, BC ==
[2023-12-15 16:50] LABS: Calcium 9.4 mg/dL (8.7-10.3); Carbon Dioxide 30.4 mmol/L (21.6-31.8); Chloride 104 mmol/L (96-109); Glucose 87 mg/dL (70-110); Potassium 4.6 mmol/L (3.5-5.5); Sodium 141 mmol/L (135-145)
== END | disposition home or self-care (01) ==
LOC: LABWHC1 12:11
PROVIDERS: ATTEND Internal Medicine Interventional Cardiology
DX: I25.10 Atherosclerotic heart disease of native coronary artery without angina pectoris (principal)
CPT/HCPCS: 36415; 80048

== ENCOUNTER → 2024-05-02 | Outpatient (CLI) | payer MEDICARE, BC ==
--- NOTE | 2024-05-02 11:22 | CT ---
EXAMINATION TYPE: CT abdomen pelvis wo con DATE OF EXAM: 05/02/2024 COMPARISON: None HISTORY: 88-year-old male R63.4, abnormal weight loss abnormal weight loss CT DLP: 812.5 mGycm. Automated exposure control for dose reduction was used. TECHNIQUE: Contiguous axial scanning of the abdomen and pelvis without IV contrast. Coronal and sagit pedrito reconstructions performed. FINDINGS: Median sternotomy wires are present. Heart borderline to mildly enlarged without pericardial effusion . Emphysematous change and interstitial thickening in the lower lungs suggesting some underlying fibr osis. No pleural effusion. Calcified granuloma noted at the posterior left base. Ectatic lower desce nding thoracic aorta to 2.9 cm. Tiny hiatal hernia. Noncontrast appearance of the liver, gallbladder, adrenal glands, spleen, and pancreas show no gross abnormality. Moderate atherosclerotic calcifications abdominal aorta and iliac arteries. 4 mm nonobstructive right renal calculus. Scattered bilateral renal cortical cysts are present, large st on the right measuring 2.5 cm and largest on the left measuring 7.8 cm. No dilated small bowel, free fluid, or free air. Mild overall stool burden. No pericolonic inflammatory change. Prostate gland is enlarged at 5.5 cm wide. Bladder urine distended bowel with mild circumferential wa ll thickening. No abnormal fluid collection in the pelvis or pelvic lymphadenopathy. Partially visualized small bilateral scrotal hydroceles. Bones: Baastrup's disease. [facility] lower thoracic spine. Moderate to severe degenerative disc disease L4 -L5. Hypertrophic facet arthropathy throughout. IMPRESSION: 1. Some emphysematous change and possible interstitial fibrosis in the lower lungs. 2. Prostatomegaly of 5.5 cm wide. Correlate with PSA values and patient's symptoms. Mild circumferen tial bladder wall thickening probably due to chronic wall hypertrophy. Correlate to exclude cystitis. 3. A 4 mm nonobstructive right renal stone. Bilateral benign renal cortical cysts measuring up to 7. 8 cm on the left. 4. Tiny hiatal hernia.
== END | disposition home or self-care (01) ==
LOC: RADCTMAIN 08:55
PROVIDERS: ATTEND Family Medicine
DX: N40.0 Benign prostatic hyperplasia without lower urinary tract symptoms (principal); N20.0 Calculus of kidney; N28.1 Cyst of kidney, acquired; K44.9 Diaphragmatic hernia without obstruction or gangrene; R63.4 Abnormal weight loss
CPT/HCPCS: 74176

== ENCOUNTER 2024-12-31 20:34 | Inpatient (IN) | payer MEDICARE, BC ==
--- NOTE | 2024-12-31 20:49 | ED ---
Weakness HPI - General Chief complaint: Weakness Stated complaint: Fall Time Seen by Provider: 12/31/24 20:45 Source: patient, EMS Mode of arrival: EMS Limitations: no limitations - History of Present Illness Initial comments: This is an 89-year-old male with history of CAD and bladder cancer presenting with daughter for general weakness x 2 days. Patient states he was sitting on the edge of his bed when he began sleeping downwards, landing on his gluteus onto the floor. Denies injury but states was unable to lift him on her own, causing her to call [facility] for assistance. Daughter states patient would normally be able to assist with returning to feet but has been weaker than usual over the past several days and states patient is "not acting like himself". Denies dizziness, chest pain, dyspnea, abdominal pain, N/V/D, cough. MD Complaint: generalized weakness Onset/Timin -: days(s) Location: generalized - Related Data Home Medications Medication Instructions Recorded Confirmed Finasteride [Proscar] 5 mg PO DAILY 09/14/20 11/16/20 Ascorbic Acid [Vitamin C] 1,000 mg PO DAILY 11/15/20 11/16/20 Cholecalciferol [Vitamin D3 (25 25 mcg PO DAILY 11/15/20 11/16/20 Mcg = 1000 Iu)] Fish Oil/Dha/Epa [Fish Oil 1,200 1 each PO DAILY 11/15/20 11/16/20 mg Fish Oil] Previous Rx's Medication Instructions Recorded Atorvastatin [Lipitor] 40 mg PO HS #30 tab 09/15/20 Acetaminophen Tab [Tylenol] 1,000 mg PO Q6HR PRN tab 11/24/20 Amiodarone [Cordarone] 400 mg PO BID #40 tab 11/24/20 Aspirin 325 mg PO DAILY #30 tab 11/24/20 Clopidogrel [Plavix] 75 mg PO DAILY #20 tab 11/24/20 Losartan [Cozaar] 12.5 mg PO DAILY@1200 #30 tab 11/24/20 Metoprolol Tartrate [Lopressor] 50 mg PO BID #60 tab 11/24/20 Pantoprazole [Protonix] 40 mg PO ZANE-PABLO #30 tablet. 11/24/20 Sennosides-Docusate Sodium 2 each PO HS PRN tab 11/24/20 [Senokot-S] Ibuprofen [Motrin] 600 mg PO Q8HR PRN #20 tab 07/04/23 Allergies Allergy/AdvReac Type Severity Reaction Status Date / Time No Known Allergies Allergy Verified 12/31/24 20:36 Review of Systems ROS Statement: Those systems with pertinent positive or pertinent negative responses have been documented in the HPI. ROS Other: All systems not noted in ROS Statement are negative. Past Medical History Past Medical History: Coronary Artery Disease (CAD), Cancer, Eye Disorder, Hearing Disorder / Deafness, Hyperlipidemia, Hypertension, Osteoarthritis (OA), Skin Disorder Additional Past Medical History / Comment(s): SOB at times, psoriasis, hx bladder cancer- had chemo, History of Any Multi-Drug Resistant Organisms: None Reported Past Surgical History: No Surgical Hx Reported Additional Past Surgical History / Comment(s): bladder surgery to remove tumor, "took rib out and drained my lung when I was a baby", elida cataracts Past Anesthesia/Blood Transfusion Reactions: No Reported Reaction Past Psychological History: No Psychological Hx Reported Smoking Status: Never smoker Past Alcohol Use History: None Reported Past Drug Use History: None Reported - Past Family History Father Family Medical History: Myocardial Infarction ([place]) Mother Family Medical History: Myocardial Infarction ([place]) General Exam Limitations: no limitations, physical limitation (Patient is hard of hearing) General appearance: alert, in no apparent distress Head exam: Present: atraumatic, normocephalic, normal inspection Eye exam: Present: normal appearance, PERRL, EOMI. Absent: scleral icterus, conjunctival injection, periorbital swelling ENT exam: Present: normal exam, mucous membranes moist Neck exam: Present: normal inspection. Absent: tenderness, meningismus, lymphadenopathy Respiratory exam: Present: rhonchi (Bronchial breath sounds auscultated at base of right lower lobe). Absent: respiratory distress, wheezes, rales, stridor, accessory muscle use, decreased breath sounds Cardiovascular Exam: Present: regular rate, normal rhythm, normal heart sounds. Absent: systolic murmur, diastolic murmur, rubs, gallop, clicks GI/Abdominal exam: Present: soft, normal bowel sounds. Absent: distended, tenderness, guarding, rebound, rigid Extremities exam: Present: normal inspection, full ROM, normal capillary refill. Absent: tenderness, pedal edema, joint swelling, calf tenderness Back exam: Present: normal inspection Neurological exam: Present: alert, oriented X3, CN II-XII intact Psychiatric exam: Present: normal affect, normal mood Skin exam: Present: warm, dry, intact, normal color. Absent: rash Course Vital Signs 12/31/24 12/31/24 01/01/25 20:36 22:01 00:44 Temperature 101.2 F H Pulse Rate 75 74 76 Respiratory 16 18 18 Rate Blood Pressure 151/67 132/48 138/79 O2 Sat by Pulse 95 94 L 94 L Oximetry Medical Decision Making - Medical Decision Making Was pt. sent in by a medical professional or institution (, PA, MASTIC SPRAYER, urgent care, hospital, or penitentiary...) When possible be specific @ -No Did you speak to anyone other than the patient for history (EMS, parent, family, police, friend...)? What history was obtained from this source @ -Patient's daughter provided majority of HPI Did you review nursing and triage notes (agree or disagree)? Why? @ -I reviewed and agree with nursing and triage notes Were old charts reviewed (outside hosp., previous admission, EMS record, old EKG, old radiological studies, urgent care reports/EKG's, penitentiary records)? Report findings @ -No old charts were reviewed Differential Diagnosis (chest pain, altered mental status, abdominal pain women, abdominal pain men, vaginal bleeding, weakness, fever, dyspnea, syncope, headache, dizziness, GI bleed, back pain, seizure, CVA, palpatations, mental health, musculoskeletal)? @ -Differential Weakness: Hypoglycemia, shock, sepsis, hyponatremia, anemia, infection, [place], ETOH, adverse medicine reaction, overdose, stroke, this is not meant to be an all-inclusive l ist. Differential Fever: Pneumonia, viral URI, endocarditis, myocarditis, pericarditis, otitis, sinu sitis, peritonsillar Abscess, retropharyngeal Abscess, epiglottitis, peritonitis, appendicitis, Lynette cystitis, diverticulitis, hepatitis, colitis, UTI, PID, TOA, pyelonephritis, prostatitis, epididymitis, meningitis, encephalitis, pulmonary embolism, CVA, thyroid storm, pancreatitis, adrenal crisis, cavernous sinus thrombosis, this is not meant to be an all-inclusive list. EKG interpreted by me (3pts min.). @ -Sinus rhythm without ST deviation or T wave inversion. Ventricular rate 76 bpm, BINDU 148 ms, QRS 81 ms, QTc 387 ms. X-rays interpreted by me (1pt min.). @ -CXR shows patchy infiltrates in base of right lung indicating possible atelectasis/pneumonia. CT interpreted by me (1pt min.). @ -None done U/S interpreted by me (1pt. min.). @ -None done What testing was considered but not performed or refused? (CT, X-rays, U/S, labs)? Why? @ -None What meds were considered but not given or refused? Why? @ -None Did you discuss the management of the patient with other professionals (professionals i.e. DrBernardo, PA, MASTIC SPRAYER, lab, RT, psych nurse, licensed master social worker, chain carrier, teacher, jailer/training officer, dependency case manager)? Give summary @ -Spoke to Dr. Wray from [facility] regarding patient admission. Was smoking cessation discussed for >3mins.? @ -No Was critical care preformed (if so, how long)? @ -No Were there social determinants of health that impacted care today? How? (Homelessness, low income, unemployed, alcoholism, drug addiction, transportation, low edu. Level, literacy, decrease access to med. care, custodial, rehab)? @ -No Was there de-escalation of care discussed even if they declined (Discuss DNR or withdrawal of care, Hospice)? DNR status @ -No What co-morbidities impacted this encounter? (DM, HTN, Smoking, COPD, CAD, Cancer, CVA, ARF, Chemo, Hep., AIDS, mental health diagnosis, sleep apnea, morbid obesity)? @ -Bladder CA, CAD Was patient admitted / discharged? Hospital course, mention meds given and route, prescriptions, significant lab abnormalities, going to OR and other pertinent info. @ -Lab work shows CKD, BMP 2330 with contaminated UA. Cepheid test positive for influenza A. CXR shows patchy infiltrates in right lung base indicating possible pneumonia. Patient initially provided IV normal saline and provided p.o. Motrin and Tylenol for fever. Patient provided IV Rocephin, azithromycin and p.o. Tamiflu for flu and pneumonia. Spoke to Dr. Jackson from [facility] for patient admission with typewriter ribbon winder consult. Discussed patient with Dr. Castaneda. Undiagnosed new problem with uncertain prognosis? @ -No Drug Therapy requiring intensive monitoring for toxicity (Heparin, Nitro, Insulin, Cardizem)? @ -No Were any procedures done? @ -No Diagnosis/symptom? @ -Pneumonia, influenza A, CKD Acute, or Chronic, or Acute on Chronic? @ -Acute Uncomplicated (without systemic symptoms) or Complicated (systemic symptoms)? @ -Complicated Side effects of treatment? @ -No Exacerbation, Progression, or Severe Exacerbation? @ -No Poses a threat to life or bodily function? How? (Chest pain, [place], [place], pneumonia, PE, COPD, DKA, ARF, appy, cholecystitis, CVA, Diverticulitis, Homicidal, Suicidal, threat to staff... and all critical care pts) @ -Pneumonia - Lab Data Result diagrams: 12/31/24 21:00 12/31/24 21:00 Lab Results 12/31/24 12/31/24 12/31/24 Range/Units 21:00 21:00 21:00 WBC 6.3 (3.8-10.6) k/uL RBC 3.90 L (4.30-5.90) m/uL Hgb 13.6 (13.0-17.5) gm/dL Hct 42.0 (39.0-53.0) % MCV 107.6 H (80.0-100.0) fL MCH 35.0 (25.0-35.0) pg MCHC 32.5 (31.0-37.0) g/dL RDW 12.3 (11.5-15.5) % Plt Count 152 (150-450) k/uL MPV 10.6 Neutrophils % (Manual) 71 % Band Neuts % (Manual) 7 % Lymphocytes % (Manual) 10 % Monocytes % (Manual) 12 % Neutrophils # (Manual) 4.90 (1.3-7.7) k/uL Lymphocytes # (Manual) 0.63 L (1.0-4.8) k/uL Monocytes # (Manual) 0.76 (0-1.0) k/uL Nucleated RBCs 0 (0-0) /100 WBC Manual Slide Review Performed Macrocytosis Moderate Sodium 139 (137-145) mmol/L Potassium 4.7 (3.5-5.1) mmol/L Chloride 102 (98-107) mmol/L Carbon Dioxide 29 (22-30) mmol/L Anion Gap 8 mmol/L BUN 25 H (9-20) mg/dL Creatinine 1.36 H (0.66-1.25) mg/dL Est GFR (CKD-EPI)AfAm 53 (>60 ml/min/1.73 sqM) Est GFR (CKD-EPI)NonAf 46 (>60 ml/min/1.73 sqM) Glucose 98 (74-99) mg/dL Plasma Lactic Acid Oscar 1.6 (0.7-2.0) mmol/L Calcium 9.1 (8.4-10.2) mg/dL Total Bilirubin 1.1 (0.2-1.3) mg/dL AST 42 (17-59) U/L ALT 41 (4-49) U/L Alkaline Phosphatase 124 (38-126) U/L Total Protein 6.6 (6.3-8.2) g/dL Albumin 4.1 (3.5-5.0) g/dL Influenza Type A (PCR) (Not Detectd) Influenza Type B (PCR) (Not Detectd) RSV (PCR) (Not Detectd) SARS-CoV-2 (PCR) (Not Detectd) 12/31/24 Range/Units 21:00 WBC (3.8-10.6) k/uL RBC (4.30-5.90) m/uL Hgb (13.0-17.5) gm/dL Hct (39.0-53.0) % MCV (80.0-100.0) fL MCH (25.0-35.0) pg MCHC (31.0-37.0) g/dL RDW (11.5-15.5) % Plt Count (150-450) k/uL MPV Neutrophils % (Manual) % Band Neuts % (Manual) % Lymphocytes % (Manual) % Monocytes % (Manual) % Neutrophils # (Manual) (1.3-7.7) k/uL Lymphocytes # (Manual) (1.0-4.8) k/uL Monocytes # (Manual) (0-1.0) k/uL Nucleated RBCs (0-0) /100 WBC Manual Slide Review Macrocytosis Sodium (137-145) mmol/L Potassium (3.5-5.1) mmol/L Chloride (98-107) mmol/L Carbon Dioxide (22-30) mmol/L Anion Gap mmol/L BUN (9-20) mg/dL Creatinine (0.66-1.25) mg/dL Est GFR (CKD-EPI)AfAm (>60 ml/min/1.73 sqM) Est GFR (CKD-EPI)NonAf (>60 ml/min/1.73 sqM) Glucose (74-99) mg/dL Plasma Lactic Acid Oscar (0.7-2.0) mmol/L Calcium (8.4-10.2) mg/dL Total Bilirubin (0.2-1.3) mg/dL AST (17-59) U/L ALT (4-49) U/L Alkaline Phosphatase (38-126) U/L Total Protein (6.3-8.2) g/dL Albumin (3.5-5.0) g/dL Influenza Type A (PCR) Detected A (Not Detectd) Influenza Type B (PCR) Not Detected (Not Detectd) RSV (PCR) Not Detected (Not Detectd) SARS-CoV-2 (PCR) Not Detected (Not Detectd) Disposition Clinical Impression: Pneumonia, Influenza A, CKD (chronic kidney disease) Disposition: ADMITTED IP TO THIS [facility] Condition: Good Is patient prescribed a controlled substance at d/c from ED?: No Time of Disposition: 23:17 Decision Date: 12/31/24 Decision Time: 23:17
[2024-12-31] MEDS: ACETAMINOPHEN TAB 500 MG TAB PO STA (21:22)
[2024-12-31] MEDS: SODIUM CHLORIDE 0.9% 1,000 ML IV STA (21:23)
[2024-12-31] MEDS: IBUPROFEN 800 MG TAB PO STA (21:23)
--- NOTE | 2024-12-31 21:35 | XR ---
EXAMINATION TYPE: XR chest 2V DATE OF EXAM: 12/31/2024 9:28 PM COMPARISON: Chest radiographs, most recently dated 06/18/2021. CLINICAL INDICATION: Male, 89 years old with history of Fever; [facility] TECHNIQUE: XR chest 2V Frontal and lateral views of the chest. FINDINGS: Lungs/Pleura: Patchy infiltrates at the right lung base suggestive of atelectasis and/or pneumonia. N o pleural effusion or pneumothorax. Pulmonary vascularity: Unremarkable. Heart/mediastinum: Cardia mainly. Median sternotomy wires. Atrial appendage occlusion device. Musculoskeletal: No acute osseous pathology. Other findings: None IMPRESSION: Patchy infiltrates at the right lung base suggestive of atelectasis and/or pneumonia. [facility], , 12/31/2024 9:32 PM
[2024-12-31 21:42] LABS: African American GFR (CKD) 53 (>60 ml/min/1.73 sqM); Albumin 4.1 g/dL (3.5-5.0); Anion Gap 8 mmol/L; Blood Urea Nitrogen 25 mg/dL (9-20); Calcium 9.1 mg/dL (8.4-10.2); Carbon Dioxide 29 mmol/L (22-30); Chloride 102 mmol/L (98-107); Glucose 98 mg/dL (74-99); Non-African American GFR(CKD) 46 (>60 ml/min/1.73 sqM); Potassium 4.7 mmol/L (3.5-5.1); Sodium 139 mmol/L (137-145); Total Protein 6.6 g/dL (6.3-8.2)
[2024-12-31 21:43] LABS: ALT 41 U/L (4-49); AST 42 U/L (17-59); Alkaline Phosphatase 124 U/L (38-126); Total Bilirubin 1.1 mg/dL (0.2-1.3)
[2024-12-31 22:16] LABS: Influenza A Detected (Not Detectd); Influenza B Not Detected (Not Detectd); RSV Not Detected (Not Detectd)
[2024-12-31 22:20] LABS: HGB 13.6 gm/dL (13.0-17.5); MCHC 32.5 g/dL (31.0-37.0); MCV 107.6 fL (80.0-100.0); Macrocytosis Moderate; Mean Platelet Volume 10.6; Platelet Count 152 k/uL (150-450); RDW 12.3 % (11.5-15.5); WBC 6.3 k/uL (3.8-10.6)
[2024-12-31 23:24] LABS: Band Neutrophils % 7 %; Lymphocytes # (M) 0.63 k/uL (1.0-4.8); Monocytes # (M) 0.76 k/uL (0-1.0); Neutrophils % (M) 71 %; Nucleated Red Blood Cells 0 /100 WBC (0-0); Total Cells Counted 100
[2024-12-31] MEDS ORDERED: PNEUMONIA PROTOCOL UTILIZED 1 EACH MISC PO PRN (23:26)
[2024-12-31] MEDS: OSELTAMIVIR 75 MG CAP PO STA (23:34)
[2024-12-31] MEDS: SODIUM CHLORIDE 0.9% 500 ML 500 ML IV STA (23:34)
[2024-12-31] MEDS: AZITHROMYCIN 500 MG in SODIUM CHLORIDE 0.9% 250 ML IVPB STA (23:44)
[2024-12-31] MEDS: SODIUM CHLORIDE 0.9% 1,000 ML IV SCH (23:45)
[2025-01-01] MEDS ORDERED: IBUPROFEN 600 MG TAB PO PRN (00:04)
[2025-01-01 06:26] LABS: Amorphous Sediment,Urine Rare /hpf; Appearance,Urine Clear (Clear); Bilirubin,Urine Negative (Negative); Blood,Urine Negative (Negative); Color,Urine Yellow; Glucose,Urine (UA) Negative (Negative); Hyaline Casts,Urine 10 /lpf (0-2); Ketones,Urine Negative (Negative); Leukocyte Esterase,Urine Moderate (Negative); Mucus,Urine Occasional /hpf; Nitrite,Urine Negative (Negative); PH, Urine 5.5 (5.0-8.0); Protein,Urine Trace (Negative); RBC,Urine 3 /hpf (0-5); Specific Gravity,Urine 1.022 (1.001-1.035); Squamous Epithelial Cell,Urine 1 /hpf (0-4); Urobilinogen,Urine <2.0 mg/dL (<2.0); WBC,Urine 7 /hpf (0-5)
[2025-01-01] MEDS: AZITHROMYCIN 500 MG TAB PO SCH (09:12)
[2025-01-01] MEDS: OSELTAMIVIR 30 MG CAP PO SCH (11:45)
--- NOTE | 2025-01-01 13:40 | P.HPIM ---
History of Present Illness H&P Date: 01/01/25 History of present illness; patient is a 89-year-old gentleman with past medical history significant for hypertension, coronary disease presented the ER for generalized weakness and fall. According to family patient has been feeling weak for the last couple of days. Patient has not been acting his normal self. Patient has been lethargic. There has been no complaint of fever or chills. There is no current chest pain or shortness of breath. This morning while trying to get out of the bed, patient slipped from the edge of the bed landing on the floor on his buttocks,. There was no obvious trauma. Patient was so weak that he was unable to get up off the floor so called for help and patient was brought to the ER Initial lab work done in the ER showed WB 6.3, hemoglobin 13.6, platelet count 152, sodium 139, potassium 4.7, BUN 25, creatinine 1.36, glucose 98, lactic acid 1.6, AST 42, ALT 41, proBNP 2330 UA negative for any infection Influenza A detected Influenza B not detected RSV not detected COVID-19 not detected EKG done in the ER showed heart rate of 76, no ST segment elevation or depression seen, no T-wave inversions seen. Chest x-ray done in the ER showed patchy infiltrates at the right lung base suggestive of pneumonia Patient admitted to internal medicine service REVIEW OF SYSTEMS: CONSTITUTIONAL: As mentioned above HEENT: No recent visual problems or hearing problems. Denied any sore throat. CARDIOVASCULAR: No chest pain, orthopnea, PND, no palpitations, no syncope. PULMONARY: No shortness of breath, no cough, no hemoptysis. GASTROINTESTINAL: No diarrhea, no nausea, no vomiting, no abdominal pain. NEUROLOGICAL: No headaches, no weakness, no numbness. HEMATOLOGICAL: Denies any bleeding or petechiae. GENITOURINARY: Denies any burning micturition, frequency, or urgency. MUSCULOSKELETAL/RHEUMATOLOGICAL: Denies any joint pain, swelling, or any muscle pain. ENDOCRINE: Denies any polyuria or polydipsia. The rest of the 14-point review of systems is negative. PHYSICAL EXAMINATION: GENERAL: The patient is alert, ill looking HEENT: Pupils are round and equally reacting to light. EOMI. No scleral icterus. No conjunctival pallor. Normocephalic, atraumatic. No pharyngeal erythema. No thyromegaly. CARDIOVASCULAR: S1 and S2 present. No murmurs, rubs, or gallops. PULMONARY: Chest is clear to auscultation, no wheezing or crackles. ABDOMEN: Soft, nontender, nondistended, normoactive bowel sounds. No palpable organomegaly. MUSCULOSKELETAL: No joint swelling or deformity. EXTREMITIES: No cyanosis, clubbing, or pedal edema. NEUROLOGICAL: Gross neurological examination did not reveal any focal deficits. SKIN: No rashes. Assessment and plan Acute influenza A infection Bacterial pneumonia Generalized weakness Fall History of coronary artery disease History of hyperlipidemia history of hypertension Monitor vital signs Monitor CBC Monitor CMP Continue telemetry monitoring Ordered blood cultures Ordered Pro-Sivakumar Start Tamiflu Start IV Rocephin azithromycin Continue IV fluids Resume home med Ordered PT and OT Labs and medication were reviewed.. Continue same treatment. Continue with symptomatic treatment. Resume home medication. Monitor labs and vitals. DVT and GI prophylaxis. Further recommendations as per clinical course of the patient Dictation was produced using [employer] dictation software. please excuse any grammatical, word or spelling errors. Past Medical History Past Medical History: Coronary Artery Disease (CAD), Cancer, Eye Disorder, Hearing Disorder / Deafness, Hyperlipidemia, Hypertension, Osteoarthritis (OA), Skin Disorder Additional Past Medical History / Comment(s): SOB at times, psoriasis, hx bladder cancer- had chemo, History of Any Multi-Drug Resistant Organisms: None Reported Past Surgical History: No Surgical Hx Reported Additional Past Surgical History / Comment(s): bladder surgery to remove tumor, "took rib out and drained my lung when I was a baby", [place] cataracts Past Anesthesia/Blood Transfusion Reactions: No Reported Reaction Past Psychological History: No Psychological Hx Reported Smoking Status: Never smoker Past Alcohol Use History: None Reported Additional Past Alcohol Use History / Comment(s): quit smoking 20 yrs ago, smoked for 50 yrs Past Drug Use History: None Reported - Past Family History Father Family Medical History: Myocardial Infarction ([place]) Mother Family Medical History: Myocardial Infarction ([place]) Medications and Allergies Home Medications Medication Instructions Recorded Confirmed Type Atorvastatin [Lipitor] 40 mg PO DAILY 01/01/25 01/01/25 History Fluticasone Nasal [place] [Flonase 2 spray EA NOSTRIL DAILY 01/01/25 01/01/25 H istory Nasal [place]] Furosemide [Lasix] 20 mg PO DAILY 01/01/25 01/01/25 History Metoprolol Tartrate [Lopressor] 50 mg PO BID-W/MEALS 01/01/25 01/01/25 History Potassium Chloride ER [K-Dur 20] 20 meq PO Q2D 01/01/25 01/01/25 History Allergies Allergy/AdvReac Type Severity Reaction Status Date / Time No Known Allergies Allergy Verified 01/01/25 13:23 Physical Exam Vitals: Vital Signs Temp Pulse Pulse Resp BP BP Pulse Ox 01/01/25 07:18 97.6 F 68 18 139/55 93 L 01/01/25 03:31 68 19 01/01/25 00:55 68 01/01/25 00:49 19 106/60 98 01/01/25 00:44 76 18 138/79 94 L 12/31/24 22:01 74 18 132/48 94 L 12/31/24 20:36 101.2 F H 75 16 151/67 95 Intake and Output 12/31/24 01/01/25 01/01/25 21:59 06:59 14:59 Output Total Balance Output: Urine Post Void Residual Other: Weight Results CBC & Chem 7: 12/31/24 21:00 12/31/24 21:00 Labs: Abnormal Lab Results - Last 24 Hours (Table) 12/31/24 12/31/24 12/31/24 Range/Units 21:00 21:00 21:00 RBC 3.90 L (4.30-5.90) m/uL MCV 107.6 H (80.0-100.0) fL Lymphocytes # (Manual) 0.63 L (1.0-4.8) k/uL BUN 25 H (9-20) mg/dL Creatinine 1.36 H (0.66-1.25) mg/dL Urine Protein (Negative) Ur Leukocyte Esterase (Negative) Urine WBC (0-5) /hpf Amorphous Sediment (None) /hpf Hyaline Casts (0-2) /lpf Urine Mucus (None) /hpf Influenza Type A (PCR) Detected A (Not Detectd) 01/01/25 Range/Units 05:40 RBC (4.30-5.90) m/uL MCV (80.0-100.0) fL Lymphocytes # (Manual) (1.0-4.8) k/uL BUN (9-20) mg/dL Creatinine (0.66-1.25) mg/dL Urine Protein Trace H (Negative) Ur Leukocyte Esterase Moderate H (Negative) Urine WBC 7 H (0-5) /hpf Amorphous Sediment Rare H (None) /hpf Hyaline Casts 10 H (0-2) /lpf Urine Mucus Occasional H (None) /hpf Influenza Type A (PCR) (Not Detectd) Thrombosis Risk Factor Assmnt - Choose All That Apply Each Factor Represents 1 point: Obesity (BMI >25), Swollen legs (current) Each Risk Factor Represents 3 Points: Age 75 years or older Thrombosis Risk Factor Assessment Total Risk Factor Score: 5 Thrombosis Risk Factor Assessment Level: High Risk
--- NOTE | 2025-01-01 14:07 | P.CNPUL ---
History of Present Illness Consult date: 01/01/25 Requesting physician: Tunde rWay Reason for consult: dyspnea, hypoxemia, abnormal CXR/CT Chief complaint: Weakness, shortness of breath History of present illness: This is an 89-year-old male patient with a known history of bladder cancer, coronary artery disease, former smoker, coronary artery disease, hearing disorder, hypertension, hyperlipidemia who presented here to the emergency room last evening after sliding off the side of his bed landing on his buttocks. Denied any injury however his could not lift him back up and EMS was called. He has been increasingly weak and not acting like himself. X-ray reveals patchy infiltrates in the right lung base suggestive of atelectasis ve rsus pneumonia. EKG reveals sinus rhythm without any significant ST or T wave abnormalities. 13.6. Platelets 152. Sodium 139. Potassium 4.7. Bicarb 29. BUN 3025. BUN 1.36. Lactic acid 1.6. proBNP 2330. Procalcitonin negative at 0.17. Viral screen is positive for influenza A. Patient on the regular medical floor. He is currently resting in bed. Awake and alert in no acute distress. Maintaining O2 saturations in the 90s on 2 L/min per nasal cannula. He was initiated on ceftriaxone and azithromycin. He has normal saline at 100 mL/h. Initiated on Tamiflu. Review of Systems REVIEW OF SYSTEMS: CONSTITUTIONAL: Positive for generalized weakness, falls. Denies any recent significant weight loss or weight gain. EYES: Denies change in vision. EARS, NOSE, MOUTH, THROAT: Denies headaches, denies sore throat. CARDIOVASCULAR: Denies chest pain, palpitations or syncopal episodes. RESPIRATORY: Denies shortness of breath, cough, congestion or hemoptysis. GASTROINTESTINAL: Denies change in appetite, denies abdominal pain GENITOURINARY: Denies hematuria, denies infections. MUSKULOSKELETAL: Denies pain, denies swelling. INTEGUMENTARY: Denies rash, denies eczema. NEUROLOGICAL: Denies recent memory loss, no recent seizure activity. PSYCHIATRIC: Denies anxiety, denies depression. HEMATOLOGIC/LYMPHATIC: Denies anemia, denies enlarged lymph nodes. Past Medical History Past Medical History: Coronary Artery Disease (CAD), Cancer, Eye Disorder, Hearing Disorder / Deafness, Hyperlipidemia, Hypertension, Osteoarthritis (OA), Skin Disorder Additional Past Medical History / Comment(s): SOB at times, psoriasis, hx bladder cancer- had chemo, History of Any Multi-Drug Resistant Organisms: None Reported Past Surgical History: No Surgical Hx Reported Additional Past Surgical History / Comment(s): bladder surgery to remove tumor, "took rib out and drained my lung when I was a baby", elida cataracts Past Anesthesia/Blood Transfusion Reactions: No Reported Reaction Past Psychological History: No Psychological Hx Reported Smoking Status: Never smoker Past Alcohol Use History: None Reported Additional Past Alcohol Use History / Comment(s): quit smoking 20 yrs ago, smoked for 50 yrs Past Drug Use History: None Reported - Past Family History Father Family Medical History: Myocardial Infarction ([place]) Mother Family Medical History: Myocardial Infarction ([place]) Medications and Allergies Home Medications Medication Instructions Recorded Confirmed Type Atorvastatin [Lipitor] 40 mg PO DAILY 01/01/25 01/01/25 History Fluticasone Nasal [place] [Flonase 2 spray EA NOSTRIL DAILY 01/01/25 01/01/25 History Nasal [place]] Furosemide [Lasix] 20 mg PO DAILY 01/01/25 01/01/25 History Metoprolol Tartrate [Lopressor] 50 mg PO BID-W/MEALS 01/01/25 01/01/25 History Potassium Chloride ER [K-Dur 20] 20 meq PO Q2D 01/01/25 01/01/25 History Allergies Allergy/AdvReac Type Severity Reaction Status Date / Time No Known Allergies Allergy Verified 01/01/25 13:23 Physical Exam Vitals: Vital Signs Temp Pulse Pulse Resp BP BP Pulse Ox 01/01/25 07:18 97.6 F 68 18 139/55 93 L 01/01/25 03:31 68 19 01/01/25 00:55 68 01/01/25 00:49 19 106/60 98 01/01/25 00:44 76 18 138/79 94 L 12/31/24 22:01 74 18 132/48 94 L 12/31/24 20:36 101.2 F H 75 16 151/67 95 Intake and Output 12/31/24 01/01/25 01/01/25 21:59 06:59 14:59 Output Total Balance Output: Urine Post Void Residual Other: Weight GENERAL EXAM: Alert, pleasant 89-year-old male patient, on 2 L nasal cannula, fairly comfortable in no apparent distress. HEAD: Normocephalic. EYES: Normal reaction of pupils, equal size. NOSE: Clear with pink turbinates. THROAT: No erythema or exudates. NECK: No masses, no JVD. CHEST: No chest wall deformity. LUNGS: Equal air entry with crackles in the right lung base. CVS: S1 and S2 normal with no audible murmur, regular rhythm. ABDOMEN: No hepatosplenomegaly, normal bowel sounds, no guarding or rigidity. SPINE: No scoliosis or deformity SKIN: No rashes CENTRAL NERVOUS SYSTEM: No focal deficits, tone is normal in all 4 extremities. EXTREMITIES: There is no peripheral edema. No clubbing, no cyanosis. Peripheral pulses are intact. Results - Laboratory Findings CBC and BMP: 12/31/24 21:00 12/31/24 21:00 Abnormal lab findings: Abnormal Labs 12/31/24 12/31/24 12/31/24 21:00 21:00 21:00 RBC 3.90 L MCV 107.6 H Lymphocytes # (Manual) 0.63 L BUN 25 H Creatinine 1.36 H Urine Protein Ur Leukocyte Esterase Urine WBC Amorphous Sediment Hyaline Casts Urine Mucus Influenza Type A (PCR) Detected A 01/01/25 05:40 RBC MCV Lymphocytes # (Manual) BUN Creatinine Urine Protein Trace H Ur Leukocyte Esterase Moderate H Urine WBC 7 H Amorphous Sediment Rare H Hyaline Casts 10 H Urine Mucus Occasional H Influenza Type A (PCR) - Diagnostic Findings Chest x-ray: image reviewed Assessment and Plan Assessment: Generalized weakness and falls unable to get up secondary to influenza A Acute influenza A infection gated on Tamiflu Acute kidney injury secondary to dehydration secondary to above Acute hypoxic respiratory failure secondary to right lower lobe atelectasis and possible fluid volume overload. Procalcitonin negative Hypertension Hyperlipidemia Plan: The patient was seen and evaluated Chest x-ray, labs and medications reviewed Procalcitonin negative Antibiotics will be discontinued Continue Tamiflu Continue fluid resuscitation Titrate down/off the FiO2 as tolerated We will continue to follow and make further recommendations based on his clinical status I have personally seen and examined the patient, performed the documentation and the assessment and plan as written. Number of minutes spent on the visit: 20 Dictation was produced using [employer] software. Please excuse any grammatical, word or spelling errors.
[2025-01-01] MEDS: ACETAMINOPHEN TAB 325 MG TAB PO PRN (16:32)
[2025-01-01] MEDS: METOPROLOL TARTRATE 50 MG TAB PO SCH (16:32)
[2025-01-02 08:15] LABS: ALT 68 U/L (10-49); AST 72 U/L (14-35); Albumin 3.6 g/dL (3.8-4.9); Alkaline Phosphatase 132 U/L (41-126); BUN/Creat Ratio 17.83 Ratio (12.00-20.00); Blood Urea Nitrogen 21.4 mg/dL (9.0-27.0); Calcium 8.4 mg/dL (8.7-10.3); Carbon Dioxide 25.9 mmol/L (21.6-31.8); Chloride 104 mmol/L (96-109); Glucose 90 mg/dL (70-110); Sodium 139 mmol/L (135-145); Total Bilirubin 0.7 mg/dL (0.3-1.2); Total Protein 5.6 g/dL (6.2-8.2)
[2025-01-02] MEDS: FLUTICASONE NASAL 50MCG/SPRAY 16GM BTL EA NOSTRIL SCH (09:01)
[2025-01-02] MEDS: ATORVASTATIN 40 MG TAB PO SCH (09:01)
[2025-01-02 10:14] LABS: Basophils # (A) 0.02 X 10*3/uL (0.00-0.10); Basophils % (A) 0.3 %; Eosinophils # (A) 0.01 X 10*3/uL (0.04-0.35); Eosinophils % (A) 0.1 %; HCT 35.5 % (39.6-50.0); HGB 11.4 g/dL (13.0-17.0); Lymphocytes # (A) 1.29 X 10*3/uL (0.90-5.00); Lymphocytes % (A) 17.8 %; MCH 35.2 pg (27.0-32.0); MCHC 32.1 g/dL (32.0-37.0); MCV 109.6 FL (80.0-97.0); Mean Platelet Volume 13.5 FL (9.5-12.2); Monocytes % (A) 13.8 %; NRBC Per 100 WBC 0 X 10*3/uL (0.00-0.01); Neutrophils # (A) 4.91 X 10*3/uL (1.80-7.70); Neutrophils % (A) 67.6 %; Platelet Count 140 X 10*3/uL (140-440); RBC 3.24 X 10*6/uL (4.40-5.60); RDW 12.7 % (11.5-14.5); WBC 7.26 X 10*3/uL (4.50-10.00)
[2025-01-02 12:57] VITALS: BP 105/73; PULSE 56; RESP 18; TEMP 97.3
--- NOTE | 2025-01-02 17:00 | P.PN ---
Subjective Progress Note Date: 01/02/25 On today's evaluation of 01/02/2025, the patient is feeling much improved. Denies having any specific complaints. No cough sputum production she is not still wheezing. Is currently on room air oxygen. Ambulating. No chest pain. No nausea. No emesis. No other specific complaints otherwise for now. His labs were reviewed and the patient has a white cell count of 7.2 with a hemoglobin 9.4 and a platelet count of 140. Electrolytes are all within normal limits. BUN is 21 with a creatinine of 1.2. LFTs were slightly elevated on today's blood work. Procalcitonin level is at 0.17. The patient has no complaints. The patient is going to be discharged home on a course of Tamiflu. Home medications to be resumed. Objective - Vital Signs Vital signs: Vital Signs Temp 97.3 F L 01/02/25 12:00 Pulse 56 L 01/02/25 12:00 Resp 18 01/02/25 12:00 BP 105/73 01/02/25 12:00 Pulse Ox 95 01/02/25 12:00 FiO2 Intake & Output 01/01/25 01/02/25 01/02/25 18:59 06:59 18:59 Intake Total 410 540 Balance 410 540 Intake: Intake, IV Titration 50 Amount cefTRIAXone 2 gm In 50 Sodium Chloride 0.9% 50 ml @ 100 mls/hr IVPB Q24HR [facility] Rx#:[id number] Oral 360 540 Other: # Voids 2 2 # Bowel Movements 1 - Exam GENERAL EXAM: Alert, pleasant 89-year-old male patient, on room air oxygen, fairly comfortable in no apparent distress. HEAD: Normocephalic. EYES: Normal reaction of pupils, equal size. NOSE: Clear with pink turbinates. THROAT: No erythema or exudates. NECK: No masses, no JVD. CHEST: No chest wall deformity. LUNGS: Equal air entry with crackles in the right lung base. CVS: S1 and S2 normal with no audible murmur, regular rhythm. ABDOMEN: No hepatosplenomegaly, normal bowel sounds, no guarding or rigidity. SPINE: No scoliosis or deformity SKIN: No rashes CENTRAL NERVOUS SYSTEM: No focal deficits, tone is normal in all 4 extremities. EXTREMITIES: There is no peripheral edema. No clubbing, no cyanosis. Peripheral pulses are intact. - Labs CBC & Chem 7: 01/02/25 02:52 03 02:52 Labs: Abnormal Lab Results - Last 24 Hours (Table) 01/02/25 01/02/25 Range/Units 02:52 02:52 RBC 3.24 L (4.40-5.60) X 10*6/uL Hgb 11.4 L (13.0-17.0) g/dL Hct 35.5 L (39.6-50.0) % MCV 109.6 H (80.0-97.0) FL MCH 35.2 H (27.0-32.0) pg MPV 13.5 H (9.5-12.2) FL Eosinophils # 0.01 L (0.04-0.35) X 10*3/uL Est GFR (CKD-EPI) 58 L (>=60) Calcium 8.4 L (8.7-10.3) mg/dL AST 72 H (14-35) U/L ALT 68 H (10-49) U/L Alkaline Phosphatase 132 H (41-126) U/L Total Protein 5.6 L (6.2-8.2) g/dL Albumin 3.6 L (3.8-4.9) g/dL Microbiology - Last 24 Hours (Table) 01/02/25 06:08 Gram Stain - Preliminary Sputum 12/31/24 21:00 Blood Culture - Preliminary Blood Assessment and Plan Plan: Generalized weakness and falls unable to get up secondary to influenza A, clinically improved and the patient is back to baseline Acute influenza A infection gated on Tamiflu Acute kidney injury secondary to dehydration secondary to above, improved and the creatinine is currently down to 1.2 Acute hypoxic respiratory failure secondary to right lower lobe atelectasis and possible fluid volume overload. Procalcitonin negative, improved and the patient is currently on room air oxygen Hypertension Hyperlipidemia Plan: The patient is to go home today on a course of Tamiflu Procalcitonin negative Antibiotics will be discontinued Continue Tamiflu, completed 5-day course Follow-up with primary care.
--- NOTE | 2025-01-02 21:42 | P.DS ---
Providers Date of admission: 12/31/24 23:26 Expected date of discharge: 01/02/25 Attending physician: Pradeep Edmonds Consults: 12/31/24 23:26 Consult Physician Stat Consulting Provider: Jorgito Juan Reason/Comments: Pneumonia, influenza Do you want consulting provider notified?: Yes, Notify in am Primary care physician: [facility] Course: History of present illness; patient is a 89-year-old gentleman with past medical history significant for hypertension, coronary disease presented the ER for generalized weakness and fall. According to family patient has been feeling weak for the last couple of days. Patient has not been acting his normal self. Patient has been lethargic. There has been no complaint of fever or chills. There is no current chest pain or shortness of breath. This morning while trying to get out of the bed, patient slipped from the edge of the bed landing on the floor on his buttocks,. There was no obvious trauma. Patient was so weak that he was unable to get up off the floor so called for help and patient was brought to the ER Initial lab work done in the ER showed WB 6.3, hemoglobin 13.6, platelet count 152, sodium 139, potassium 4.7, BUN 25, creatinine 1.36, glucose 98, lactic acid 1.6, AST 42, ALT 41, proBNP 2330 UA negative for any infection Influenza A detected Influenza B not detected RSV not detected COVID-19 not detected EKG done in the ER showed heart rate of 76, no ST segment elevation or depression seen, no T-wave inversions seen. Chest x-ray done in the ER showed patchy infiltrates at the right lung base suggestive of pneumonia Patient admitted to internal medicine service January 02: Up in a chair. Some congested cough. Feeling much better. Family at the bedside. Including and daughter. Extremely keen to go home. Pulse ox 95% on room air. Family requesting patient be discharged. Will discharge on Tamiflu. Albuterol added. Discussed. Discussion and discharge planning more than 35 minutes On examination: VITAL SIGNS: [97.3, 56, 18, 105 x 73, 95% room air] GENERAL APPEARANCE: Up in a chair, HEENT: Normal external appearance of nose and ear. Oral cavity normal EYES: Pupils equal. Conjunctiva normal. NECK: JVD not raised. Mass not palpable. RESPIRATORY: Respiratory effort increased. Lungs slight wheezing. CARDIOVASCULAR: First and second sounds normal. No edema. ABDOMEN: Soft. Liver and spleen not palpable. No tenderness. No mass palpable. PSYCHIATRY: Answering questions appropriately INVESTIGATIONS, reviewed in the clinical context: January 02, 2025: White count 7.2 hemoglobin 11.4 platelets 140 sodium 139 potassium 4 creatinine 1.2 Influenza type a detected Chest x-ray: Patchy infiltrate right lung base. Procalcitonin 0.17 Assessment and plan Acute influenza A infection, with pneumonitis: Clinically better Doubt bacterial pneumonia Generalized weakness: Better Fall coronary artery disease hyperlipidemia hypertension Disposition: Home Past Medical History Past Medical History: Coronary Artery Disease (CAD), Cancer, Eye Disorder, Hearing Disorder / Deafness, Hyperlipidemia, Hypertension, Osteoarthritis (OA), Skin Disorder Additional Past Medical History / Comment(s): SOB at times, psoriasis, hx bladder cancer- had chemo, History of Any Multi-Drug Resistant Organisms: None Reported Past Surgical History: No Surgical Hx Reported Additional Past Surgical History / Comment(s): bladder surgery to remove tumor, "took rib out and drained my lung when I was a baby", [place] cataracts Past Anesthesia/Blood Transfusion Reactions: No Reported Reaction Past Psychological History: No Psychological Hx Reported Smoking Status: Never smoker Past Alcohol Use History: None Reported Additional Past Alcohol Use History / Comment(s): quit smoking 20 yrs ago, smoked for 50 yrs Past Drug Use History: None Reported - Past Family History Father Family Medical History: Myocardial Infarction ([place]) Mother Family Medical History: Myocardial Infarction ([place]) Plan - Discharge Summary New Discharge Prescriptions: New Albuterol Sulfate [Albuterol Sulfate Hfa] 2 puff PO Q6H #8.5 gm Oseltamivir [Tamiflu] 75 mg PO Q12HR #10 cap Continue Potassium Chloride ER [K-Dur 20] 20 meq PO Q2D Metoprolol Tartrate [Lopressor] 50 mg PO BID-W/MEALS Atorvastatin [Lipitor] 40 mg PO DAILY Furosemide [Lasix] 20 mg PO DAILY Fluticasone Nasal [place] [Flonase Nasal [place]] 2 spray EA NOSTRIL DAILY Discharge Medication List Atorvastatin [Lipitor] 40 mg PO DAILY 01/01/25 [History] Fluticasone Nasal [place] [Flonase Nasal [place]] 2 spray EA NOSTRIL DAILY 01/01/25 [History] Furosemide [Lasix] 20 mg PO DAILY 01/01/25 [History] Metoprolol Tartrate [Lopressor] 50 mg PO BID-W/MEALS 01/01/25 [History] Potassium Chloride ER [K-Dur 20] 20 meq PO Q2D 01/01/25 [History] Albuterol Sulfate [Albuterol Sulfate Hfa] 2 puff PO Q6H #8.5 gm 01/02/25 [Rx] Oseltamivir [Tamiflu] 75 mg PO Q12HR #10 cap 01/02/25 [Rx] Follow up Appointment(s)/Referral(s): Darrin Valencia DO [Primary Care Provider] - 1-2 days Patient Instructions/Handouts: Influenza (ED), Community Acquired Pneumonia (ED) Activity/Diet/Wound Care/Special Instructions: Alternate Tylenol/Motrin every 4 hours for fever. Follow-up with PCP in the next 24-48 hours. Discharge Disposition: HOME SELF-CARE
== END 2025-01-02 13:42 | disposition home or self-care (01) | DRG 193 ==
LOC: EC 20:34 → 4SSUR 23:26
PROVIDERS: ADMIT Hospitalist; ATTEND Hospitalist
DX: J10.00 Influenza due to other identified influenza virus with unspecified type of pneumonia (principal); J96.01 Acute respiratory failure with hypoxia; Z11.52 Encounter for screening for COVID-19; I12.9 Hypertensive chronic kidney disease with stage 1 through stage 4 chronic kidney disease, or unspecified chronic kidney disease; N18.9 Chronic kidney disease, unspecified; N17.9 Acute kidney failure, unspecified; E78.5 Hyperlipidemia, unspecified; E86.0 Dehydration; H91.90 Unspecified hearing loss, unspecified ear; I25.10 Atherosclerotic heart disease of native coronary artery without angina pectoris; W01.0XXA Fall on same level from slipping, tripping and stumbling without subsequent striking against object, initial encounter; Z79.02 Long term (current) use of antithrombotics/antiplatelets; Z79.82 Long term (current) use of aspirin; Z79.899 Other long term (current) drug therapy; Z82.49 Family history of ischemic heart disease and other diseases of the circulatory system; Z85.51 Personal history of malignant neoplasm of bladder; Z87.891 Personal history of nicotine dependence; R53.1 Weakness; M19.90 Unspecified osteoarthritis, unspecified site; L40.9 Psoriasis, unspecified; Z92.21 Personal history of antineoplastic chemotherapy; Z98.42 Cataract extraction status, left eye; Z98.41 Cataract extraction status, right eye
CPT/HCPCS: 36415; 71046; 80053; 81001; 83605; 83880; 84145; 85025; 87040; 87070; 87205; 87449; 87636; 96361; 96365; 96375; 99285